=== PATIENT | female | born 1965 | race Caucasian/White ===

== ENCOUNTER → 2018-07-02 | Outpatient (CLI) | payer OTHER ==
[2018-07-02 14:01] VITALS: BP 127/86; PULSE 106; RESP 18
--- NOTE | 2018-07-02 14:08 | P.CONS ---
History of Present Illness - Reason for Consult Consult date: 07/02/18 - Chief Complaint Lower back pain - History of Present Illness This is a 53-year-old lady with history of chronic lower back pain with radiation to the knees bilaterally. The patient denies any bowel or bladder dysfunction or any paresthesia in the lower extremities. This pain gets worse by walking and improves by lying down and using [place] once or twice a day. Her MRI showed severe disc desiccation in all the lumbar levels. The patient uses tobacco but she denies using any marijuana however she does have history of using marijuana in the past. Review of Systems Cardiovascular: Denies chest pain, Denies shortness of breath Respiratory: Reports cough with sputum Musculoskeletal: Reports as per HPI Past Medical History Smoking Status: Current every day smoker Medications and Allergies Home Medications Medication Instructions Recorded Confirmed Type ARIPiprazole [Abilify] 1 mg PO DAILY 07/02/18 07/02/18 History Cetirizine HCl 1 tab PO DIRECTED 07/02/18 07/02/18 History Cyclobenzaprine [Flexeril] 1 tab PO TID 07/02/18 07/02/18 History Hydrocodone/Acetaminophen [Lorcet 1 tab PO DAILY 07/02/18 07/02/18 History Plus 7.5-325 mg Tablet] Ibuprofen [Motrin] 1 tab PO TID 07/02/18 07/02/18 History PARoxetine HCL [Paxil] 1 tab PO DAILY 07/02/18 07/02/18 History Allergies Allergy/AdvReac Type Severity Reaction Status Date / Time risperidone AdvReac Dyspnea Verified 07/02/18 13:40 Physical Exam Vitals: Vital Signs Pulse Resp BP Pulse Ox 07/02/18 13:48 106 H 18 127/86 94 L Intake and Output 07/01/18 07/02/18 07/02/18 22:59 06:59 14:59 Other: Weight 86.183 kg - Constitutional General appearance: obese - EENT Eyes: PERRLA - Respiratory Respiratory: bilateral: CTA - Cardiovascular Rhythm: regular - Neurologic Neuro exam of the lower extremities showed normal and symmetrical muscle strength and normal knee reflexes. Decreased but symmetrical ankle reflexes. Straight leg raising test negative bilaterally. She has tenderness in the lumbar paravertebral area bilaterally. Facet loading test is positive Neurologic: CNII-XII intact - Psychiatric Psychiatric: A&O x's 3, appropriate affect, intact judgment & insight Assessment and Plan Plan: This is a 53-year-old lady with severe degree of lumbar disc desiccation and I'll the lumbar levels. The patient may benefit from getting a diagnostic lumbar medial branch block under fluoroscopic guidance and RFA in the future. The patient is encouraged to continue trying to quit tobacco usage. I'll give her prescription for [place] 7.5 mg twice a day I will give her 60 pills for 1 month. The procedure mentioned above was explained to the patient and her questions were answered. The patient understands that we'll not be able to prescribe V[place] for her for more than 1 or 2 months. The patient may need to be referred to Dr. Zimmer for this issue. I thank you for the consultation
== END ==
LOC: PNWHC3 12:20
PROVIDERS: ATTEND Anesthesiology
DX: M51.36 Other intervertebral disc degeneration, lumbar region (principal); Z79.891 Long term (current) use of opiate analgesic; Z79.899 Other long term (current) drug therapy; Z79.1 Long term (current) use of non-steroidal anti-inflammatories (NSAID); Z88.8 Allergy status to other drugs, medicaments and biological substances
CPT/HCPCS: 99201

== ENCOUNTER 2018-07-10 06:21 | Day surgery (SDC) | payer OTHER ==
[2018-07-08 10:54] VITALS: BMI 29.7
[~2018-07-10 06:21] MED LIST: LACTATED RINGERS 1,000 ML IV SCH
[2018-07-10 06:53] VITALS: TEMP 97.1
[2018-07-10] MEDS ORDERED: LIDOCAINE 1% 20 ML VIAL (10MG/ML) FOR IV START INTRADERMA ONE (07:00)
--- NOTE | 2018-07-10 07:54 | P.PCN ---
Date of Procedure: 07/10/18 Procedure(s) Performed: PREOPERATIVE DIAGNOSIS : 1- Lumbar spondylosis with Facet Arthropathy without myelopathy . 2- Lumber degenerative disc disease POSTOPERATIVE DIAGNOSIS: 1- Lumbar spondylosis with Facet Arthropathy without myelopathy . 2- Lumber degenerative disc disease PROCEDURE: Diagnostic bilateral L3 -4 , L4 -5 , and L5-S1 medial branch block under fluoroscopy #1ST ANESTHESIA: Local with Ropivacain 0.5 % 6 ml , moderate sedation with intravenous Versed 2 mg and Fentanyl 100 mcg. EBL: Minimal COMPLICATION: None. IV FLUIDS: 100 mL of normal saline. PROCEDURE INDICATION: Chronic low back pain secondary to Facet arthropathy unresponsive to conservative treatment. PROCEDURE DESCRIPTION: the patient was seen and identified in the preop holding area , risks and benefits and possible complications of the procedure and alternative were discussed with the patient, and the patient agreed to proceed with the procedure and signed the consent IV was started and vital signs monitored during the procedure and fluoroscopy was used to maximize the benefit and accuracy of the needle placement, and sedation was given to decrease patient anxiety, patient was taken to the procedure room and placed in prone position vital signs monitored in the back prepped with chlorhexidine X3 then under strict sterile technique using a right oblique fluoroscopy ,the junction of the transverse process and the superior articulating process of the right L3- 4 , L4- 5, and L5-S1 vertebra which corresponding to the fluoroscopy image of the eye of the Wilfrid dog on the block side for the medial branches and subsequently , after local infiltration of skin and subcu tissuies with Ropivacaine 0.5 % , one mL at each level ,then 22-gauge Quincke-type needles , 3 needle was used , each one of them placed at the junction of the base of the transverse process and the superior articular process at the appropriate level, and the needle was advanced until the periosteum contacted, needle placement confirmed with AP oblique and lateral view and after appropriate needle placement confirmed, and after negative aspiration for heme and CSF and there was no paresthesia 1-1/2 mL of Ropivacaine 0.5% mixed with 40 mg Depo-Medrol ,, then half mL injected at each level after negative aspiration the needle subsequently removed and the same procedure repeated for the left side at left side at L3-4, L4- 5 and L5-S1 levels. At the end of the procedure and the needles removed and a bandage applied after the skin was cleaned the cleaning solution patient taken to recovery room in stable condition and monitors in the recovery room for 20-30 minutes and discharged home in stable condition after discharge criteria met and patient will follow up with the pain clinic in 2-4 weeks
[2018-07-10] MEDS ORDERED: IV FLUID CONTINUATION 1,000 ML IV ONE (07:55)
[2018-07-10 08:05] VITALS: RESP 16
[2018-07-10 08:11] VITALS: BP 115/81; PULSE 100
--- NOTE | 2018-07-10 08:12 | FL ---
Fluoroscopy History: bilateral lumbar facet blks bilateral lumbar facet blks. Dr Ross. 10 sec fl time. 4 pics scanned
== END 2018-07-10 08:20 | disposition home or self-care (01) ==
LOC: ORPAIN 06:21
PROVIDERS: ATTEND Specialist
DX: G89.29 Other chronic pain (principal); M47.816 Spondylosis without myelopathy or radiculopathy, lumbar region; M51.36 Other intervertebral disc degeneration, lumbar region; Z88.8 Allergy status to other drugs, medicaments and biological substances
CPT/HCPCS: 64493; 64494; 64495; J2250; J1030; J3010; 99152

== ENCOUNTER 2018-07-24 07:21 | Day surgery (SDC) | payer OTHER ==
[2018-07-24 07:46] VITALS: TEMP 97
[2018-07-24] MEDS ORDERED: LIDOCAINE 1% 20 ML VIAL (10MG/ML) FOR IV START INTRADERMA ONE (07:48)
--- NOTE | 2018-07-24 08:16 | P.PCN ---
Date of Procedure: 07/24/18 Surgeon: Manuel Mcclain Pathology: none sent Condition: stable Disposition: PACU Description of Procedure: PREOPERATIVE DIAGNOSIS : 1- Lumbar spondylosis with Facet Arthropathy without myelopathy . 2- Lumber degenerative disc disease POSTOPERATIVE DIAGNOSIS: 1- Lumbar spondylosis with Facet Arthropathy without myelopathy . 2- Lumber degenerative disc disease PROCEDURE: Diagnostic bilateral L3 -4 , L4 -5 , and L5-S1 medial branch block under fluoroscopy ANESTHESIA: Local with 1% lidocaine; IV moderate conscious sedation with Versed 2 mg . EBL: Negligible COMPLICATION: None. PROCEDURE INDICATION: Chronic low back pain secondary to Facet arthropathy unresponsive to conservative treatment. PROCEDURE DESCRIPTION: the patient was seen and identified in the preop holding area , risks and benefits and possible complications of the procedure and alternatives were discussed with the patient, and the patient agreed to proceed with the procedure and signed the consent. IV was started and vital signs monitored during the procedure and fluoroscopy was used to maximize the benefit and accuracy of the needle placement, sedation was given to decrease patient anxiety, patient was taken to the procedure room and placed in prone position vital signs monitored. The patient was brought into the procedure room and placed in prone position. Skin was prepped with Chloraprep and draped in a sterile manner. Lidocaine 1% was used to numb the skin up at the target points that were chosen as follows: at the L5-S1 level which corresponds to the dorsal ramus of L5 the target points were at the superior medial aspect of the sacral ala on each side of the spine on the AP view of fluoroscopy, and for the L3 and L4 medial branches the target points were the connection between the transverse process and the superior to go process of L4 and L5 respectively on the oblique views of fluoroscopy. I used 22-gauge 3-1/2 inch Quincke spinal needles for this procedure and after contacting bone at the target points mentioned above I injected 1 mL of a mixture of Kenalog 40 mg +5 MLS of Marcaine 0.5% PF . Patient tolerated procedure well. At the end of the procedure the needles removed and a bandage applied after the skin was cleaned the cleaning solution. patient was then taken to the recovery room in stable condition and monitored in the recovery room for 20-30 minutes and discharged home in stable condition after discharge criteria met .
[2018-07-24] MEDS ORDERED: IV FLUID CONTINUATION 1,000 ML IV ONE (08:20)
[2018-07-24 08:24] VITALS: RESP 16
[2018-07-24 08:38] VITALS: BP 118/75; PULSE 97
--- NOTE | 2018-07-24 08:42 | FL ---
Fluoroscopy INDICATION: Pain FINDINGS: Fluoroscopy time: 9 seconds. Images obtained: 3. IMPRESSIONS: 1. Documentation of fluoroscopy.
== END 2018-07-24 08:48 | disposition home or self-care (01) ==
LOC: ORPAIN 07:21
PROVIDERS: ATTEND Anesthesiology
DX: G89.29 Other chronic pain (principal); M47.26 Other spondylosis with radiculopathy, lumbar region; M51.36 Other intervertebral disc degeneration, lumbar region; Z79.891 Long term (current) use of opiate analgesic; Z79.1 Long term (current) use of non-steroidal anti-inflammatories (NSAID); Z79.899 Other long term (current) drug therapy; F17.200 Nicotine dependence, unspecified, uncomplicated; Z88.8 Allergy status to other drugs, medicaments and biological substances
CPT/HCPCS: 64493; 64494; 64495; J2250; J3301; J3010; 99152

== ENCOUNTER → 2018-07-28 | Outpatient (CLI) | payer OTHER ==
[2018-07-28 12:29] VITALS: BP 130/84; PULSE 120; RESP 160
--- NOTE | 2018-07-28 12:52 | P.PAINPG ---
Subjective Progress Note Date: 07/28/18 This is a follow-up visit for this 53 years old female with a history of severe low back pain she is diagnosed with lumbar degenerative disc disease and lumbar spondylosis with lumbar facet arthropathy, recently we have done diagnostic medial branch block lumbar area at L3 4, L4 5, L5-S1 x2 and she reported that her pain before the first diagnostic medial branch block was 6-7/10 dropped to 0/10 after the block, and the pain relief was for 2-3 days, she can the same result after the second diagnostic medial branch block, patient reported that she was able to function more during those 2-3 days after the diagnostic block, she continued to use Goodman 7.5/325 every 8 hours when necessary, she denies any side effect of the medication, she denies any excessive drowsiness and sleepiness, she denies any suicidal ideation, no fever or night sweats and no change in bowel movement or urination Objective - Vital Signs Vital signs: Vital Signs Temp Pulse 120 H 07/28/18 12:16 Resp 160 H 07/28/18 12:16 BP 130/84 07/28/18 12:16 Pulse Ox Intake & Output 07/27/18 07/28/18 07/28/18 18:59 06:59 18:59 Weight 92.533 kg - Exam Physical Examinations : -Constitutiona : Cooperative , not in acute distress . -HEENT : nech ; supple , no Lymphadenopathy , normal thyroid size . eyes : no ptosis , no icterus, no photophobia . ENT : normal of hearing , normal oropharynx , no Thrush . - Respiratory : Chest clear to auscultations Bilaterally , no wheezing , no Rhonchi . - Cardiovascula : regular rate and rhythem , S1 , S2 , no S3 , no S4. - Gastrointestina : abdomen soft no tenderness , bowel sounds , no organomegally . - Genitourinary : Defferred . - neurologic : Cranial nerve II to XII intact , no focal neurological deffecit . -psychatric : alert , oriented X 3 , appropriate affect , intact judgment and insight . -Lymphatic : no Lymphadenopathy . - musculoskeltal : Lumber spine moter stegnth lower extremities ,thigh and legs 5/5 Right side , 5/5 Left side deep tendon reflexes : normal Knee Jerk , normal ankle Jerk positive lumber facet Loading Test Range of motion of the lumbar spine Flexion 30 degrees, extension 10 degrees strait leg raising test , positive at 60 degree Fabere test negative bilaterally Assessment and Plan Plan: Assessment and plan= chronic low back pain secondary to lumbar degenerative disc disease , lumbar spondylosis with lumbar facet arthropathy . chronic and current use of high-risk medication (opioids) Patient denies any side effects of the current pain medication and the current treatment/medication helping the patient to do activity of daily living , Diagnoses, prognosis, treatment options, including but not limited to physical therapy, medication management, interventional therapies, and surgery, were discussed with the patient All the questions answered The narcotic consent was signed and patient agreed and understood the side effects and complications of opioid treatment. Patient signed the narcotic agreement, and was orally counseled, not to overuse, not to abuse, not to Divert , not tp sell pain medication, and to take it as prescribed only, Patient was counseled not to drive or operate heavy equipment while using narcotic medication, and advised not to use alcohol or any Illicit drugs while using the narcotis. understanding that lack of compliance with any of the above instructions, will likely to cause discharge from, the pain service, not to renew his narcotic prescriptions Patient had positive result after the diagnostic medial branch block, she will be good candidate for radiofrequency ablation of the medial branch lumbar area L34,L45, L5S1 Will do the left side first ,and we'll do the right side later MAPS Reviwed and it was apropriate . Medication managements= patient will be given prescription refills for Goodman 7.5/325 every 8 hours dispense 60 with 1 refill. Urine drug screen ordered today , Time with Patient: Less than 30 PQRS Measure Charge Sheet Measure #130: Documentation of Current Meds in Medical Chart: Patient's medications documented in chart Measure #226: Tobacco Use: Screen & Cessation Intervention: Pt not a tobacco user Measure #111: Pneumonia Vaccination: Pneumococcal vaccine NOT administered or previously given Measure #47: Advance Care Plan: Advance care planning discussed & documented, pt chose/unable to give Measure #412: Opioid Treatment Agreement: Documented signed opioid trtmnt agreemnt min once during opioid trtmnt Measure #408: Opioid Therapy Follow-up Evaluation: Patient had f/u eval minimum every 3 months during opioid therapy Measure #317: Preventitive Care & Scrn High Bld Press & F/U: Normal blood pressure, f/u not required Measure #128: Body Mass Index (BMI) Screening & Follow-up: BMI documented ABOVE normal parameters - f/u documented Measure #131: Pain Assessment & Follow-up: Pain positive & plan documented, Follow-up scheduled Measure #431: Unhealthy Alcohol Use Preventative Care & Scrn: Patient not identified as an unhealthy alcohol user PQRS Narrative: Smoking Status Current every day smoker Blood Pressure 130/84 Pain Intensity [Lower Back] 6 Scale Used Numeric (1 - 10) Hx Alcohol Use (MH) No Home Medications: Ambulatory Orders ARIPiprazole [Abilify] 5 mg PO DAILY 07/02/18 Cetirizine HCl 10 mg PO DAILY PRN 07/02/18 Cyclobenzaprine [Flexeril] 10 mg PO TID 07/02/18 Hydrocodone/Acetaminophen [Lorcet Plus 7.5-325 mg Tablet] 2 tab PO BID 07/02/18 Ibuprofen [Motrin] 800 mg PO TID 07/02/18 PARoxetine HCL [Paxil] 40 mg PO DAILY 07/02/18 Albuterol Inhaler [Ventolin Hfa Inhaler] 1 - 2 puff INHALATION RT-Q6H PRN 07/22/18 Controlled Substance Measures - Controlled Substance Measures Is patient prescribed a controlled substance at discharge?: Yes When asked, does pt state using other controlled substances?: No If prescribed controlled substance>3 days was MAPS reviewed?: Yes If Rx opioid, was Start Talking consent form obtained?: Yes If opioid is for acute pain is fill amount 7 days or less?: No Was information provided regarding opioid addiction?: Yes
== END | disposition home or self-care (01) ==
LOC: PNWHC3 12:04
PROVIDERS: ATTEND Specialist
DX: G89.29 Other chronic pain (principal); M51.36 Other intervertebral disc degeneration, lumbar region; M47.816 Spondylosis without myelopathy or radiculopathy, lumbar region; M46.96 Unspecified inflammatory spondylopathy, lumbar region; F17.200 Nicotine dependence, unspecified, uncomplicated; Z79.891 Long term (current) use of opiate analgesic
CPT/HCPCS: 80307; G0482; G0463; 99211

== ENCOUNTER 2018-08-26 09:05 | Day surgery (SDC) | payer OTHER ==
[2018-08-22 11:04] VITALS: BMI 31.9
[2018-08-26 09:46] VITALS: RESP 16; TEMP 97.7
[2018-08-26] MEDS ORDERED: LACTATED RINGERS 1,000 ML IV ONE ×2 (09:48)
[2018-08-26] MEDS ORDERED: LIDOCAINE 1% 20 ML VIAL (10MG/ML) FOR IV START SQ ONE (09:54)
--- NOTE | 2018-08-26 10:14 | P.PCN ---
Date of Procedure: 08/26/18 Description of Procedure: PREOPERATIVE DIAGNOSIS: Lumbar Facet Arthropathy. POSTOPERATIVE DIAGNOSIS: Lumbar Facet Arthropathy. PROCEDURES: LEFT Radiofrequency thermocoagulation of L3-4, L4-5, L5-S1 medial branches, with fluoroscopic guidance ANESTHESIA: IV sedation with versed and fentanyl and local infiltration with lidocaine 1% 10 ml PROCEDURE INDICATION: The patient with low back pain secondary to lumbar facet arthropathy who had more than 50% relief of pain with previous diagnostic lumbar medial branch block with local anesthetic. PROCEDURE DESCRIPTION / TECHNIQUE: The patient was seen and identified in the preoperative area. Risks, benefits, complications, including but not limited to risk of infection ,bleeding , allergic reactions to the medications and no complete pain relief , and alternatives were discussed with the patient, the patient agreed to proceed with the procedure and signed the consent. IV was started. Vital signs remained stable throughout the procedure. Patient was taken to the OR and time out was completed. The patient was placed in the prone position on the procedure table. The lumber area was prepped and draped in the usual sterile fashion. Vital signs were closely monitored during the procedure. IV sedation was used during the procedure to decrease patient anxiety. Using AP and then oblique fluoroscopy, the eye of the Wilfrid dog corresponding to the connection between the superior and transverse articular processes of L4, L5, and sacral delaney were identified, marked, and localized with 1% lidocaine. Subsequently, a 20 [id number] radiofrequency cannula with a 10-mm active tip was advanced guided by fluoroscopy to the junction of the pedicle and transverse process of each identified level. Each site then underwent sensory testing at 50 Hz and 0 to 1 volt and motor testing at 2.5 Hz and 0 to 3 volt with local stimulation, no radicular symptoms sensed by the patient and no obvious motor stimulation noted. Thereafter the tested sites underwent radiofrequency thermocoagulation at 80 degrees celsius for 90 seconds after injecting 1 ml of PF lidocaine 1%. Then after the thermocoagulation was done, 1 ml of the block solution containing ropivaciane 0.5% was injected at the lesioned sites after negative aspiration of CSF and blood and with no paresthesias. Cannulas were retracted. At the end of the procedure, the skin was cleansed and bandages were applied. COMPLICATIONS: No acute complications. DISPOSITION / PLANS: The patient was placed in a supine position and trans ferred to the recovery area in a stable condition for observation and was discharged from the recovery room after meeting discharge criteria. Home discharge instructions given to the patient by the staff. The patient was reexamined prior to discharge. We'll repeat a second side in 2-3 weeks.
[2018-08-26] MEDS ORDERED: IV FLUID CONTINUATION 1,000 ML IV ONE (10:44)
[2018-08-26 11:16] VITALS: BP 105/73; PULSE 100
--- NOTE | 2018-08-26 11:39 | FL ---
EXAMINATION TYPE: FL guided pain mgmt statistic DATE OF EXAM: 08/26/2018 CLINICAL HISTORY: Low back pain. TECHNIQUE: Fluoroscopy. COMPARISON: None. FINDINGS: Fluoroscopic guidance was provided during pain relief procedure performed by Dr. Ragsdale . A total of 20 seconds of fluoroscopic time was utilized during the procedure and two spot images ar e acquired. Images acquired shows needle localization localization at multiple levels in the lumbosac ral spine. IMPRESSION: As Above.
== END 2018-08-26 11:27 | disposition home or self-care (01) ==
LOC: ORPAIN 09:05
PROVIDERS: ATTEND Hospitalist
DX: M47.816 Spondylosis without myelopathy or radiculopathy, lumbar region (principal); Z88.8 Allergy status to other drugs, medicaments and biological substances
CPT/HCPCS: 64635; 64636 ×2; J2250; J2001; 99152

== ENCOUNTER 2018-09-09 07:18 | Day surgery (SDC) | payer OTHER ==
[2018-09-03 12:29] VITALS: BMI 32.8
[2018-09-09 07:38] VITALS: RESP 18; TEMP 96.4
[2018-09-09] MEDS ORDERED: LIDOCAINE 1% 20 ML VIAL (10MG/ML) FOR IV START INTRADERMA ONE (07:48)
--- NOTE | 2018-09-09 08:52 | P.PCN ---
Date of Procedure: 09/09/18 Procedure(s) Performed: PREOPERATIVE DIAGNOSIS: 1-Lumbar Spondylosis with Facet Arthropathy without myelopathy. 2- Lumber degenerative disc disease POSTOPERATIVE DIAGNOSIS: 1- Lumbar Spondylosis with Facet Arthropathy without myelopathy. 2- Lumber degenerative disc disease PROCEDURES : Right Radiofrequency thermocoagulation, L3-L4, L4-L5, and L5-S1 medial branch, with fluoroscopic guidance ANESTHESIA: Moderate sedation with intravenous versed 2 mg and fentaneyl 100 mcg, and local infiltration with Ropivacaine 0.5 % . EBL: Minimal PROCEDURE INDICATION: The patient with low back pain secondary to lumbar facet arthropathy who had more than 50% relief of her pain with previous diagnostic lumbar medial branch block with bupivacaine. PROCEDURE DESCRIPTION / TECHNIQUE: The patient was seen and identified in the preoperative area. Risks, benefits, complications, including but not limited to risk of infection ,bleeding , allergic reactions to the medications and no complete pain releife , and alternatives were discussed with the patient, the patient agreed to proceed with the procedure and signed the consent. IV was started. Vital signs remained stable throughout the procedure. Patient was taken to the OR and time out was completed. The patient was placed in the prone position on the procedure table. The lumber area was prepped and draped in the usual sterile fashion. . Vital signs were closely monitored during the procedure .IV sedation was used during the procedure to decrease patients anxiety. Using AP and then oblique fluoroscopy, the ``eye of the Wilfrid dog corresponding to the connection between the superior and transverse articular processes of right L3, L4, and L5 were identified, marked, and localized with 1% lidocaine. Subsequently, a 18 [id number] radiofrequency cannula with a 10- mm active tip was advanced guided by fluoroscopy to each of the``eyes of the Wilfrid dog at right L3, L4, and L5. Each site then underwent sensory testing at 50 Hz and 0 to 1 volt and motor testing at 2.5 Hz and 0 to 3 volt with local stimulation, but no radicular symptoms down the legs. Thereafter the right L3-4, L4-5, and L5-S1 sites underwent radiofrequency thermocoagulation at 80 degrees celsius for 90 seconds after injecting 0.5 ml of PF Ropivacaine 1ml, then after the thermocoagulation done , 1 ml of the block solution containing 3 ml of Ropivacaine 0.5% was injected at the right L3-4 , L4-5 , and L5-S1, levels after negative aspiration of CSF and blood and with no paresthesias. Cannulas were retracted while injecting lidocaine 1% until the needle is out. At the end of the procedure, the skin was cleansed and bandages were applied. COMPLICATIONS: No acute complications. DISPOSITION / PLANS: The patient was placed in a supine position and transferred to the recovery area in a stable condition for observation and was discharged from the recovery room after meeting discharge criteria. Home discharge instructions given to the patient by the staff. The patient was reexamined prior to discharge. The patient will schedule a follow up in the clinic in 2-4 weeks. No steroid was used for the procedure today.
[2018-09-09] MEDS ORDERED: IV FLUID CONTINUATION 1,000 ML IV ONE (08:56)
[2018-09-09 09:20] VITALS: BP 107/78; PULSE 78
--- NOTE | 2018-09-09 10:27 | FL ---
Fluoroscopy HISTORY: Pain 12 seconds fluoroscopy time supplied to the referring clinician. 3 intraoperative C-arm images docum ent the procedure. See dictated report from anesthesia.
== END 2018-09-09 09:28 | disposition home or self-care (01) ==
LOC: ORPAIN 07:18
PROVIDERS: ATTEND Specialist
DX: M47.816 Spondylosis without myelopathy or radiculopathy, lumbar region (principal); M51.36 Other intervertebral disc degeneration, lumbar region; Z88.8 Allergy status to other drugs, medicaments and biological substances
CPT/HCPCS: 64635; 64636 ×2; J2250; J3010; 99152

== ENCOUNTER 2018-10-07 07:18 | Day surgery (SDC) | payer OTHER ==
[2018-10-06 09:37] VITALS: BMI 31.8
[2018-10-07 07:59] VITALS: RESP 16; TEMP 97.2
[2018-10-07] MEDS ORDERED: LIDOCAINE 1% 20 ML VIAL (10MG/ML) FOR IV START INTRADERMA ONE (08:03)
[2018-10-07] MEDS ORDERED: LACTATED RINGERS 1,000 ML IV ONE (08:03)
--- NOTE | 2018-10-07 08:44 | P.PCN ---
Date of Procedure: 10/07/18 Procedure(s) Performed: PREOPERATIVE DIAGNOSIS : Lumbar spondylosis with Facet Arthropathy without myelopathy POSTOPERATIVE DIAGNOSIS: same PROCEDURE: Diagnostic lumbar medial branch block with fluoroscopy at L1, L 2, L3 bilateral #1 [for facet joints L1-2 and L2-3] ANESTHESIA: Local anesthetic; Versed 1 mg Surgeon: Mya Gee MD PROCEDURE INDICATION: Lumbar back pain without radiculopathy, not responsive to conservative management. PROCEDURE DESCRIPTION: the patient was seen and identified in the preop holding area , risks and benefits and possible complications of the procedure and alternatives were discussed with the patient, and the patient agreed to proceed with the procedure and signed the consent . IV was started , vital signs were monitored during the procedure and fluoroscopy was used to maximize the benefit and accuracy of the needle placement, and sedation was given to decrease patient anxiety. Patient was taken to the procedure room and placed in prone position. The lumbar region was prepped using chlorhexidine 2. Under strict sterile technique, using ipsilateral oblique fluoroscopy ,the junction of the transverse process and the superior articulating process of the L1, L2, L3 vertebra which corresponds to the fluoroscopy image of the eye of the Wilfrid dog for the medial branches were identified. Subsequently, after local infiltration of skin with lidocaine 1% 0.2 mL at each level , a 25-gauge 3.5" Quincke-type needle was placed at the junction of the base of the transverse process and the superior articular process at the appropriate level as well as the sacral ala, and the needle was advanced until the periosteum contacted, needle placement confirmed with AP and oblique fluoroscopy, 0.2 mL of Isovue 200 per level was injected which revealed no vascular uptake and after negative aspiration, 0.5 mL of ropivacaine 0.5% was injected at each level and the needle subsequently removed . At the end of the procedure and the needles were removed and a bandage applied after the skin was cleaned. The patient was taken to recovery room in stable condition and monitors in the recovery room for 20-30 minutes and discharged home in stable condition after discharge criteria met and patient will follow up for repeat procedure in 2 weeks EBL: Minimal COMPLICATION: None.
[2018-10-07] MEDS ORDERED: IV FLUID CONTINUATION 1,000 ML IV ONE (08:45)
[2018-10-07 09:02] VITALS: BP 101/70; PULSE 101
--- NOTE | 2018-10-07 09:06 | FL ---
EXAMINATION TYPE: FL guided pain mgmt statistic DATE OF EXAM: 10/07/2018 CLINICAL HISTORY: Low back pain. TECHNIQUE: Fluoroscopy. COMPARISON: None. FINDINGS: Fluoroscopic guidance was provided during pain relief procedure performed by Dr. Gee . A total of 48 seconds of fluoroscopic time was utilized during the procedure and 4 spot images are acqu ired. Images acquired shows needle localization with injection at multiple levels in the lumbar spin e. IMPRESSION: As Above.
[2018-10-07] MEDS ORDERED: LACTATED RINGERS 1,000 ML IV SCH (09:15)
== END 2018-10-07 09:08 | disposition home or self-care (01) ==
LOC: ORPAIN 07:18
PROVIDERS: ATTEND Anesthesiology
DX: M47.816 Spondylosis without myelopathy or radiculopathy, lumbar region (principal); F17.200 Nicotine dependence, unspecified, uncomplicated; Z79.1 Long term (current) use of non-steroidal anti-inflammatories (NSAID); Z79.891 Long term (current) use of opiate analgesic; Z79.899 Other long term (current) drug therapy; Z78.0 Asymptomatic menopausal state
CPT/HCPCS: 64493; 64494; J2250; Q9966; 99152

== ENCOUNTER 2018-10-21 07:22 | Day surgery (SDC) | payer OTHER ==
[2018-10-16 10:39] VITALS: BMI 32.1
[2018-10-21] MEDS ORDERED: LIDOCAINE 1% 20 ML VIAL (10MG/ML) FOR IV START INTRADERMA ONE (07:55)
[2018-10-21 08:04] VITALS: PULSE 99; RESP 18; TEMP 978
--- NOTE | 2018-10-21 08:48 | P.PCN ---
Date of Procedure: 10/21/18 Surgeon: Manuel Mcclain Pathology: none sent Condition: stable Disposition: PACU Description of Procedure: PREOPERATIVE DIAGNOSIS : Lumbar spondylosis with Facet Arthropathy without myelopathy POSTOPERATIVE DIAGNOSIS: same PROCEDURE: Diagnostic lumbar medial branch block with fluoroscopy at L1, L 2, L3 bilateral #2 [for facet joints L1-2 and L2-3] ANESTHESIA: Local anesthetic; Versed 1 mg Surgeon: Manuel Mcclain MD PROCEDURE INDICATION: Lumbar back pain without radiculopathy, not responsive to conservative management. PROCEDURE DESCRIPTION: the patient was seen and identified in the preop holding area , risks and benefits and possible complications of the procedure and alternatives were discussed with the patient, and the patient agreed to proceed with the procedure and signed the consent . IV was started , vital signs were monitored during the procedure and fluoroscopy was used to maximize the benefit and accuracy of the needle placement, and sedation was given to decrease patient anxiety. Patient was taken to the procedure room and placed in prone position. The lumbar region was prepped using chlorhexidine 2. Under strict sterile technique, using ipsilateral oblique fluoroscopy ,the junction of the transverse process and the superior articulating process of the L1, L2, L3 vertebra which corresponds to the fluoroscopy image of the eye of the Wilfrid dog for the medial branches were identified. Subsequently, after local infiltration of skin with lidocaine 1% 0.5 mL at each level , a 22 gauge 3.5" Quincke-type needle was placed at the junction of the base of the transverse process and the superior articular process at the appropriate level as well as the sacral ala, and the needle was advanced until the periosteum contacted, needle placement confirmed with AP and oblique fluoroscopy, after negative aspiration, 1 mL of a solution made up of 5 MLS of ropivacaine 0.5% and 40 mg of Kenalog was injected at each level and the needle subsequently removed . At the end of the procedure and the needles were removed and a bandage applied after the skin was cleaned. The patient was taken to recovery room in stable condition and monitors in the recovery room for 20-30 minutes and discharged home in stable condition after discharge criteria met and patient will follow up for repeat procedure in 2 weeks EBL: Minimal COMPLICATION: None.
[2018-10-21] MEDS ORDERED: IV FLUID CONTINUATION 1,000 ML IV ONE (08:50)
[2018-10-21 09:22] VITALS: BP 107/78
--- NOTE | 2018-10-21 09:59 | FL ---
Fluoroscopy HISTORY: Pain 7 seconds fluoroscopy time supplied to the referring clinician. 3 intraoperative C-arm images docume nt the procedure. See dictated report from anesthesia.
== END 2018-10-21 09:26 | disposition home or self-care (01) ==
LOC: ORPAIN 07:22
PROVIDERS: ATTEND Anesthesiology
DX: G89.29 Other chronic pain (principal); M47.816 Spondylosis without myelopathy or radiculopathy, lumbar region; M51.36 Other intervertebral disc degeneration, lumbar region; J44.9 Chronic obstructive pulmonary disease, unspecified; E66.9 Obesity, unspecified; F17.200 Nicotine dependence, unspecified, uncomplicated; Z79.891 Long term (current) use of opiate analgesic; Z79.1 Long term (current) use of non-steroidal anti-inflammatories (NSAID); Z79.899 Other long term (current) drug therapy; Z78.0 Asymptomatic menopausal state; Z88.8 Allergy status to other drugs, medicaments and biological substances; Z68.32 Body mass index [BMI] 32.0-32.9, adult
CPT/HCPCS: 64493; 64494; J2250; J3301; 99152

== ENCOUNTER → 2018-11-03 | Outpatient (CLI) | payer OTHER ==
[2018-11-03 14:23] VITALS: BP 100/68; PULSE 111; RESP 16
--- NOTE | 2018-11-05 15:52 | P.PAINPG ---
Subjective Progress Note Date: 11/03/18 This is a follow-up visit for this 53 years old female with a history of severe low back pain she is diagnosed with lumbar degenerative disc disease and lumbar spondylosis with lumbar facet arthropathy, recently we have done medial branch blocks at L1, L2, L3 bilaterally on 10/07/2018 and 10/21/2018. She reports 100% relief of pain for the first 2-3 days following each procedure. She is interested in pursuing radiofrequency ablation. She would like to start with the left side first. She continues to use [place] 7.5/325 twice a day with benefit. She does not report any side effects. Review of systems is negative for chest pain, shortness of breath, new onset weakness, numbness/tingling, abdominal pain, malaise, fever, night sweats, chills, homicidal or suicidal ideation, or bowel or bladder incontinence. Objective - Vital Signs Reviewed in EMR - Exam Physical Examinations : -Constitutiona : Cooperative , not in acute distress . -HEENT : neck supple , eyes : no ptosis , no icterus, no photophobia . ENT : normal of hearing . - Respiratory : Nonlabored breathing no wheezing - Cardiovascula : No pedal edema - Gastrointestina : abdomen nondistended. - Genitourinary : Defferred . - neurologic : no focal neurological defecit . -psychatric : alert , oriented, appropriate affect , intact judgment and insight . -Lymphatic : no Lymphadenopathy . - musculoskeltal : Lumbar spine tenderness along paraspinal musculature bilaterally motor strength lower extremities ,thigh and legs 5/5 Right side , 5/5 Left side deep tendon reflexes : Intact in bilateral lower extremities positive lumber facet Loading Test bilaterally Straight leg raising test , negative Jed test negative bilaterally Assessment and Plan Assessment and plan= chronic low back pain secondary to lumbar degenerative disc disease , lumbar spondylosis with lumbar facet arthropathy . chronic and current use of high-risk medication (opioids) Patient denies any side effects of the current pain medication and the current treatment/medication helping the patient to do activity of daily living , Diagnoses, prognosis, treatment options, including but not limited to physical therapy, medication management, interventional therapies, and surgery, were discussed with the patient All the questions answered Patient has signed narcotic consent has been signed in the past and patient agreed and understood the side effects and complications of opioid treatment. She has been orally counseled, not to overuse, not to abuse, not to Divert , not tp sell pain medication, and to take it as prescribed only, MAPS Reviwed and it was apropriate . Medication managements= no prescriptions given today Procedures: We'll schedule of sided L1, L2, L3 medial branch radio frequency ablation Patient to begin physical therapy following RFA, she had he has a prescription. Follow-up: For above-mentioned procedure Objective - Vital Signs Vital signs: Vital Signs Temp Pulse 111 H 11/03/18 14:17 Resp 16 11/03/18 14:17 BP 100/68 11/03/18 14:17 Pulse Ox 95 11/03/18 14:17 PQRS Measure Charge Sheet Measure #130: Documentation of Current Meds in Medical Chart: Patient's medications documented in chart Measure #226: Tobacco Use: Screen & Cessation Intervention: Pt screened for tobacco use AND intervention given Measure #111: Pneumonia Vaccination: Pneumococcal vaccine NOT administered or previously given Measure #47: Advance Care Plan: Advance care planning discussed & documented, pt chose/unable to give Measure #412: Opioid Treatment Agreement: Documented signed opioid trtmnt agreemnt min once during opioid trtmnt Measure #408: Opioid Therapy Follow-up Evaluation: Patient had f/u eval minimum every 3 months during opioid therapy Measure #317: Preventitive Care & Scrn High Bld Press & F/U: Normal blood pressure, f/u not required Measure #128: Body Mass Index (BMI) Screening & Follow-up: BMI documented ABOVE normal parameters - f/u documented Measure #131: Pain Assessment & Follow-up: Pain positive & plan documented, Follow-up scheduled Measure #431: Unhealthy Alcohol Use Preventative Care & Scrn: Patient not identified as an unhealthy alcohol user PQRS Narrative: Smoking Status Current every day smoker Blood Pressure 100/68 Pain Intensity [Bilateral 6 Lower Back] Scale Used Numeric (1 - 10) Hx Alcohol Use (MH) No Home Medications: Ambulatory Orders ARIPiprazole [Abilify] 5 mg PO HS 07/02/18 Cetirizine HCl 10 mg PO DAILY PRN 07/02/18 Cyclobenzaprine [Flexeril] 10 mg PO TID 07/02/18 Ibuprofen [Motrin] 800 mg PO TID 07/02/18 PARoxetine HCL [Paxil] 40 mg PO DAILY 07/02/18 Albuterol Inhaler [Ventolin Hfa Inhaler] 1 - 2 puff INHALATION RT-Q6H PRN 07/22/18 Hydrocodone/Acetaminophen [Lorcet Plus 7.5-325 mg Tablet] 2 tab PO BID #60 tablet 09/24/18 Melatonin 3 mg PO HS PRN 10/06/18 Controlled Substance Measures - Controlled Substance Measures Is patient prescribed a controlled substance at discharge?: No
== END ==
LOC: PNWHC3 13:37
PROVIDERS: ATTEND Anesthesiology
DX: G89.29 Other chronic pain (principal); M51.36 Other intervertebral disc degeneration, lumbar region; M47.816 Spondylosis without myelopathy or radiculopathy, lumbar region; M46.96 Unspecified inflammatory spondylopathy, lumbar region; F17.200 Nicotine dependence, unspecified, uncomplicated; Z79.899 Other long term (current) drug therapy; Z79.1 Long term (current) use of non-steroidal anti-inflammatories (NSAID); Z79.891 Long term (current) use of opiate analgesic
CPT/HCPCS: 99211

== ENCOUNTER 2018-11-18 09:13 | Day surgery (SDC) | payer OTHER ==
[2018-11-12 11:03] VITALS: BMI 31.9
[2018-11-18 09:31] VITALS: TEMP 97.9
[2018-11-18] MEDS ORDERED: IV FLUID CONTINUATION 700 ML IV ONE (10:51)
--- NOTE | 2018-11-18 10:53 | P.PCN ---
Date of Procedure: 11/18/18 Procedure(s) Performed: OPERATION: Radiofrequency ablation of the medial branch lumbar area at left side, L1 medial branch, L2 medial branch, and L3 medial branch under fluoroscopic guidance. PREOPERATIVE DIAGNOSES: 1. Lumbar facet arthropathy. 2. Lumbar degenerative disc disease. POSTOPERATIVE DIAGNOSES: 1. Lumbar facet arthropathy. 2. Lumbar degenerative disc disease. COMPLICATIONS: None. PHYSICIAN: Jitendra Rodriguez MD ANESTHESIA: moderate sedation, 2 mg midazolam and 100 mcg of fentanyl and with local infiltration. CONDITION: Stable. INDICATION FOR THE PROCEDURE: This is a 53-year-old female with a history of low back pain. Procedure, risks and benefits discussed with the patient who agreed with proceeding. Patient taken to the operating room, placed in prone position. All standard monitors applied to the patient. Then after induction of anesthesia, back prepped with Betadine 3 times. Then under fluoroscopic guidance we used 1% lidocaine 5 mL for skin and subcutaneous tissue infiltrations, Then after that, 18-gauge radiofrequency active-tip needles, 3 needles used, each one of them placed at the junction of the base of the transverse process and the superior articulating process of the left side at, L1-2, L2-3 and L3-L4 levels. Needle placement confirmed with AP and oblique and lateral views. Then after appropriate needle placement confirmed, we checked for the motor stimulation at 2.5 v, which was positive for localized contractions in the lumbar area and there were no contractions in the lower extremities. Then 1 cc of 4% lidocaine was injected into each needle. Then after that, the radiofrequency done at 80 degrees Centigrade for 90 seconds at each level. The needles were subsequently removed. Patient tolerated the procedure well without any complication. She will follow up to have her right side completed
[2018-11-18 10:54] VITALS: RESP 18
[2018-11-18 11:06] VITALS: BP 120/84; PULSE 104
--- NOTE | 2018-11-18 11:11 | FL ---
EXAMINATION TYPE: FL guided pain mgmt statistic DATE OF EXAM: 11/18/2018 CLINICAL HISTORY: Low back pain. TECHNIQUE: Fluoroscopy. COMPARISON: None. FINDINGS: Fluoroscopic guidance was provided during pain relief procedure performed by Dr. Rodriguez . A total of 15 seconds of fluoroscopic time was utilized during the procedure and 3 spot images are acquired. Images acquired shows needle localization at several levels in the lumbar spine. IMPRESSION: As Above.
== END 2018-11-18 11:20 | disposition home or self-care (01) ==
LOC: ORPAIN 09:13
PROVIDERS: ATTEND Student in an Organized Health Care Education/Training Program
DX: M51.36 Other intervertebral disc degeneration, lumbar region (principal); M47.816 Spondylosis without myelopathy or radiculopathy, lumbar region; Z79.891 Long term (current) use of opiate analgesic; Z88.8 Allergy status to other drugs, medicaments and biological substances
CPT/HCPCS: 64635; 64636; J2250; J3010; 99152

== ENCOUNTER 2018-12-02 07:23 | Day surgery (SDC) | payer OTHER ==
[2018-11-26 15:01] VITALS: BMI 31.9
[2018-12-02 07:40] VITALS: RESP 18; TEMP 97.6
[2018-12-02] MEDS: LACTATED RINGERS 1,000 ML IV SCH ×2 (07:43→07:45)
[2018-12-02] MEDS ORDERED: LIDOCAINE 1% 20 ML VIAL (10MG/ML) FOR IV START INTRADERMA ONE (07:44)
[2018-12-02] MEDS ORDERED: IV FLUID CONTINUATION 1,000 ML IV ONE (08:13)
--- NOTE | 2018-12-02 08:20 | FL ---
EXAMINATION TYPE: FL guided pain mgmt statistic DATE OF EXAM: 12/02/2018 CLINICAL HISTORY: Low back pain. TECHNIQUE: Fluoroscopy. COMPARISON: None. FINDINGS: Fluoroscopic guidance was provided during pain relief procedure performed by Dr. Valenzuela . A total of 9 seconds of fluoroscopic time was utilized during the procedure and single spot fluorosc opic image is acquired. Single image acquired shows needle localization at several levels in the lum bar spine. IMPRESSION: As Above.
[2018-12-02 08:32] VITALS: BP 98/69; PULSE 107
--- NOTE | 2018-12-02 09:35 | P.PCN ---
Date of Procedure: 12/02/18 Description of Procedure: Date of Procedure: 12/02/2018 Procedure(s) Performed: OPERATION: Radiofrequency ablation of the medial branch lumbar area at RIGHT side, L1 medial branch, L2 medial branch, and L3 medial branch under fluoroscopic guidance. PREOPERATIVE DIAGNOSES: 1. Lumbar facet arthropathy. 2. Lumbar degenerative disc disease. POSTOPERATIVE DIAGNOSES: 1. Lumbar facet arthropathy. 2. Lumbar degenerative disc disease. COMPLICATIONS: None. PHYSICIAN: Daljit Valenzuela MD ANESTHESIA: moderate sedation, 2 mg midazolam and 100 mcg of fentanyl and with local infiltration. CONDITION: Stable. INDICATION FOR THE PROCEDURE: This is a 53-year-old female with a history of low back pain. Procedure, risks and benefits discussed with the patient who agreed with proceeding. Patient taken to the operating room, placed in prone position. All standard monitors applied to the patient. Then after induction of anesthesia, back prepped with Betadine 3 times. Then under fluoroscopic guidance we used 1% lidocaine 5 mL for skin and subcutaneous tissue infiltrations, Then after that, 18-gauge radiofrequency active-tip needles, 3 needles used, each one of them placed at the junction of the base of the transverse process and the superior articulating process of the left side at, L1-2, L2-3 and L3-L4 levels. Needle placement confirmed with AP and oblique and lateral views. Then after appropriate needle placement confirmed, we checked for the motor stimulation at 2.5 v, which was positive for localized contractions in the lumbar area and there were no contractions in the lower extremities. Then 1 cc of 4% lidocaine was injected into each needle. Then after that, the radiofrequency done at 80 degrees Centigrade for 90 seconds at each level. The needles were subsequently removed. Patient tolerated the procedure well without any complication. She will follow up to have her right side completed
== END 2018-12-02 08:49 | disposition home or self-care (01) ==
LOC: ORPAIN 07:23
PROVIDERS: ATTEND Anesthesiology
DX: G89.29 Other chronic pain (principal); M47.816 Spondylosis without myelopathy or radiculopathy, lumbar region; M51.36 Other intervertebral disc degeneration, lumbar region; F17.200 Nicotine dependence, unspecified, uncomplicated; Z88.8 Allergy status to other drugs, medicaments and biological substances; Z79.1 Long term (current) use of non-steroidal anti-inflammatories (NSAID); Z79.891 Long term (current) use of opiate analgesic; Z79.899 Other long term (current) drug therapy
CPT/HCPCS: 64635; 64636 ×2; J2250; J3301; J2001; J3010; 99152

== ENCOUNTER → 2018-12-17 | Outpatient (CLI) | payer OTHER ==
[2018-12-17 13:22] VITALS: BP 118/79; PULSE 107; RESP 18
--- NOTE | 2018-12-19 13:04 | P.PAINPG ---
Subjective Progress Note Date: 12/17/18 This is a follow-up visit for this 53 years old female with a history of severe low back pain she is diagnosed with lumbar degenerative disc disease and lumbar spondylosis with lumbar facet arthropathy, recently we have done radiofrequency ablation at L1, L2, L3 on the left side on 11/18/2018 and right side on 12/02/2018. She returns today for follow-up. She reports excellent benefit from the radiofrequency ablation, particularly with twisting movements. Today, her primary complaint is in her low back, with radiation to bilateral posterior thigh. She describes this as an aching-type pain. She also states that her legs "don't want to hold me up anymore". She denies numbness, weakness, tingli ng. She continues to use [place] 7.5/325 twice a day with benefit. She does not report any side effects. She is currently trying to quit smoking. She used to be a chain smoker, smoking over 2 packs of cigarettes per day, and she is now down to 15-16 cigarettes per day. She is continuing to cut down. She has a prescription for PT, however has not yet scheduled this. Review of systems is negative for chest pain, shortness of breath, new onset weakness, numbness/tingling, abdominal pain, malaise, fever, night sweats, chills, homicidal or suicidal ideation, or bowel or bladder incontinence. Objective Physical exam: Vitals: Reviewed in EMR GENERAL: Well appearing, in no acute distress PSYCH: Mood and affect is appropriate. Awake, alert, and oriented SKIN: Skin color, texture, turgor normal, no rashes or lesions HEENT: Normocephalic, atraumatic. EOM intact CV: No pedal edema RESP: Respirations are unlabored, no audible wheezing GI: Abdomen non-distended MUSCULOSKELETAL: Bilateral lower extremity strength is normal and symmetric. No atrophy or tone abnormalities are noted. Lumbar spine: Straight leg raising in the sitting position is positive the right side for radicular pain and right lower extremityposterior thigh. Tenderness to palpation over the lumbar spine and paraspinous muscles greater than left. Buttocks: No pain to palpation over the PSIS, sacroiliac joint maneuvers are negative for pain. Extremities: Peripheral joint ROM is full and pain free without obvious instability or laxity in all four extremities. No edema or skin discolorations noted. Gait: Gait is low NEUR: Bilateral lower extremity coordination and muscle stretch reflexes are physiologic and symmetric. Negative clonus bilaterally. No loss of sensation is noted. Imaging: MRI lumbar spine shows multilevel degenerative disc disease, no central canal stenosis, mild multilevel neuroforaminal stenosis. Assessment and Plan Assessment and plan= chronic low back pain secondary to lumbar degenerative disc disease , lumbar spondylosis with lumbar facet arthropathy, lumbar radicular pain. chronic and current use of high-risk medication (opioids) Patient denies any side effects of the current pain medication and the current treatment/medication helping the patient to do activity of daily living , Diagnoses, prognosis, treatment options, including but not limited to physical therapy, medication management, interventional therapies, and surgery, were discussed with the patient All the questions answered Patient has signed narcotic consent has been signed in the past and patient agreed and understood the side effects and complications of opioid treatment. She has been orally counseled, not to overuse, not to abuse, not to Divert , not to sell pain medication, and to take it as prescribed only, MAPS Reviwed and it was apropriate . Medication management-prescription refills for [place] 7.5/325 every 8 hours dispense 60 with 1 refill. He did discuss weaning narcotics in the future and the patient is amenable to this. Procedures: We'll schedule lumbar epidural steroid injection at L5-S1, right paramedian approach Patient was counseled on the importance of weight loss and continued exercise. Patient to begin physical therapy, she has a prescription. Follow-up: For above-mentioned procedure PQRS Measure Charge Sheet Measure #130: Documentation of Current Meds in Medical Chart: Patient's medications documented in chart Measure #226: Tobacco Use: Screen & Cessation Intervention: Pt not a tobacco user Measure #111: Pneumonia Vaccination: Pneumococcal vaccine NOT administered or previously given Measure #47: Advance Care Plan: Advance care planning discussed & documented, pt chose/unable to give Measure #412: Opioid Treatment Agreement: Documented signed opioid trtmnt agreemnt min once during opioid trtmnt Measure #408: Opioid Therapy Follow-up Evaluation: Patient had f/u eval minimum every 3 months during opioid therapy Measure #317: Preventitive Care & Scrn High Bld Press & F/U: Normal blood pressure, f/u not required Measure #128: Body Mass Index (BMI) Screening & Follow-up: BMI documented ABOVE normal parameters - f/u documented Measure #131: Pain Assessment & Follow-up: Pain positive & plan documented, Follow-up scheduled Measure #431: Unhealthy Alcohol Use Preventative Care & Scrn: Patient not identified as an unhealthy alcohol user PQRS Narrative: Smoking Status Current every day smoker Pain Intensity [Upper Back] 3 Pain Intensity [Lower Back] 7 Hx Alcohol Use (MH) No Home Medications: Ambulatory Orders ARIPiprazole [Abilify] 5 mg PO HS 07/02/18 Cetirizine HCl 10 mg PO DAILY PRN 07/02/18 Cyclobenzaprine [Flexeril] 10 mg PO TID 07/02/18 Ibuprofen [Motrin] 800 mg PO TID 07/02/18 PARoxetine HCL [Paxil] 40 mg PO DAILY 07/02/18 Albuterol Inhaler [Ventolin Hfa Inhaler] 1 - 2 puff INHALATION Q6HR PRN 07/22/18 Hydrocodone/Acetaminophen [Lorcet Plus 7.5-325 mg Tablet] 2 tab PO BID #60 tablet 09/24/18 Melatonin 3 mg PO HS PRN 10/06/18 Controlled Substance Measures - Controlled Substance Measures Is patient prescribed a controlled substance at discharge?: Yes When asked, does pt state using other controlled substances?: No If prescribed controlled substance>3 days was MAPS reviewed?: Yes If Rx opioid, was Start Talking consent form obtained?: Yes If opioid is for acute pain is fill amount 7 days or less?: No Was information provided regarding opioid addiction?: Yes
== END | disposition home or self-care (01) ==
LOC: PNWHC3 12:35
PROVIDERS: ATTEND Anesthesiology
DX: G89.29 Other chronic pain (principal); M47.816 Spondylosis without myelopathy or radiculopathy, lumbar region; M51.36 Other intervertebral disc degeneration, lumbar region; M46.96 Unspecified inflammatory spondylopathy, lumbar region; F17.200 Nicotine dependence, unspecified, uncomplicated; Z79.891 Long term (current) use of opiate analgesic; Z79.899 Other long term (current) drug therapy
CPT/HCPCS: 99211

== ENCOUNTER 2018-12-23 09:09 | Day surgery (SDC) | payer OTHER ==
[2018-12-23 09:24] VITALS: RESP 18; TEMP 97.4
--- NOTE | 2018-12-23 10:14 | P.PCN ---
Date of Procedure: 12/23/18 Procedure(s) Performed: PREOPERATIVE DIAGNOSIS: 1- Lumbar Degenerative Disc Diseases 2-Lumbar spondylosis with Facet arthropathy without myelopathy POSTOPERATIVE DIAGNOSIS: 1-Lumber Degenerative Disc Diseases 2-Lumbar spondylosis with Facet arthropathy without myelopathy PROCEDURE 1. Lumbar epidural steroid injection under fluoroscopic guidance at the L5-S1 level. ( Rt paramedian approach) (Fluoroscopy imaging was available in radiology department) 2. Lumbar epidurogram. ANESTHESIA: Local with 1% lidocaine 3 ml and , moderate sedation with intravenous Versed 2 mg ,and fentanyle 50 Mcg EBL: Minimal PROCEDURE INDICATION: The patient with low back pain and radiculitis symptoms unresponsive to conservative treatment. Fluoroscopy was used to optimize visualization of the needle placement and to maximize safety. PROCEDURE DESCRIPTION / TECHNIQUE: The patient was seen and identified in the preoperative area. Risks, benefits, complications including but not limited to infections ,bleeding ,allergic reaction to the medications ,nerve damage and not complete pain releife , and alternatives were discussed with the patient. The patient agreed to proceed with the procedure and signed the consent. IV was started, and vital signs were stable. Patient was taken to the OR and time out was completed. The patient was placed in the prone position on procedure table and a pillow was placed under the abdomen to reduce lumbar lordosis. The lumbosacral area was prepped and draped in the usual sterile fashion.ere closely monitored during the procedure. Conscious sedation was used during the procedure to decrease patients anxiety. Vital signs was monitered during the entire procedure. Using anterior-posterior fluoroscopy, the L5-S1 interlaminar space was identified and the skin over this site was marked and then infiltrated with 1% lidocaine subcutaneously. Subsequently, a 20-gauge Tuohy epidural needle was inserted and advanced toward the Right side of the epidural space using the ``Loss of resistance technique and guided by AP and lateral fluoroscopy. The correct needle position in the epidural space was verified with the injection of 2 mL of the water soluble contrast dye Isovue 200 contrast and observing an excellent epidurogram with the epidural spread of the dye, after negative aspiration for blood and CSF and in the absence of paresthesias. Again after negative aspiration, a 6 ml mixture containing 40 mg of Depo-medrol , and 2 ml of preservative free Normal Saline, and 2 ml of preservative free lidocaine 1% solution was injected and a washout of epidurogram was seen. Needle was withdrawn intact, skin was cleansed, and bandages were applied. COMPLICATIONS: None DISPOSITION / PLANS: The patient was placed in a supine position and transferred to the recovery area in a stable condition for observation. There was no evidenc e of lower extremity motor or sensory deficit after the procedure. Patient was discharged from the recovery room after meeting discharge criteria. Home discharge instructions were given to the patient by the staff. The patient was reexamined prior to discharge. The patient will schedule a follow up in the clinic in 2-4 weeks.
[2018-12-23] MEDS ORDERED: IV FLUID CONTINUATION 550 ML IV ONE (10:18)
--- NOTE | 2018-12-23 10:29 | FL ---
EXAMINATION TYPE: FL guided pain mgmt statistic DATE OF EXAM: 12/23/2018 HISTORY: Pain 3 SEC FL, 1 FILM
[2018-12-23 10:37] VITALS: BP 131/84; PULSE 101
== END 2018-12-23 10:42 | disposition home or self-care (01) ==
LOC: ORPAIN 09:09
PROVIDERS: ATTEND Specialist
DX: M51.16 Intervertebral disc disorders with radiculopathy, lumbar region (principal); M47.26 Other spondylosis with radiculopathy, lumbar region
CPT/HCPCS: 62323; J2250; J1030; J3010; Q9966

== ENCOUNTER → 2019-01-06 | Outpatient (CLI) | payer OTHER ==
[2019-01-06 11:00] VITALS: BP 125/73; PULSE 111
--- NOTE | 2019-01-08 12:52 | P.PAINPG ---
Subjective Progress Note Date: 01/06/19 This is a follow-up visit for this 53 year old female with a history of severe low back pain she is diagnosed with lumbar degenerative disc disease and lumbar spondylosis with lumbar facet arthropathy, recently we have done L5-S1 lumbar epidural steroid injection. She returns today for follow-up. She reports significant benefit from this procedure, particularly with the stabbing pain which she had on the right side. Her pain is reported as 3-4/10 while at rest and 5-7/10 on movement. Pain is particularly worse with walking, standing for long periods of time. Today, her primary pain complaint is left low back pain without radiation. She denies numbness, weakness, tingling. She continues to use [place] 7.5/325 twice a day with benefit. She had a side effects from the Lyrica in the form of nightmares, so stopped taking this medication. Does report that she is sleeping better. She does not report any side effects. She is currently trying to quit smoking. She used to be a chain smoker, smoking over 2 packs of cigarettes per day, and she is now down to less than 1 pack a day. She is continuing to cut down. She continues with home exercises, and has a prescription for PT, however has not yet scheduled this due to car trouble. She continues to attempt to lose weight, and has lost 5 pounds since her last visit. Review of systems is negative for chest pain, shortness of breath, new onset weakness, numbness/tingling, abdominal pain, malaise, fever, night sweats, chills, homicidal or suicidal ideation, or bowel or bladder incontinence. Objective Physical exam: Vitals: Reviewed in EMR GENERAL: Well appearing, in no acute distress PSYCH: Mood and affect is appropriate. Awake, alert, and oriented SKIN: Skin color, texture, turgor normal, no rashes or lesions HEENT: Normocephalic, atraumatic. EOM intact CV: No pedal edema RESP: Respirations are unlabored, no audible wheezing GI: Abdomen non-distended MUSCULOSKELETAL: Bilateral lower extremity strength is normal and symmetric. No atrophy or tone abnormalities are noted. Lumbar spine: Straight leg raising in the sitting position is negative bilaterally. Tenderness to palpation , with palpable trigger point in the left lumbar paraspinal musculature. Buttocks: No pain to palpation over the PSIS, sacroiliac joint maneuvers are negative for pain. Extremities: Peripheral joint ROM is full and pain free without obvious instability or laxity in all four extremities. No edema or skin discolorations noted. Gait: Gait is slow NEUR: Bilateral lower extremity coordination and muscle stretch reflexes are physiologic and symmetric. Negative clonus bilaterally. No loss of sensation is noted. Imaging: MRI lumbar spine shows multilevel degenerative disc disease, no central canal stenosis, mild multilevel neuroforaminal stenosis. Assessment and Plan Assessment and plan= chronic low back pain secondary to lumbar degenerative disc disease , lumbar spondylosis with lumbar facet arthropathy, lumbar radicular pain. chronic and current use of high-risk medication (opioids) Patient denies any side effects of the current pain medication and the current treatment/medication helping the patient to do activity of daily living , Diagnoses, prognosis, treatment options, including but not limited to physical therapy, medication management, interventional therapies, and surgery, were discussed with the patient All the questions answered Patient has signed narcotic consent has been signed in the past and patient agreed and understood the side effects and complications of opioid treatment. She has been orally counseled, not to overuse, not to abuse, not to Divert , not to sell pain medication, and to take it as prescribed only, MAPS Reviwed and it was apropriate . Medication management: today, I reduced her [place] from 7.5/325 to 5/325 dispense 60 with 1 refill. We will plan on continuing to wean as tolerated. I encouraged her to take [id number] Tylenol and ibuprofen as well. Procedures: We'll schedule left lumbar trigger point injections, we'll plan on not using steroid, as patient has recently undergone lumbar epidural steroid injection. Patient was counseled on the importance of weight loss and continued exercise. She was counseled for 3 minutes on smoking cessation. She will continue to cut down. Patient to begin physical therapy, she has a prescription. Follow-up: For above-mentioned procedure PQRS Measure Charge Sheet Measure #130: Documentation of Current Meds in Medical Chart: Patient's medications documented in chart Measure #226: Tobacco Use: Screen & Cessation Intervention: Pt screened for tobacco use AND intervention given Measure #111: Pneumonia Vaccination: Pneumococcal vaccine NOT administered or previously given Measure #47: Advance Care Plan: Advance care planning discussed & documented, pt chose/unable to give Measure #412: Opioid Treatment Agreement: Documented signed opioid trtmnt agreemnt min once during opioid trtmnt Measure #408: Opioid Therapy Follow-up Evaluation: Patient had f/u eval minimum every 3 months during opioid therapy Measure #317: Preventitive Care & Scrn High Bld Press & F/U: Normal blood pressure, f/u not required Measure #128: Body Mass Index (BMI) Screening & Follow-up: BMI documented ABOVE normal parameters - f/u documented Measure #131: Pain Assessment & Follow-up: Pain positive & plan documented, Follow-up scheduled Measure #431: Unhealthy Alcohol Use Preventative Care & Scrn: Patient not identified as an unhealthy alcohol user PQRS Narrative: Smoking Status Current every day smoker Pain Intensity [Left Back] 3 Scale Used Numeric (1 - 10) Hx Alcohol Use (MH) No Home Medications: Ambulatory Orders ARIPiprazole [Abilify] 5 mg PO HS 07/02/18 Cetirizine HCl 10 mg PO DAILY PRN 07/02/18 Cyclobenzaprine [Flexeril] 10 mg PO TID 07/02/18 Ibuprofen [Motrin] 800 mg PO TID 07/02/18 PARoxetine HCL [Paxil] 40 mg PO DAILY 07/02/18 Albuterol Inhaler [Ventolin Hfa Inhaler] 1 - 2 puff INHALATION Q6HR PRN 07/22/18 Hydrocodone/Acetaminophen [[place] 7.5-325 mg Tablet] 2 tab PO BID #60 tablet 09/24/18 Melatonin 3 mg PO HS PRN 10/06/18 Umeclidinium [place] [Incruse Ellipta] 1 applicate INHALATION DAILY 12/23/18 Controlled Substance Measures - Controlled Substance Measures Is patient prescribed a controlled substance at discharge?: Yes When asked, does pt state using other controlled substances?: No If prescribed controlled substance>3 days was MAPS reviewed?: Yes If Rx opioid, was Start Talking consent form obtained?: Yes If opioid is for acute pain is fill amount 7 days or less?: No Was information provided regarding opioid addiction?: Yes
== END | disposition home or self-care (01) ==
LOC: PNWHC3 10:41
PROVIDERS: ATTEND Anesthesiology
DX: G89.29 Other chronic pain (principal); M54.5 Low back pain; M51.36 Other intervertebral disc degeneration, lumbar region; M47.816 Spondylosis without myelopathy or radiculopathy, lumbar region; M46.96 Unspecified inflammatory spondylopathy, lumbar region; F17.210 Nicotine dependence, cigarettes, uncomplicated; Z79.1 Long term (current) use of non-steroidal anti-inflammatories (NSAID); Z79.891 Long term (current) use of opiate analgesic; Z79.899 Other long term (current) drug therapy
CPT/HCPCS: 99211

== ENCOUNTER 2019-01-14 08:24 | Day surgery (SDC) | payer OTHER ==
[2019-01-12 11:23] VITALS: BMI 33.0
[2019-01-14 08:45] VITALS: TEMP 98.2
[2019-01-14] MEDS ORDERED: LIDOCAINE 1% 20 ML VIAL (10MG/ML) FOR IV START INTRADERMA ONE (08:52)
[2019-01-14] MEDS ORDERED: IV FLUID CONTINUATION 1,000 ML IV ONE ×2 (09:30)
[2019-01-14 09:37] VITALS: PULSE 94
[2019-01-14 09:50] VITALS: BP 107/68; RESP 18
--- NOTE | 2019-01-14 10:01 | P.PCN ---
Date of Procedure: 01/14/19 Procedure(s) Performed: PREOPERATIVE DIAGNOSIS : 1- Lumbar spondylosis with Facet Arthropathy without myelopathy . 2- Lumber degenerative disc disease 3-myofascial pain syndrome lumbar area POSTOPERATIVE DIAGNOSIS: Same as preop diagnosis PROCEDURE: Trigger point injection in the lumbar paravertebral area 3 on the left side and 2 on the right side lumbar paravertebral muscles ANESTHESIA: none . EBL: Minimal COMPLICATION: None. IV FLUIDS: 100 mL of normal saline. PROCEDURE INDICATION: Chronic low back pain secondary to myofascial pain syndrome lumbar area , unresponsive to conservative treatment. PROCEDURE DESCRIPTION: the patient was seen and identified in the preop holding area , risks and benefits and possible complications of the procedure and alternative were discussed with the patient, and the patient agreed to proceed with the procedure and signed the consent The back area prepped with chlorhexidine 3 and sterile technique each of the trigger point that was marked in the preop holding area 3 on the left side lumbar paravertebral muscles and 2 on the right side lumbar paravertebral muscles each one of them injected with bupivacaine 0.5% 2 mL, using 25-gauge needle injection done after negative aspiration and there was no paresthesia during the injection, patient tolerated the procedure well without any complications a bandage applied after the skin was cleaned the cleaning solution patient taken to recovery room in stable condition and monitors in the recovery room for 20-30 minutes and discharged home in stable condition after discharge criteria met and patient will follow up with the pain clinic in 2-4 weeks
== END 2019-01-14 10:00 | disposition home or self-care (01) ==
LOC: ORPAIN 08:24
PROVIDERS: ATTEND Specialist
DX: G89.29 Other chronic pain (principal); M47.816 Spondylosis without myelopathy or radiculopathy, lumbar region; M51.36 Other intervertebral disc degeneration, lumbar region; M79.18 Myalgia, other site; Z78.0 Asymptomatic menopausal state; Z88.8 Allergy status to other drugs, medicaments and biological substances
CPT/HCPCS: 20553

== ENCOUNTER → 2019-03-03 | Outpatient (CLI) | payer OTHER ==
[2019-03-03 13:06] VITALS: BP 147/79; PULSE 113; RESP 18
--- NOTE | 2019-03-04 08:00 | P.PAINPG ---
Subjective Progress Note Date: 03/03/19 This is a follow-up visit for this 54 years old female with a history of severe low back pain she is diagnosed with lumbar degenerative disc disease and lumbar spondylosis with lumbar facet arthropathy, recently we have done diagnostic medial branch block lumbar area, she continued to use [place] 7.5/325 every 8 hours when necessary, she denies any side effect of the medication, she denies any excessive drowsiness and sleepiness, she denies any suicidal ideation, no fever or night sweats and no change in bowel movement or urination, currently she is complaining of severe low back pain mainly in the buttock area, and it has not radiated to the lower extremity, the intensity of the pain interfering with the quality of life, and interfering with her ability to do activities of daily livings Objective - Vital Signs Vital signs: Vital Signs Temp Pulse 113 H 03/03/19 13:00 Resp 18 03/03/19 13:00 BP 147/79 03/03/19 13:00 Pulse Ox 94 L 03/03/19 13:00 - Exam Physical Examinations : -Constitutiona : Cooperative , not in acute distress . -HEENT : nech : supple , no Lymphadenopathy , normal thyroid size . : eyes : no ptosis , no icterus, no photophobia . - neurologic : Cranial nerve II to XII intact , no focal neurological deffecit . -psychatric : alert , oriented X 3 , appropriate affect , intact judgment and insight . -Lymphatic : no Lymphadenopathy . - musculoskeltal : Lumber spine moter stegnth lower extremities ,thigh and legs 5/5 Right side , 5/5 Left side deep tendon reflexes : normal Knee Jerk , normal ankle Jerk lumber facet Loading Test =positive Right , positive Left Range of motion of the lumbar spine Flexion 30 degrees, extension 10 degrees strait leg raising test = positive at 60 degree Fabere test= positive Right , and positive LT . Sever tenderness over the Sacroiliac joint on the Right , and Left sides Gaenslen test= positive right ,and positive left . Seated flexion test= positive right ,and positive Left . Assessment and Plan Plan: Assessment and plan= chronic low back pain secondary to lumbar degenerative disc disease , lumbar spondylosis with lumbar facet arthropathy . Bilateral sacroiliitis chronic and current use of high-risk medication (opioids) Patient denies any side effects of the current pain medication and the current treatment/medication helping the patient to do activity of daily living , Diagnoses, prognosis, treatment options, including but not limited to physical therapy, medication management, interventional therapies, and surgery, were discussed with the patient All the questions answered The narcotic consent was signed and patient agreed and understood the side effects and complications of opioid treatment. Patient signed the narcotic agreement, and was orally counseled, not to overuse, not to abuse, not to Divert , not tp sell pain medication, and to take it as prescribed only, Patient was counseled not to drive or operate heavy equipment while using narcotic medication, and advised not to use alcohol or any Illicit drugs while using the narcotis. understanding that lack of compliance with any of the above instructions, will likely to cause discharge from, the pain service, not to renew his narcotic prescriptions MAPS Reviwed and it was apropriate . Medication managements= patient will be given prescription refills for [place] 7.5/325 dispense 60 with 1 refill. Interventions= patient could benefit from bilateral sacroiliac joint steroid injections under fluoroscopy guidance, procedure risk and benefits and alternatives discussed with the patient she agreed with proceeding , Time with Patient: Less than 30 PQRS Measure Charge Sheet Measure #130: Documentation of Current Meds in Medical Chart: Patient's medications documented in chart Measure #226: Tobacco Use: Screen & Cessation Intervention: Pt screened for tobacco use AND intervention given Measure #111: Pneumonia Vaccination: Pneumococcal vaccine NOT administered or previously given Measure #47: Advance Care Plan: Advance care planning discussed & documented, pt chose/unable to give Measure #412: Opioid Treatment Agreement: Documented signed opioid trtmnt agreemnt min once during opioid trtmnt Measure #408: Opioid Therapy Follow-up Evaluation: Patient had f/u eval minimum every 3 months during opioid therapy Measure #317: Preventitive Care & Scrn High Bld Press & F/U: Normal blood pressure, f/u not required Measure #128: Body Mass Index (BMI) Screening & Follow-up: BMI documented ABOVE normal parameters - f/u documented Measure #131: Pain Assessment & Follow-up: Pain positive & plan documented, Follow-up scheduled Measure #431: Unhealthy Alcohol Use Preventative Care & Scrn: Patient not identified as an unhealthy alcohol user PQRS Narrative: Smoking Status Current every day smoker Narcotic Agreement Date Signed 09/24/18 Blood Pressure 147/79 Pain Intensity [Lower Back] 7 Scale Used Numeric (1 - 10) Hx Alcohol Use (MH) No Home Medications: Ambulatory Orders ARIPiprazole [Abilify] 5 mg PO HS 07/02/18 Cetirizine HCl 10 mg PO DAILY PRN 07/02/18 Ibuprofen [Motrin] 800 mg PO TID 07/02/18 PARoxetine HCL [Paxil] 40 mg PO DAILY 07/02/18 Albuterol Inhaler [Ventolin Hfa Inhaler] 1 - 2 puff INHALATION Q6HR PRN 07/22/18 Melatonin 3 mg PO HS PRN 10/06/18 Umeclidinium [place] [Incruse Ellipta] 1 applicate INHALATION DAILY 12/23/18 Baclofen [Lioresal] 10 mg PO TID 02/26/19 HYDROcodone/APAP 7.5-325MG [[place] 7.5-325] 1 tab PO BID PRN #60 tab 03/03/19 HYDROcodone/APAP 7.5-325MG [[place] 7.5-325] 1 tab PO Q8H PRN #60 tab 03/03/19 Controlled Substance Measures - Controlled Substance Measures Is patient prescribed a controlled substance at discharge?: Yes When asked, does pt state using other controlled substances?: No If prescribed controlled substance>3 days was MAPS reviewed?: Yes If Rx opioid, was Start Talking consent form obtained?: Yes If opioid is for acute pain is fill amount 7 days or less?: No Was information provided regarding opioid addiction?: Yes
== END | disposition home or self-care (01) ==
LOC: PNWHC3 12:44
PROVIDERS: ATTEND Specialist
DX: M46.1 Sacroiliitis, not elsewhere classified (principal); M51.36 Other intervertebral disc degeneration, lumbar region; M47.816 Spondylosis without myelopathy or radiculopathy, lumbar region; M46.96 Unspecified inflammatory spondylopathy, lumbar region; G89.29 Other chronic pain; F17.200 Nicotine dependence, unspecified, uncomplicated; Z79.899 Other long term (current) drug therapy; Z79.891 Long term (current) use of opiate analgesic
CPT/HCPCS: 99211

== ENCOUNTER 2019-03-05 07:08 | Day surgery (SDC) | payer OTHER ==
[2019-03-05 07:29] VITALS: TEMP 98.9
[2019-03-05] MEDS ORDERED: LIDOCAINE 1% 20 ML VIAL (10MG/ML) FOR IV START INTRADERMA ONE (07:50)
[2019-03-05] MEDS ORDERED: LACTATED RINGERS 1,000 ML IV SCH (07:50)
[2019-03-05] MEDS ORDERED: LACTATED RINGERS 1,000 ML IV ONE (07:50)
[2019-03-05] MEDS ORDERED: IV FLUID CONTINUATION 1,000 ML IV ONE (08:30)
[2019-03-05 08:37] VITALS: RESP 18
[2019-03-05 08:52] VITALS: BP 137/78; PULSE 78
--- NOTE | 2019-03-05 09:11 | P.PCN ---
Date of Procedure: 03/05/19 Procedure(s) Performed: Preoperative diagnoses: bilateral sacroilitis Postoperative diagnoses: bilateral sacroilitis. Procedure: bilateral sacroiliac joint steroid injection under fluoroscopic guidance. Surgeon: Mya Gee MD Anesthesia: [2 mL of 1% lidocaine and IV sedation per hospital guidelines], sedation time 8 minutes Fluoroscopy was used for the procedure and fluoroscopic images were saved to the radiology portion of the patient's chart. EBL: None Procedure indication: The patient had a history of severe chronic low back pain, diagnosed with sacroiliitis unresponsive to conservative treatment. Procedure description: The patient was seen and identified in the preoperative holding area, risks and benefits and alternative of the procedure and possible complications discussed with the patient, and patient agreed with the preceding, patient signed the consent, an IV was started, and vital signs were monitored and were stable throughout the procedure, patient was placed in the prone position on table and the lumbosacral area was prepped and draped with a sterile fashion, vital signs were closely monitored during the procedure, the fluoroscopy camera was placed in the contralateral oblique view on the bilateral sacroiliac joint and the lower part of the joint was identified . Then the skin and subcutaneous tissue was anesthetized using 2 mL of 1% lidocaine then a 22- gauge Quincke-type spinal needle advanced slowly under fluoroscopy and placed in the posterior and inferior border of the right sacroiliac joint, placement confirmed with AP and lateral view, and after appropriate needle placement confirmed and after negative aspiration for heme, 1 mL of Isovue 200 was injected revealing intra-articular spread. Then a solution consisting of 2 ml of ropivacaine 0.5% and 40 mg of Kenalog injected after negative aspiration, no paresthesia during the injection, no resistance to injection, and the needle was removed. The procedure was then repeated on the left side. Total of 80 mg of Kenalog was used for the procedure. Patient tolerated the procedure well w ithout any complication. The patient was returned to supine position after the back was cleaned and a Band-Aid applied, the patient was transported to recovery room in stable condition and monitored for 30 minutes before being discharged home. The patient will follow up with the pain clinic in a few weeks
--- NOTE | 2019-03-05 11:06 | FL ---
Fluoroscopy HISTORY: Pain 5 seconds fluoroscopy time supplied to the referring clinician. 4 intraoperative C-arm images docume nt the procedure. See dictated report from anesthesia.
== END 2019-03-05 09:06 | disposition home or self-care (01) ==
LOC: ORPAIN 07:08
PROVIDERS: ATTEND Anesthesiology
DX: G89.29 Other chronic pain (principal); M46.1 Sacroiliitis, not elsewhere classified; M47.816 Spondylosis without myelopathy or radiculopathy, lumbar region; M51.36 Other intervertebral disc degeneration, lumbar region; F17.210 Nicotine dependence, cigarettes, uncomplicated; Z88.8 Allergy status to other drugs, medicaments and biological substances; Z79.899 Other long term (current) drug therapy
CPT/HCPCS: J2250; J3301; J3010; Q9966; G0260

== ENCOUNTER → 2019-04-13 | Outpatient (CLI) | payer OTHER ==
[2019-04-13 13:33] VITALS: BP 105/62; PULSE 101; RESP 20
--- NOTE | 2019-04-15 11:16 | P.PAINPG ---
Subjective Progress Note Date: 04/13/19 This is a follow-up visit for this 54 year old female with a history of severe low back pain she is diagnosed with lumbar degenerative disc disease and lumbar spondylosis with lumbar facet arthropathy, SI joint dysfunction and myofascial pain syndrome, she has been managed with a combination of medications and interventional pain procedures. Recently she underwent bilateral SI joint injections on 03/05/2019 and returns today for follow-up. She obtained excellent relief from these procedures. Today, her primary pain complaint is located above the SI joint area, in the middle of her low back, rated as 5-6/10. In the past, we have done lumbar radio frequency ablation, L5-S1 lumbar epidural steroid injection as well as lumbar her spinal trigger point injections. She continues to use [place] 7.5/325 twice a day with benefit. She denies side effects from medications, medications are helping her function and perform activities of daily living. She had a side effects from the Lyrica in the form of nightmares, so stopped taking this medication. Review of systems is negative for chest pain, shortness of breath, new onset weakness, numbness/tingling, abdominal pain, malaise, fever, night sweats, chills, homicidal or suicidal ideation, or bowel or bladder incontinence. Objective Physical exam: Vitals: Reviewed in EMR GENERAL: Well appearing, in no acute distress PSYCH: Mood and affect is appropriate. Awake, alert, and oriented SKIN: Skin color, texture, turgor normal, no rashes or lesions HEENT: Normocephalic, atraumatic. EOM intact CV: No pedal edema RESP: Respirations are unlabored, no audible wheezing GI: Abdomen non-distended MUSCULOSKELETAL: Bilateral lower extremity strength is normal and symmetric. No atrophy or tone abnormalities are noted. Lumbar spine: Straight leg raising in the sitting position is negative bilaterally. Tenderness to palpation along bilateral lumbar paraspinal musculature. Positive facet loading bilaterally. Buttocks: No pain to palpation over the PSIS, sacroiliac joint maneuvers are negative for pain. Extremities: Peripheral joint ROM is full and pain free without obvious instability or laxity in all four extremities. No edema or skin discolorations noted. Gait: Gait is slow NEUR: Bilateral lower extremity coordination and muscle stretch reflexes are physiologic and symmetric. Negative clonus bilaterally. No loss of sensation is noted. Imaging: MRI lumbar spine shows multilevel degenerative disc disease, no central canal stenosis, mild multilevel neuroforaminal stenosis. Assessment and Plan Assessment and plan= chronic low back pain secondary to lumbar degenerative disc disease , lumbar spondylosis with lumbar facet arthropathy, lumbar radicular pain, SI joint dysfunction. chronic and current use of high-risk medication (opioids) Patient denies any side effects of the current pain medication and the current treatment/medication helping the patient to do activity of daily living , Diagnoses, prognosis, treatment options, including but not limited to physical therapy, medication management, interventional therapies, and surgery, were discussed with the patient All the questions answered Patient has signed narcotic consent has been signed in the past and patient agreed and understood the side effects and complications of opioid treatment. She has been orally counseled, not to overuse, not to abuse, not to Divert , not to sell pain medication, and to take it as prescribed only, MAPS Reviewed and it was appropriate . Urine drug screen from July 2018 was reviewed, it is congruent with currently prescribed medications. Medication management: today, [place] 5/325mg dispense 60 with 1 refill, weaned from [place] 7.5/325 mg. We will plan on continuing to wean as tolerated. I encouraged her to take [id number] Tylenol and ibuprofen as well. Procedures: Patient is had good benefit from lumbar radiofrequency ablation, we will schedule repeat L3, L4, L5 radio frequency ablation for facet joints L4-5 and L5-S1. We will start with the right side. Patient was counseled on the importance of weight loss and continued exercise. She was counseled for 3 minutes on smoking cessation. She will continue to cut down. Patient to begin physical therapy for home exercise program, prescription was given today. Follow-up: For above-mentioned procedure PQRS Measure Charge Sheet Measure #130: Documentation of Current Meds in Medical Chart: Patient's medicat ions documented in chart Measure #226: Tobacco Use: Screen & Cessation Intervention: Pt screened for tobacco use AND intervention given Measure #111: Pneumonia Vaccination: Pneumococcal vaccine NOT administered or previously given Measure #47: Advance Care Plan: Advance care planning discussed & documented, pt chose/unable to give Measure #412: Opioid Treatment Agreement: Documented signed opioid trtmnt agreemnt min once during opioid trtmnt Measure #408: Opioid Therapy Follow-up Evaluation: Patient had f/u eval minimum every 3 months during opioid therapy Measure #317: Preventitive Care & Scrn High Bld Press & F/U: Normal blood pressure, f/u not required Measure #128: Body Mass Index (BMI) Screening & Follow-up: BMI documented ABOVE normal parameters - f/u documented Measure #131: Pain Assessment & Follow-up: Pain positive & plan documented, Follow-up scheduled Measure #431: Unhealthy Alcohol Use Preventative Care & Scrn: Patient not identified as an unhealthy alcohol user PQRS Measure Charge Sheet PQRS Narrative: Smoking Status Current every day smoker Narcotic Agreement Date Signed 09/24/18 Hx Alcohol Use (MH) No Home Medications: Ambulatory Orders ARIPiprazole [Abilify] 5 mg PO HS 07/02/18 Cetirizine HCl 10 mg PO DAILY PRN 07/02/18 Ibuprofen [Motrin] 800 mg PO TID 07/02/18 PARoxetine HCL [Paxil] 40 mg PO DAILY 07/02/18 Albuterol Inhaler [Ventolin Hfa Inhaler] 1 - 2 puff INHALATION Q6HR PRN 07/22/18 Melatonin 3 mg PO HS PRN 10/06/18 Umeclidinium [place] [Incruse Ellipta] 1 applicate INHALATION DAILY 12/23/18 Baclofen [Lioresal] 10 mg PO TID 02/26/19 HYDROcodone/APAP 7.5-325MG [[place] 7.5-325] 1 tab PO BID PRN #60 tab 03/03/19 Controlled Substance Measures - Controlled Substance Measures Is patient prescribed a controlled substance at discharge?: Yes When asked, does pt state using other controlled substances?: No If prescribed controlled substance>3 days was MAPS reviewed?: Yes If Rx opioid, was Start Talking consent form obtained?: Yes If opioid is for acute pain is fill amount 7 days or less?: No Was information provided regarding opioid addiction?: Yes
== END | disposition home or self-care (01) ==
LOC: PNWHC3 12:35
PROVIDERS: ATTEND Anesthesiology
DX: G89.29 Other chronic pain (principal); M51.36 Other intervertebral disc degeneration, lumbar region; M47.816 Spondylosis without myelopathy or radiculopathy, lumbar region; M46.96 Unspecified inflammatory spondylopathy, lumbar region; M53.3 Sacrococcygeal disorders, not elsewhere classified; F17.200 Nicotine dependence, unspecified, uncomplicated; M79.18 Myalgia, other site; Z79.1 Long term (current) use of non-steroidal anti-inflammatories (NSAID); Z79.899 Other long term (current) drug therapy
CPT/HCPCS: 99211

== ENCOUNTER 2019-04-22 08:41 | Day surgery (SDC) | payer OTHER ==
[2019-04-20 10:10] VITALS: BMI 31.3
[~2019-04-22 08:41] MED LIST changes: +BUPIVACAINE (PF) 0.5% 30 ML VIAL ONE; +MIDAZOLAM 2 MG/2 ML VIAL ONE; +fentaNYL (PF) 50 MCG/ML 2 ML AMP ONE; +methylPREDNISolone ACETATE 40 MG/ML 1 ML VIAL ONE
[2019-04-22 09:23] VITALS: RESP 16; TEMP 97.8
[2019-04-22] MEDS ORDERED: LIDOCAINE 1% 20 ML VIAL (10MG/ML) FOR IV START SQ ONE (09:26)
--- NOTE | 2019-04-22 10:50 | P.PCN ---
Date of Procedure: 04/22/19 Procedure(s) Performed: PREOPERATIVE DIAGNOSIS: 1-Lumbar Spondylosis with Facet Arthropathy without myelopathy. 2- Lumber degenerative disc disease POSTOPERATIVE DIAGNOSIS: 1- Lumbar Spondylosis with Facet Arthropathy without myelopathy. 2- Lumber degenerative disc disease PROCEDURES : Right Radiofrequency thermocoagulation, L3 , L4 , and L5 medial branch, with fluoroscopic guidance (fluoroscopy images available in the radiology department) ( to denervate the facet joint at L4-5 ,and L5-S1 levels ) ANESTHESIA: Moderate sedation with intravenous versed 2 mg and fentaneyl 100 mcg, and local infiltration with Ropivacaine 0.5 % . EBL: Minimal PROCEDURE INDICATION: The patient with low back pain secondary to lumbar facet arthropathy who had more than 50% relief of her pain with previous diagnostic lumbar medial branch block with bupivacaine. PROCEDURE DESCRIPTION / TECHNIQUE: The patient was seen and identified in the preoperative area. Risks, benefits, complications, including but not limited to risk of infection ,bleeding , allergic reactions to the medications and no complete pain releife , and alternatives were discussed with the patient, the patient agreed to proceed with the procedure and signed the consent. IV was started. Vital signs remained stable throughout the procedure. Patient was taken to the OR and time out was completed. The patient was placed in the prone position on the procedure table. The lumber area was prepped and draped in the usual sterile fashion. . Vital signs were closely monitored during the procedure .IV sedation was used during the procedure to decrease patients anxiety. Using AP and then oblique fluoroscopy, the ``eye of the Wilfrid dog corresponding to the connection between the superior and transverse articular processes of right L3, L4, and L5 were identified, marked, and localized with 1% lidocaine. Subsequently, a [id number] radiofrequency cannula with a 10- mm active tip was advanced guided by fluoroscopy to each of the``eyes of the Wilfrid dog at right L3, L4, and L5. Each site then underwent sensory testing at 50 Hz and 0 to 1 volt and motor testing at 2.5 Hz and 0 to 3 volt with local stimulation, but no radicular symptoms down the legs. Thereafter the right L3, L4 , and L5 sites underwent radiofrequency thermocoagulation at 80 degrees celsius for 90 seconds after injecting 0.5 ml of PF Ropivacaine 1ml, then after the thermocoagulation done , 1 ml of the block solution containing Depo-Medrol 40 mg and 3 ml of Ropivacaine 0.5% was injected at the right L3 , L4 , and L5 , levels after negative aspiration of CSF and blood and with no paresthesias. Cannulas were retracted while injecting lidocaine 1% until the needle is out. At the end of the procedure, the skin was cleansed and bandages were applied. COMPLICATIONS: No acute complications. DISPOSITION / PLANS: The patient was placed in a supine position and transferred to the recovery area in a stable condition for observation and was discharged from the recovery room after meeting discharge criteria. Home discharge instructions given to the patient by the staff. The patient was reexamined prior to discharge. The patient will schedule a follow up in the clinic in 2-4 weeks.
[2019-04-22] MEDS ORDERED: IV FLUID CONTINUATION 1,000 ML IV ONE (10:53)
[2019-04-22 11:09] VITALS: BP 106/76; PULSE 90
--- NOTE | 2019-04-22 12:22 | FL ---
EXAMINATION TYPE: FL guided pain mgmt statistic DATE OF EXAM: 04/22/2019 FLUOROSCOPY Fluoroscopy time of 7 seconds was used during right lumbar radiofrequency ablation. 3 image/s docume nt/s the procedure.
== END 2019-04-22 11:27 | disposition home or self-care (01) ==
LOC: ORPAIN 08:41
PROVIDERS: ATTEND Specialist
DX: M47.816 Spondylosis without myelopathy or radiculopathy, lumbar region (principal); M51.36 Other intervertebral disc degeneration, lumbar region; Z88.8 Allergy status to other drugs, medicaments and biological substances
CPT/HCPCS: 64635; 64636; J2250; J1030; J3010; 99152

== ENCOUNTER 2019-05-07 06:21 | Day surgery (SDC) | payer OTHER ==
[~2019-05-07 06:21] MED LIST changes: -BUPIVACAINE (PF) 0.5% 30 ML VIAL ONE; -LACTATED RINGERS 1,000 ML IV SCH; +LIDOCAINE 4% (PF) 5 ML AMP ONE; -methylPREDNISolone ACETATE 40 MG/ML 1 ML VIAL ONE
[2019-05-07 06:47] VITALS: TEMP 98.6
[2019-05-07] MEDS: LACTATED RINGERS 1,000 ML IV SCH ×2 (06:54→06:58)
[2019-05-07] MEDS ORDERED: LIDOCAINE 1% 20 ML VIAL (10MG/ML) FOR IV START INTRADERMA ONE (06:54)
--- NOTE | 2019-05-07 08:12 | P.PCN ---
Date of Procedure: 05/07/19 Procedure(s) Performed: PREOPERATIVE DIAGNOSIS: Lumbar Spondylosis POSTOPERATIVE DIAGNOSIS: Same PROCEDURES: Radiofrequency ablation of the L3, L4, L5 medial branches with fluoroscopic guidance on the left side SURGEON: Mya Gee MD. ANESTHESIA: Lidocaine 1% 5 mL, Moderate sedation with intravenous Versed and fentanyl, sedation time 17 minutes EBL: Minimal Fluoroscopy was used for the procedure and images were saved in the radiology portion of the chart. PROCEDURE INDICATION: The patient with low back pain secondary to lumbar facet arthropathy who had more than 50% relief of pain with previous diagnostic lumbar medial branch block X2. PROCEDURE DESCRIPTION / TECHNIQUE: The patient was seen and identified in the preoperative area. Risks, benefits, complications, including but not limited to risk of infection ,bleeding , allergic reactions to the medications and incomplete pain relief , and alternatives were discussed with the patient, the patient agreed to proceed with the procedure and signed the consent. IV was started. The operative site was marked. Patient was taken to the OR and time out was completed. The patient was placed in the prone position on the procedure table. The lumbar area was prepped and draped in the usual sterile fashion. . Vital signs were closely monitored during the procedure .IV sedation was used during the procedure to decrease patients anxiety. Using AP and then oblique fluoroscopy, the "eye of the Wilfrid dog" corresponding to the connection between the superior and transverse articular processes of the L4 and L5 as well as the sacral ala were identified, marked, and localized with 1% lidocaine. Subsequently, an 18 guage 150 mm radiofrequency cannula with a 10-mm active tip was advanced guided by fluoroscopy to the identified target at each site. Needle positioning was confirmed on AP, oblique and lateral fluoroscopy. Motor testing at 2.5 Hz was done with paraspinal muscle stimulation only, and no radicular symptoms down the legs. Then 1 mL of 4% lidocaine was injected in each site. Radiofrequency thermocoagulation at 80 degrees celsius for 90 seconds was then performed. [place] were removed. Sterile dressings were applied. COMPLICATIONS: No acute complications. DISPOSITION / PLANS: The patient was placed in a supine position and transferred to the recovery area in a stable condition for observation and was discharged from the recovery room after meeting discharge criteria. Home discharge instructions given to the patient by the staff. The patient will follow up in clinic in 4 weeks.
[2019-05-07] MEDS ORDERED: IV FLUID CONTINUATION 1,000 ML IV ONE (08:21)
[2019-05-07 08:24] VITALS: RESP 18
--- NOTE | 2019-05-07 08:30 | FL ---
EXAMINATION TYPE: FL guided pain mgmt statistic DATE OF EXAM: 05/07/2019 HISTORY: LT LUMBAR RADIOFREQUENCY 12 SEC FL, 7 FILMS
[2019-05-07 08:40] VITALS: BP 100/78; PULSE 92
== END 2019-05-07 09:00 | disposition home or self-care (01) ==
LOC: ORPAIN 06:21
PROVIDERS: ATTEND Anesthesiology
DX: M47.816 Spondylosis without myelopathy or radiculopathy, lumbar region (principal); Z78.0 Asymptomatic menopausal state; Z88.8 Allergy status to other drugs, medicaments and biological substances
CPT/HCPCS: 64635; 64636; J2001; J2250; J3010; 99152

== ENCOUNTER → 2019-06-08 | Outpatient (CLI) | payer OTHER | END | disposition home or self-care (01) | CPT/HCPCS: 99211 ==

== ENCOUNTER → 2019-08-21 | Outpatient (CLI) | payer OTHER | END | disposition home or self-care (01) | LOC: LABWHC1 13:57 | PROVIDERS: ATTEND Internal Medicine | DX: Z11.59 Encounter for screening for other viral diseases (principal) ==

== ENCOUNTER → 2019-08-25 | Day surgery (SDC) | payer OTHER ==
[2019-08-24 13:07] VITALS: BMI 33.6
[~2019-08-25] MED LIST changes: +BUPIVACAINE (PF) 0.5% 30 ML VIAL ONE; +IOPAMIDOL M200 10 ML VIAL ONE; +IV FLUID CONTINUATION 1,000 ML IV ONE; +LACTATED RINGERS 1,000 ML IV SCH; +LIDOCAINE 1% (10MG/ML) FOR IV START INTRADERMA ONE; -LIDOCAINE 4% (PF) 5 ML AMP ONE; +methylPREDNISolone ACETATE 40 MG/ML 1 ML VIAL ONE
[2019-08-25 07:27] VITALS: RESP 16; TEMP 97
--- NOTE | 2019-08-25 07:58 | P.PCN ---
Date of Procedure: 08/25/19 Description of Procedure: Procedure: Sacroiliac joint injection bilateral Preoperative diagnosis: Sacroiliitis Postoperative diagnosis: Sacroiliitis Imaging: Fluoroscopy was used, images where saved to the medical record Complications: none Anesthesia: 1% lidocaine 5cc and 2 mg of Versed and 100 g of fentanyl Description of the procedure: procedure risk and benefits discussed with the patient, including but not limited, risk of infection and bleeding, and allergic reaction to the medication and incomplete pain relief. Patient agreed and signed consent. Patient was taken to the room and placed in a prone position. Chlorhexidine was used to cleanse the skin. Under sterile conditions patient skin was anesthetized 1% lidocaine. Subc utaneous tissues were also anesthetized with a total 5 mL of 1% lidocaine. After that, a 22-gauge spinal needle was advanced through the anesthetized location under fluoroscopic guidance. Needle was advanced into the inferior portion of the sacroiliac joint. IV contrast was used to confirm spread within the joint. After adequate spread was achieved, 2.5 ML's of 0.5% ropivacaine with 40 mg of triamcinolone was injected into the joint. Patient tolerated the procedure well. Sent to the recovery room in stable condition. Patient will follow up as directed.
[2019-08-25 08:23] VITALS: BP 116/71; PULSE 85
--- NOTE | 2019-08-25 08:48 | FL ---
Fluoroscopy INDICATION: Pain FINDINGS: Fluoroscopy time: 3 seconds. Images obtained: 2. IMPRESSIONS: 1. Documentation of fluoroscopy.
== END ==
LOC: ORPAIN 07:13
PROVIDERS: ATTEND Hospitalist
DX: M46.1 Sacroiliitis, not elsewhere classified (principal); Z88.8 Allergy status to other drugs, medicaments and biological substances
CPT/HCPCS: G0260; J2250; J1030; J3010; Q9966; 99152

== ENCOUNTER → 2019-09-09 | Outpatient (CLI) | payer OTHER ==
[2019-09-09 08:39] VITALS: BP 125/83; PULSE 99; RESP 18; TEMP 97.8
--- NOTE | 2019-09-09 08:58 | P.PAINPG ---
Subjective Progress Note Date: 09/09/19 This is a 54-year-old lady with history of chronic lower back pain who is well known to our clinic, managed with a combination of interventional pain procedures and medications. She most recently underwent bilateral SI joint injection on 08/25/2019. She returns today for follow-up. She reports excellent ongoing benefit from this. In the past, we have done bilateral lumbar medial branch RFA with excellent improvement in her pain, lasting approximately 6 months. Today her pain is primarily located in the low back, right worse than left, above the location of her SI joint pain, with no radiation into the lower extremities. In the past, this pain has responded well to lumbar radiofrequency ablation, she would like to have this repeated. She continues to take Leonard 5/325 one to 2 times per day, she denies side effects from these medications, medications are helping her function and control her pain. Patient denies new-onset weakness, bowel/bladder incontinence, or any other signs or symptoms of cauda equina syndrome. There are no signs of acute intoxication, and no indications of medication diversion or overuse. In addition to above, 13-point review of systems is also negative for chest pain, shortness of breath, changes in vision, changes in hearing, new onset w eakness, abdominal pain, diarrhea, extreme fatigue, malaise, fever, skin changes, homicidal or suicidal ideation, or bowel or bladder incontinence. Physical exam: Vitals: Reviewed in EMR GENERAL: Well appearing, in no acute distress PSYCH: Mood and affect is appropriate. Awake, alert, and oriented SKIN: Skin color, texture, turgor normal, no rashes or lesions HEENT: Normocephalic, atraumatic. EOM intact CV: No pedal edema RESP: Respirations are unlabored, no audible wheezing GI: Abdomen non-distended MUSCULOSKELETAL: Bilateral lower extremity strength is normal and symmetric. No atrophy or tone abnormalities are noted. Lumbar spine: Straight leg raising in the sitting position is negative for radicular pain. Tenderness to palpation over the lumbar spine and paraspinous muscles bilaterally. Positive for pain with facet loading and back extension/rotation. Normal range of motion without pain reproduction Buttocks: No pain to palpation over the PSIS, sacroiliac joint maneuvers are ne gative for pain. Extremities: Peripheral joint ROM is full and pain free without obvious instability or laxity in all four extremities. No edema or skin discolorations noted. Gait: Gait is normal NEUR: Bilateral lower extremity coordination and muscle stretch reflexes are physiologic and symmetric. Negative clonus bilaterally. No loss of sensation is noted. Imaging: Reviewed in EMR/chart Assessment: Tobacco abuse Obesity Lumbar spondylosis without myelopathy Bilateral sacroiliitis Chronic opioid use Plan: 1. Explanation: Opioid and psychological risk scores were reviewed. Diagnoses, prognoses, and multiple treatment options including interventional therapies, adjuvant medical therapies, narcotic medication therapies, were discussed with the patient and all questions were answered to the patient's satisfaction. 2. Opioid agreement: Signed with the patient and is on file 4. Procedures: Schedule for bilateral lumbar radiofrequency ablation of L3, L4, L5 for facets L4-5 and L5-S1 5. Consultations: None 6. Investigations: Urine drug screen sent today 7. Medications: Continue Leonard 5 mg twice a day when necessary pain60 tablets with one refill 8. Disposition: Return to clinic in 8 weeks' and to the above-mentioned procedure as soon as possible 9. Maps were reviewed and were appropriate. PQRS measures: 1-Patient's medications are documented in the chart. 2-Tobacco use is positive, counseling given 3-Patient has had a pneumococcal vaccine. 4-Advanced care planning discussed, patient unable to give 5-Opioid contract was signed with the patient. 6-Pain positive, follow-up visit or procedure scheduled 7-Patient's blood pressure measured and documented within normal limits. 8-Patient's weight was measured, and body mass index ABOVE the normal limits, and counseling was done. Patient instructed to follow up with PCP. 9-Patient WAS NOT identified as an unhealthy alcohol user. PQRS Measure Charge Sheet PQRS Narrative: Smoking Status Current every day smoker Narcotic Agreement Date Signed 09/24/18 Hx Alcohol Use (MH) No Home Medications: Ambulatory Orders ARIPiprazole [Abilify] 5 mg PO HS 07/02/18 Cetirizine HCl 10 mg PO DAILY PRN 07/02/18 PARoxetine HCL [Paxil] 40 mg PO DAILY 07/02/18 Albuterol Inhaler (Mhu) [Ventolin Hfa Inhaler] 1 - 2 puff INHALATION Q6HR PRN 07/22/18 Melatonin 3 mg PO HS PRN 10/06/18 Umeclidinium [place] [Incruse Ellipta] 1 applicate INHALATION DAILY 12/23/18 Baclofen [Lioresal] 10 mg PO TID 02/26/19 Ibuprofen [Motrin] 800 mg PO TID PRN #90 tab 07/21/19 HYDROcodone/APAP 5-325MG [Leonard 5-325] 1 tab PO Q12HR PRN 30 Days #60 tab 09/09/19 HYDROcodone/APAP 5-325MG [Leonard 5-325] 1 tab PO Q12HR PRN 30 Days #60 tab 09/09/19 Controlled Substance Measures - Controlled Substance Measures Is patient prescribed a controlled substance at discharge?: Yes When asked, does pt state using other controlled substances?: No If prescribed controlled substance>3 days was MAPS reviewed?: Yes If Rx opioid, was Start Talking consent form obtained?: Yes If opioid is for acute pain is fill amount 7 days or less?: No Was information provided regarding opioid addiction?: Yes
== END | disposition home or self-care (01) ==
LOC: PNWHC3 08:17
PROVIDERS: ATTEND Anesthesiology
DX: G89.29 Other chronic pain (principal); M47.816 Spondylosis without myelopathy or radiculopathy, lumbar region; M46.1 Sacroiliitis, not elsewhere classified; F11.90 Opioid use, unspecified, uncomplicated; E66.9 Obesity, unspecified; Z68.33 Body mass index [BMI] 33.0-33.9, adult; F17.200 Nicotine dependence, unspecified, uncomplicated; Z98.890 Other specified postprocedural states; Z79.899 Other long term (current) drug therapy
CPT/HCPCS: 80307; G0482; G0463; 99211

== ENCOUNTER 2019-10-08 08:48 | Day surgery (SDC) | payer OTHER ==
[2019-10-08 09:35] VITALS: TEMP 98.2
[2019-10-08] MEDS ORDERED: LACTATED RINGERS 1,000 ML IV ONE (09:50)
[2019-10-08] MEDS ORDERED: LIDOCAINE 1% (10MG/ML) FOR IV START INTRADERMA ONE (09:50)
[2019-10-08] MEDS ORDERED: MIDAZOLAM 2 MG/2 ML VIAL ONE (09:55)
[2019-10-08] MEDS ORDERED: methylPREDNISolone ACETATE 40 MG/ML 1 ML VIAL ONE (09:55)
[2019-10-08] MEDS ORDERED: fentaNYL (PF) 50 MCG/ML 2 ML AMP ONE (09:55)
[2019-10-08] MEDS ORDERED: ROPIVACAINE 5MG/ML 20ML VIAL ONE (09:55)
--- NOTE | 2019-10-08 10:26 | P.PCN ---
Date of Procedure: 10/08/19 Procedure(s) Performed: PREOPERATIVE DIAGNOSIS: 1-Lumbar Spondylosis with Facet Arthropathy without myelopathy. 2- Lumber degenerative disc disease POSTOPERATIVE DIAGNOSIS: 1- Lumbar Spondylosis with Facet Arthropathy without myelopathy. 2- Lumber degenerative disc disease PROCEDURES : Left Right Bilateral Radiofrequency thermocoagulation, L3 , L4 , and L5 medial branch, with fluoroscopic guidance (fluoroscopy images available in the radiology department) ( to denervate the facet joint at L4-5 ,and L5-S1 levels ) ANESTHESIA: Moderate sedation with intravenous versed 2 mg and fentaneyl 150 mcg, and local infiltration with Ropivacaine 0.5 % . EBL: Minimal PROCEDURE INDICATION: The patient with low back pain secondary to lumbar facet arthropathy who had more than 50% relief of her pain with previous diagnostic lumbar medial branch block with bupivacaine. PROCEDURE DESCRIPTION / TECHNIQUE: The patient was seen and identified in the preoperative area. Risks, benefits, complications, including but not limited to risk of infection ,bleeding , allergic reactions to the medications and no complete pain releife , and alternatives were discussed with the patient, the patient agreed to proceed with the procedure and signed the consent. IV was started. Vital signs remained stable throughout the procedure. Patient was taken to the OR and time out was completed. The patient was placed in the prone position on the procedure table. The lumber area was prepped and draped in the usual sterile fashion. . Vital signs were closely monitored during the procedure .IV sedation was used during the procedure to decrease patients anxiety. Using AP and then oblique fluoroscopy, the ``eye of the Wilfrid dog corresponding to the connection between the superior and transverse articular processes of right L3, L4, and L5 were identified, marked, and localized with 1% lidocaine. Subsequently, a 18 [id number] radiofrequency cannula with a 10- mm active tip was advanced guided by fluoroscopy to each of the``eyes of the Wilfrid dog at right L3, L4, and L5. Each site then underwent sensory testing at 50 Hz and 0 to 1 volt and motor testing at 2.5 Hz and 0 to 3 volt with local stimulation, but no radicular symptoms down the legs. Thereafter each sites underwent radiofrequency thermocoagulation at 80 degrees celsius for 90 seconds after injecting 0.5 ml of PF Ropivacaine 1ml, then after the thermocoagulation done , 1 ml of the block solution containing Depo-Medrol 40 mg and 3 ml of Ropivacaine 0.5% was injected at the right L3 , L4 , and L5 , levels after negative aspiration of CSF and blood and with no paresthesias. Cannulas were retracted while injecting lidocaine 1% until the needle is out. The same procedure was repeated at the level of Left L3, L4, and L5 levels. At the end of the procedure, the skin was cleansed and bandages were applied. COMPLICATIONS: No acute complications. DISPOSITION / PLANS: The patient was placed in a supine position and transferred to the recovery area in a stable condition for observation and was discharged from the recovery room after meeting discharge criteria. Home discharge instructions given to the patient by the staff. The patient was reexamined prior to discharge. The patient will schedule a follow up in the clinic in 2-4 weeks.
[2019-10-08] MEDS ORDERED: IV FLUID CONTINUATION 450 ML IV ONE (10:31)
[2019-10-08 10:38] VITALS: BP 119/74; PULSE 86; RESP 20
[2019-10-08] MEDS ORDERED: LACTATED RINGERS 1,000 ML IV SCH (10:38)
--- NOTE | 2019-10-09 12:05 | FL ---
Fluoroscopy History: RF LUMBAR fl time [address] Bassett. 7 images scanned.
== END 2019-10-08 11:00 | disposition home or self-care (01) ==
LOC: ORPAIN 08:48
PROVIDERS: ATTEND Specialist
DX: M47.816 Spondylosis without myelopathy or radiculopathy, lumbar region (principal); M51.36 Other intervertebral disc degeneration, lumbar region; Z88.8 Allergy status to other drugs, medicaments and biological substances; Z98.51 Tubal ligation status
CPT/HCPCS: 64635; 64636; J2250; J1030; J3010; J2795; 99152; 99153

== ENCOUNTER 2019-11-08 13:57 | Inpatient (IN) | payer MEDICAID, OTHER ==
--- NOTE | 2019-11-08 14:39 | ED ---
General Adult HPI - General Chief complaint: Psychiatric Symptoms Stated complaint: Mental Health Time Seen by Provider: 11/08/19 14:06 Source: patient, family, RN notes reviewed Mode of arrival: ambulatory Limitations: altered mental status - History of Present Illness Initial comments: 54-year-old female presents to the emergency department for a chief complaint of hallucinations. Patient has been having auditory hallucinations for about the past week. Patient reports to me that the voices are telling her that they're going to torture her here in the hospital. She states they're telling her they are going to pump her body with adrenaline and cut off her arms without anesthesia and possibly a breast. Then states they're going to take her and very her in the [place]. Patient denies thoughts of harming herself. She states the voices tell her they will not let her heart resolve and that they will torture her for years. Patient denies any thoughts of harming anyone else. Patient states she does not want to go to the psychiatric floor because this is where the voices say they will hurt her. Patient was just released yesterday from another psychiatric facility and started on Latuda. Son reports that this has not helped at all. son reports that this happened about a year ago as well. Patient has no other complaints at this time including shortness of breath, chest pain, abdominal pain, nausea or vomiting, headache, or visual changes. - Related Data Home Medications Medication Instructions Recorded Confirmed Cetirizine HCl 10 mg PO DAILY PRN 07/02/18 11/08/19 PARoxetine HCL [Paxil] 40 mg PO DAILY 07/02/18 11/08/19 Melatonin 3 mg PO HS PRN 10/06/18 11/08/19 Umeclidinium [employer] [Incruse 1 puff INHALATION RT-DAILY 12/23/18 11/08/19 Ellipta] Baclofen [Lioresal] 10 mg PO TID 02/26/19 11/08/19 Albuterol Sulfate [Ventolin HFA] 2 puff INHALATION RT-QID PRN 11/08/19 11/08/19 Multivitamins, Thera [Multivitamin 1 tab PO DAILY 11/08/19 11/08/19 (formulary)] Previous Rx's Medication Instructions Recorded Ibuprofen [Motrin] 800 mg PO TID PRN #90 tab 07/21/19 HYDROcodone/APAP 5-325MG [[place] 1 tab PO Q12HR PRN 30 Days #60 tab 09/09/19 5-325] Allergies Allergy/AdvReac Type Severity Reaction Status Date / Time risperidone AdvReac Dyspnea Verified 11/08/19 16:29 Review of Systems ROS Statement: Those systems with pertinent positive or pertinent negative responses have been documented in the HPI. ROS Other: All systems not noted in ROS Statement are negative. Past Medical History Past Medical History: COPD, Musculoskeletal Disorder Additional Past Medical History / Comment(s): SINUS PROBLEMS, DDD History of Any Multi-Drug Resistant Organisms: None Reported Past Surgical History: Tubal Ligation Additional Past Surgical History / Comment(s): PAIN CLINIC PROCEDURES Past Anesthesia/Blood Transfusion Reactions: No Reported Reaction Past Psychological History: Anxiety, Depression Smoking Status: Current every day smoker Past Alcohol Use History: Occasional Past Drug Use History: None Reported - Past Family History Daughter(s) Family Medical History: Blood Disorder, Deep Vein Thrombosis (DVT) Additional Family Medical History / Comment(s): "blood clotting disorder" General Exam Limitations: altered mental status General appearance: alert, in no apparent distress, anxious Head exam: Present: atraumatic, normocephalic, normal inspection Eye exam: Present: normal appearance, PERRL, EOMI. Absent: scleral icterus, conjunctival injection, periorbital swelling ENT exam: Present: normal exam, mucous membranes moist Neck exam: Present: normal inspection. Absent: tenderness, meningismus, lymphadenopathy Respiratory exam: Present: normal lung sounds bilaterally. Absent: respiratory distress, wheezes, rales, rhonchi, stridor Cardiovascular Exam: Present: regular rate, normal rhythm, normal heart sounds. Absent: systolic murmur, diastolic murmur, rubs, gallop, clicks GI/Abdominal exam: Present: soft, normal bowel sounds. Absent: distended, tenderness, guarding, rebound, rigid Course Vital Signs 11/08/19 11/08/19 14:02 15:16 Temperature 98.9 F Pulse Rate 114 H Respiratory 16 18 Rate Blood Pressure 164/94 O2 Sat by Pulse 96 Oximetry Medical Decision Making - Medical Decision Making patient was evaluated by EPS. She was petitioned and certification was filled out. Disposition Clinical Impression: Hallucinations Disposition: TRANSFER TO PSYCH HOSP/UNIT Is patient prescribed a controlled substance at d/c from ED?: No Time of Disposition: :13
[2019-11-08] MEDS ORDERED: MAG HYDROX/AL HYDROX/SIMETH 30 ML CUP PO PRN (15:35)
[2019-11-08] MEDS ORDERED: ZIPRASIDONE 20 MG VIAL IM PRN (15:35)
[2019-11-08] MEDS ORDERED: MAGNESIUM HYDROXIDE 2,400 MG/10 ML CUP PO PRN (15:35)
[2019-11-08] MEDS ORDERED: ALBUTEROL HFA INHALER INHALATION PRN (15:39)
[2019-11-08] MEDS: BACLOFEN 10 MG TAB PO SCH ×2 (16:36→21:33)
[2019-11-08] MEDS: LORazepam 1 MG TAB PO PRN (16:36)
[2019-11-09] MEDS: LORazepam 1 MG TAB PO PRN ×2 (08:49→16:13)
[2019-11-09] MEDS: NICOTINE 14MG/24HR PATCH TRANSDERM SCH (08:49)
[2019-11-09] MEDS: BACLOFEN 10 MG TAB PO SCH (08:50)
[2019-11-09] MEDS: IBUPROFEN 800 MG TAB PO PRN ×2 (08:50→16:13)
[2019-11-09] MEDS: PARoxetine 20 MG TAB PO SCH (08:50)
[2019-11-09] MEDS ORDERED: PARoxetine 20 MG TAB PO SCH (09:00)
--- NOTE | 2019-11-09 16:22 | HP ---
HISTORY AND PHYSICAL DATE OF ADMISSION: 11/08/2019 DATE OF EVALUATION: 11/09/2019 IDENTIFYING INFORMATION: The patient is a 54-year-old female who presented to the emergency department for chief complaint of hallucinations telling her to hurt herself and hurt people. HISTORY OF PRESENT ILLNESS: The patient stated that she was recently admitted to psychiatric facility at [place] for auditory hallucinations and anxiety. She stated that it is a man's voice telling her to hurt herself, "and now the voice is torturing me." The patient stated that the voice yesterday was telling her __they will___ cut off her arm without anesthesia and also cut off her breast. The patient stated that she was inpatient for 4 days and was discharged on Paxil and Latuda; however, she could not fill the prescription of Latuda, and she started have recurrence of auditory hallucinations. on Saturday Currently she stated that her depression is very low; it is 1 or 2 out of 10; 10 being the worst, and it is always related to her back pain. However, she stated that her anxiety can go very high, 5 to 10, 10 being the worst. She stated, "When the voices are loud and making her anxious." The patient denied any intent of harming others or herself but seems paranoid and suspicious. PAST PSYCHIATRIC HISTORY: She stated that her first hospitalization was a couple of years ago. She was in a hospital in [place] and they gave her Risperdal, but she did not like Risperdal, so they switched her to Abilify. At that time she was also hearing voices. Her second hospitalization was last week at [facility] and she was discharged on Latuda and Paxil. The patient started on Paxil 40 mg a day 15 years ago after her divorce, prescribed by her primary care physician. There is no previous suicidal attempt. SUBSTANCE ABUSE HISTORY: Alcohol: She stated, "Just one drink every other day to come down." Marijuana: According to her, she did smoke medical marijuana prescribed to her ex- . She said, "I had a couple of puffs for my back pain. SOCIAL HISTORY: The patient was for 10 to 15 years, ended by divorce 15 years ago, and she has 3 children. Currently she is living with her son in a house owned by her ex- , who is living in the same house with his girlfriend. The patient stated that her ex- had a stroke, and her son Daljit is taking care of him. 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 She has been on Social Security Disability for the last 4 or 5 years for her back pain. FAMILY PSYCHIATRIC HISTORY: The patient is not aware about any mental illness or chemical dependency in her family. There is no family history of attempted suicide. ALLERGIES: RISPERDAL. PAST MEDICAL HISTORY: History of chronic back pain, COPD. HOME MEDICATIONS: Her home medications at the time of the admission were Paxil 40 mg daily, baclofen 10 mg 3 times a day, Ventolin inhaler,Melatonin 3 mg HS Motrin 800 three times a day as needed,she was on [place] for back pain ,last RX was June 2019 . MENTAL STATUS EXAMINATION: The patient is an overweight female who is wearing a hospital gown. Fair grooming and hygiene. She seems euphoric. There is no psychomotor agitation. She was able to sit throughout the interview. Her speech is spontaneous, coherent. Stated mood is anxious. Affect is constricted. She denied any current suicidal or homicidal ideation. She stated that she has been hearing auditory hallucinations that are torturing her. Her memory is grossly intact. Her insight and judgment are limited. DIAGNOSTIC IMPRESSION: 1. Major depression with psychotic features. Rule out bipolar mixed with psychotic features. 2. Alcohol use disorder. 3. Rule out cannabis use disorder. 4. Nicotine dependence. PLAN: The patient will be admitted to [facility]. She did agree to sign a voluntary admission. I will continue her on her Paxil 40 mg daily. However, I will discontinue baclofen and I will start her on Latuda 40 mg and will titrate it to control her auditory hallucinations. The patient will participate in activities and groups as much as she can tolerate. Will continue closely monitoring her. tankroom worker for collateral information and for post-discharge plan. MMODL / IJN: [id number] / MTDD
[2019-11-09] MEDS: ACETAMINOPHEN TAB 325 MG TAB PO PRN ×2 (17:07→19:57)
--- NOTE | 2019-11-09 19:09 | P.CONS ---
History of Present Illness - History of Present Illness This is a pleasant 54 years old female She is a patient of Dr. Rodriguez and she follows up with the patient clinic as well. She was admitted with signs symptoms of depression with psychotic features. Medical consult was requested for medical management. Patient denies any specific symptoms, she denies chest pain or dyspnea, no abdominal pain, no nausea vomiting, no problem regarding her urine or bowel habits. No fever Patient was complaining of from chronic low back pain and she was requesting Narco she was taking at home. Patient was seen walking in the hallway with no difficulty Also she states that she smokes cigarettes. Review of Systems .CONSTITUTIONAL: No fever, no malaise, no fatigue. HEENT: No recent visual problems or hearing problems. Denied any sore throat. CARDIOVASCULAR: No orthopnea, PND, no palpitations, no syncope. PULMONARY: No shortness of breath, no cough, no hemoptysis. GASTROINTESTINAL: No diarrhea, no nausea, no vomiting, no abdominal pain. Normoactive bowel sounds. NEUROLOGICAL: No headaches, no weakness, no numbness. HEMATOLOGICAL: Denies any bleeding or petechiae. GENITOURINARY: Denies any burning micturition, frequency, or urgency. MUSCULOSKELETAL/RHEUMATOLOGICAL: Denies any joint pain, swelling, or any muscle pain. ENDOCRINE: Denies any polyuria or polydipsia. Past Medical History Past Medical History: COPD, Musculoskeletal Disorder Additional Past Medical History / Comment(s): SINUS PROBLEMS, DDD History of Any Multi-Drug Resistant Organisms: None Reported Past Surgical History: Tubal Ligation Additional Past Surgical History / Comment(s): PAIN CLINIC PROCEDURES Past Anesthesia/Blood Transfusion Reactions: No Reported Reaction Past Psychological History: Anxiety, Depression Smoking Status: Current every day smoker Past Alcohol Use History: Occasional Past Drug Use History: None Reported - Past Family History Daughter(s) Family Medical History: Blood Disorder, Deep Vein Thrombosis (DVT) Additional Family Medical History / Comment(s): "blood clotting disorder" Medications and Allergies Home Medications Medication Instructions Recorded Confirmed Type Cetirizine HCl 10 mg PO DAILY PRN 07/02/18 11/08/19 History PARoxetine HCL [Paxil] 40 mg PO DAILY 07/02/18 11/08/19 History Melatonin 3 mg PO HS PRN 10/06/18 11/08/19 History Umeclidinium [place] [Incruse 1 puff INHALATION RT-DAILY 12/23/18 11/08/19 History Ellipta] Baclofen [Lioresal] 10 mg PO TID 02/26/19 11/08/19 History Ibuprofen [Motrin] 800 mg PO TID PRN #90 tab 07/21/19 11/08/19 Rx HYDROcodone/APAP 5-325MG [[place] 1 tab PO Q12HR PRN 30 Days #60 tab 09/09/19 11/08/19 Rx 5-325] Albuterol Sulfate [Ventolin HFA] 2 puff INHALATION RT-QID PRN 11/08/19 11/08/19 History Multivitamins, Thera [Multivitamin 1 tab PO DAILY 11/08/19 11/08/19 History (formulary)] Allergies Allergy/AdvReac Type Severity Reaction Status Date / Time risperidone AdvReac Dyspnea Verified 11/08/19 16:29 Physical Exam Vitals: Vital Signs Temp Pulse Resp BP Pulse Ox 11/09/19 06:33 98.5 F 99 18 107/67 97 -GENERAL: The patient is alert and oriented x3, not in any acute distress. Obese HEENT: Pupils are round and equally reacting to light. EOMI. No scleral icterus. No conjunctival pallor. Normocephalic, atraumatic. No pharyngeal erythema. No thyromegaly. CARDIOVASCULAR: S1 and S2 present. No murmurs, rubs, or gallops. PULMONARY: Chest is clear to auscultation, no wheezing or crackles. ABDOMEN: Soft, nontender, nondistended, normoactive bowel sounds. No palpable organomegaly. MUSCULOSKELETAL: No joint swelling or deformity. EXTREMITIES: No cyanosis, clubbing, or pedal edema. NEUROLOGICAL: Gross neurological examination did not reveal any focal deficits. SKIN: No rashes. No petechiae Assessment and Plan Assessment: -Depression and other psychotic features and other psychiatric illnesses, management as per [facility] primary team -Chronic low back pain, continue with pain management and may consider nicotine patch -Nicotine dependence, patient was counseled she does not want to quit however she declined nicotine patch -Obesity We recommend patient follow up with her PCP Dr. Rodriguez in 1 week after discharge and patient was instructed to the same Thank you for consulting us, we will see the patient on as needed basis. Please feel free to contact us for any further question or clarification
[2019-11-09] MEDS: CYCLOBENZAPRINE 10 MG TAB PO SCH (19:57)
[2019-11-09] MEDS: MELATONIN 3 MG TABLET PO PRN (19:57)
[2019-11-10] MEDS: ACETAMINOPHEN TAB 325 MG TAB PO PRN ×3 (00:33→20:09)
[2019-11-10] MEDS: LORazepam 1 MG TAB PO PRN ×2 (00:33→08:54)
[2019-11-10 06:51] VITALS: PULSE 106; RESP 16
[2019-11-10] MEDS: NICOTINE 14MG/24HR PATCH TRANSDERM SCH (08:51)
[2019-11-10] MEDS: LIDOCAINE 5% PATCH TOPICAL SCH (08:52)
[2019-11-10] MEDS: PARoxetine 20 MG TAB PO SCH (08:53)
[2019-11-10] MEDS ORDERED: LURASIDONE 40 MG TAB PO SCH (09:00)
[2019-11-10] MEDS: IBUPROFEN 800 MG TAB PO PRN ×2 (12:03→20:09)
--- NOTE | 2019-11-10 13:12 | P.PN ---
Progress Note - Text Progress Note Date: 11/10/19 I reviewed medical records ,did interview patient and case was discussed in treatment team Patient is walking with walker Did receive 1 mg Ativan this morning Participating in groups Interval history: Patient was in [place] and agreed to follow me to office ,stated that Latuda made her tired and asking to take it after supper ,stated that auditory hallucinations "Not loud as before,very quiet now",still focussing about her back pain ,lot of somatic c/o,asking if she can use wheel chair instead of walker ,I discussed with her that walking will help her physically and mentally ,she verbalized understanding She denies any current suicidal or homicidal ideation Mental status exam: Patient was wearing street cloth ,hygiene and grooming are fair,speech is coherent ,stated mood "tired"",affect is blunted , endorses somatic complains and auditory hallucination ,denies any suicidal or homicidal ideation patient was able to walk with walker,insight and judgment are limited ASSESSMENT: Bipolar ,current episode :mixed with psychptic features PLAN: Patient continues to meet criteria for inpatient psychiatric admission for symptom stabilization and safety. Increase Latuda 60 mg and change it to supper time,continue Paxil 40 mg ,decrease prn Ativan , Will continue to monitor ongoing response to treatment. Encouraged participation in milieu.
[2019-11-10] MEDS: LORATADINE 10 MG TAB PO SCH (17:05)
[2019-11-10] MEDS: LORazepam 0.5 MG TAB PO PRN (20:09)
[2019-11-10] MEDS: CYCLOBENZAPRINE 10 MG TAB PO SCH (20:09)
[2019-11-10] MEDS ORDERED: LURASIDONE 80 MG TAB PO SCH (21:00)
[2019-11-11 01:13] VITALS: BP 114/71
[2019-11-11] MEDS: MELATONIN 3 MG TABLET PO PRN (03:16)
[2019-11-11] MEDS: NICOTINE 14MG/24HR PATCH TRANSDERM SCH (08:48)
[2019-11-11] MEDS: LIDOCAINE 5% PATCH TOPICAL SCH (08:48)
[2019-11-11] MEDS: IBUPROFEN 800 MG TAB PO PRN (08:49)
[2019-11-11] MEDS: LORATADINE 10 MG TAB PO SCH (08:49)
[2019-11-11] MEDS: PARoxetine 20 MG TAB PO SCH (08:49)
[2019-11-11] MEDS ORDERED: LORATADINE 10 MG TAB PO SCH (09:00)
--- NOTE | 2019-11-11 11:25 | DS ---
DISCHARGE SUMMARY DATE OF ADMISSION: 11/08/2019 DATE OF DISCHARGE: 11/11/2019 CONSULTATIONS: Dr. Cosme Thomas for H&P and medical management of the patient's chronic lower back pain. HISTORY OF PRESENT ILLNESS AND THE REASON FOR HOSPITALIZATION: The patient is a 54-year-old white female who is currently living with her son, her ex- and her ex-'s girlfriend. She presented to the emergency room with chief complaint of hallucinations telling her to hurt herself and hurt people. Initially patient was admitted to the hospital on an involuntary basis; however, she did sign herself when she came to the floor. The patient stated that she was recently in a psychiatric facility for auditory hallucination and anxiety and she was released after 4 day on Paxil and Latuda. However, she could not fill the prescription of Latuda and she started having recurrence of auditory hallucination. At the time of this admission, she stated that she is not depressed or feeling hopeless or helpless. However, she stated that she has high anxiety due to her chronic pain, especially she has been off her pain medication since June. Regarding her substance abuse history, patient is very vague about substance abuse history. She did admit that she did smoke medical marijuana prescribed to her ex- and also she was drinking every other day to calm down. HOSPITAL COURSE: At the time of admission, patient refused to give urine for urinalysis. She was drug seeking for pain medication and the medical doctor did prescribe Motrin 800 three times a day as needed, however, patient was still complaining of chronic back pain. Also, she was asking for Ativan every 8 hours due to her anxiety. I did start her on Latuda on the first day and within 24 hours she came to my office and she stated that she has been much better as "the voices have been very quiet." During her stay here, she was demanding to have a wheelchair despite that she was able to walk with a walker independently. I did discuss with her her drinking and her marijuana use, but patient does not have any insight to this and is minimizing alcohol and marijuana. She stated that she has been on [place] for a couple of years prescribed to her by Dr. Bingham. At the time of the discharge, the patient denied any auditory or visual hallucinations. Denied any psychotic features. Denied suicidal or homicidal ideation. Her insight regarding her alcohol and marijuana use is questionable, especially at the time of the discharge. She did ask me for a prescription for Ativan, but I told her that if she is going back to Dr. Bingham for pain medication she can not combine benzodiazepines and pain medication and she did verbalize understanding. MENTAL STATUS EXAMINATION: At the time of the discharge, the patient is an overweight female who was wearing her own clothes. Good hygiene and grooming. She was walking with a walker, very friendly, pleasant. There is no psychomotor agitation. Her speech is spontaneous, coherent and stated mood is "much better." Affect is constricted. She denied any current suicidal or homicidal ideation. She denied any auditory or visual hallucination. She denied any delusional thinking. Her memory is grossly intact. Her insight and judgment are improving. DISCHARGE DIAGNOSIS: 1. Bipolar disorder type 2, mixed with psychotic features. 2. Anxiety disorder, unspecified. 3. Alcohol use disorder. 4. Rule out cannabis use disorder. 5. Nicotine dependence. PLAN: The patient was discharged to [facility] outpatient. The patient is aware of the crisis stabilization if there is any safety issue. However, at the time of the discharge, there is no imminent harm to herself or any other. The patient was given 2 week supply for Paxil 40 mg daily and Latuda 80 mg at bedtime and to continue her melatonin as needed for sleep. The patient has to follow up for her chronic back pain with Dr. Bingham. MMPILO / CORNELION: [id number] /
[2019-11-11] MEDS: LORazepam 0.5 MG TAB PO PRN (12:52)
[2019-11-11] MEDS: ACETAMINOPHEN TAB 325 MG TAB PO PRN (13:33)
[2019-11-11 13:58] VITALS: TEMP 98.9
[2019-11-11] MEDS ORDERED: LURASIDONE 40 MG TAB PO SCH (19:00)
[2019-11-11] MEDS ORDERED: LURASIDONE 80 MG TAB PO SCH (19:00)
== END 2019-11-11 16:33 | disposition home or self-care (01) | DRG 885 ==
LOC: EC 13:57 → 3MHU 15:32
PROVIDERS: ADMIT Internal Medicine; ATTEND Psychiatry & Neurology Psychiatry
DX: F31.81 Bipolar II disorder (principal); R44.0 Auditory hallucinations; F17.200 Nicotine dependence, unspecified, uncomplicated; F10.10 Alcohol abuse, uncomplicated; E66.9 Obesity, unspecified; F41.9 Anxiety disorder, unspecified; G89.29 Other chronic pain; J44.9 Chronic obstructive pulmonary disease, unspecified; F12.90 Cannabis use, unspecified, uncomplicated; M54.5 Low back pain; Z79.899 Other long term (current) drug therapy; Z83.2 Family history of diseases of the blood and blood-forming organs and certain disorders involving the immune mechanism; Z88.8 Allergy status to other drugs, medicaments and biological substances; Z98.51 Tubal ligation status; Z98.890 Other specified postprocedural states; Z82.49 Family history of ischemic heart disease and other diseases of the circulatory system
CPT/HCPCS: 82075; 99285

== ENCOUNTER → 2019-11-24 | Outpatient (CLI) | payer OTHER ==
[2019-11-24 14:17] VITALS: BP 95/68; RESP 18; TEMP 98.9
[2019-11-24 14:19] VITALS: PULSE 79
--- NOTE | 2019-11-24 14:30 | P.PAINPG ---
Subjective Progress Note Date: 11/24/19 This is a follow-up visit for this 54 years old female with a history of severe low back pain she is diagnosed with lumbar degenerative disc disease and lumbar spondylosis with lumbar facet arthropathy, recently we have done RFA of the medial branch lumbar area bilaterally, which helped her low back pain significantly, currently she is complaining of severe upper back pain and some neck pain with numbness and tingling sensations radiating to the upper extremity bilaterally but it's more prominent on the right side ,she use [place] 5/325 every 8 hours when necessary, ibuprofen 800 mg every 8 hours when necessary and baclofen 10 mg every 8 hours when necessary she denies any side effect of the medication, she denies any excessive drowsiness and sleepiness, she denies any suicidal ideation, no fever or night sweats and no change in bowel movement or urination, the intensity of the pain interfering with the quality of life, and interfering with her ability to do activities of daily livings Objective - Vital Signs Vital signs: Vital Signs Temp 98.9 F 11/24/19 14:06 Pulse 79 11/24/19 14:06 Resp 18 11/24/19 14:06 BP 95/68 11/24/19 14:06 Pulse Ox 94 L 11/24/19 14:06 Intake & Output 11/23/19 11/24/19 11/24/19 18:59 06:59 18:59 Weight 98.883 kg - Exam -Constitutiona : Cooperative , not in acute distress . -HEENT : nech : supple , no Lymphadenopathy , normal thyroid size . : eyes : no ptosis , no icterus, no photophobia . - neurologic : Cranial nerve II to XII intact , no focal neurological deffecit . -psychatric : alert , oriented X 3 , appropriate affect , intact judgment and insight . -Lymphatic : no Lymphadenopathy . - musculoskeltal : Cervical Spine motor stregnth in the deltoid and biceps, normal right side , normal Left side motor stregnth biceps and the wrist extensors normal right side ,normal left side . motor stregnth in the triceps muscle . normal Right side , normal Left side deep tendon reflexes normal at the biceps , normal at Brachioradialis , normal at triceps. cervical facet loading test= Positive Bilaterally Spurling test= positive bilaterally. Neck distraction test= positive bilaterally. Mona sign= positive bilaterally. Thoracic spine= trigger point identified in the thoracic paravertebral muscles T5,T7 area bilaterally Lumber spine moter stegnth lower extremities ,thigh and legs 4-5/5 Right side , 4- 5/5 Left side Range of motion of the lumbar spine Flexion 30 degrees, extension 10 degrees View tenderness over the right trochanteric bursa Assessment and Plan Plan: chronic low back pain secondary to lumbar degenerative disc disease , lumbar spondylosis with lumbar facet arthropathy . Bilateral sacroiliitis Low back pain improved after RFA of the medial branch lumbar area. Cervical radiculopathy Myofascial pain upper thoracic area around T5 to T7 thoracic paraspinal muscles Right trochanteric bursitis. chronic and current use of high-risk medication (opioids) Patient denies any side effects of the current pain medication and the current treatment/medication helping the patient to do activity of daily living , Diagnoses, prognosis, treatment options, including but not limited to physical therapy, medication management, interventional therapies, and surgery, were discussed with the patient All the questions answered The narcotic consent was signed and patient agreed and understood the side effects and complications of opioid treatment. Patient signed the narcotic agreement, and was orally counseled, not to overuse, not to abuse, not to Divert , not tp sell pain medication, and to take it as prescribed only, Patient was counseled not to drive or operate heavy equipment while using narcotic medication, and advised not to use alcohol or any Illicit drugs while using the narcotis. understanding that lack of compliance with any of the above instructions, will likely to cause discharge from, the pain service, not to renew his narcotic prescriptions [facility] Reviwed and it was apropriate . Medication managements= patient will be given prescription refills for [place] 7.5/325 dispense 60 with 1 refill. (Increased from [id number] patient reported that the current medication is not helping) Interventions= MRI of the cervical spine was ordered and patient will follow up in the pain clinic in 2 weeks discussed the results of the MRI of the cervical spine Time with Patient: Less than 30 PQRS Measure Charge Sheet Measure #130: Documentation of Current Meds in Medical Chart: Patient's medications documented in chart Measure #226: Tobacco Use: Screen & Cessation Intervention: Pt screened for tobacco use AND intervention given Measure #111: Pneumonia Vaccination: Pneumococcal vaccine administered or previously received Measure #47: Advance Care Plan: Advance care planning discussed & documented, pt chose/unable to give Measure #412: Opioid Treatment Agreement: Documented signed opioid trtmnt agreemnt min once during opioid trtmnt Measure #408: Opioid Therapy Follow-up Evaluation: Patient had f/u eval minimum every 3 months during opioid therapy Measure #317: Preventitive Care & Scrn High Bld Press & F/U: Normal blood pressure, f/u not required Measure #128: Body Mass Index (BMI) Screening & Follow-up: BMI documented ABOVE normal parameters - f/u documented Measure #131: Pain Assessment & Follow-up: Pain positive & plan documented, Follow-up scheduled Measure #431: Unhealthy Alcohol Use Preventative Care & Scrn: Patient not identified as an unhealthy alcohol user PQRS Narrative: Smoking Status Current every day smoker Narcotic Agreement Date Signed 09/24/18 Blood Pressure 95/68 Pain Intensity [Lower Back] 8 Scale Used Numeric (1 - 10) Hx Alcohol Use (MH) No Home Medications: Ambulatory Orders Cetirizine HCl 10 mg PO DAILY PRN 07/02/18 Melatonin 3 mg PO HS PRN 10/06/18 Umeclidinium [place] [Incruse Ellipta] 1 puff INHALATION RT-DAILY 12/23/18 Baclofen [Lioresal] 10 mg PO TID 02/26/19 Albuterol Sulfate [Ventolin HFA] 2 puff INHALATION RT-QID PRN 11/08/19 Multivitamins, Thera [Multivitamin (formulary)] 1 tab PO DAILY 11/08/19 Lurasidone [Latuda] 80 mg PO 1900 14 Days tab 11/11/19 PARoxetine HCL [Paxil] 40 mg PO DAILY 14 Days tab 11/11/19 HYDROcodone/APAP 7.5-325MG [Tyr[place] 7.5-325] 1 tab PO Q12HR PRN 30 Days #60 tab 11/24/19 HYDROcodone/APAP 7.5-325MG [[place] 7.5-325] 1 tab PO Q12HR PRN 30 Days #60 tab 11/24/19 Ibuprofen [Motrin] 800 mg PO TID PRN #90 tab 11/24/19 Controlled Substance Measures - Controlled Substance Measures Is patient prescribed a controlled substance at discharge?: Yes
== END | disposition home or self-care (01) ==
LOC: PNWHC3 13:38
PROVIDERS: ATTEND Specialist
DX: M47.816 Spondylosis without myelopathy or radiculopathy, lumbar region (principal); M46.1 Sacroiliitis, not elsewhere classified; M46.96 Unspecified inflammatory spondylopathy, lumbar region; M51.36 Other intervertebral disc degeneration, lumbar region; M54.12 Radiculopathy, cervical region; M79.18 Myalgia, other site; M70.61 Trochanteric bursitis, right hip; F17.200 Nicotine dependence, unspecified, uncomplicated; Z79.899 Other long term (current) drug therapy; Z79.891 Long term (current) use of opiate analgesic
CPT/HCPCS: 80307; G0482; G0463; 99211

== ENCOUNTER → 2019-12-16 | Outpatient (CLI) | payer OTHER ==
--- NOTE | 2019-12-17 09:38 | MR ---
EXAMINATION TYPE: MR cervical spine wo con DATE OF EXAM: 12/16/2019 COMPARISON: HISTORY: Cervical radiculopathy CONTRAST: Performed utilizing mL intravenous gadolinium contrast. TECHNIQUE: Multiplanar multiecho imaging on a 3.0 Reshma magnet is performed through the cervical spin e. FINDINGS: The craniovertebral junction is normal. Vertebral body alignment is normal. C7-T1: No focal disc herniation or significant disc bulge is evident. No spinal canal stenosis or n eural foraminal stenosis is present. C6-7: There is broad-based disc bulge with mild anterior thecal sac flattening. No cord contact or co rd deformity is evident. No spinal canal stenosis is present. Uncovertebral joint hypertrophy has mod erate bilateral foraminal narrowing.. C5-6: Broad-based disc bulge has minimal anterior thecal sac compression. No AP spinal canal stenosis is present. No cord contact is evident. Mild bilateral foraminal narrowing is present. C4-5: Mild disc bulge has anterior thecal sac flattening. This is mildly greater in the left paracent ral region which may have anterior cord contact. Cord deformity may be present. No AP spinal canal st enosis present. Moderate bilateral foraminal narrowing due to uncovertebral joint hypertrophy is pres ent.. C3-4: Minimal central protrusion has anterior thecal sac contact. This comes in close approximation w ith the spinal cord. No spinal canal stenosis or neural foraminal stenosis is present.. C2-3: No focal disc herniation or significant disc bulge is evident. No spinal canal stenosis or jose alejandro ral foraminal stenosis is present. IMPRESSIONS: 1. Disc bulging in the left paracentral region at C4-5 may have cord contact is minimal cord deformit y. 2. Broad-based disc bulging C5-6 C6-7 without stenosis or cord deformity. 3. Uncovertebral joint hypertrophy contributing to foraminal narrowing greatest at C4-5 and C6-7.
== END | disposition home or self-care (01) ==
LOC: RADMRIMAIN 12:37
PROVIDERS: ATTEND Specialist
DX: M48.02 Spinal stenosis, cervical region (principal); M50.121 Cervical disc disorder at C4-C5 level with radiculopathy
CPT/HCPCS: 72141

== ENCOUNTER → 2020-01-20 | Outpatient (CLI) | payer OTHER ==
[2020-01-20 10:20] VITALS: BP 108/69; PULSE 95; RESP 14; TEMP 98.2
--- NOTE | 2020-01-20 10:31 | P.PAINPG ---
Subjective Progress Note Date: 01/20/20 Dayana is a 54-year-old female presenting today for follow-up for her low back pain. She reports pain across the tailbone with some radicular symptoms into the right leg. She denies any new symptoms patient reports that this pain is pre-constant nature. It limits her from walking. Limited from bending forward. She has very limited extension lumbar spine secondary to this. She denies any overt lower extremely weakness or any bowel or bladder incontinence. Denies any significant numbness tingling or weakness in the upper extremities. She has had multiple injections reports that helped partially. She is pain medication as needed. Her last urine drug screen was negative for any medications. I discussed this with her today. She inquired about increase in the pain medication. She is currently using Elberta 7.5 2 times a day reports only helped for about 7 hours. She denies any side effects from medications. Objective - Vital Signs Vital signs: Vital Signs Temp 98.2 F 01/20/20 10:15 Pulse 95 01/20/20 10:15 Resp 14 01/20/20 10:15 BP 108/69 01/20/20 10:15 Pulse Ox 96 01/20/20 10:15 - Exam General: Awake and alert oriented 3 no distress Respiratory exam: No audible wheezing no accessory muscle usage Cardiovascular exam: regular rate, palpable bilateral pulses, no lower extremity edema Abdominal exam: No distention nontender to palpation Cervical spine: Normal alignment, Spurling's negative, facet loading negative, First Calender Worker strength is 5/5, aguilar negative Lumbar spine: She is an obese midline with loss of lumbar lordosis. There is tenderness to palpation over the sacral area. There is tenderness to even light to palpation of the skin and soft tissue. There is no tenderness over the SI joints. Her lower extremity strength is 4-5 bilaterally mostly weak in the hamstring muscles. Her quadriceps strength is 4-5. Her EHL strength is normal. She is able stand on her heels and her toes. Sacroiliac joints: Nontender to palpation, SLIM is negative, Gaenselon negative Neuro exam: Normal sensation in bilateral upper extremities, deep tendon reflexes are 2+ bilateral upper extremities. Normal sensation in bilateral lower extremities. Deep tendon reflexes are 2+ in lower extremities Psych exam: Cooperative, appropriate mood Assessment and Plan Assessment: #1 lumbar spondylosis without myelopathy #2 sacroiliitis #3 lumbar radiculopathy #4 chronic opioid dependence Plan: Had a discussion with the patient regarding her pain. I will give her a referral to see Dr. Altman as per her request. I will change her pain medications back to 5 mg Elberta 3 times a day which is 15 morphine equivalence. Discussed the risk of increasing the medications and the downside of using opioid pain medications in detail with her and her son. I discussed with her that her last urine sample was negative for medications and I will repeat the urine sample today. If she again is negative for any medications will have to discontinue opioid prescribing. She reports that she last took her Elberta this morning. PQRS Measure Charge Sheet Measure #130: Documentation of Current Meds in Medical Chart: Patient's medications documented in chart Measure #226: Tobacco Use: Screen & Cessation Intervention: Pt screened for tobacco use AND intervention given Measure #111: Pneumonia Vaccination: Pneumococcal vaccine administered or previously received Measure #47: Advance Care Plan: Advance care planning discussed & documented, plan or surrogate given Measure #412: Opioid Treatment Agreement: Documented signed opioid trtmnt agreemnt min once during opioid trtmnt Measure #408: Opioid Therapy Follow-up Evaluation: Patient had f/u eval minimum every 3 months during opioid therapy Measure #317: Preventitive Care & Scrn High Bld Press & F/U: Normal blood pressure, f/u not required Measure #128: Body Mass Index (BMI) Screening & Follow-up: BMI documented within normal parameters Measure #131: Pain Assessment & Follow-up: Pain positive & plan documented Measure #431: Unhealthy Alcohol Use Preventative Care & Scrn: Patient not identified as an unhealthy alcohol user PQRS Narrative: Smoking Status Current every day smoker Narcotic Agreement Date Signed 09/24/18 Blood Pressure 108/69 Pain Intensity [Lower Back] 8 Scale Used Numeric (1 - 10) Hx Alcohol Use (MH) No Home Medications: Ambulatory Orders Cetirizine HCl 10 mg PO DAILY PRN 07/02/18 Melatonin 3 mg PO HS PRN 10/06/18 Umeclidinium Gloster [Incruse Ellipta] 1 puff INHALATION RT-DAILY 12/23/18 Baclofen [Lioresal] 10 mg PO TID 02/26/19 Albuterol Sulfate [Ventolin HFA] 2 puff INHALATION RT-QID PRN 11/08/19 Multivitamins, Thera [Multivitamin (formulary)] 1 tab PO DAILY 11/08/19 Lurasidone [Latuda] 80 mg PO 1900 14 Days tab 11/11/19 PARoxetine HCL [Paxil] 40 mg PO DAILY 14 Days tab 11/11/19 HYDROcodone/APAP 5-325MG [Elberta 5-325] 1 tab PO Q8HR PRN 30 Days #90 tab 01/20/20 HYDROcodone/APAP 5-325MG [Elberta 5-325] 1 tab PO Q8HR PRN 30 Days #90 tab 01/20/20 HYDROcodone/APAP 7.5-325MG [Elberta 7.5-325] 1 tab PO Q12HR PRN 30 Days #60 tab 01/20/20 Ibuprofen [Motrin] 800 mg PO TID PRN #90 tab 01/20/20 Controlled Substance Measures - Controlled Substance Measures Is patient prescribed a controlled substance at discharge?: Yes When asked, does pt state using other controlled substances?: No If prescribed controlled substance>3 days was MAPS reviewed?: Yes If Rx opioid, was Start Talking consent form obtained?: Yes If opioid is for acute pain is fill amount 7 days or less?: No Was information provided regarding opioid addiction?: Yes
== END | disposition home or self-care (01) ==
LOC: PNWHC3 09:54
PROVIDERS: ATTEND Hospitalist
DX: M47.26 Other spondylosis with radiculopathy, lumbar region (principal); M46.1 Sacroiliitis, not elsewhere classified; F11.20 Opioid dependence, uncomplicated; F17.200 Nicotine dependence, unspecified, uncomplicated; Z79.899 Other long term (current) drug therapy
CPT/HCPCS: 80307; G0482; G0463; 99211

== ENCOUNTER → 2020-03-16 | Outpatient (CLI) | payer OTHER ==
[2020-03-16 09:54] VITALS: BP 128/63; PULSE 99; RESP 16; TEMP 98.5
--- NOTE | 2020-03-18 06:01 | P.PN ---
Subjective Progress Note Date: 03/16/20 This is a follow-up visit for this 55 years old female with a history of severe low back pain she is diagnosed with lumbar degenerative disc disease ,and lumbar spondylosis with lumbar facet arthropathy, sacroiliitis , previously we have done RFA of the medial branch lumbar area bilaterally, and later on we did sacroiliac joint steroid injections , she continued to have pain after interventional pain management, the pain is constant in the low back area interfere with the quality of life, she was referred to a spine surgeon Dr. Simon and he recommended lumbar fusion and patient very nervous about having back surgery , and she is concerned about the rehab and in the postop course and complications,she use [place]ipt[place] 5/325 every 8 hours when necessary, ibuprofen 800 mg every 8 hours when necessary and baclofen 10 mg every 8 hours when necessary she denies any side effect of the medication, she denies any excessive drowsiness and sleepiness, she denies any suicidal ideation, no fever or night sweats and no change in bowel movement or urination, the intensity of the pain interfering with the quality of life, and interfering with her ability to do activities of daily livings Objective - Vital Signs Vital signs: Vital Signs Temp 98.5 F 03/16/20 09:45 Pulse 99 03/16/20 09:45 Resp 16 03/16/20 09:45 BP 128/63 03/16/20 09:45 Pulse Ox 95 03/16/20 09:45 - Exam Physical Examinations : -Constitutiona : Cooperative , not in acute distress . -HEENT : nech : supple , no Lymphadenopathy , normal thyroid size . : eyes : no ptosis , no icterus, no photophobia . - neurologic : Cranial nerve II to XII intact , no focal neurological deffecit . -psychatric : alert , oriented X 3 , appropriate affect , intact judgment and insight . -Lymphatic : no Lymphadenopathy . - musculoskeltal : Lumber spine moter stegnth lower extremities ,thigh and legs 5/5 Right side , 5/5 Left side deep tendon reflexes : normal Knee Jerk , normal ankle Jerk lumber facet Loading Test =positive Right , positive Left Range of motion of the lumbar spine Flexion 30 degrees, extension 10 degrees strait leg raising test = positive at 30 degree Fabere test= positive Right , and positive LT . Sever tenderness over the Sacroiliac joint on the Right , and Left sides Gaenslen test= positive right ,and positive left . Seated flexion test= positive right ,and positive Left . Assessment and Plan Plan: Assessment and plan= chronic low back pain secondary to lumbar degenerative disc disease , lumbar spondylosis with lumbar facet arthropathy . Sacroiliitis chronic and current use of high-risk medication (opioids) Patient denies any side effects of the current pain medication and the current treatment/medication helping the patient to do activity of daily living , Diagnoses, prognosis, treatment options, including but not limited to physical therapy, medication management, interventional therapies, and surgery, were discussed with the patient All the questions answered The narcotic consent was signed and patient agreed and understood the side effects and complications of opioid treatment. Patient signed the narcotic agreement, and was orally counseled, not to overuse, not to abuse, not to Divert , not tp sell pain medication, and to take it as prescribed only, Patient was counseled not to drive or operate heavy equipment while using narcotic medication, and advised not to use alcohol or any Illicit drugs while using the narcotis. understanding that lack of compliance with any of the above instructions, will likely to cause discharge from, the pain service, not to renew his narcotic prescriptions MAPS Reviwed and it was apropriate . Medication managements= patient will be given prescription refills for Tipt[place] 7.5/325 every 8 hours PRN ( 90 with one refile , Motrin 800 mg 3 times a day dispense 90 with 1 refill Baclofen 10 mg 3 times a day dispense 90 with 1 refill Next visit we'll do urine drug screen - PQRS measures = - Patient's medications are documented in the chart. -Tobacco use is positive/negative and counseling.Given. -Patient's has received pneumococcal vaccine. -Advanced care planning discussed, patient not eligible. -Opiate contract signed. -Pain positive and follow-up visit/procedure is scheduled. -Patient's blood pressure measured [128/63 ] , and documented in the record ,and patient will follow up with the primary care. -Patient's weight was measured and body mass index [ 32.9 ] above the normal limits and counseling was done. and patient instructed to follow-up with the primary care physician. -Patient was not identified as an unhealthy alcohol user Time with Patient: Less than 30
== END | disposition home or self-care (01) ==
LOC: PNWHC3 09:34
PROVIDERS: ATTEND Specialist
DX: G89.29 Other chronic pain (principal); M51.36 Other intervertebral disc degeneration, lumbar region; M47.816 Spondylosis without myelopathy or radiculopathy, lumbar region; M46.1 Sacroiliitis, not elsewhere classified; Z79.891 Long term (current) use of opiate analgesic; Z79.1 Long term (current) use of non-steroidal anti-inflammatories (NSAID); Z79.899 Other long term (current) drug therapy
CPT/HCPCS: 99211

== ENCOUNTER 2020-05-06 09:04 | Day surgery (SDC) | payer OTHER ==
[2020-04-20 14:29] VITALS: BMI 32.8
[~2020-05-06 09:04] MED LIST changes: -BUPIVACAINE (PF) 0.5% 30 ML VIAL ONE; -IOPAMIDOL M200 10 ML VIAL ONE; -IV FLUID CONTINUATION 1,000 ML IV ONE; -LIDOCAINE 1% (10MG/ML) FOR IV START INTRADERMA ONE; -MIDAZOLAM 2 MG/2 ML VIAL ONE; -fentaNYL (PF) 50 MCG/ML 2 ML AMP ONE; -methylPREDNISolone ACETATE 40 MG/ML 1 ML VIAL ONE
[2020-05-06 10:07] VITALS: RESP 16; TEMP 97.1
[2020-05-06] MEDS ORDERED: LIDOCAINE 1% (10MG/ML) FOR IV START INTRADERMA ONE (10:13)
[2020-05-06] MEDS ORDERED: fentaNYL (PF) 50 MCG/ML 2 ML AMP ONE (10:21)
[2020-05-06] MEDS ORDERED: MIDAZOLAM 2 MG/2 ML VIAL ONE (10:21)
[2020-05-06] MEDS ORDERED: ROPIVACAINE 5MG/ML 20ML VIAL ONE (10:21)
[2020-05-06] MEDS ORDERED: LIDOCAINE 1% INJ 10MG/ML (20 ML MDV) ONE (10:21)
[2020-05-06] MEDS ORDERED: TRIAMCINOLONE ACETONIDE 40 MG/ML 1 ML VIAL ONE (10:21)
--- NOTE | 2020-05-06 10:50 | P.PCN ---
Surgeon: Manuel Mcclain Pathology: none sent Condition: stable Disposition: PACU Description of Procedure: PRE and post OPERATIVE DIAGNOSIS: 1-Lumbosacral arthropathy. 2- Rt sacroiliitis. 3-sacroiliac joint dysfunction PROCEDURES: 1- Right radiofrequency thermocoagulation/ablation of the L5 dorsal ramus. 2- Right multi-site radiofrequency thermocoagulation/ablation of the S1 and S2 lateral branchs on the right side The procedure was performed using fluoroscopic guidance during needle placement to assure proper position and maximize safety. ANESTHESIA: LOCAL ANESTHESIA with IV moderate conscious sedation using Versed and fentanyl by the anesthesia department EBL: NONE INDICATION/MEDICAL NECESSITY: History of low back pain secondary to sacroiliitis and lumbosacral arthropathy unresponsive to more conservative treatments. The patient reported more than 50% relief of pain symptoms following 2 previous diagnostic blocks with Bupivacaine. PROCEDURE DESCRIPTION: The patient was seen and identified in the preoperative area. Risks, benefits, complications, and alternatives were discussed with the patient. The patient agreed to proceed with the procedure and signed the consent. Vital signs were checked before and after the procedure and they remained stable. Patient ambulated to the procedure room and time out was completed. The patient was placed in the prone position on the procedure table and a pillow was placed under the abdomen to reduce lumbar lordosis. The lumbosacral area was prepped and draped in the usual sterile fashion. Critical pause was taken. L5 Dorsal Ramus RF: Using right oblique fluoroscopy, the junction of the transverse process and the superior articular process of the -- S1 vertebra, which correspond to the fluoroscopic image of the "eye of the Wilfrid dog" was identified. Subsequently, a 10-cm 18-gauge radiofrequency cannula with a 10-mm active tip was advanced under fluoroscopic guidance until contact was made with periosteum. At this level, the Sensory testing of the L5 dorsal ramus was performed at 50 Hz and 0 to 1 volt with production of concordant pain starting at 0.5 volt. Motor stimulation was done at 2 Hz with stimulation of mulitifidus muscle contration at 1.5 volts. No radicular symptoms or paresthesias were produced during the testing. Subsequently, the L5 dorsal ramus was subjected to a radiofrequency ablation at a mode of 90 seconds at 80 degrees Celsius after negative motor and sensory testing and after injecting 0.5 ml of preservative free ropivacaine 0.5%. The needle was withdrawn intact the procedure was repeated on the left side using the same technique. S1, S3, and S3 Lateral Branch RF: The lateral margins of the Right S1 and S2 foramina were identified using AP fluoroscopy. Under fluoroscopic guidance, three 10-cm 18-gauge radiofrequency cannula with a 10-mm active tip were inserted at 8-10 mm peripheral to the posterior S1 foramen, at various locations using clock-face coordinates. The center of the clock was registered at the lateral margin of the foramen. The 2:30, 4:00, and 5:30 oclock positions were used. At this level, the sensory testing of the S1 lateral branch was performed at 50 Hz and 0 to 1 volt at the three levels with production of concordant pain starting at 0.5 volt. Motor stimulation was done at 2 Hz. No radicular symptoms or paresthesias were produced during the testing. Subsequently, the S1 lateral branch was subjected to a radiofrequency ablation at a mode of 90 seconds at 80 degrees Celsius at the 3 levels after negative motor and sensory testing and after injecting 0.5 ml of preservative free Ropivacaine 0.5%. The same procedure was performed at the level of the S2 foramen. The needle was withdrawn intact after each injection. COMPLICATIONS: The patient tolerated the procedure well without any acute compli cations. DISPOSTION/PLAN: The patient ambulated to the recovery area after the procedure in a stable condition for observation. Patient was reexamined prior to discharge. Patient was observed for 15?? minutes in the recovery area and was discharged home, accompanied by an adult, after meeting discharged criteria. Discharge instructions were give to the patient by the staff. Patient was specifically instructed not to drive today and to rest for the rest of the day. The patient will schedule a follow up visit in the clinic in ?? weeks?? or earlier if needed.??
[2020-05-06] MEDS ORDERED: IV FLUID CONTINUATION 1,000 ML IV ONE (10:53)
--- NOTE | 2020-05-06 11:06 | FL ---
Fluoroscopy INDICATION: Pain FINDINGS: Fluoroscopy time: 20 seconds. Images obtained: 2. IMPRESSIONS: 1. Documentation of fluoroscopy.
[2020-05-06 11:15] VITALS: BP 99/69; PULSE 80
== END 2020-05-06 11:24 | disposition home or self-care (01) ==
LOC: ORPAIN 09:04
PROVIDERS: ATTEND Anesthesiology
DX: M46.1 Sacroiliitis, not elsewhere classified (principal); M53.3 Sacrococcygeal disorders, not elsewhere classified; M47.816 Spondylosis without myelopathy or radiculopathy, lumbar region; M51.36 Other intervertebral disc degeneration, lumbar region; M19.90 Unspecified osteoarthritis, unspecified site; J44.9 Chronic obstructive pulmonary disease, unspecified; F17.200 Nicotine dependence, unspecified, uncomplicated; Z79.51 Long term (current) use of inhaled steroids; Z79.84 Long term (current) use of oral hypoglycemic drugs; Z79.1 Long term (current) use of non-steroidal anti-inflammatories (NSAID); Z79.899 Other long term (current) drug therapy
CPT/HCPCS: 64640; 64625; J2250; J3301; J2001; J3010; J2795

== ENCOUNTER → 2020-05-11 | Outpatient (CLI) | payer OTHER ==
[2020-05-11 10:14] VITALS: BP 119/79; PULSE 85; RESP 18; TEMP 98.6
--- NOTE | 2020-05-11 10:44 | P.PN ---
Subjective Progress Note Date: 05/11/20 This is a follow-up visit for this 55 years old female with a history of severe low back pain, she is diagnosed with lumbar degenerative disc disease ,and lumbar spondylosis with lumbar facet arthropathy,Bilaterl sacroiliitis , previously we have done RFA of the medial branch lumbar area bilaterally, and later on we did sacroiliac joint RFA on the right side and she is waiting to have the left-sided be done soon , the pain is constant in the low back area interfere with the quality of life, she was referred to a spine surgeon, Dr. Simon and he recommended lumbar fusion and patient very nervous about having back surgery , and she is concerned about the rehab and in the postop course and complications,she use Mitchell 7.5/325 every 8 hours when necessary, ibuprofen 800 mg every 8 hours when necessary and baclofen 10 mg every 8 hours when necessary, she denies any side effect of the medication, she denies any excessive drowsiness and sleepiness, she denies any suicidal ideation, no fever or night sweats and no change in bowel movement or urination, the intensity of the pain interfering with the quality of life, and interfering with her ability to do activities of daily livings Physical Examinations : -Constitutiona : Cooperative , not in acute distress . -HEENT : nech : supple , no Lymphadenopathy , normal thyroid size . : eyes : no ptosis , no icterus, no photophobia . - neurologic : Cranial nerve II to XII intact , no focal neurological deffecit . -psychatric : alert , oriented X 3 , appropriate affect , intact judgment and insight . -Lymphatic : no Lymphadenopathy . - musculoskeltal : Lumber spine moter stegnth lower extremities ,thigh and legs 5/5 Right side , 5/5 Left side deep tendon reflexes : normal Knee Jerk , normal ankle Jerk lumber facet Loading Test =positive Right , positive Left Range of motion of the lumbar spine Flexion 30 degrees, extension 10 degrees strait leg raising test = positive at 30 degree Fabere test= positive Right , and positive LT . Sever tenderness over the Sacroiliac joint on the Right , and Left sides Gaenslen test= positive right ,and po sitive left . Seated flexion test= positive right ,and positive Left . Assessment and plan= chronic low back pain secondary to lumbar degenerative disc disease , lumbar spondylosis with lumbar facet arthropathy . Sacroiliitis chronic and current use of high-risk medication (opioids) Patient denies any side effects of the current pain medication and the current treatment/medication helping the patient to do activity of daily living , Diagnoses, prognosis, treatment options, including but not limited to physical therapy, medication management, interventional therapies, and surgery, were discussed with the patient All the questions answered The narcotic consent was signed and patient agreed and understood the side effects and complications of opioid treatment. Patient signed the narcotic agreement, and was orally counseled, not to overuse, not to abuse, not to Divert , not tp sell pain medication, and to take it as prescribed only, Patient was counseled not to drive or operate heavy equipment while using narcotic medication, and advised not to use alcohol or any Illicit drugs while using the narcotis. understanding that lack of compliance with any of the above instructions, will likely to cause discharge from, the pain service, not to renew his narcotic prescriptions MAPS Reviwed and it was apropriate . Medication managements= patient will be given prescription refills for Mitchell 7.5/325 every 8 hours PRN ( 90 with one refile , Motrin 800 mg 3 times a day dispense 90 with 1 refill Continue Baclofen 10 mg 3 times a day when necessary ( she doesn't need refill currently) - PQRS measures = - Patient's medications are documented in the chart. -Tobacco use is positive/negative and counseling.Given. -Patient's has received pneumococcal vaccine. -Advanced care planning discussed, patient not eligible. -Opiate contract signed. -Pain positive and follow-up visit/procedure is scheduled. -Patient's blood pressure measured [119/79 ] , and documented in the record ,and patient will follow up with the primary care. -Patient's weight was measured and body mass index [ 31.6 ] above the normal limits and counseling was done. and patient instructed to follow-up with the primary care physician. -Patient was not identified as an unhealthy alcohol user Time with Patient: Less than 30 Objective - Vital Signs Vital signs: Vital Signs Temp 98.6 F 05/11/20 10:11 Pulse 85 05/11/20 10:11 Resp 18 05/11/20 10:11 BP 119/79 05/11/20 10:11 Pulse Ox 96 05/11/20 10:11 Intake & Output 05/10/20 05/11/20 05/11/20 18:59 06:59 18:59 Weight 91.626 kg
== END | disposition home or self-care (01) ==
LOC: PNWHC3 09:59
PROVIDERS: ATTEND Specialist
DX: M51.36 Other intervertebral disc degeneration, lumbar region (principal); M47.816 Spondylosis without myelopathy or radiculopathy, lumbar region; M46.1 Sacroiliitis, not elsewhere classified
CPT/HCPCS: 99211

== ENCOUNTER 2020-06-10 08:43 | Day surgery (SDC) | payer OTHER ==
[2020-06-10] MEDS ORDERED: methylPREDNISolone ACETATE 40 MG/ML 1 ML VIAL ONE (08:53)
[2020-06-10] MEDS ORDERED: ROPIVACAINE 5MG/ML 20ML VIAL ONE (08:53)
[2020-06-10 09:09] VITALS: RESP 16; TEMP 98
[2020-06-10] MEDS ORDERED: MIDAZOLAM 2 MG/2 ML VIAL ONE (09:53)
[2020-06-10] MEDS ORDERED: fentaNYL (PF) 50 MCG/ML 2 ML AMP ONE (09:53)
[2020-06-10] MEDS ORDERED: IV FLUID CONTINUATION 500 ML IV ONE (10:28)
--- NOTE | 2020-06-10 10:31 | P.PCN ---
Date of Procedure: 06/10/20 Procedure(s) Performed: PREOPERATIVE DIAGNOSIS: 1-Lumbosacral spondylosis with facet arthropathy without myelopathy. 2- sacroiliit. post operative Diagnosis: . 1-Lumbosacral spondylosis with facet arthropathy without myelopathy. 2- sacroiliit. PROCEDURES: 1- Left radiofrequency thermocoagulation/ablation of the L5 dorsal ramus. 2- Left multi-site radiofrequency thermocoagulation/ablation of the S1, S2, lateral branchs. The procedure was performed using fluoroscopic guidance during needle placement to assure proper position (fluoroscopy images available in radiology department) ANESTHESIA = monitored anesthesia care as per anesthesia department. EBL: NONE INDICATION/MEDICAL NECESSITY: History of low back pain secondary to bilatera sacroiliitis and lumbosacral arthropathy unresponsive to more conservative treatments. The patient reported more than 50% relief of pain symptoms following 2 previous diagnostic blocks with Bupivacaine. PROCEDURE DESCRIPTION: The patient was seen and identified in the preoperative area. Risks, benefits, complications, and alternatives were discussed with the patient. The patient agreed to proceed with the procedure and signed the consent. Vital signs were checked before and after the procedure and they remained stable. Patient ambulated to the procedure room and time out was completed. The patient was placed in the prone position on the procedure table and a pillow was placed under the abdomen to reduce lumbar lordosis. The lumbosacral area was prepped and draped in the usual sterile fashion. Critical pause was taken. L5 Dorsal Ramus RF: Using left oblique fluoroscopy, the junction of the transverse process and the superior articular process of the right S1 vertebra, which correspond to the fluoroscopic image of the "eye of the Wilfrid dog" was identified. Subsequently, a 10-cm 20 -gauge radiofrequency (VENUM ) cannula with a 10-mm active tip was advanced under fluoroscopic guidance until contact was made with periosteum. At this level, the Sensory testing of the L5 dorsal ramus was performed at 50 Hz and 0 to 1 volt with production of concordant pain starting at 0.5 volt. Motor stimulation was done at 2.5 Hz with stimulation of mulitifidus muscle contration . No radicular symptoms or paresthesias were produced during the testing. Subsequently, the L5 dorsal ramus was subjected to a radiofrequency ablation at 80 degree celsius for 90 seconds . after 0.5% Bupivacaine 1 ml injected at each level after negative aspirations .. S1, S3, Lateral Branch RF: The lateral margins of the Left S1, S2, foramina were identified using AP fluoroscopy. Under fluoroscopic guidance, three 10-cm 20 -gauge radiofrequency (VENUM ) cannula with a 10-mm active tip were inserted at 8-10 mm peripheral to the posterior S1 foramen, at various locations using clock-face coordinates. The center of the clock was registered at the lateral margin of the foramen. The 6:30, 8:00, and 9:30 oclock positions were used. At this level, the sensory testing of the S1 lateral branch was performed at 50 Hz and 0 to 1 volt at the three levels with production of concordant pain starting at 0.5 volt. Motor stimulation was done at 2.5 Hz. No radicular symptoms or paresthesias were produced during the testing. Subsequently, the S1 lateral branch was subjected to a radiofrequency ablation at a mode of 90 seconds at 80 degrees Celsius at the 3 levels after negative motor and sensory testing and after injecting 0.5 ml of preservative free ropivacaine 0.5 %. The same procedure was performed at the level of the S2 foramen. Referral needle was removed MIXTURE of ropivacaine 0.5% 3 mL and 40 mg of Depo- Medrol mixed together and have cc of the mixture injected at each level before the needle was taken out ,The needle was withdrawn intact after each injection. (The lateral branches of the history was not done because I could not identify of the S3 foramina ) COMPLICATIONS: The patient tolerated the procedure well without any acute complications. DISPOSTION/PLAN: The patient ambulated to the recovery area after the procedure in a stable condition for observation. Patient was reexamined prior to discharge. Patient was observed for 30 minutes in the recovery area and was discharged home, accompanied by an adult, after meeting discharged criteria. Discharge instructions were give to the patient by the staff. Patient was specifically instructed not to drive today and to rest for the rest of the day. The patient will schedule a follow up visit in the clinic in weeks or earlier if needed.
--- NOTE | 2020-06-10 10:35 | FL ---
Fluoroscopy INDICATION: Pain FINDINGS: Fluoroscopy time: 15 seconds. Images obtained: 5. IMPRESSIONS: 1. Documentation of fluoroscopy.
[2020-06-10 10:49] VITALS: BP 116/77; PULSE 84
== END 2020-06-10 10:54 | disposition home or self-care (01) ==
LOC: ORPAIN 08:43
PROVIDERS: ATTEND Specialist
DX: M47.817 Spondylosis without myelopathy or radiculopathy, lumbosacral region (principal); M46.1 Sacroiliitis, not elsewhere classified; J44.9 Chronic obstructive pulmonary disease, unspecified; F17.290 Nicotine dependence, other tobacco product, uncomplicated; Z79.1 Long term (current) use of non-steroidal anti-inflammatories (NSAID); Z79.51 Long term (current) use of inhaled steroids; Z79.899 Other long term (current) drug therapy; Z88.8 Allergy status to other drugs, medicaments and biological substances
CPT/HCPCS: 64625; J2250; J1030; J3010; J2795; 64640

== ENCOUNTER 2020-06-13 12:11 | Emergency (ER) | payer OTHER ==
[2020-06-13 12:16] VITALS: BP 112/81; PULSE 82; TEMP 98
[2020-06-13] MEDS ORDERED: MORPHINE SULFATE 4 MG/ML SYRINGE IM STA (12:50)
[2020-06-13] MEDS ORDERED: diazePAM 5 MG TAB PO STA (12:50)
[2020-06-13] MEDS ORDERED: KETOROLAC 15 MG/ML 1 ML VIAL IM STA (12:50)
--- NOTE | 2020-06-13 12:52 | ED ---
General Adult HPI - General Chief complaint: Back Pain/Injury Stated complaint: back pain Time Seen by Provider: 06/13/20 12:23 Source: patient Mode of arrival: ambulatory Limitations: no limitations - History of Present Illness Initial comments: 55 old female patient presented to the emergency department today for evaluation of increased lower back pain. Patient has chronic back pain and does take Heber on a daily basis. States that she has multiple bulging disks and scoliosis. States over the last 2 days her symptoms have been worsening. States her pain is in the middle lower back. Denies any new injury or fall. Denies radiation of the pain down her legs. States she does have numbness and tingling to the bilateral feet but this is not new for her. Denies any loss of bowel or bladder control or saddle anesthesia. Denies any fever or chills. Denies abdominal pain. Denies any hematuria, dysuria, urinary urgency, urinary frequency. Patient denies any recent rash, cough, shortness of breath, chest pain, nausea, vomiting, diarrhea, constipation, dizziness, weakness, hematuria, dysuria, urinary urgency, urinary frequency, headache, visual changes, or any other complaints. - Related Data Home Medications Medication Instructions Recorded Confirmed Cetirizine HCl 10 mg PO DAILY PRN 07/02/18 06/10/20 Melatonin 3 mg PO HS PRN 10/06/18 06/10/20 Baclofen [Lioresal] 10 mg PO TID 02/26/19 06/10/20 Albuterol Sulfate [Ventolin HFA] 2 puff INHALATION RT-QID PRN 11/08/19 06/10/20 Multivitamins, Thera [Multivitamin 1 tab PO DAILY 11/08/19 06/10/20 (formulary)] Budesonide-Formot 160-4.5 Mcg 2 puff INHALATION BID 03/11/20 06/10/20 [Symbicort 160-4.5 Mcg Inhaler] Lurasidone [Latuda] 40 mg PO HS 03/11/20 06/10/20 Previous Rx's Medication Instructions Recorded PARoxetine HCL [Paxil] 40 mg PO DAILY 14 Days tab 11/11/19 Ondansetron Odt [Zofran Odt] 4 mg PO Q8HR PRN #90 tab 03/16/20 HYDROcodone/APAP 7.5-325MG [Heber 1 tab PO Q8HR PRN 30 Days #90 tab 05/11/20 7.5-325] Ibuprofen [Motrin] 800 mg PO TID PRN #90 tab 05/11/20 Allergies Allergy/AdvReac Type Severity Reaction Status Date / Time risperidone AdvReac Dyspnea Verified 06/13/20 12:13 Review of Systems ROS Statement: Those systems with pertinent positive or pertinent negative responses have been documented in the HPI. ROS Other: All systems not noted in ROS Statement are negative. Past Medical History Past Medical History: COPD, Musculoskeletal Disorder, Osteoarthritis (OA) Additional Past Medical History / Comment(s): SINUS PROBLEMS, DDD, SCOLIOSIS, chronic back pain History of Any Multi-Drug Resistant Organisms: None Reported Past Surgical History: Tubal Ligation Additional Past Surgical History / Comment(s): PAIN CLINIC PROCEDURES Past Anesthesia/Blood Transfusion Reactions: No Reported Reaction Past Psychological History: Anxiety, Depression Smoking Status: Current every day smoker, Heavy tobacco smoker Past Alcohol Use History: Occasional Past Drug Use History: None Reported - Past Family History Daughter(s) Family Medical History: Blood Disorder, Deep Vein Thrombosis (DVT) Additional Family Medical History / Comment(s): "blood clotting disorder" General Exam Limitations: no limitations General appearance: alert, in no apparent distress, other (this is a well- developed, well-nourished adult female patient in no acute distress.) Eye exam: Present: normal appearance, PERRL, EOMI. Absent: scleral icterus, conjunctival injection, periorbital swelling ENT exam: Present: normal exam, normal oropharynx, mucous membranes moist Respiratory exam: Present: normal lung sounds bilaterally. Absent: respiratory distress, wheezes, rales, rhonchi, stridor Cardiovascular Exam: Present: regular rate, normal rhythm, normal heart sounds. Absent: systolic murmur, diastolic murmur, rubs, gallop, clicks GI/Abdominal exam: Present: soft, normal bowel sounds. Absent: distended, tenderness, guarding, rebound, rigid Extremities exam: Present: normal inspection, full ROM, normal capillary refill, other (skin to his lower extremities is pink, warm, dry. Cap refill less than 3 seconds. Pedal and posttibial pulses are 2+ and equal bilaterally.). Absent: tenderness, pedal edema, joint swelling, calf tenderness Back exam: Present: normal inspection. Absent: vertebral tenderness Neurological exam: Present: alert, oriented X3, CN II-XII intact Psychiatric exam: Present: normal affect, normal mood Skin exam: Present: warm, dry, intact, normal color. Absent: rash Course Vital Signs 06/13/20 12:13 Temperature 98 F Pulse Rate 82 Respiratory 18 Rate Blood Pressure 112/81 O2 Sat by Pulse 97 Oximetry Medical Decision Making - Medical Decision Making 55 year-old female patient with past medical history significant for chronic back pain and scoliosis presents the emergency department today for evaluation of increased low back pain for the last 2 days. Physical examination is unremarkable. She is neurologically intact. Good neurovascular status of the lower extremities. She has no concerning symptoms for cauda equina. Vital signs are unremarkable. She'll be given doses of pain medication and muscle relaxer here in the emergency department. She is advised not to take her nightly dose of muscle relaxer. 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 Return parameters were discussed in detail. She verbalizes understanding and agrees with this plan. Case discussed with my attending Dr. Moraes. Disposition Clinical Impression: Chronic back pain Disposition: HOME SELF-CARE Condition: Good Instructions (If sedation given, give patient instructions): Chronic Back Pain (DC) Additional Instructions: Follow up with the primary care physician for recheck in 1-2 days. Return to the emergency department for any new, worsening, or concerning symptoms. Is patient prescribed a controlled substance at d/c from ED?: No Referrals: Sandra Bingham MD [Primary Care Provider] - 1-2 days Time of Disposition: 12:52
[2020-06-13 13:38] VITALS: RESP 16
== END 2020-06-13 13:38 | disposition home or self-care (01) ==
LOC: EC 12:11
DX: G89.29 Other chronic pain (principal); M54.5 Low back pain; R20.0 Anesthesia of skin; R20.2 Paresthesia of skin; M41.9 Scoliosis, unspecified; F41.9 Anxiety disorder, unspecified; F32.9 Major depressive disorder, single episode, unspecified; M19.90 Unspecified osteoarthritis, unspecified site; J44.9 Chronic obstructive pulmonary disease, unspecified; F17.200 Nicotine dependence, unspecified, uncomplicated; Z79.1 Long term (current) use of non-steroidal anti-inflammatories (NSAID); Z79.51 Long term (current) use of inhaled steroids
CPT/HCPCS: 99283; 96372 ×2; J2270; J1885

== ENCOUNTER → 2020-06-27 | Outpatient (CLI) | payer OTHER ==
--- NOTE | 2020-06-27 12:57 | P.PN ---
Subjective Progress Note Date: 06/27/20 This is a follow-up visit for this 55 years old female with a history of severe low back pain, she is diagnosed with lumbar degenerative disc disease ,and lumbar spondylosis with lumbar facet arthropathy,Bilaterl sacroiliitis , previously we have done RFA of the medial branch lumbar area bilaterally, and later on we did sacroiliac joint RFA bilateral , currently she is complaining of severe mid back pain and low back pain ,the pain is constant , interfere with the quality of life, she was referred to a spine surgeon, Dr. Simon ,and he recommended lumbar fusion ,and patient very nervous about having back surgery , and she is concerned about the rehab and in the postop course and complication s,she use [place] 7.5/325 every 8 hours when necessary, ibuprofen 800 mg every 8 hours when necessary and baclofen 10 mg every 8 hours when necessary, she denies any side effect of the medication, she denies any excessive drowsiness and sleepiness, she denies any suicidal ideation, no fever or night sweats and no change in bowel movement or urination, the intensity of the pain interfering with the quality of life, and interfering with her ability to do activities of daily livings, and she reported that the mid back pain increased significantly over the last few weeks, and the pain in the mid back area radiating to the front to the chest wall and to the abdominal area Physical Examinations : -Constitutiona : Cooperative , not in acute distress . -HEENT : nech : supple , no Lymphadenopathy , normal thyroid size . : eyes : no ptosis , no icterus, no photophobia . - neurologic : Cranial nerve II to XII intact , no focal neurological deffecit . -psychatric : alert , oriented X 3 , appropriate affect , intact judgment and insight . -Lymphatic : no Lymphadenopathy . - musculoskeltal : Thoracic spine= Positive facet loading test midthoracic area, flexion and extension of the thoracic spine associated with severe pain Severe tenderness over the thoracic paraspinal muscles Lumber spine moter stegnth lower extremities ,thigh and legs 5/5 Right side , 5/5 Left side deep tendon reflexes : normal Knee Jerk , normal ankle Jerk lumber facet Loading Test =positive Right , positive Left Range of motion of the lumbar spine Flexion 30 degrees, extension 10 degrees strait leg raising test = positive at 30 degree Fabere test= positive Right , and positive LT . Sever tenderness over the Sacroiliac joint on the Right , and Left sides Gaenslen test= positive right ,and positive left . Seated flexion test= positive right ,and positive Left . Assessment and plan= chronic low back pain secondary to lumbar degenerative disc disease , lumbar spondylosis with lumbar facet arthropathy . Sacroiliitis, thoracic spondylosis chronic and current use of high-risk medication (opioids) Patient denies any side effects of the current pain medication and the current treatment/medication helping the patient to do activity of daily living , Diagnoses, prognosis, treatment options, including but not limited to physical therapy, medication management, interventional therapies, and surgery, were discussed with the patient All the questions answered The narcotic consent was signed and patient agreed and understood the side effects and complications of opioid treatment. Patient signed the narcotic agreement, and was orally counseled, not to overuse, not to abuse, not to Divert , not tp sell pain medication, and to take it as prescribed only, Patient was counseled not to drive or operate heavy equipment while using narcotic medication, and advised not to use alcohol or any Illicit drugs while using the narcotis. understanding that lack of compliance with any of the above instructions, will likely to cause discharge from, the pain service, not to renew his narcotic prescriptions MAPS Reviwed and it was apropriate . Medication managements= patient will be given prescription refills for [place] 10/325 every 8 hours PRN , Motrin 800 mg 3 times a day dispense 90 We will order MRI of the thoracic and lumbar spine without contrast Patient will follow up in the pain clinic with one month after we get the MRI report - PQRS measures = - Patient's medications are documented in the chart. -Tobacco use is positive/negative and counseling.Given. -Patient's has received pneumococcal vaccine. -Advanced care planning discussed, patient not eligible. -Opiate contract signed. -Pain positive and follow-up visit/procedure is scheduled. -Patient's blood pressure measured [108/74 ] , and documented in the record ,and patient will follow up with the primary care. -Patient's weight was measured and body mass index [ 31.6 ] above the normal limits and counseling was done. and patient instructed to follow-up with the primary care physician. -Patient was not identified as an unhealthy alcohol user
[2020-06-27 13:10] VITALS: BP 108/74; PULSE 92; RESP 16; TEMP 98.6
== END ==
LOC: PNWHC3 12:17
PROVIDERS: ATTEND Specialist
DX: M47.814 Spondylosis without myelopathy or radiculopathy, thoracic region (principal); M47.816 Spondylosis without myelopathy or radiculopathy, lumbar region; M51.36 Other intervertebral disc degeneration, lumbar region; G89.29 Other chronic pain; M46.1 Sacroiliitis, not elsewhere classified; F17.200 Nicotine dependence, unspecified, uncomplicated; Z79.891 Long term (current) use of opiate analgesic
CPT/HCPCS: 80307; G0482; G0463; 99212

== ENCOUNTER 2020-07-17 11:13 | Emergency (ER) | payer OTHER ==
[2020-07-17 11:22] VITALS: TEMP 98.2
[2020-07-17 11:32] VITALS: RESP 18
[2020-07-17] MEDS ORDERED: MORPHINE SULFATE 4 MG/ML SYRINGE IM STA (11:40)
--- NOTE | 2020-07-17 12:08 | ED ---
Back Pain HPI - General Chief Complaint: Back Pain/Injury Stated Complaint: BACK PAIN, COPD Time Seen by Provider: 07/17/20 11:25 Source: patient Limitations: no limitations - History of Present Illness Initial Comments: Patient is a 55-year-old female presenting to the emergency department with 2 separate complaints. She states she has a history of chronic back pain, currently sees a pain specialist as well as a back doctor and states they have discussed with the next option is surgery. She does have an appointment with a back surgeon in a few weeks. She denies any falls or injury. She denies any change in her pain. She does take [place] and ibuprofen as well as a muscle relaxer for her discomfort daily. She denies any fevers or chills. She denies any saddle paresthesias, no numbness and tingling in her extremities. She states her pain is just been increasing over the past couple days and she is not able to get into her doctor for a few more days. Patient is also complaining of some mild shortness of breath. She does have history of COPD, she is not on home O2 at home. She denies any chest pain and no fevers. She has been using her inhalers which haven't been helping. She has no further complaints at this time. Upon arrival to the ER, her vitals are stable. - Related Data Home Medications Medication Instructions Recorded Confirmed Cetirizine HCl 10 mg PO HS 07/02/18 07/18/20 Melatonin 3 mg PO HS 10/06/18 07/18/20 Baclofen [Lioresal] 10 mg PO TID PRN 02/26/19 07/18/20 Budesonide-Formot 160-4.5 Mcg 1 puff INHALATION RT-DAILY 03/11/20 07/18/20 [Symbicort 160-4.5 Mcg Inhaler] Lurasidone [Latuda] 40 mg PO HS 03/11/20 07/18/20 Albuterol Sulfate [Proair Hfa] 2 puff INHALATION RT-QID PRN 07/18/20 07/18/20 HYDROcodone/APAP 10-325MG [Burdick 1 tab PO Q8H PRN 07/18/20 07/18/20 10-325] methylPREDNISolone [Medrol Dose See Taper PO DIRECTED 04/26/21 04/26/21 Pack] Previous Rx's Medication Instructions Recorded PARoxetine HCL [Paxil] 40 mg PO DAILY 14 Days tab 11/11/19 Ibuprofen [Motrin] 800 mg PO TID PRN #90 tab 06/27/20 Allergies Allergy/AdvReac Type Severity Reaction Status Date / Time risperidone AdvReac Dyspnea Verified 07/18/20 13:37 Review of Systems ROS Statement: Those systems with pertinent positive or pertinent negative responses have been documented in the HPI. ROS Other: All systems not noted in ROS Statement are negative. Past Medical History Past Medical History: COPD, Musculoskeletal Disorder, Osteoarthritis (OA) Additional Past Medical History / Comment(s): SINUS PROBLEMS, DDD, SCOLIOSIS, chronic back pain History of Any Multi-Drug Resistant Organisms: None Reported Past Surgical History: Tubal Ligation Additional Past Surgical History / Comment(s): PAIN CLINIC PROCEDURES Past Anesthesia/Blood Transfusion Reactions: No Reported Reaction Past Psychological History: Anxiety, Depression Smoking Status: Current every day smoker, Heavy tobacco smoker Past Alcohol Use History: Occasional Past Drug Use History: None Reported - Past Family History Daughter(s) Family Medical History: Blood Disorder, Deep Vein Thrombosis (DVT) Additional Family Medical History / Comment(s): "blood clotting disorder" General Exam - General Exam Comments Initial Comments: GENERAL: Patient is well-developed and well-nourished. Patient is nontoxic and in no acute distress. HEAD: Atraumatic, normocephalic. EYES: Pupils equal round and reactive to light, extraocular movements intact, sclera anicteric, conjunctiva are normal. Eyelids were unremarkable. ENT: TMs normal, nares patent, oropharynx clear without exudates. Moist mucous membranes. NECK: Normal range of motion, supple without lymphadenopathy or JVD. LUNGS: Unlabored respirations. She has some mild scattered wheezes. HEART: Regular rate and rhythm without murmurs, rubs or gallops. ABDOMEN: Soft, nontender, normoactive bowel sounds. No guarding, no rebound. No masses appreciated. : Deferred MUSCULOSKELETAL: Normal extremities with adequate strength and normal range of motion, no pitting or edema. No clubbing or cyanosis. Patient has full trunk range of motion, sitting on the bed without difficulty. NEUROLOGICAL: Patient is alert and oriented x 3. Motor and sensory are also intact. Cranial nerves II through XII grossly intact. Symmetrical smile. Normal speech, normal gait. PSYCH: Normal mood, normal affect. SKIN: Warm, Dry, normal turgor, no rashes or lesions noted. Limitations: no limitations Course Vital Signs 07/17/20 07/17/20 07/17/20 11:20 11:31 12:24 Temperature 98.2 F Pulse Rate 92 85 83 Respiratory 16 18 18 Rate Blood Pressure 148/86 137/88 137/99 O2 Sat by Pulse 96 94 L 95 Oximetry 07/17/20 07/17/20 13:00 13:13 Temperature 98.2 F Pulse Rate 81 86 Respiratory 18 18 Rate Blood Pressure 139/92 120/71 O2 Sat by Pulse 93 L 93 L Oximetry Medical Decision Making - Medical Decision Making Patient is a 55-year-old female here for 2 separate complaints of acute on chronic low back pain as well as some mild shortness of breath. Her vitals are stable her exam is unremarkable except for some very mild scattered wheezes. Chest x-ray shows no acute process. Patient was given pain medicine for her chronic back pain. I discussed with patient that we cannot prescribe her pain medication as she is already on a pain contract and sees specialist for her chronic back pain. Patient is stable for discharge. Patient is in agreement with this plan of care. Return parameters were discussed with the patient and they verbalized understanding. Case discussed with Dr. Moraes. Disposition Clinical Impression: Chronic back pain, COPD exacerbation Disposition: HOME SELF-CARE Condition: Stable Instructions (If sedation given, give patient instructions): Chronic Back Pain (DC) Additional Instructions: Please return to the Emergency Department if symptoms worsen or any other concerns. Continue with your already prescribed pain medicine. Take steroids as prescribed. Is patient prescribed a controlled substance at d/c from ED?: No Referrals: Sandra Bingham MD [Primary Care Provider] - 1-2 days Time of Disposition: 13:06
--- NOTE | 2020-07-17 12:49 | XR ---
EXAMINATION TYPE: XR chest 2V DATE OF EXAM: 07/17/2020 COMPARISON: None HISTORY: Dyspnea, back pain TECHNIQUE: Frontal and lateral views of the chest are obtained. FINDINGS: There is no focal air space opacity, pleural effusion, or pneumothorax seen. The cardiac silhouette size is within normal limits. Prominent lung volume may be indicative of underlying COPD . There is some mild prominence of interstitium. The osseous structures are intact. IMPRESSION: No acute cardiopulmonary process.
[2020-07-17 13:17] VITALS: BP 120/71; PULSE 86
== END 2020-07-17 13:16 | disposition home or self-care (01) ==
LOC: EC 11:13
DX: J44.1 Chronic obstructive pulmonary disease with (acute) exacerbation (principal); M54.9 Dorsalgia, unspecified; J44.9 Chronic obstructive pulmonary disease, unspecified; M19.90 Unspecified osteoarthritis, unspecified site; F31.9 Bipolar disorder, unspecified; F17.200 Nicotine dependence, unspecified, uncomplicated
CPT/HCPCS: 71046; 99285; 96372; J2270

== ENCOUNTER 2020-07-17 19:10 | Emergency (ER) | payer OTHER ==
[2020-07-17 19:28] VITALS: RESP 20
[2020-07-17] MEDS ORDERED: LORazepam 2 MG/ML INJ IM STA (19:28)
--- NOTE | 2020-07-17 19:31 | ED ---
Anxiety HPI - General Chief Complaint: Anxiety Stated Complaint: SOB Time Seen by Provider: 07/17/20 19:19 Source: EMS, RN notes reviewed Mode of arrival: EMS - History of Present Illness Initial Comments: Patient is a 55-year-old female that presents to emergency department complaining of anxiety with increased shortness of breath. She notes that she is potentially having a COPD exacerbation. She noted that she took her Symbicort before getting an EMS and noted that her shortness of breath is better while sitting up in bed in exam interview. She states that she sats at 93% at home, patient is currently saturating at 95% on room air in her room. She was in no apparent distress or pain while sitting up in bed during the exam interview. Patient was recently discharged from this emergency room this morning for back pain. She does note that she follows up with her primary care in the next couple days. She denied any chest pain headache nausea vomiting diarrhea constipation fever fatigue chills lethargy - Related Data Home Medications: Home Medications Medication Instructions Recorded Confirmed Cetirizine HCl 10 mg PO DAILY PRN 07/02/18 06/10/20 Melatonin 3 mg PO HS PRN 10/06/18 06/10/20 Baclofen [Lioresal] 10 mg PO TID 02/26/19 06/10/20 Albuterol Sulfate [Ventolin HFA] 2 puff INHALATION RT-QID PRN 11/08/19 06/10/20 Multivitamins, Thera [Multivitamin 1 tab PO DAILY 11/08/19 06/10/20 (formulary)] Budesonide-Formot 160-4.5 Mcg 2 puff INHALATION BID 03/11/20 06/10/20 [Symbicort 160-4.5 Mcg Inhaler] Lurasidone [Latuda] 40 mg PO HS 03/11/20 06/10/20 Previous Rx's Medication Instructions Recorded PARoxetine HCL [Paxil] 40 mg PO DAILY 14 Days tab 11/11/19 Ondansetron Odt [Zofran Odt] 4 mg PO Q8HR PRN #90 tab 03/16/20 HYDROcodone/APAP 10-325MG [[place] 1 tab PO Q8HR PRN 30 Days #90 tab 06/27/20 10-325] Ibuprofen [Motrin] 800 mg PO TID PRN #90 tab 06/27/20 methylPREDNISolone [Medrol Dose 4 mg PO DIRECTED #1 pack 07/17/20 Pack] Allergies/Adverse Reactions: Allergies Allergy/AdvReac Type Severity Reaction Status Date / Time risperidone AdvReac Dyspnea Verified 07/17/20 19:28 Review of Systems ROS Statement: Those systems with pertinent positive or pertinent negative responses have been documented in the HPI. ROS Other: All systems not noted in ROS Statement are negative. Past Medical History Past Medical History: COPD, Musculoskeletal Disorder, Osteoarthritis (OA) Additional Past Medical History / Comment(s): SINUS PROBLEMS, DDD, SCOLIOSIS, chronic back pain History of Any Multi-Drug Resistant Organisms: None Reported Past Surgical History: Tubal Ligation Additional Past Surgical History / Comment(s): PAIN CLINIC PROCEDURES Past Anesthesia/Blood Transfusion Reactions: No Reported Reaction Past Psychological History: Anxiety, Depression Smoking Status: Current every day smoker, Heavy tobacco smoker Past Alcohol Use History: Occasional Past Drug Use History: None Reported - Past Family History Daughter(s) Family Medical History: Blood Disorder, Deep Vein Thrombosis (DVT) Additional Family Medical History / Comment(s): "blood clotting disorder" General Exam General appearance: alert, in no apparent distress, obese Head exam: Present: atraumatic, normocephalic, normal inspection Eye exam: Present: normal appearance, PERRL, EOMI. Absent: scleral icterus, conjunctival injection, periorbital swelling Neck exam: Present: normal inspection. Absent: tenderness, meningismus, lymphadenopathy Respiratory exam: Present: normal lung sounds bilaterally. Absent: respiratory distress, wheezes, rales, rhonchi, stridor Cardiovascular Exam: Present: regular rate, normal rhythm, normal heart sounds. Absent: systolic murmur, diastolic murmur, rubs, gallop, clicks GI/Abdominal exam: Present: soft, normal bowel sounds. Absent: distended, tenderness, guarding, rebound, rigid Extremities exam: Present: normal inspection, full ROM, normal capillary refill. Absent: tenderness, pedal edema, joint swelling, calf tenderness Neurological exam: Present: alert, oriented X3, CN II-XII intact Psychiatric exam: Present: normal affect, anxious Skin exam: Present: warm, dry, intact, normal color. Absent: rash Course Vital Signs 07/17/20 19:23 Temperature 98.7 F Pulse Rate 86 Respiratory 20 Rate Blood Pressure 119/71 O2 Sat by Pulse 95 Oximetry Medical Decision Making - Medical Decision Making 55-year-old female presenting with anxiety and increased shortness of breath. EKG, chest x-ray, 1 mg Ativan ordered. Patient stated she took her Symbicort before arriving to the emergency department and her increased redness of breath has decreased significantly and she is no longer complaining of that. Case discussed with Dr. Connell, patient can discharge home. - EKG Data -: EKG Interpreted by Me EKG shows normal: sinus rhythm Rate: normal EKG Comments: Ventricular rate 73 bpm, NH interval 112 ms, QRS duration 126 ms, QT/QTc 412/450 ms, PareT axes 65/82/51. Normal sinus rhythm, possible left atrial enlargement, right bundle branch block, abnormal ECG. - Radiology Data Radiology results: report reviewed, image reviewed Chest x-ray: Lung markings slightly increase in left lower lobe compared to exam earlier today. No pulmonary consolidation heart failure. Normal heart. Disposition Clinical Impression: Acute anxiety Disposition: HOME SELF-CARE Condition: Stable Instructions (If sedation given, give patient instructions): Generalized Anxiety Disorder (ED) Additional Instructions: Please return to the Emergency Department if symptoms worsen or any other concerns. Follow-up with primary care to discuss possible prescription for antianxiety medication. Continue to follow-up with other doctors as scheduled. Take at home prescriptions as prescribed. Is patient prescribed a controlled substance at d/c from ED?: No Referrals: Sandra Bingham MD [Primary Care Provider] - 1-2 days Time of Disposition: 20:19
--- NOTE | 2020-07-17 19:49 | XR ---
EXAMINATION TYPE: XR chest 2V DATE OF EXAM: 07/17/2020 COMPARISON: 07/17/2020 HISTORY: Short of breath TECHNIQUE: 2 views FINDINGS: Heart is normal. Lungs are clear of consolidation. There are no hilar masses. There is slig ht coarsening of interstitial markings left lower lobe. IMPRESSION: Lung markings slightly increased in left lower lobe compared to exam earlier today. No pu lmonary consolidation or heart failure. Normal heart.
[2020-07-17 20:37] VITALS: BP 119/85; PULSE 76; TEMP 98.2
== END 2020-07-17 20:38 | disposition home or self-care (01) ==
LOC: EC 19:10
DX: F41.9 Anxiety disorder, unspecified (principal); F17.210 Nicotine dependence, cigarettes, uncomplicated; J44.9 Chronic obstructive pulmonary disease, unspecified; M19.90 Unspecified osteoarthritis, unspecified site
CPT/HCPCS: 93005; 71046; 99285; 96372; J2060

== ENCOUNTER 2020-07-18 12:05 | Observation (INO) | payer OTHER ==
--- NOTE | 2020-07-18 12:53 | ED ---
General Adult HPI - General Chief complaint: Psychiatric Symptoms Stated complaint: SOB Time Seen by Provider: 07/18/20 12:21 Source: patient Mode of arrival: wheelchair Limitations: no limitations - History of Present Illness Initial comments: Dictation was produced using [employer] dictation software. please excuse any grammatical, word or spelling errors. This patient was cared for during a federal and state declared state of emergency secondary to Covid 19 Chief Complaint: 55-year-old female presents to the emergency department for persistent anxiety, dyspnea and suicidal thoughts. History of Present Illness: 55-year-old female she has past medical history of COPD. She was seen here in emergency department for the same complaint. Patient was dyspneic than. She was discharged home with diagnosis of anxiety. She did to the emergency department because she feels like she can't catch her breath. She states she is short of breath for several days. She is not sure if this is her COPD acting up. She denies any lower extremity symptoms. She has no pain complaints. States her symptoms are more apparent with exertion. She continues to abuse tobacco. She denies any history of DVT. She denies any other comorbidities. The ROS documented in this emergency department record has been reviewed and confirmed by me. Those systems with pertinent positive or negative responses have been documented in the HPI. All other systems are other negative and/or noncontributory. PHYSICAL EXAM: General Impression: Alert and oriented x3, not in acute distress HEENT: Normocephalic atraumatic, extra-ocular movements intact, pupils equal and reactive to light bilaterally, mucous membranes moist. Cardiovascular: Tachycardic Chest: Able to complete full sentences, no retractions, no tachypnea, also auscultation bilaterally Abdomen: abdomen soft, non-tender, non-distended, no organomegaly Musculoskeletal: Pulses present and equal in all extremities, no peripheral edema Motor: no focal deficits noted Neurological: CN II-XII grossly intact, no focal motor or sensory deficits noted Skin: Intact with no visualized rashes Psych: Normal affect and mood ED course: 55-year-old female presents to the emergency department for shortness of breath. She seen here in emergency department yesterday. Vital signs upon arrival shows tachycardia 112, rest of vital signs within acceptable limits. EKG was concerning for ST depressions in V2, V3 and V4 V5 and V6. There is evidence of right bundle branch block. There is no older EKGs for comparison. Repeat EKG was performed approximately 11 minutes after initial EKG showing no dynamic changes. EKG interpretation: Ventricular rate 106, sinus tachycardia,. Interval 114, QRS 124, QTC 464. No MT prolongation, no QTC prolongation. Compared to EKG from yesterday 07/17/2020. There does appear to be some ST changes. Repeat EKG performed 11 minutes later shows no dynamic changes. Laboratory evaluation obtained. CBC, coag panel, a [place] as unremarkable. Troponins negative. D-dimer is elevated at 0.75. Chest x-ray shows possible persistent mild to moderate lung interstitial edema and/or atypical infiltrates. Brain natruretic peptide is 171. CT does not show any PE but there is no evidence of emphysema. Patient will be admitted observation for COPD exacerbati on. Psychiatric consult for suicidal ideation. She does not have any plan. She is well-appearing at bedside. Case is discussed with Dr. Miranda was went except patient's [facility] hospitalist group. Patient will have scheduled breathing treatments to treat patient's dyspnea. - Related Data Home Medications Medication Instructions Recorded Confirmed Cetirizine HCl 10 mg PO HS 07/02/18 07/18/20 Melatonin 3 mg PO HS 10/06/18 07/18/20 Baclofen [Lioresal] 10 mg PO TID PRN 02/26/19 07/18/20 Budesonide-Formot 160-4.5 Mcg 1 puff INHALATION RT-DAILY 03/11/20 07/18/20 [Symbicort 160-4.5 Mcg Inhaler] Lurasidone [Latuda] 40 mg PO HS 03/11/20 07/18/20 Albuterol Sulfate [Proair Hfa] 2 puff INHALATION RT-QID PRN 07/18/20 07/18/20 HYDROcodone/APAP 10-325MG [[place] 1 tab PO Q8H PRN 07/18/20 07/18/20 10-325] methylPREDNISolone [Medrol Dose See Taper PO DIRECTED 07/18/20 07/18/20 Pack] Previous Rx's Medication Instructions Recorded PARoxetine HCL [Paxil] 40 mg PO DAILY 14 Days tab 11/11/19 Ibuprofen [Motrin] 800 mg PO TID PRN #90 tab 06/27/20 Allergies Allergy/AdvReac Type Severity Reaction Status Date / Time risperidone AdvReac Dyspnea Verified 07/18/20 13:37 Review of Systems ROS Statement: Those systems with pertinent positive or pertinent negative responses have been documented in the HPI. ROS Other: All systems not noted in ROS Statement are negative. Past Medical History Past Medical History: COPD, Musculoskeletal Disorder, Osteoarthritis (OA) Additional Past Medical History / Comment(s): SINUS PROBLEMS, DDD, SCOLIOSIS, chronic back pain History of Any Multi-Drug Resistant Organisms: None Reported Past Surgical History: Tubal Ligation Additional Past Surgical History / Comment(s): PAIN CLINIC PROCEDURES Past Anesthesia/Blood Transfusion Reactions: No Reported Reaction Past Psychological History: Anxiety, Depression Smoking Status: Current every day smoker, Heavy tobacco smoker Past Alcohol Use History: Occasional Past Drug Use History: None Reported - Past Family History Daughter(s) Family Medical History: Blood Disorder, Deep Vein Thrombosis (DVT) Additional Family Medical History / Comment(s): "blood clotting disorder" General Exam Limitations: no limitations Course Vital Signs 07/18/20 07/18/20 12:11 13:46 Temperature 98.0 F Pulse Rate 112 H 98 Respiratory 22 18 Rate Blood Pressure 104/70 96/80 O2 Sat by Pulse 97 93 L Oximetry Medical Decision Making - Lab Data Result diagrams: 07/18/20 12:51 07/18/20 12:51 Lab Results 07/18/20 07/18/20 07/18/20 Range/Units 12:51 12:51 12:51 WBC 9.1 (3.8-10.6) k/uL RBC 4.97 (3.80-5.40) m/uL Hgb 16.7 H (11.4-16.0) gm/dL Hct 50.1 H (34.0-46.0) % MCV 100.8 H (80.0-100.0) fL MCH 33.6 (25.0-35.0) pg MCHC 33.3 (31.0-37.0) g/dL RDW 14.4 (11.5-15.5) % Plt Count 243 (150-450) k/uL MPV 7.5 Neutrophils % 69 % Lymphocytes % 22 % Monocytes % 6 % Eosinophils % 2 % Basophils % 1 % Neutrophils # 6.3 (1.3-7.7) k/uL Lymphocytes # 2.0 (1.0-4.8) k/uL Monocytes # 0.5 (0-1.0) k/uL Eosinophils # 0.2 (0-0.7) k/uL Basophils # 0.1 (0-0.2) k/uL Macrocytosis Slight PT 9.4 (9.0-12.0) sec INR 0.9 (<1.2) APTT 21.6 L (22.0-30.0) sec D-Dimer 0.75 H (<0.60) mg/L FEU Sodium 138 (137-145) mmol/L Potassium 4.0 (3.5-5.1) mmol/L Chloride 110 H (98-107) mmol/L Carbon Dioxide 23 (22-30) mmol/L Anion Gap 5 mmol/L BUN 14 (7-17) mg/dL Creatinine 0.80 (0.52-1.04) mg/dL Est GFR (CKD-EPI)AfAm >90 (>60 ml/min/1.73 sqM) Est GFR (CKD-EPI)NonAf 83 (>60 ml/min/1.73 sqM) Glucose 84 (74-99) mg/dL Calcium 9.7 (8.4-10.2) mg/dL Magnesium 2.0 (1.6-2.3) mg/dL Troponin I (0.000-0.034) ng/mL NT-Pro-B Natriuret Pep pg/mL Urine Opiates Screen (NotDetected) Ur Oxycodone Screen (NotDetected) Urine Methadone Screen (NotDetected) Ur Propoxyphene Screen (NotDetected) Ur Barbiturates Screen (NotDetected) U Tricyclic Antidepress (NotDetected) Ur Phencyclidine Scrn (NotDetected) Ur Amphetamines Screen (NotDetected) U Methamphetamines Scrn (NotDetected) U Benzodiazepines Scrn (NotDetected) Urine Cocaine Screen (NotDetected) U Marijuana (THC) Screen (NotDetected) 07/18/20 07/18/20 07/18/20 Range/Units 12:51 12:51 14:26 WBC (3.8-10.6) k/uL RBC (3.80-5.40) m/uL Hgb (11.4-16.0) gm/dL Hct (34.0-46.0) % MCV (80.0-100.0) fL MCH (25.0-35.0) pg MCHC (31.0-37.0) g/dL RDW (11.5-15.5) % Plt Count (150-450) k/uL MPV Neutrophils % % Lymphocytes % % Monocytes % % Eosinophils % % Basophils % % Neutrophils # (1.3-7.7) k/uL Lymphocytes # (1.0-4.8) k/uL Monocytes # (0-1.0) k/uL Eosinophils # (0-0.7) k/uL Basophils # (0-0.2) k/uL Macrocytosis PT (9.0-12.0) sec INR (<1.2) APTT (22.0-30.0) sec D-Dimer (<0.60) mg/L FEU Sodium (137-145) mmol/L Potassium (3.5-5.1) mmol/L Chloride (98-107) mmol/L Carbon Dioxide (22-30) mmol/L Anion Gap mmol/L BUN (7-17) mg/dL Creatinine (0.52-1.04) mg/dL Est GFR (CKD-EPI)AfAm (>60 ml/min/1.73 sqM) Est GFR (CKD-EPI)NonAf (>60 ml/min/1.73 sqM) Glucose (74-99) mg/dL Calcium (8.4-10.2) mg/dL Magnesium (1.6-2.3) mg/dL Troponin I <0.012 (0.000-0.034) ng/mL NT-Pro-B Natriuret Pep 171 pg/mL Urine Opiates Screen Detected H (NotDetected) Ur Oxycodone Screen Not Detected (NotDetected) Urine Methadone Screen Not Detected (NotDetected) Ur Propoxyphene Screen Not Detected (NotDetected) Ur Barbiturates Screen Not Detected (NotDetected) U Tricyclic Antidepress Not Detected (NotDetected) Ur Phencyclidine Scrn Not Detected (NotDetected) Ur Amphetamines Screen Not Detected (NotDetected) U Methamphetamines Scrn Not Detected (NotDetected) U Benzodiazepines Scrn Detected H (NotDetected) Urine Cocaine Screen Not Detected (NotDetected) U Marijuana (THC) Screen Detected H (NotDetected) Disposition Clinical Impression: COPD exacerbation Disposition: ADMITTED IP TO THIS HOSP Condition: Fair Referrals: Sandra Bingham MD [Primary Care Provider] - 1-2 days Decision Time: 15:21
--- NOTE | 2020-07-18 13:13 | XR ---
EXAMINATION TYPE: XR chest 1V portable DATE OF EXAM: 07/18/2020 COMPARISON: Chest x-ray from yesterday HISTORY: Shortness of breath TECHNIQUE: Single frontal view of the chest is obtained. FINDINGS: Increased interstitial markings in the lower lungs bilaterally remain present. There is no new suspicious focal air space opacity, pleural effusion, or pneumothorax seen. The cardiac silhouet te size is stable and upper limits of normal. The osseous structures are intact. IMPRESSION: Possible persistent [id number] lower lung interstitial edema and/or atypical infil trates. Former suspected. No significant change from most recent x-ray one day earlier.
[2020-07-18 13:15] LABS: Basophils # (A) 0.1 k/uL (0-0.2); Basophils % (A) 1 %; Eosinophils # (A) 0.2 k/uL (0-0.7); Eosinophils % (A) 2 %; HCT 50.1 % (34.0-46.0); HGB 16.7 gm/dL (11.4-16.0); Lymphocytes % (A) 22 %; MCH 33.6 pg (25.0-35.0); MCHC 33.3 g/dL (31.0-37.0); MCV 100.8 fL (80.0-100.0); Macrocytosis Slight; Mean Platelet Volume 7.5; Monocytes # (A) 0.5 k/uL (0-1.0); Monocytes % (A) 6 %; Neutrophils # (A) 6.3 k/uL (1.3-7.7); Neutrophils % (A) 69 %; Platelet Count 243 k/uL (150-450); RBC 4.97 m/uL (3.80-5.40); RDW 14.4 % (11.5-15.5); WBC 9.1 k/uL (3.8-10.6)
[2020-07-18] MEDS ORDERED: LORazepam 2 MG/ML INJ IV STA (13:19)
[2020-07-18 13:32] LABS: African American GFR (CKD) >90 (>60 ml/min/1.73 sqM); Carbon Dioxide 23 mmol/L (22-30); Chloride 110 mmol/L (98-107); Glucose 84 mg/dL (74-99); Non-African American GFR(CKD) 83 (>60 ml/min/1.73 sqM)
[2020-07-18 13:41] LABS: Anion Gap 5 mmol/L; Blood Urea Nitrogen 14 mg/dL (7-17); Calcium 9.7 mg/dL (8.4-10.2); Sodium 138 mmol/L (137-145)
[2020-07-18 13:49] LABS: INR 0.9 (<1.2); Prothrombin Time 9.4 sec (9.0-12.0)
[2020-07-18 13:57] LABS: D-Dimer 0.75 mg/L FEU (<0.60); Partial Thromboplastin Time 21.6 sec (22.0-30.0)
--- NOTE | 2020-07-18 14:48 | CT ---
EXAMINATION TYPE: CT angio chest DATE OF EXAM: 07/18/2020 COMPARISON: None HISTORY: SOB, COUGH CT DLP: 412.3 mGycm CONTRAST: CT chest with contrast and 3D reconstruction with MIP imaging is performed without and with IV Contra st, patient injected with 100 ml mL of Isovue 370. Contrast-enhanced CT of the chest was performed through the course of the pulmonary arteries with ravinder g and mediastinal window settings submitted. 3D reconstruction with MIP imaging was also performed. PULMONARY ARTERIES: The pulmonary arteries and their major tributaries are patent. I do not see dinah dence for sizable filling defect to suggest pulmonary embolic process. LUNGS: Upper lobe emphysematous changes noted. The lungs are clear and free of infiltrate. No evidenc e for atelectasis. No pulmonary nodule or mass is detected. No pleural effusion. MEDIASTINUM: Thoracic aorta is of normal caliber,however, evaluation is limited given timing of the contrast bolus. If there is concern for thoracic aortic pathology consider ASHLEE. Correlate clinicall y . The heart is not enlarged. No evidence for mediastinal mass. No mediastinal lymph nodes greater than 1cm. HILAR STRUCTURES: No evidence for mass. No hilar lymph nodes greater than 1 cm. UPPER ABDOMEN: No significant abnormality is seen. IMPRESSION: 1. No evidence for Pulmonary embolism at this time.
[2020-07-18 14:49] LABS: Amphetamine Screen,Urine Not Detected (NotDetected); Benzodiazepines Screen,Urine Detected (NotDetected); Cocaine Screen,Urine Not Detected (NotDetected); Opiate Screen,Urine Detected (NotDetected); Phencyclidine Screen,Urine Not Detected (NotDetected); Urn Cannabinoid Scrn Detected (NotDetected)
[2020-07-18 14:50] LABS: Barbiturate Screen,Urine Not Detected (NotDetected); Methadone Screen, Urine Not Detected (NotDetected); Oxycodone Screen, Urine Not Detected (NotDetected); Tricyclic Antidepressant,Urine Not Detected (NotDetected)
--- NOTE | 2020-07-18 15:14 | HP ---
HISTORY AND PHYSICAL DATE OF SERVICE: 07/18/2020 CHIEF COMPLAINT: Shortness of breath. HISTORY OF PRESENT ILLNESS: This 55-year-old woman with a past medical history of COPD, history of DJD, history of sinus problems, tubal ligation, anxiety and depression being followed by Dr. Bingham in the outpatient setting. The patient is complaining of shortness of breath for the last 4 days. Patient came to [facility] earlier today and the patient was discharged. Subsequently the patient had increased shortness of this breath, anxiety, suicidal thoughts and patient came to [facility] and was admitted for further evaluation and treatment. There is no history of fever, rigors, chills at this time. PAST MEDICAL HISTORY: History of COPD, DJD, history of sinus problems, anxiety, depression. MEDICATIONS: Home medications are Medrol Dosepak, Paxil, melatonin, Latuda, Motrin, [place], cetirizine, Symbicort, Lioresal, ProAir HFA. Doses are reviewed. ALLERGIES: RISPERDAL. FAMILY HISTORY: History of DVT in the family. SOCIAL HISTORY: No history of alcohol intake. History of smoking, continued ongoing. REVIEW OF SYSTEMS: ENT: No diminished vision or hearing. CARDIOVASCULAR: As mentioned earlier. RESPIRATORY: As mentioned earlier. GI: As mentioned earlier. : No dysuria. NERVOUS SYSTEM: No numbness or weakness. ALLERGY/IMMUNOLOGY: No asthma or hayfever. MUSCULOSKELETAL: As mentioned earlier. HEMATOLOGY: No history of anemia. ENDOCRINE: No history of diabetes or hypothyroidism. CONSTITUTIONAL: As mentioned earlier. DERMATOLOGY: Negative. RHEUMATOLOGY: Negative. PSYCHIATRY: As mentioned earlier. PHYSICAL EXAMINATION: GENERAL: Patient is alert and oriented times three. VITAL SIGNS: Pulse 98, blood pressure 96/80, respirations 18, temperature 98, pulse ox 93% on room air. HEENT: Conjunctivae normal. Oral mucosa moist. NECK: No jugular venous distention. No carotid bruits. No lymph node enlargement. RESPIRATORY: Breath sounds diminished at the bases. A few scattered rhonchi. HEART: S1 and S2, muffled. ABDOMEN: Soft, no tenderness. No masses palpable. EXTREMITIES: No edema, no swelling. NERVOUS: Higher functions as mentioned earlier. Moves all four limbs. No focal motor or sensory deficits. LYMPHATICS: No lymph nodes palpable in the neck or axillae. SKIN: No rashes. JOINTS: No active deforming arthropathy. LABS: D-dimer is 0.75. Otherwise, hemoglobin 16.6, MCV 100.8, chloride is 10. ASSESSMENT: 1. Shortness of breath for evaluation, rule out pulmonary embolism. 2. Elevated D-dimer. 3. Elevated hemoglobin. 4. Anxiety state. 5. Chronic obstructive pulmonary disease. 6. History of degenerative joint disease. 7. Scoliosis. 8. Chronic back pain. 9. History of anxiety, depression. 10.History of nicotine dependence. 11.Obesity with body mass index 31.5. RECOMMENDATIONS AND DISCUSSION: In this 55-year-old woman who presented with multiple medical issues, at this time I recommend to continue the current management and continue symptomatic treatment. Otherwise, at this time, I recommend CT angio chest. Resume the home medications. Otherwise, guarded prognosis because of multiple complex medical issues. Further recommendations to follow. Also optimize the bronchodilator treatment. Psych consultation for anxiety state. MMARIEL / IJN: [id number] /
[2020-07-18] MEDS ORDERED: dexAMETHasone 4 MG TAB PO STA (15:37)
[2020-07-18] MEDS ORDERED: ONDANSETRON 4 MG/2 ML VIAL IVP PRN (15:56)
[2020-07-18] MEDS: IPRATROPIUM-ALBUTEROL 3 ML NEB INHALATION SCH ×2 (16:41→20:41)
[2020-07-19] MEDS: IPRATROPIUM-ALBUTEROL 3 ML NEB INHALATION SCH ×4 (07:05→17:55)
[2020-07-19 07:09] VITALS: RESP 18
[2020-07-19] MEDS ORDERED: ALBUTEROL HFA INHALER INHALATION PRN (08:19)
[2020-07-19] MEDS ORDERED: IBUPROFEN 800 MG TAB PO PRN (08:19)
[2020-07-19] MEDS ORDERED: BACLOFEN 10 MG TAB PO PRN (08:19)
[2020-07-19] MEDS: PARoxetine 20 MG TAB PO SCH (08:43)
[2020-07-19] MEDS: HYDROcodone/APAP 10-325MG 1 EACH TAB PO PRN (08:43)
[2020-07-19] MEDS ORDERED: hydrOXYzine HCL 25 MG TAB PO PRN (10:34)
--- NOTE | 2020-07-19 11:00 | P.CN ---
Psychiatric Consult - . Consult date: 07/19/20 Consult:: IDENTIFYING DATA: This patient is a 55-year-old, , on disability, female who presented to the emergency department with a chief conflict or shortness of breath and elevated anxiety. HISTORY OF PRESENT ILLNESS: The patient presented to the hospital on 07/18/2020 with a chief complaint of persistent anxiety, dyspnea, and suicidal thoughts. The patient vehemently denies any suicidal or homicidal ideation, intention, a nd/or plan. The patient reports that she only said that she would hurt herself issues to constantly lived in this state of panic. She denies any prior attempts at suicide. She reports a strong desire to live for herself and for her family. The patient reports that her anxiety has significantly improved when she was given some Ativan. The patient reports that she's been feeling increasingly anxious over the past few weeks but became even more anxious over the past 2 days. She attributes elevated anxiety secondary to her worsening dyspnea. The patient has other exacerbating factors for her elevated anxiety including heavy caffeine use. The patient reports that she is drinking up to 3 cups of coffee per day and 2-3 sodas per day. She describes her anxiety as feeling constantly "wound up." Despite her issues of dyspnea, the patient reports that she continues to smoke about a half pack per day. The patient does have a significant history of psychosis but is currently not reporting any auditory or visual hallucinations. She is not reporting any significant symptoms of bipolar disorder. She reports no increased codirected activity, pressured speech, grandiosity, or impulsivity. She has been adherent with her medications and is not reporting any significant side effects. The patient does endorse significant history of childhood trauma. She reports that this is the reason why she has not been adherent with any outpatient psychiatric follow-up because she fears discussing her previous traumas. PAST PSYCHIATRIC HISTORY: Patient has a a history of bipolar disorder with mixed psychotic features, depression, alcohol use disorder, and nicotine dependence. The patient has had previous trials of medications including Risperdal, Abilify, and is currently on a regimen of what to do and Paxil. The patient has had 2 previous inpatient psychiatric hospitalizations, with the last one being in October 2019 here on [facility]. Patient denies any psychiatric outpatient follow-up. Patient denies any history of suicide attempts in the past. PAST MEDICAL HISTORY: Past Medical History: COPD, Musculoskeletal Disorder, Osteoarthritis (OA) Additional Past Medical History / Comment(s): SINUS PROBLEMS, DDD, SCOLIOSIS, chronic back pain History of Any Multi-Drug Resistant Organisms: None Reported Past Surgical History: Tubal Ligation Additional Past Surgical History / Comment(s): PAIN CLINIC PROCEDURES Past Anesthesia/Blood Transfusion Reactions: No Reported Reaction Past Psychological History: Anxiety, Depression Smoking Status: Current every day smoker, Heavy tobacco smoker Past Alcohol Use History: Occasional Past Drug Use History: None Reported ALLERGIES: Risperidone CHEMICAL DEPENDENCY HISTORY: Patient reports smoking half pack per day of cigarettes. She does report that she has a night 1-2 times per week. She reports drinking up to 5 caffeinated beverages per day. She denies any marijuana, or illicit drug use. Despite denying marijuana use, the patient did test positive for marijuana. FAMILY PSYCHIATRIC/SUBSTANCE USE HISTORY: The patient is not aware of any mental illness or chemical dependency in her family. There is no family history of suicide. SOCIAL HISTORY: The patient was for 15 years but 15 years ago. Despite her divorce, the patient is living with her son and her ex-. The patient. 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 Patient states that she has been on disability for the last 5 years for her back pain. She has 3 children. MENTAL STATUS EXAM: General Appearance: Patient appears to be older than stated age is alert, pleasant, and cooperative. Patient appears to have fair hygiene and grooming wearing hospital gown with fair eye contact. Behavior: Patient is calmly lying in bed without any agitated behavior. Psychomotor activity is elevated. Patient is constantly tapping her right leg. Speech: Patient's speech is fluent and nonpressured. Mood/Affect: Patient reports their mood is "very nervous", affect is congruent and anxious. Suicidality/Homicidality: Patient denies having any suicidal or homicidal ideation intent or plan. Perceptions: Patient denies any visual hallucinations and denies any auditory hallucinations Though content/process: There is no evidence of any delusional thought content and thought process is linear and goal-directed. Memory and concentration: AOX3, grossly intact for the purposes of this session. Can spell "WORLD" backwards Judgment and insight: Fair Vital Signs Temp 98.3 F 07/19/20 08:00 Pulse 88 07/19/20 10:28 Resp 18 07/19/20 10:28 BP 125/86 07/19/20 08:00 Pulse Ox 90 L 07/19/20 08:00 Intake & Output 07/18/20 07/19/20 07/19/20 18:59 06:59 18:59 Intake Total 800 Balance 800 Weight 91.172 kg 91.172 kg Intake: Oral 800 Other: Voiding Method Toilet Diaper # Voids 3 Laboratory Results WBC 9.1 k/uL (3.8-10.6) 07/18/20 12:51 RBC 4.97 m/uL (3.80-5.40) 07/18/20 12:51 Hgb 16.7 gm/dL (11.4-16.0) H 07/18/20 12:51 Hct 50.1 % (34.0-46.0) H 07/18/20 12:51 MCV 100.8 fL (80.0-100.0) H 07/18/20 12:51 MCH 33.6 pg (25.0-35.0) 07/18/20 12:51 MCHC 33.3 g/dL (31.0-37.0) 07/18/20 12:51 RDW 14.4 % (11.5-15.5) 07/18/20 12:51 Plt Count 243 k/uL (150-450) 07/18/20 12:51 MPV 7.5 07/18/20 12:51 Neutrophils % 69 % 07/18/20 12:51 Lymphocytes % 22 % 07/18/20 12:51 Monocytes % 6 % 07/18/20 12:51 Eosinophils % 2 % 07/18/20 12:51 Basophils % 1 % 07/18/20 12:51 Neutrophils # 6.3 k/uL (1.3-7.7) 07/18/20 12:51 Lymphocytes # 2.0 k/uL (1.0-4.8) 07/18/20 12:51 Monocytes # 0.5 k/uL (0-1.0) 07/18/20 12:51 Eosinophils # 0.2 k/uL (0-0.7) 07/18/20 12:51 Basophils # 0.1 k/uL (0-0.2) 07/18/20 12:51 Macrocytosis Slight 07/18/20 12:51 PT 9.4 sec (9.0-12.0) 07/18/20 12:51 INR 0.9 (<1.2) 07/18/20 12:51 APTT 21.6 sec (22.0-30.0) L 07/18/20 12:51 D-Dimer 0.75 mg/L FEU (<0.60) H 07/18/20 12:51 Sodium 138 mmol/L (137-145) 07/18/20 12:51 Potassium 4.0 mmol/L (3.5-5.1) 07/18/20 12:51 Chloride 110 mmol/L (98-107) H 07/18/20 12:51 Carbon Dioxide 23 mmol/L (22-30) 07/18/20 12:51 Anion Gap 5 mmol/L 07/18/20 12:51 BUN 14 mg/dL (7-17) 07/18/20 12:51 Creatinine 0.80 mg/dL (0.52-1.04) 07/18/20 12:51 Est GFR (CKD-EPI)AfAm >90 (>60 ml/min/1.73 sqM) 07/18/20 12:51 Est GFR (CKD-EPI)NonAf 83 (>60 ml/min/1.73 sqM) 07/18/20 12:51 Glucose 84 mg/dL (74-99) 07/18/20 12:51 Calcium 9.7 mg/dL (8.4-10.2) 07/18/20 12:51 Magnesium 2.0 mg/dL (1.6-2.3) 07/18/20 12:51 Troponin I <0.012 ng/mL (0.000-0.034) 07/18/20 12:51 NT-Pro-B Natriuret Pep 171 pg/mL 07/18/20 12:51 Urine Opiates Screen Detected (NotDetected) H 07/18/20 14:26 Ur Oxycodone Screen Not Detected (NotDetected) 07/18/20 14:26 Urine Methadone Screen Not Detected (NotDetected) 07/18/20 14:26 Ur Propoxyphene Screen Not Detected (NotDetected) 07/18/20 14:26 Ur Barbiturates Screen Not Detected (NotDetected) 07/18/20 14:26 U Tricyclic Antidepress Not Detected (NotDetected) 07/18/20 14:26 Ur Phencyclidine Scrn Not Detected (NotDetected) 07/18/20 14:26 Ur Amphetamines Screen Not Detected (NotDetected) 07/18/20 14:26 U Methamphetamines Scrn Not Detected (NotDetected) 07/18/20 14:26 U Benzodiazepines Scrn Detected (NotDetected) H 07/18/20 14:26 Urine Cocaine Screen Not Detected (NotDetected) 07/18/20 14:26 U Marijuana (THC) Screen Detected (NotDetected) H 07/18/20 14:26 Influenza Type A (PCR) Not Detected (Not Detectd) 07/18/20 13:47 Influenza Type B (PCR) Not Detected (Not Detectd) 07/18/20 13:47 RSV (PCR) Not Detected (Not Detectd) 07/18/20 13:47 SARS-CoV-2 (PCR) Not Detected (Not Detectd) 07/18/20 13:47 IMPRESSIONS: Anxiety disorder, unspecified - multiple etiologies can be contributing including untreated PTSD, caffeine-induced anxiety, cannabis induced anxiety, or anxiety secondary to general medical condition (COPD) Posttraumatic stress disorder History of bipolar disorder Nicotine dependence PLAN: -Recommend outpatient psychiatric follow-up. The patient does not meet any criteria for inpatient psychiatric hospitalization. -Would recommend the following medication changes/additions: Start clonidine 0.1 mg by mouth twice a day for PTSD related anxiety Start Atarax 25 mg by mouth 3 times a day when necessary for anxiety -Risks, benefits, and treatment alternatives were discussed with the patient at length. This provider discussed with the patient to avoid operating heavy machinery when under the influence of her medications for anxiety treatment. Risk for falls and drowsiness were discussed at great length. - Discontinue one-to-one sitter. -Psychiatry will sign off at this point, please contact with any questions. Thank you for this consult. 07/19/20 10:47
[2020-07-19] MEDS: LORazepam 1 MG TAB PO PRN ×2 (11:58→22:07)
[2020-07-19] MEDS: HYDROmorphone 0.5 MG/0.5 ML SYRINGE IVP PRN ×2 (11:59→19:57)
[2020-07-19] MEDS: NICOTINE 21MG/24HR PATCH TRANSDERM SCH (15:05)
[2020-07-19] MEDS: methylPREDNISolone SOD SUCCI 40 MG/ML 1 ML VIAL IV SCH ×2 (15:06→23:53)
--- NOTE | 2020-07-19 16:32 | PN ---
PROGRESS NOTE DATE OF SERVICE: 07/19/2020 This 55-year-old woman who was admitted with shortness of breath has probably features of COPD, acute exacerbation. Patient is being closely monitored. No chest pain. No palpitations. The patient has some anxiety also. PHYSICAL EXAMINATION: Alert and oriented x3. Pulse is 88, blood pressure 120/83, respirations 16, temperature 98.3, pulse ox 93% on 2 L. HEENT: Conjunctivae normal. NECK: No jugular venous distention. CARDIOVASCULAR SYSTEM: S1, S2 muffled. RESPIRATORY SYSTEM: Breath sounds diminished at the bases. A few scattered rhonchi. ABDOMEN: Soft. Non-tender. NERVOUS SYSTEM: No focal deficit. LABS: WBC 9.2, hemoglobin 17.7. D-dimer is 0.75. Drug screen is positive for benzodiazepines, THC and opiates. Influenza and COVID-19 are negative. ASSESSMENT: 1. Shortness of breath, possibly chronic obstructive pulmonary disease, acute exacerbation. 2. Elevated D-dimer. 3. Possible acute purulent tracheobronchitis. 4. Elevated hemoglobin. 5. Anxiety state. 6. No evidence of acute pulmonary embolism on the CT scan. 7. Chronic obstructive pulmonary disease. 8. History of degenerative joint disease. 9. History of scoliosis. 10.History of chronic back pain. 11.History of anxiety, depression. 12.History of nicotine dependence. 13.Obesity with body mass index of 31.5. RECOMMENDATIONS AND DISCUSSION: I recommend to continue current medications, continue with the monitoring, symptomatic treatment. Continue with the bronchodilators. The patient is on a short course of steroids and empiric antibiotics. Further recommendations to follow. MMODL / IJN: [id number] /
[2020-07-19 16:33] LABS: Glucose,Whole Blood 119 mg/dL (75-99)
[2020-07-19] MEDS: INSULIN ASPART (NovoLOG) 100 UNIT/ML VIAL SQ SCH ×2 (16:37→20:45)
[2020-07-19] MEDS: SYMBICORT 160-4.5 MCG INHALER INHALATION SCH (17:56)
[2020-07-19 19:17] LABS: Glucose,Whole Blood 148 mg/dL (75-99)
[2020-07-19] MEDS: cloNIDine HCL 0.1 MG TAB PO SCH (20:45)
[2020-07-19] MEDS ORDERED: LURASIDONE 40 MG TAB PO SCH (21:00)
[2020-07-19] MEDS ORDERED: MELATONIN 3 MG TABLET PO SCH (21:00)
[2020-07-19] MEDS ORDERED: LORATADINE 10 MG TAB PO SCH (21:00)
[2020-07-19 23:26] VITALS: TEMP 98
[2020-07-20] MEDS: HYDROmorphone 0.5 MG/0.5 ML SYRINGE IVP PRN ×2 (05:22→13:06)
[2020-07-20] MEDS: LORazepam 1 MG TAB PO PRN ×2 (06:05→14:37)
[2020-07-20 07:16] LABS: Glucose,Whole Blood 116 mg/dL (75-99)
[2020-07-20] MEDS: INSULIN ASPART (NovoLOG) 100 UNIT/ML VIAL SQ SCH ×2 (07:27→12:28)
[2020-07-20] MEDS: NICOTINE 21MG/24HR PATCH TRANSDERM SCH (07:53)
[2020-07-20] MEDS: PARoxetine 20 MG TAB PO SCH (07:53)
[2020-07-20] MEDS: methylPREDNISolone SOD SUCCI 40 MG/ML 1 ML VIAL IV SCH (07:54)
[2020-07-20] MEDS: HYDROcodone/APAP 10-325MG 1 EACH TAB PO PRN (07:54)
[2020-07-20] MEDS: cloNIDine HCL 0.1 MG TAB PO SCH (07:55)
[2020-07-20 08:38] LABS: Basophils % (A) 0 %; Eosinophils # (A) 0.1 k/uL (0-0.7); Eosinophils % (A) 1 %; HCT 49.1 % (34.0-46.0); HGB 16.9 gm/dL (11.4-16.0); Lymphocytes % (A) 24 %; MCH 34.2 pg (25.0-35.0); MCHC 34.4 g/dL (31.0-37.0); MCV 99.3 fL (80.0-100.0); Mean Platelet Volume 7.5; Monocytes # (A) 0.3 k/uL (0-1.0); Monocytes % (A) 4 %; Neutrophils # (A) 5.9 k/uL (1.3-7.7); Neutrophils % (A) 70 %; Platelet Count 263 k/uL (150-450); RBC 4.95 m/uL (3.80-5.40); WBC 8.4 k/uL (3.8-10.6)
[2020-07-20] MEDS: IPRATROPIUM-ALBUTEROL 3 ML NEB INHALATION SCH ×3 (08:41→16:08)
[2020-07-20] MEDS: SYMBICORT 160-4.5 MCG INHALER INHALATION SCH (08:41)
[2020-07-20 08:53] VITALS: BP 129/79
[2020-07-20 09:04] LABS: African American GFR (CKD) >90 (>60 ml/min/1.73 sqM); Anion Gap 6 mmol/L; Blood Urea Nitrogen 20 mg/dL (7-17); Carbon Dioxide 25 mmol/L (22-30); Chloride 107 mmol/L (98-107); Glucose 151 mg/dL (74-99); Non-African American GFR(CKD) 90 (>60 ml/min/1.73 sqM); Sodium 138 mmol/L (137-145)
[2020-07-20 11:41] LABS: Glucose,Whole Blood 119 mg/dL (75-99)
[2020-07-20 13:40] VITALS: PULSE 90
--- NOTE | 2020-07-20 20:58 | P.DS ---
Providers Date of admission: 07/18/20 15:18 Attending physician: Tye Miranda Consults: 07/18/20 15:18 Consult Physician Routine Consulting Provider: Jay Jay Hammond Consult Reason/Comments: suicidal Do you want consulting provider notified?: Yes Primary care physician: Otilia Flores Hospital Course: Diagnoses: Acute COPD exacerbation, improved Nicotine dependence Anxiety Obesity with BMI of 30 1.5 Hospital course: This is a pleasant 55 years old female with past medical history of COPD, not on home oxygen, currently in cigarette smoker presents with dyspnea, some of phlegm for a few days duration, patient denies chest pain. On admission her d-dimer was slightly elevated at 0.75, CTA of the chest was obtained showing no pulmonary embolism, no infiltrate, emphysematous changes, no pulmonary nodule or mass. Patient was treated with IV steroids and bronchodilators, oxygen as needed and antibiotics, patient showed interval improvement and today she is breathing much better and quiet, she is saturating 93-98% on room air. Patient has been evaluated for home oxygen and she does not qualify and she does not need oxygen at home currently Psychiatric evaluated patient for anxiety and started her on clonidine and Atarax, to which patient agrees. Patient wanted Ativan and I explained for her risks of Ativan for treatment for anxiety and she agrees with the current plan without ativan She denies chest pain, no abdominal pain, no nausea vomiting, no change in urine or bowel habits. No fever Problems and management plan were discussed with the patient and he verbalized understanding and acceptance Patient was found stable and can be discharged home however he needs follow-up as an outpatient. Patient was instructed to follow up with PCP Dr. Rodriguez within one week and patient agrees. Patient also was instructed to follow up with ict support and test engineers Dr. Vazquez in 1-2 weeks and she agrees to call and make her own appointments Physical exam Gen: patient is a AAOx3, no distress CVS: S1-S2, RRR, no murmur Lungs: B/L CTA, no wheezing Abdomen: soft, no distention, no tenderness, positive bowel sounds Extremity: no leg edema or induration Time spent more than 35 minutes Patient Condition at Discharge: Fair Plan - Discharge Summary Discharge Rx Participant: Yes New Discharge Prescriptions: New RX: predniSONE 10 mg PO DIRECTED #30 tab RX: hydrOXYzine HCL [Atarax] 25 mg PO TID PRN #90 tab PRN Reason: Anxiety RX: cloNIDine HCL [Catapres] 0.1 mg PO BID #60 tab Cefuroxime [Ceftin] 250 mg PO BID 5 Days #10 tab RX: Nicotine 21Mg/24Hr Patch [Habitrol] 1 patch TRANSDERM DAILY #3 patch Continue RX: Cetirizine HCl 10 mg PO HS RX: Melatonin 3 mg PO HS RX: Baclofen [Lioresal] 10 mg PO TID PRN PRN Reason: Muscle Spasm RX: PARoxetine HCL [Paxil] 40 mg PO DAILY 14 Days tab RX: Budesonide-Formot 160-4.5 Mcg [Symbicort 160-4.5 Mcg Inhaler] 1 puff INHALATION RT-DAILY RX: Lurasidone [Latuda] 40 mg PO HS RX: HYDROcodone/APAP 10-325MG [Paradise 10-325] 1 tab PO Q8H PRN PRN Reason: Pain RX: methylPREDNISolone [Medrol Dose Pack] See Taper PO DIRECTED RX: Albuterol Sulfate [Proair Hfa] 2 puff INHALATION RT-QID PRN #1 inhaler PRN Reason: Shortness Of Breath Discontinued RX: Ibuprofen [Motrin] 800 mg PO TID PRN #90 tab PRN Reason: Pain Discharge Medication List RX: Cetirizine HCl 10 mg PO HS 07/02/18 [History] RX: Melatonin 3 mg PO HS 10/06/18 [History] RX: Baclofen [Lioresal] 10 mg PO TID PRN 02/26/19 [History] RX: PARoxetine HCL [Paxil] 40 mg PO DAILY 14 Days tab 11/11/19 [Rx] RX: Budesonide-Formot 160-4.5 Mcg [Symbicort 160-4.5 Mcg Inhaler] 1 puff INHALATION RT-DAILY 03/11/20 [History] RX: Lurasidone [Latuda] 40 mg PO HS 03/11/20 [History] RX: HYDROcodone/APAP 10-325MG [Paradise 10-325] 1 tab PO Q8H PRN 07/18/20 [History] RX: methylPREDNISolone [Medrol Dose Pack] See Taper PO DIRECTED 07/18/20 [History] Cefuroxime [Ceftin] 250 mg PO BID 5 Days #10 tab 07/20/20 [Rx] RX: Albuterol Sulfate [Proair Hfa] 2 puff INHALATION RT-QID PRN #1 inhaler 07/20/20 [Rx] RX: Nicotine 21Mg/24Hr Patch [Habitrol] 1 patch TRANSDERM DAILY #3 patch 07/20/20 [Rx] RX: cloNIDine HCL [Catapres] 0.1 mg PO BID #60 tab 07/20/20 [Rx] RX: hydrOXYzine HCL [Atarax] 25 mg PO TID PRN #90 tab 07/20/20 [Rx] RX: predniSONE 10 mg PO DIRECTED #30 tab 07/20/20 [Rx] Follow up Appointment(s)/Referral(s): Sandra Bingham MD [Primary Care Provider] - 1-2 days Oz Vazquez MD [STAFF PHYSICIAN] - 2 Weeks ([facility] ) Patient Instructions/Handouts: How to Stop Smoking (DC), COPD (Chronic Obstructive Pulmonary Disease) (DC) Activity/Diet/Wound Care/Special Instructions: low carbohydrate diet activity is restricted till you see your doctor Discharge Disposition: HOME SELF-CARE
== END 2020-07-20 16:16 | disposition home or self-care (01) ==
LOC: EC 12:05 → 4SSUR 15:18 → 1SOBS 22:24
PROVIDERS: ADMIT Hospitalist; ATTEND Hospitalist
DX: J44.1 Chronic obstructive pulmonary disease with (acute) exacerbation (principal); F41.1 Generalized anxiety disorder; F31.9 Bipolar disorder, unspecified; R79.89 Other specified abnormal findings of blood chemistry; M19.90 Unspecified osteoarthritis, unspecified site; F43.10 Post-traumatic stress disorder, unspecified; D58.2 Other hemoglobinopathies; M41.9 Scoliosis, unspecified; I45.10 Unspecified right bundle-branch block; G89.29 Other chronic pain; M54.9 Dorsalgia, unspecified; F17.210 Nicotine dependence, cigarettes, uncomplicated; R45.851 Suicidal ideations; E66.9 Obesity, unspecified; Z68.31 Body mass index [BMI] 31.0-31.9, adult; Z20.822 Contact with and (suspected) exposure to COVID-19; Z79.51 Long term (current) use of inhaled steroids; Z79.891 Long term (current) use of opiate analgesic; Z79.52 Long term (current) use of systemic steroids; Z79.899 Other long term (current) drug therapy; Z88.8 Allergy status to other drugs, medicaments and biological substances; Z98.51 Tubal ligation status; Z83.2 Family history of diseases of the blood and blood-forming organs and certain disorders involving the immune mechanism; Z82.49 Family history of ischemic heart disease and other diseases of the circulatory system
CPT/HCPCS: 96365; 96366; 96375 ×2; 96376 ×2; 82075; 99285; 36415; 94640 ×6; 94760; 93005; 85379; 83880; 80048 ×2; 83735; 84484; 85025 ×2; 85610; 85730; 80306; 87636; 71045; 71275; G0378 ×4; S4990 ×2; J8540; J2060; J2920 ×2; J2405; J0696 ×2; J1170 ×2; Q9967

== ENCOUNTER → 2020-08-01 | Outpatient (CLI) | payer OTHER ==
[2020-08-01 11:42] VITALS: BP 123/68; PULSE 68; RESP 18; TEMP 98.4
--- NOTE | 2020-08-01 12:00 | P.PN ---
Subjective Progress Note Date: 08/01/20 D presents for follow-up today secondary to her chronic low back pain. She reports that she has been doing better since the last injection. She is still having a pain in the center of the lower lumbar spine over the sacrum. The pain very much stays right there without any significant radiation. There is no numbness or tingling radiating down the legs. She reports the pain is worse with standing or walking better with medication and rest. She did recently in the hospital for anxiety and was diagnosed with anxiety disorder. She will be following up with a psychiatrist on a regular basis. She reports that she has been out of pain medications for about 5 days because it was not refilled. She' s been having a lot of difficulty with ambulation secondary to the pain. She reports injections were performed offer significant benefit. She is greater than 50% improvement since the injections. Prior to injection she having difficulty standing and she's been able to ambulate with the injections. Her urine drug screen was evaluated today and was positive for THC. I discussed this with the patient, she reports she was using a pen that had marijuana and did not know there is THC. I discussed the THC may cause her to have significant drug interactions with opioid medications. She reports she will not be using the pen any further. Review of Systems: Denies any New chest pain, short of breath, Nausea/vomitting, abdominal pain, bowel or bladder incontinence, or any overt new neurologic symptoms in the upper or lower extremities outside of what is noted in the HPI Objective - Vital Signs Vital signs: Vital Signs Temp 98.4 F 08/01/20 11:38 Pulse 68 08/01/20 11:38 Resp 18 08/01/20 11:38 BP 123/68 08/01/20 11:38 Pulse Ox 98 08/01/20 11:38 - Exam General: Awake and alert oriented 3 no distress, obese, smells of tobacco smoke Respiratory exam: No audible wheezing no accessory muscle usage Cardiovascular exam: regular rate, palpable bilateral pulses, no lower extremity edema Abdominal exam: No distention nontender to palpation Cervical spine: Normal alignment, Spurling's negative, facet loading negative, [place] Tender strength is 5/5, aguilar negative Lumbar spine: Obese midline, complete loss of lordosis, atrophy of the paraspinal and gluteal muscles. Lower extremity strength is 4-5 bilaterally. Flexion and extension limited secondary to pain. Sacroiliac joints: Nontender to palpation, SLIM is negative, [place] negative Neuro exam: Normal sensation in bilateral upper extremities, deep tendon reflexes are 2+ bilateral upper extremities. Normal sensation in bilateral lower extremities. Deep tendon reflexes are 2+ in lower extremities Psych exam: Cooperative, appropriate mood Assessment and Plan Assessment: #1 sacroiliitis #2 lumbar spondylosis without myelopathy #3 opioid dependence #4 tobacco dependence Plan: At this point I will continue with the current medications of Warren 10 mg 3 times a day for the next 30 days. I've given the patient one prescription. We will see her back in 4 weeks and take another urine sample. If she still positive for THC I've explained to the patient we will no longer be able to treat her with opioid pain medications. She understands and verbally acknowledge that. We will follow-up with her in 4 weeks. I have spent 31 minutes on patient care today. The time was used to review the medical records including relevant urine studies and Prescription history (MAPs), review of the available imaging, evaluation and examination of the patient, coordination of care with the medical staff and if applicable referring physicians, as well as creation of the medical record. Maps were checked and appropriate, opioid start talking form is on file and updated, urine drug screens of been appropriate and have been reviewed.
== END ==
LOC: PNWHC3 11:32
PROVIDERS: ATTEND Hospitalist
DX: M47.816 Spondylosis without myelopathy or radiculopathy, lumbar region (principal); F11.20 Opioid dependence, uncomplicated; G89.29 Other chronic pain; M46.1 Sacroiliitis, not elsewhere classified; F17.200 Nicotine dependence, unspecified, uncomplicated
CPT/HCPCS: 99211

== ENCOUNTER 2020-08-24 20:08 | Emergency (ER) | payer OTHER ==
--- NOTE | 2020-08-24 20:40 | ED ---
Anxiety HPI - General Chief Complaint: Anxiety Stated Complaint: Anxiety Time Seen by Provider: 08/24/20 20:14 Source: patient, RN notes reviewed Mode of arrival: EMS - History of Present Illness Initial Comments: Patient is a 55-year-old female presents to emergency room complaining of anxiety. She notes that she was unable to follow-up at her outpatient appointment due to having the flu. She ran out of her medication and can emergency room to get a refill until she is able to go to her outpatient follow- up. She was in no apparent distress or pain while sitting up in bed during the exam interview. She denied any pain or other complaints. She denied any chest pain short of breath headache nausea vomiting diarrhea constipation fever fatigue chills. - Related Data Home Medications: Home Medications Medication Instructions Recorded Confirmed Cetirizine HCl 10 mg PO HS 07/02/18 07/28/20 Melatonin 3 mg PO HS 10/06/18 07/28/20 Baclofen [Lioresal] 10 mg PO TID PRN 02/26/19 07/28/20 Budesonide-Formot 160-4.5 Mcg 1 puff INHALATION RT-DAILY 03/11/20 07/28/20 [Symbicort 160-4.5 Mcg Inhaler] Lurasidone [Latuda] 40 mg PO HS 03/11/20 07/28/20 Previous Rx's Medication Instructions Recorded PARoxetine HCL [Paxil] 40 mg PO DAILY 14 Days tab 11/11/19 Albuterol Sulfate [Proair Hfa] 2 puff INHALATION RT-QID PRN #1 07/20/20 inhaler Nicotine 21Mg/24Hr Patch [Habitrol] 1 patch TRANSDERM DAILY #3 patch 07/20/20 cloNIDine HCL [Catapres] 0.1 mg PO BID #60 tab 07/20/20 hydrOXYzine HCL [Atarax] 25 mg PO TID PRN #90 tab 07/20/20 predniSONE 10 mg PO DIRECTED #30 tab 07/20/20 HYDROcodone/APAP 10-325MG [[place] 1 tab PO Q8H PRN 30 Days #90 tab 08/01/20 10-325] cloNIDine HCL [Catapres] 0.1 mg PO BID 7 Days #14 tab 08/24/20 hydrOXYzine HCL [Atarax] 25 mg PO TID PRN #21 tab 08/24/20 Allergies/Adverse Reactions: Allergies Allergy/AdvReac Type Severity Reaction Status Date / Time risperidone AdvReac Dyspnea Verified 07/28/20 13:50 Review of Systems ROS Statement: Those systems with pertinent positive or pertinent negative responses have been documented in the HPI. ROS Other: All systems not noted in ROS Statement are negative. Past Medical History Past Medical History: COPD, Musculoskeletal Disorder, Osteoarthritis (OA) Additional Past Medical History / Comment(s): SINUS PROBLEMS, DDD, SCOLIOSIS, chronic back pain History of Any Multi-Drug Resistant Organisms: None Reported Past Surgical History: Tubal Ligation Additional Past Surgical History / Comment(s): PAIN CLINIC PROCEDURES Past Anesthesia/Blood Transfusion Reactions: No Reported Reaction Past Psychological History: Anxiety, Depression Smoking Status: Current every day smoker - Past Family History Daughter(s) Family Medical History: Blood Disorder, Deep Vein Thrombosis (DVT) Additional Family Medical History / Comment(s): "blood clotting disorder" General Exam Limitations: no limitations General appearance: alert, in no apparent distress Head exam: Present: atraumatic, normocephalic, normal inspection Eye exam: Present: normal appearance, PERRL, EOMI. Absent: scleral icterus, conjunctival injection, periorbital swelling Neck exam: Present: normal inspection. Absent: tenderness, meningismus, lymphadenopathy Respiratory exam: Present: normal lung sounds bilaterally. Absent: respiratory distress, wheezes, rales, rhonchi, stridor Cardiovascular Exam: Present: regular rate, normal rhythm, normal heart sounds. Absent: systolic murmur, diastolic murmur, rubs, gallop, clicks GI/Abdominal exam: Present: soft, normal bowel sounds. Absent: distended, tenderness, guarding, rebound, rigid Extremities exam: Present: normal inspection, full ROM, normal capillary refill. Absent: tenderness, pedal edema, joint swelling, calf tenderness Neurological exam: Present: alert, oriented X3, CN II-XII intact Psychiatric exam: Present: normal affect, normal mood Skin exam: Present: warm, dry, intact, normal color. Absent: rash Course Vital Signs 08/24/20 20:18 Temperature 97.9 F Pulse Rate 96 Respiratory 18 Rate Blood Pressure 126/85 O2 Sat by Pulse 98 Oximetry Medical Decision Making - Medical Decision Making 55-year-old female with anxiety asking for refills of medications area Patient declined labs and imaging stated she just wanted refills to hold her over until she did go to outpatient follow-up. Case discussed with Dr. Gonzalez, patient discharge home with follow-up to psychiatrist outpatient. Disposition Clinical Impression: Acute anxiety, Panic disorder Disposition: HOME SELF-CARE Condition: Stable Instructions (If sedation given, give patient instructions): Generalized Anxiety Disorder (ED) Additional Instructions: Please return to the Emergency Department if symptoms worsen or any other concerns. Follow-up with primary care and psychiatrist within the next 5-7 days. Prescription sent to pharmacy. Please follow-up primary care for future refills as he will not get them from the emergency room. Is patient prescribed a controlled substance at d/c from ED?: No Referrals: Sandra Bingham MD [Primary Care Provider] - 1-2 days Time of Disposition: 20:40
[2020-08-24 21:11] VITALS: BP 121/81; PULSE 81; RESP 17; TEMP 98.1
== END 2020-08-24 21:11 | disposition home or self-care (01) ==
LOC: EC 20:08
DX: F41.0 Panic disorder [episodic paroxysmal anxiety] (principal); F32.9 Major depressive disorder, single episode, unspecified; J44.9 Chronic obstructive pulmonary disease, unspecified; M19.90 Unspecified osteoarthritis, unspecified site; F17.200 Nicotine dependence, unspecified, uncomplicated; Z79.51 Long term (current) use of inhaled steroids
CPT/HCPCS: 99283

== ENCOUNTER 2020-08-25 10:31 | Emergency (ER) | payer OTHER ==
[2020-08-25 10:54] VITALS: BP 130/74; PULSE 105; RESP 18; TEMP 98.2
--- NOTE | 2020-08-25 11:50 | ED ---
General Adult HPI - General Chief complaint: Psychiatric Symptoms Stated complaint: Mental health Time Seen by Provider: 08/25/20 11:36 Source: patient, RN notes reviewed Mode of arrival: EMS Limitations: no limitations - History of Present Illness Initial comments: Patient is a 55-year-old female that presents to the emergency Department per her family's wishes to get her lip to do refilled. Patient is aware that the emergency Department is not a primary care office and cannot manage chronic medications. Her family notes that she should a came in any ways to get it refilled because they're worried about her. She did note that she does have an appointment with her primary care in a few days and does have a visit to her psychiatrist scheduled. Patient's was sympathetic and stated that she did not want to refill this time but only came under pressure from family. She denied any pain or other complaints. She denied any chest pain shortness of breath headache nausea vomiting diarrhea constipation fever fatigue chills. - Related Data Home Medications Medication Instructions Recorded Confirmed Cetirizine HCl 10 mg PO HS 07/02/18 07/28/20 Melatonin 3 mg PO HS 10/06/18 07/28/20 Baclofen [Lioresal] 10 mg PO TID PRN 02/26/19 07/28/20 Budesonide-Formot 160-4.5 Mcg 1 puff INHALATION RT-DAILY 03/11/20 07/28/20 [Symbicort 160-4.5 Mcg Inhaler] Lurasidone [Latuda] 40 mg PO HS 03/11/20 07/28/20 Previous Rx's Medication Instructions Recorded PARoxetine HCL [Paxil] 40 mg PO DAILY 14 Days tab 11/11/19 Albuterol Sulfate [Proair Hfa] 2 puff INHALATION RT-QID PRN #1 07/20/20 inhaler Nicotine 21Mg/24Hr Patch [Habitrol] 1 patch TRANSDERM DAILY #3 patch 07/20/20 cloNIDine HCL [Catapres] 0.1 mg PO BID #60 tab 07/20/20 hydrOXYzine HCL [Atarax] 25 mg PO TID PRN #90 tab 07/20/20 predniSONE 10 mg PO DIRECTED #30 tab 07/20/20 HYDROcodone/APAP 10-325MG [[place] 1 tab PO Q8H PRN 30 Days #90 tab 08/01/20 10-325] cloNIDine HCL [Catapres] 0.1 mg PO BID 7 Days #14 tab 08/24/20 hydrOXYzine HCL [Atarax] 25 mg PO TID PRN #21 tab 08/24/20 Allergies Allergy/AdvReac Type Severity Reaction Status Date / Time risperidone AdvReac Dyspnea Verified 08/25/20 12:21 Review of Systems ROS Statement: Those systems with pertinent positive or pertinent negative responses have been documented in the HPI. ROS Other: All systems not noted in ROS Statement are negative. Past Medical History Past Medical History: COPD, Musculoskeletal Disorder, Osteoarthritis (OA) Additional Past Medical History / Comment(s): SINUS PROBLEMS, DDD, SCOLIOSIS, chronic back pain History of Any Multi-Drug Resistant Organisms: None Reported Past Surgical History: Tubal Ligation Additional Past Surgical History / Comment(s): PAIN CLINIC PROCEDURES Past Anesthesia/Blood Transfusion Reactions: No Reported Reaction Past Psychological History: Anxiety, Depression Smoking Status: Current every day smoker - Past Family History Daughter(s) Family Medical History: Blood Disorder, Deep Vein Thrombosis (DVT) Additional Family Medical History / Comment(s): "blood clotting disorder" General Exam Limitations: no limitations General appearance: alert, in no apparent distress Head exam: Present: atraumatic, normocephalic, normal inspection Eye exam: Present: normal appearance, PERRL, EOMI. Absent: scleral icterus, conjunctival injection, periorbital swelling ENT exam: Present: normal exam Neck exam: Present: normal inspection Respiratory exam: Present: normal lung sounds bilaterally. Absent: respiratory distress, wheezes, rales, rhonchi, stridor Cardiovascular Exam: Present: regular rate, normal rhythm, normal heart sounds. Absent: systolic murmur, diastolic murmur, rubs, gallop, clicks GI/Abdominal exam: Present: soft, normal bowel sounds. Absent: distended, tenderness, guarding, rebound, rigid Extremities exam: Present: normal inspection, full ROM, normal capillary refill. Absent: tenderness, pedal edema, joint swelling, calf tenderness Neurological exam: Present: alert, oriented X3, CN II-XII intact Psychiatric exam: Present: normal affect, normal mood, anxious Skin exam: Present: warm, dry, intact, normal color. Absent: rash Course Vital Signs 08/25/20 10:40 Temperature 98.2 F Pulse Rate 105 H Respiratory 18 Rate Blood Pressure 130/74 O2 Sat by Pulse 95 Oximetry Medical Decision Making - Medical Decision Making 55-year-old female presenting with anxiety sent in via pressure from her family. Patient declined needing anything at this point and says that she'll follow-up to primary care as scheduled. She just felt pressure by her family to come in. Case discussed with Dr. Goyal, patient follow-up with primary care. Disposition Clinical Impression: Acute anxiety Disposition: HOME SELF-CARE Condition: Stable Instructions (If sedation given, give patient instructions): Generalized Anxiety Disorder (ED) Additional Instructions: Please return to the Emergency Department if symptoms worsen or any other concerns. The emergency room is on her primary care and cannot manage chronic medications. Follow-up with primary care and psychiatrist as needed for medication management and refills. Is patient prescribed a controlled substance at d/c from ED?: No Referrals: Sandra Bingham MD [Primary Care Provider] - 1-2 days Time of Disposition: 12:25
== END 2020-08-25 12:30 | disposition home or self-care (01) ==
LOC: EC 10:31
DX: F41.9 Anxiety disorder, unspecified (principal); F32.9 Major depressive disorder, single episode, unspecified; J44.9 Chronic obstructive pulmonary disease, unspecified; M19.90 Unspecified osteoarthritis, unspecified site; F17.200 Nicotine dependence, unspecified, uncomplicated; Z79.52 Long term (current) use of systemic steroids; Z79.51 Long term (current) use of inhaled steroids
CPT/HCPCS: 99284

== ENCOUNTER 2020-08-31 09:44 | Inpatient (IN) | payer MEDICAID, OTHER ==
[2020-08-31 11:25] LABS: Amphetamine Screen,Urine Not Detected (NotDetected); Barbiturate Screen,Urine Not Detected (NotDetected); Benzodiazepines Screen,Urine Not Detected (NotDetected); Cocaine Screen,Urine Not Detected (NotDetected); Methadone Screen, Urine Not Detected (NotDetected); Opiate Screen,Urine Not Detected (NotDetected); Oxycodone Screen, Urine Not Detected (NotDetected); Phencyclidine Screen,Urine Not Detected (NotDetected); Tricyclic Antidepressant,Urine Not Detected (NotDetected); Urn Cannabinoid Scrn Detected (NotDetected)
--- NOTE | 2020-08-31 11:53 | ED ---
Psych HPI - General Chief Complaint: Psychiatric Symptoms Stated Complaint: EPS eval Time Seen by Provider: 08/31/20 09:54 Source: patient, police, EMS Mode of arrival: EMS - History of Present Illness Initial Comments: Is a 55-year-old female history of schizophrenia who was brought in on petition by police she was found sitting without clothing on her front porch apparently d rinking out of a bottle of mustard. She apparently ate about half a bottle but did throw it up. He states voices are telling her to drink the mustard otherwise she will be killed.. Patient is not taking medication currently. She denies any fevers chills or sweats chest pain no abdominal pain at this time denies any drugs or alcohol MD Complaint: other - Related Data Home Medications Medication Instructions Recorded Confirmed Cetirizine HCl 10 mg PO HS 07/02/18 08/31/20 Baclofen [Lioresal] 10 mg PO TID PRN 02/26/19 08/31/20 Budesonide-Formot 160-4.5 Mcg 2 puff INHALATION RT-BID 03/11/20 08/31/20 [Symbicort 160-4.5 Mcg Inhaler] Lurasidone [Latuda] 40 mg PO HS 03/11/20 08/31/20 Ibuprofen [Motrin] 800 mg PO Q8H PRN 08/25/20 08/31/20 Buprenorphine HCl/Naloxone HCl 1 film SUBLINGUAL BID 08/31/20 08/31/20 [Suboxone 8 mg-2 mg Sl Film] Previous Rx's Medication Instructions Recorded PARoxetine HCL [Paxil] 40 mg PO DAILY 14 Days tab 11/11/19 Albuterol Sulfate [Proair Hfa] 2 puff INHALATION RT-QID PRN #1 07/20/20 inhaler cloNIDine HCL [Catapres] 0.1 mg PO BID #60 tab 07/20/20 HYDROcodone/APAP 10-325MG [[place] 1 tab PO Q8H PRN 30 Days #90 tab 08/01/20 10-325] Allergies Allergy/AdvReac Type Severity Reaction Status Date / Time risperidone AdvReac Dyspnea Verified 08/25/20 12:21 Review of Systems ROS Statement: Those systems with pertinent positive or pertinent negative responses have been documented in the HPI. ROS Other: All systems not noted in ROS Statement are negative. Past Medical History Past Medical History: COPD, Musculoskeletal Disorder, Osteoarthritis (OA) Additional Past Medical History / Comment(s): SINUS PROBLEMS, DDD, SCOLIOSIS, chronic back pain History of Any Multi-Drug Resistant Organisms: None Reported Past Surgical History: Tubal Ligation Additional Past Surgical History / Comment(s): PAIN CLINIC PROCEDURES Past Anesthesia/Blood Transfusion Reactions: No Reported Reaction Past Psychological History: Anxiety, Depression Smoking Status: Current every day smoker Past Alcohol Use History: None Reported Past Drug Use History: None Reported - Past Family History Daughter(s) Family Medical History: Blood Disorder, Deep Vein Thrombosis (DVT) Additional Family Medical History / Comment(s): "blood clotting disorder" General Exam - General Exam Comments Initial Comments: This a well-developed well-nourished awake alert female General appearance: alert, in no apparent distress Head exam: Present: atraumatic, normocephalic, normal inspection Eye exam: Present: normal appearance, PERRL, EOMI. Absent: scleral icterus, conjunctival injection, periorbital swelling ENT exam: Present: normal exam, mucous membranes moist Neck exam: Present: normal inspection. Absent: tenderness, meningismus, lymphadenopathy Respiratory exam: Present: normal lung sounds bilaterally. Absent: respiratory distress, wheezes, rales, rhonchi, stridor Cardiovascular Exam: Present: regular rate, normal rhythm, normal heart sounds. Absent: systolic murmur, diastolic murmur, rubs, gallop, clicks GI/Abdominal exam: Present: soft, normal bowel sounds. Absent: distended, tenderness, guarding, rebound, rigid Extremities exam: Present: normal inspection, full ROM, normal capillary refill. Absent: tenderness, pedal edema, joint swelling, calf tenderness Back exam: Present: normal inspection Neurological exam: Present: alert, oriented X3, CN II-XII intact Psychiatric exam: Present: flat affect Skin exam: Present: warm, dry, intact, normal color. Absent: rash Course Vital Signs 08/31/20 09:46 Temperature 98.8 F Pulse Rate 118 H Respiratory 18 Rate Blood Pressure 130/87 O2 Sat by Pulse 92 L Oximetry Medical Decision Making - Medical Decision Making The patient was evaluated by the EPS service found to be requiring admission. I did fill out a clinical certification I did review the petition. - Lab Data Lab Results 08/31/20 Range/Units 09:59 Urine Opiates Screen Not Detected (NotDetected) Ur Oxycodone Screen Not Detected (NotDetected) Urine Methadone Screen Not Detected (NotDetected) Ur Propoxyphene Screen Not Detected (NotDetected) Ur Barbiturates Screen Not Detected (NotDetected) U Tricyclic Antidepress Not Detected (NotDetected) Ur Phencyclidine Scrn Not Detected (NotDetected) Ur Amphetamines Screen Not Detected (NotDetected) U Methamphetamines Scrn Not Detected (NotDetected) U Benzodiazepines Scrn Not Detected (NotDetected) Urine Cocaine Screen Not Detected (NotDetected) U Marijuana (THC) Screen Detected H (NotDetected) Disposition Clinical Impression: Schizophrenia Disposition: TRANSFER TO PSYCH HOSP/UNIT Condition: Fair Referrals: Sandra Bingham MD [Primary Care Provider] - 1-2 days
[2020-08-31] MEDS ORDERED: ONDANSETRON ODT 4 MG TAB PO STA (13:30)
[2020-08-31] MEDS ORDERED: LORazepam 1 MG TAB PO STA (14:48)
[2020-08-31] MEDS ORDERED: MAGNESIUM HYDROXIDE 2,400 MG/10 ML CUP PO PRN (18:29)
[2020-08-31] MEDS ORDERED: ACETAMINOPHEN TAB 325 MG TAB PO PRN (18:29)
[2020-08-31] MEDS ORDERED: LORazepam 2 MG/ML INJ IM PRN (18:37)
[2020-08-31] MEDS ORDERED: HALOPERIDOL LACTATE 5 MG/ML 1 ML VIAL IM PRN (18:38)
[2020-08-31] MEDS ORDERED: BUDESONIDE 1 MG/2 ML NEBU INHALATION STA (19:10)
[2020-08-31] MEDS: IPRATROPIUM-ALBUTEROL 3 ML NEB INHALATION SCH (19:31)
[2020-08-31] MEDS ORDERED: SYMBICORT 160-4.5 MCG INHALER INHALATION SCH (20:00)
[2020-08-31] MEDS: ALBUTEROL INHALER 60 PUFF/8 GM INHALER (MHU) INHALATION PRN (20:55)
[2020-08-31] MEDS: cloNIDine HCL 0.1 MG TAB PO SCH (20:55)
[2020-08-31] MEDS: LORATADINE 10 MG TAB PO SCH (20:55)
[2020-08-31] MEDS ORDERED: LURASIDONE 40 MG TAB PO SCH (21:00)
[2020-08-31] MEDS: NON FORMULARY DRUG (Buprenorphine Hcl/Naloxone Hcl [Suboxone 8 Mg-2 Mg Sl Film] 1 EACH Fil SUBLINGUAL SCH (22:15)
[2020-08-31] MEDS: NICOTINE 14MG/24HR PATCH TRANSDERM SCH (22:15)
[2020-09-01] MEDS: IPRATROPIUM-ALBUTEROL 3 ML NEB INHALATION SCH ×4 (08:32→21:38)
[2020-09-01 08:33] LABS: Basophils # (A) 0.1 k/uL (0-0.2); Basophils % (A) 1 %; Eosinophils # (A) 0.1 k/uL (0-0.7); Eosinophils % (A) 1 %; HCT 48.4 % (34.0-46.0); HGB 16.3 gm/dL (11.4-16.0); Lymphocytes # (A) 3.1 k/uL (1.0-4.8); Lymphocytes % (A) 35 %; MCH 32.9 pg (25.0-35.0); MCHC 33.7 g/dL (31.0-37.0); MCV 97.7 fL (80.0-100.0); Mean Platelet Volume 7.4; Monocytes # (A) 0.6 k/uL (0-1.0); Monocytes % (A) 7 %; Neutrophils # (A) 4.8 k/uL (1.3-7.7); Neutrophils % (A) 54 %; Platelet Count 284 k/uL (150-450); RBC 4.95 m/uL (3.80-5.40); RDW 12.9 % (11.5-15.5); WBC 8.9 k/uL (3.8-10.6)
[2020-09-01] MEDS: NICOTINE 14MG/24HR PATCH TRANSDERM SCH (08:43)
[2020-09-01] MEDS: cloNIDine HCL 0.1 MG TAB PO SCH ×2 (08:43→19:52)
[2020-09-01 08:44] LABS: Albumin 4.3 g/dL (3.5-5.0); Calcium 9.7 mg/dL (8.4-10.2); Potassium 3.8 mmol/L (3.5-5.1); Total Bilirubin 0.3 mg/dL (0.2-1.3); Total Protein 6.9 g/dL (6.3-8.2)
[2020-09-01] MEDS: IBUPROFEN 800 MG TAB PO PRN (08:45)
[2020-09-01] MEDS: NON FORMULARY DRUG (Buprenorphine Hcl/Naloxone Hcl [Suboxone 8 Mg-2 Mg Sl Film] 1 EACH Fil SUBLINGUAL SCH ×2 (08:47→19:55)
[2020-09-01] MEDS ORDERED: PARoxetine 20 MG TAB PO SCH (09:00)
--- NOTE | 2020-09-01 14:45 | P.HP ---
Psychiatric H&P - . H&P Date: 09/01/20 History & Physical: Allergies Allergy/AdvReac Type Severity Reaction Status Date / Time risperidone AdvReac Dyspnea Verified 08/25/20 12:21 Vital Signs Temp 97.9 F 09/01/20 07:03 Pulse 113 H 09/01/20 11:50 Resp 18 09/01/20 07:03 BP 133/84 09/01/20 07:03 Pulse Ox 92 L 08/31/20 19:13 Intake & Output 08/31/20 09/01/20 09/01/20 18:59 06:59 18:59 Weight 89.358 kg 87.09 kg Laboratory Last Values WBC 8.9 k/uL (3.8-10.6) 09/01/20 07:58 RBC 4.95 m/uL (3.80-5.40) 09/01/20 07:58 Hgb 16.3 gm/dL (11.4-16.0) H 09/01/20 07:58 Hct 48.4 % (34.0-46.0) H 09/01/20 07:58 MCV 97.7 fL (80.0-100.0) 09/01/20 07:58 MCH 32.9 pg (25.0-35.0) 09/01/20 07:58 MCHC 33.7 g/dL (31.0-37.0) 09/01/20 07:58 RDW 12.9 % (11.5-15.5) 09/01/20 07:58 Plt Count 284 k/uL (150-450) 09/01/20 07:58 MPV 7.4 09/01/20 07:58 Neutrophils % 54 % 09/01/20 07:58 Lymphocytes % 35 % 09/01/20 07:58 Monocytes % 7 % 09/01/20 07:58 Eosinophils % 1 % 09/01/20 07:58 Basophils % 1 % 09/01/20 07:58 Neutrophils # 4.8 k/uL (1.3-7.7) 09/01/20 07:58 Lymphocytes # 3.1 k/uL (1.0-4.8) 09/01/20 07:58 Monocytes # 0.6 k/uL (0-1.0) 09/01/20 07:58 Eosinophils # 0.1 k/uL (0-0.7) 09/01/20 07:58 Basophils # 0.1 k/uL (0-0.2) 09/01/20 07:58 Sodium 140 mmol/L (137-145) 09/01/20 07:58 Potassium 3.8 mmol/L (3.5-5.1) 09/01/20 07:58 Chloride 102 mmol/L (98-107) 09/01/20 07:58 Carbon Dioxide 28 mmol/L (22-30) 09/01/20 07:58 Anion Gap 10 mmol/L 09/01/20 07:58 BUN 16 mg/dL (7-17) 09/01/20 07:58 Creatinine 0.87 mg/dL (0.52-1.04) 09/01/20 07:58 Est GFR (CKD-EPI)AfAm 86 (>60 ml/min/1.73 sqM) 09/01/20 07:58 Est GFR (CKD-EPI)NonAf 75 (>60 ml/min/1.73 sqM) 09/01/20 07:58 Glucose 121 mg/dL (74-99) H 09/01/20 07:58 Calcium 9.7 mg/dL (8.4-10.2) 09/01/20 07:58 Total Bilirubin 0.3 mg/dL (0.2-1.3) 09/01/20 07:58 AST 34 U/L (14-36) 09/01/20 07:58 ALT 37 U/L (4-34) H 09/01/20 07:58 Alkaline Phosphatase 74 U/L (38-126) 09/01/20 07:58 Total Protein 6.9 g/dL (6.3-8.2) 09/01/20 07:58 Albumin 4.3 g/dL (3.5-5.0) 09/01/20 07:58 TSH 1.620 mIU/L (0.465-4.680) 09/01/20 07:58 Urine Opiates Screen Not Detected (NotDetected) 08/31/20 09:59 Ur Oxycodone Screen Not Detected (NotDetected) 08/31/20 09:59 Urine Methadone Screen Not Detected (NotDetected) 08/31/20 09:59 Ur Propoxyphene Screen Not Detected (NotDetected) 08/31/20 09:59 Ur Barbiturates Screen Not Detected (NotDetected) 08/31/20 09:59 U Tricyclic Antidepress Not Detected (NotDetected) 08/31/20 09:59 Ur Phencyclidine Scrn Not Detected (NotDetected) 08/31/20 09:59 Ur Amphetamines Screen Not Detected (NotDetected) 08/31/20 09:59 U Methamphetamines Scrn Not Detected (NotDetected) 08/31/20 09:59 U Benzodiazepines Scrn Not Detected (NotDetected) 08/31/20 09:59 Urine Cocaine Screen Not Detected (NotDetected) 08/31/20 09:59 U Marijuana (THC) Screen Detected (NotDetected) H 08/31/20 09:59 Coronavirus (PCR) Not Detected (Not Detectd) 08/31/20 13:33 09/01/20 14:38 IDENTIFYING DATA: Patient is a 55-year-old female who is currently however lives with her ex- and has 3 kids. HPI: Patient presented to the hospital yesterday on a petition filled out by the police to served. Patient apparently was walking around naked drinking a bottle of mustard and was stating that she was hearing voices telling her to hurt her self according to the petition. Patient's UDS is positive for marijuana. Patient was a fairly poor poor historian. She did speak about hearing voices which were distressing to her. She claims that the voices have been on and off for about 2 years now. She states that "nothing really helps calm down". She claims that it was like "somebody turned on the radio and then it never went away". She states that she hears a day and night and it was telling her to eat and drink things that "I didn't want to do". She states that she is feeling depressed and anxious. She states that her sleep has been on and off. She claims that she is still having suicidal thoughts however no intent or plan today.. Patient denies any homicidal ideations intent or plan. At this time patient denies any visual hallucinations. Patient denies any flight of ideas racing thoughts and increased in goal directed behavior. Patient admits to using cigarettes daily and marijuana occasionally. PAST PSYCHIATRIC HISTORY: Patient states that she has a history of schizoaffective disorder. Patient was previously on latuda and Paxil. Patient was last hospitalized on the mental health unit in october 2019. He states that she was supposed to follow up with [facility] however has not been doing so. She claims that she did have 1 suicide attempt several years ago however did not describe what happened. PMH:COPD, Musculoskeletal Disorder, Osteoarthritis (OA) ALLERGIES: as per EMR CHEMICAL DEPENDENCY HISTORY: as per HPI FAMILY PSYCHIATRIC/SUBSTANCE USE HISTORY: denies SOCIAL HISTORY: Patient was born and raised in [place]. She sta lady that she completed her GED. She states that she currently lives with her ex- and has 3 kids. She claims that she has no legal problems and never been to care home before. MENTAL STATUS EXAM: General Appearance: Patient appears to be overweight, disheveled, stated age is alert, directable, and attempts to cooperate. Patient appears to have poor hygiene and grooming. Behavior: Patient is seated without any agitated behavior. Speech: Patient's speech is fluent and nonpressured. Hesitant Mood/Affect: Patient reports their mood is depressed and anxious, affect is congruent and constricted. Suicidality/Homicidality: Patient denies having any homicidal ideation intent or plan. She admits to having suicidal ideations however no intent or plan. Perceptions: Patient denies any visual hallucinations in claims that she has auditory hallucinations telling her to do different things. Though content/process: Patient was fairly concrete. Logical and goal oriented. Memory and concentration: AOX3, grossly intact for the purposes of this session. Can spell "WORLD" backwards Judgment and insight: poor STRENGTHS/WEAKNESSES: strength is that patient is resilient. Weakness is that patient chronic mental illness and noncompliant with medications INTELLECT: average IMPRESSIONS: Schizoaffective disorder, depressive type Cannabis use disorder Nicotine dependence PLAN: -Patient is admitted under voluntary status to MHU for stabilization of psychiatric symptoms and safety. Patient has signed adult voluntary form and medication consent and is placed in patient's chart. -Medications : Will start patient on Zyprexa 5 mg daily at bedtime for mood stabilization/psychosis. We'll also start patient on Prozac 20 mg daily for mood/anxiety. -Ativan and Haldol PRN for agitation/aggression -suboxone and baclofen for pain. -Patient was counselled on substance abuse and desired to cut back on use -Patient was informed of the risks, benefits and side effects of the medication and patient verbally consented to taking the medications. Patient signed med consent form and was placed in chart. -Internal Medicine consult to perform medical evaluation and physical. -NRT - nicotine patch -SW on board for discharge planning. Encourage patient to participate in groups to work on coping skills. 09/01/20 14:45
[2020-09-01] MEDS: LORazepam 1 MG TAB PO PRN (15:22)
[2020-09-01 18:35] LABS: Chol/HDL Ratio 3.51
--- NOTE | 2020-09-01 18:58 | P.MDCNMH ---
History of Present Illness H&P Date: 09/01/20 Chief Complaint: Hearing voices Patient is a 55-year-old female with known history of COPD, currently everyday smoker, osteoarthritis, anxiety/depression/schizophrenia was brought to ER by police and was petitioned. Patient was found sitting with her clothing on her front porch apparently drinking out of a bottle of mustard. Patient states that she has been hearing voices and telling her to drink the most otherwise she will be killed. Patient otherwise denies any complaints of fever or chills. No recent illnesses. She has not been taking any medications at this time at home. Patient states that she has been having chronic back pain for long time and was recently started on Suboxone. Patient also takes Latuda for her psychiatric condition. No dysuria or hematuria. No cough or sputum production. No recent travel or sick contacts. Lab data showed WBC 8.9 hemoglobin 16.3 platelets 284 BUN 16 creatinine 0.87 TSH 1.620, LDL 86 UDS is positive for marijuana. Coronavirus PCR not detected. Review of Systems Constitutional: Patient denies any fever or chills . No generalized weakness or weight loss. Abdomen: Patient denied nausea vomiting and diarrhea and abdominal pain. Cardiovascular: Patient denies any chest pain or short of breath no palpitations. Respiratory: patient denied any cough or sputum production. No shortness of breath Neurologic: Patient denied any numbness or tingling headache. Musculoskeletal: Patient denies any complaints of joint swelling or deformity. Skin: Negative Psychiatric: Negative Endocrine: No heat or cold intolerance. No recent weight gain. Genitourinary: No dysuria or hematuria. All other 14 point ROS negative except the above Past Medical History Past Medical History: COPD, Musculoskeletal Disorder, Osteoarthritis (OA) Additional Past Medical History / Comment(s): SINUS PROBLEMS, DDD, SCOLIOSIS, chronic back pain History of Any Multi-Drug Resistant Organisms: None Reported Past Surgical History: Tubal Ligation Additional Past Surgical History / Comment(s): PAIN CLINIC PROCEDURES Past Anesthesia/Blood Transfusion Reactions: No Reported Reaction Past Psychological History: Anxiety, Depression Smoking Status: Current every day smoker Past Alcohol Use History: None Reported Past Drug Use History: None Reported - Past Family History Daughter(s) Family Medical History: Blood Disorder, Deep Vein Thrombosis (DVT) Additional Family Medical History / Comment(s): "blood clotting disorder" Medications and Allergies Home Medications Medication Instructions Recorded Confirmed Type Cetirizine HCl 10 mg PO HS 07/02/18 08/31/20 History Baclofen [Lioresal] 10 mg PO TID PRN 02/26/19 08/31/20 History PARoxetine HCL [Paxil] 40 mg PO DAILY 14 Days tab 11/11/19 08/31/20 Rx Budesonide-Formot 160-4.5 Mcg 2 puff INHALATION RT-BID 03/11/20 08/31/20 History [Symbicort 160-4.5 Mcg Inhaler] Lurasidone [Latuda] 40 mg PO HS 03/11/20 08/31/20 History Albuterol Sulfate [Proair Hfa] 2 puff INHALATION RT-QID PRN #1 07/20/20 08/31/20 Rx inhaler cloNIDine HCL [Catapres] 0.1 mg PO BID #60 tab 07/20/20 08/31/20 Rx HYDROcodone/APAP 10-325MG [Vancleve 1 tab PO Q8H PRN 30 Days #90 tab 08/01/20 08/31/20 Rx 10-325] Ibuprofen [Motrin] 800 mg PO Q8H PRN 08/25/20 08/31/20 History Buprenorphine HCl/Naloxone HCl 1 film SUBLINGUAL BID 08/31/20 08/31/20 History [Suboxone 8 mg-2 mg Sl Film] Allergies Allergy/AdvReac Type Severity Reaction Status Date / Time risperidone AdvReac Dyspnea Verified 08/25/20 12:21 Physical Exam Vitals: Vital Signs Temp Pulse Pulse Resp BP BP Pulse Ox 09/01/20 08:46 113 H 09/01/20 08:32 112 H 09/01/20 07:03 97.9 F 113 H 18 133/84 08/31/20 19:43 118 H 08/31/20 19:31 131 H 08/31/20 19:13 98.8 F 120 H 20 133/86 92 L 08/31/20 15:20 116 H 18 123/84 96 Intake and Output 08/31/20 09/01/20 09/01/20 22:59 06:59 14:59 Other: Weight 87.09 kg PHYSICAL EXAMINATION: Patient is lying in the bed comfortably, no acute distress, awake alert and oriented.. HEENT: Normocephalic. Neck is supple. Pupils reactive. Nostrils clear. Oral cavity is moist. Ears reveal no drainage. Neck reveals no JVD, carotid bruits, or thyromegaly. CHEST EXAMINATION: Trachea is central. Symmetrical expansion. Lung steele clear to auscultation and percussion. CARDIAC: Normal S1, S2 with no gallops. No murmurs ABDOMEN: Soft. Bowel sounds normal. No organomegaly. No abdominal bruits. Extremities: reveal no edema. No clubbing or cyanosis Neurologically awake, alert, oriented x3 with well-coordinated movements. No focal deficits noted Skin: No rash or skin lesions. Psychiatric: Coperative. Nonsuicidal Musculoskeletal: No joint swelling or deformity. Normal range of motion. Cranial Nerve Examination - Cranial Nerves Cranial Nerve I- Olfactory: Intact Cranial Nerve II- Optic: Intact Cranial Nerve III- Oculomotor: Intact Cranial Nerve IV- Trochlear: Intact Cranial Nerve V- Trigeminal: Intact Cranial Nerve - Abducens: Intact Cranial Nerve VII- Facial: Intact Cranial Nerve VIII- Auditory: Intact Cranial Nerve IX- Glossopharyngeal: Intact Cranial Nerve X- Vagus: Intact Cranial Nerve XI- Accessory: Intact Cranial Nerve XII- Hypoglossal: Intact Results CBC & Chem 7: 09/01/20 07:58 09/01/20 07:58 Labs: Abnormal Lab Results - Last 24 Hours (Table) 08/31/20 09/01/20 09/01/20 Range/Units 09:59 07:58 07:58 Hgb 16.3 H (11.4-16.0) gm/dL Hct 48.4 H (34.0-46.0) % Glucose 121 H (74-99) mg/dL ALT 37 H (4-34) U/L U Marijuana (THC) Screen Detected H (NotDetected) Assessment and Plan Assessment: Hallucinations. Patient has been hearing voices. Schizoaffective disorder. Anxiety/depression Ongoing nicotine addiction Marijuana use DVT prophylaxis with ambulation. Plan: Patient will be continued on current psychiatric management and plan. Started o n Zyprexa 5 mg at bedtime. Otherwise patient is currently saturating well on room air. Continue with breathing treatments/duo nebs as needed. Smoking cessation and marijuana use has been counseled extensively. Smoking patch was applied. We will follow up on further recommendations based on the clinical course. Thank you for your consult.
[2020-09-01] MEDS: ALBUTEROL INHALER 60 PUFF/8 GM INHALER (MHU) INHALATION PRN (19:50)
[2020-09-01] MEDS: LORATADINE 10 MG TAB PO SCH (19:52)
[2020-09-01] MEDS ORDERED: OLANZapine 5 MG TAB PO SCH (21:00)
[2020-09-02] MEDS: ALBUTEROL INHALER 60 PUFF/8 GM INHALER (MHU) INHALATION PRN ×2 (08:21→15:42)
[2020-09-02] MEDS: NICOTINE 14MG/24HR PATCH TRANSDERM SCH (08:22)
[2020-09-02] MEDS: cloNIDine HCL 0.1 MG TAB PO SCH ×2 (08:22→20:34)
[2020-09-02] MEDS: NON FORMULARY DRUG (Buprenorphine Hcl/Naloxone Hcl [Suboxone 8 Mg-2 Mg Sl Film] 1 EACH Fil SUBLINGUAL SCH (08:55)
[2020-09-02] MEDS ORDERED: FLUoxetine HCL 20 MG CAP PO SCH (09:00)
[2020-09-02] MEDS: IPRATROPIUM-ALBUTEROL 3 ML NEB INHALATION SCH ×4 (09:36→19:56)
--- NOTE | 2020-09-02 12:43 | P.PN ---
Progress Note - Text Progress Note Date: 09/02/20 Interval History: Patient was seen lying in her bed today and was directable and agreeable to sp sulma with typewriter repairer in the office. Patient was in a wheelchair today. She has a constricted affect and states that she did not sleep well at all last night. She claims that she is continuing to hear very negative voices and was very persistent on her distress towards them. She states that "what if I hit someone like they're asking me to do". She also claims that she is feeling very worried about the voices and that they're trying to control her. She states that the voices were telling her not to eat this morning and other negative things. She claims that her mood is "not good". She states that she has a fair appetite. At this time patient denies any current suicidal or homical ideations, intent or plan. Patient denies any visual hallucinations. Patient denies any side effects from the medications and has been compliant with meds. Mental Status Exam: General Appearance: Patient appears to be overweight, disheveled, stated age is alert, directable, and attempts to cooperate. Patient appears to have improving mildly hygiene and grooming. Behavior: Patient is seated without any agitated behavior. Speech: Patient's speech is fluent and nonpressured. Hesitant Mood/Affect: Patient reports their mood is depressed and anxious, improving mildly, affect is congruent and constricted. Suicidality/Homicidality: Patient denies having any homicidal ideation intent or plan. She admits to having suicidal ideations however no intent or plan. Perceptions: Patient denies any visual hallucinations in claims that she has auditory hallucinations telling her to do different things. Though content/process: Patient was fairly concrete. Logical and goal oriented. Preoccupied with the auditory hallucinations. Memory and concentration: AOX3, grossly intact for the purposes of this session. Judgment and insight: poor, improving mildly Assessment Schizoaffective disorder, depressive type Cannabis use disorder Nicotine dependence Plan: -Patient continues to meet criteria for inpatient psychiatric admission for symptom stabilization and safety. Patient has signed adult voluntary form and medication consent and was placed in patient's chart. -Medications: Discontinued Zyprexa and switched to Prolixin 2.5 mg twice a day for psychosis. Will increase Prozac to 40 mg daily for mood/anxiety. -When necessary Ativan and Haldol for agitation/aggression. -suboxone and baclofen for pain. -NRT - nicotine patch -SW on board for discharge planning. Encouraged the patient to participate in milieu.
[2020-09-02] MEDS: traZODone HCL 50 MG TAB PO SCH (20:34)
[2020-09-02] MEDS: LORATADINE 10 MG TAB PO SCH (20:34)
[2020-09-02] MEDS: NON FORMULARY DRUG (Buprenorphine Hcl/Naloxone Hcl [Suboxone 8 Mg-2 Mg Sl Film] 1 FILM) SUBLINGUAL SCH (20:54)
[2020-09-02] MEDS: MAG HYDROX/AL HYDROX/SIMETH 30 ML CUP PO PRN (22:04)
[2020-09-03] MEDS: NICOTINE 14MG/24HR PATCH TRANSDERM SCH (08:42)
[2020-09-03] MEDS: cloNIDine HCL 0.1 MG TAB PO SCH ×2 (08:43→20:02)
[2020-09-03] MEDS: FLUoxetine HCL 20 MG CAP PO SCH (08:43)
[2020-09-03] MEDS: ALBUTEROL INHALER 60 PUFF/8 GM INHALER (MHU) INHALATION PRN ×2 (08:46→18:23)
[2020-09-03] MEDS: IPRATROPIUM-ALBUTEROL 3 ML NEB INHALATION SCH ×4 (09:08→19:45)
[2020-09-03] MEDS: MAG HYDROX/AL HYDROX/SIMETH 30 ML CUP PO PRN ×2 (12:03→16:23)
--- NOTE | 2020-09-03 14:33 | P.PN ---
Progress Note - Text Progress Note Date: 09/03/20 Subjective: Patient was seen today as a cross coverage for Dr. Amador. The patient was evaluated, chart reviewed, case discussed with the treatment team. Patient reports fair sleep last night, and appetite was reported as "good ". Patient has been going to groups and other unit activities. The patient is compliant with her medications and denies any adverse reactions. Patient reports feeling much improvement of depression and he denies any suicidal ideation. She reports having some anxiety but denies irritability, or mood swings. Denies any psychotic symptoms including hallucinations, paranoid ideation, or delusions. Denies any manic symptoms. She was fixated on getting back on Paxil and she believes a switching her from Paxil increased her anxiety. Educated to discuss psych medications with the primary psychiatric team. Objective: Vitals has been reviewed. Mental status examination; Appearance: The patient appears stated age, adequately groomed and dressed, no specific features. Gait/posture: Using assisted device, No abnormal movements. Attitude and behavior: engaged, cooperative, eye contact. Motor activity: Normal psychomotor activity Speech: Normal rate, tone. Mood: "anxious and sad " Affect: Constricted Thought form: goal-directed, linear, coherent. Thought content: Non-delusional, denies suicidal thoughts, denies homicidal thoughts, denies intentions or plans. Perception: Denies any auditory or visual hallucinations Attention: No impairment. Orientation: Patient patient was fully oriented to time place person and situation. Insight: Patient has fair insight about her psychiatric disorder. Judgment: Patient has fair judgment about her psychiatric treatment. Assessment: Schizoaffective disorder, depressive type Cannabis use disorder Nicotine dependence Plan: Continue inpatient level of care due to need for further monitoring and st abilization Precautions: Continue 15 minutes check for safety. Consider medical consultation if any acute medical issues arise. Provide the patient individual, group therapy, substance use disorder counseling to give better insight and learn coping skills. Medications: Was asked for depression and anxiety, Prolixin for mood stabilization and psychotic symptoms, trazodone for depression and to help with insomnia, and nicotine replacement therapy. Continue as needed medications for psychiatric emergencies including psychosis, agitation and anxiety. Continue non-psychiatric medications for medical conditions as recommended by the medical team. Discharge patient to OUTPATIENT services upon a stabilization
[2020-09-03] MEDS: LORATADINE 10 MG TAB PO SCH (20:02)
[2020-09-03] MEDS: traZODone HCL 50 MG TAB PO SCH (20:02)
[2020-09-03] MEDS: NON FORMULARY DRUG (Buprenorphine Hcl/Naloxone Hcl [Suboxone 8 Mg-2 Mg Sl Film] 1 FILM) SUBLINGUAL SCH (20:28)
[2020-09-04] MEDS: BACLOFEN 10 MG TAB PO PRN ×2 (01:52→14:28)
[2020-09-04] MEDS: ALBUTEROL INHALER 60 PUFF/8 GM INHALER (MHU) INHALATION PRN ×4 (01:52→20:24)
[2020-09-04] MEDS: IPRATROPIUM-ALBUTEROL 3 ML NEB INHALATION SCH ×4 (08:29→20:20)
[2020-09-04] MEDS: NICOTINE 14MG/24HR PATCH TRANSDERM SCH (08:41)
[2020-09-04] MEDS: FLUoxetine HCL 20 MG CAP PO SCH (08:44)
[2020-09-04] MEDS: cloNIDine HCL 0.1 MG TAB PO SCH ×2 (08:44→20:21)
--- NOTE | 2020-09-04 14:00 | P.PN ---
Progress Note - Text Progress Note Date: 09/04/20 Subjective: Patient was seen today as a cross coverage for Dr. Amador. The patient was evaluated, chart reviewed, case discussed with the treatment team. Patient reports continued to feel stable emotionally and he denies any symptoms of depression, hopelessness, or suicidal. Denies any mood swings, agitation, or anxiety. Denies any hallucinations, paranoid ideation, or delusions. No manic symptoms have been reported or noticed. She continues to take her medications and denies side effects, reports fair sleep and appetite. She requested discharge and reported her daughter is hospitalized and she wanted to get out to check on her. She was educated to discuss discharge plan with the primary psychiatric team. Vitals has been reviewed. Mental status examination; Appearance: The patient appears stated age, adequately groomed and dressed, no specific features. Gait/posture: Using assisted device, No abnormal movements. Attitude and behavior: engaged, cooperative, eye contact. Motor activity: Normal psychomotor activity Speech: Normal rate, tone. Mood: "anxious " Affect: Constricted Thought form: goal-directed, linear, coherent. Thought content: Non-delusional, denies suicidal thoughts, denies homicidal thoughts, denies intentions or plans. Perception: Denies any auditory or visual hallucinations Attention: No impairment. Orientation: Patient patient was fully oriented to time place person and situation. Insight: Patient has fair insight about her psychiatric disorder. Judgment: Patient has fair judgment about her psychiatric treatment. Assessment: Schizoaffective disorder, depressive type Cannabis use disorder Nicotine dependence Plan: Continue inpatient level of care due to need for further monitoring and stabilization Precautions: Continue 15 minutes check for safety. Consider medical consultation if any acute medical issues arise. Provide the patient individual, group therapy, substance use disorder counseling to give better insight and learn coping skills. Medications: Prozac for depression and anxiety, Prolixin for mood stabilization and psychotic symptoms, trazodone for depression and to help with insomnia, and nicotine replacement therapy. Continue as needed medications for psychiatric emergencies including psychosis, agitation and anxiety. Continue non-psychiatric medications for medical conditions as recommended by the medical team. Discharge patient to OUTPATIENT services upon a stabilization
[2020-09-04] MEDS: guaiFENesin SYRUP 100MG/5ML 200 MG/10 ML CUP PO PRN (17:45)
[2020-09-04] MEDS: LORazepam 1 MG TAB PO PRN (19:29)
[2020-09-04] MEDS: IBUPROFEN 800 MG TAB PO PRN (19:29)
[2020-09-04] MEDS: traZODone HCL 50 MG TAB PO SCH (20:21)
[2020-09-04] MEDS: LORATADINE 10 MG TAB PO SCH (20:21)
[2020-09-04] MEDS: NON FORMULARY DRUG (Buprenorphine Hcl/Naloxone Hcl [Suboxone 8 Mg-2 Mg Sl Film] 1 FILM) SUBLINGUAL SCH (20:38)
[2020-09-05] MEDS: ALBUTEROL INHALER 60 PUFF/8 GM INHALER (MHU) INHALATION PRN (04:57)
[2020-09-05] MEDS: LORazepam 1 MG TAB PO PRN (04:59)
[2020-09-05] MEDS: IPRATROPIUM-ALBUTEROL 3 ML NEB INHALATION SCH ×3 (07:47→15:43)
[2020-09-05] MEDS: NICOTINE 14MG/24HR PATCH TRANSDERM SCH (09:29)
[2020-09-05] MEDS: cloNIDine HCL 0.1 MG TAB PO SCH (09:29)
[2020-09-05] MEDS: BACLOFEN 10 MG TAB PO PRN (10:46)
--- NOTE | 2020-09-05 11:09 | XR ---
EXAMINATION TYPE: XR chest 1V DATE OF EXAM: 09/05/2020 CLINICAL HISTORY: Difficulty history of COPD with difficulty of breathing.. TECHNIQUE: Single AP portable upright view of the chest is obtained. COMPARISON: Chest x-ray and CTA chest from July 18, 2020 FINDINGS: Background chronic emphysematous change with increasing reticulonodular markings bilateral ly in the mid to lower lungs. No pleural effusion or pneumothorax seen bilaterally. Cardiac silhouett e size stable and mildly enlarged. Osseous structures are intact. IMPRESSION: New bilateral reticulonodular interstitial edema and/or infiltrates on background mild ca rdiomegaly and chronic emphysematous change. Correlate for possible atypical infection such as covid.
[2020-09-05] MEDS: guaiFENesin SYRUP 100MG/5ML 200 MG/10 ML CUP PO PRN (11:20)
--- NOTE | 2020-09-05 11:54 | P.PN ---
Progress Note - Text Progress Note Date: 09/05/20 Interval History: Patient was seen sitting in a wheelchair today in the [facility] with her one-to-one sitter and was agreeable to speak to tech writer in the office today. Patient has a pulse oximeter connected to her finger which appeared to be reading 84% on room air. Patient apparently has been noted by staff to be struggling to breathe at night and required oxygen last night. Patient was seen by dr. Hernandez today for evaluation and possible transfer to the medical floors however he believes that this is mainly sleep apnea and will be attempting to rule out a PE. Patient claims that she is doing better in terms of her mood and anxiety. She states that she is no longer hearing any voices which she is happy about. She is concerned about her breathing at nighttime and claims that she was able to sleep throughout the night. She states that she has a fair appetite. At this time patient denies any current suicidal or homical ideations, intent or plan. Patient denies any visual or auditory hallucinations. Patient denies any side effects from the medications and has been compliant with meds. Mental Status Exam: General Appearance: Patient appears to be overweight, stated age is alert, directable, and attempts to cooperate. Patient appears to have improving mildly hygiene and grooming. Behavior: Patient is seated without any agitated behavior. Speech: Patient's speech is fluent and nonpressured. Mood/Affect: Patient reports their mood is improving mildly, affect is congruent and constricted. Suicidality/Homicidality: Patient denies having any homicidal ideation intent or plan. She denies any suicidal ideations however no intent or plan. Perceptions: Patient denies any visual hallucinations in claims that she has auditory hallucinations telling her to do different things. Though content/process: Patient was fairly concrete. Logical and goal oriented. Memory and concentration: AOX3, grossly intact for the purposes of this session. Judgment and insight: improving mildly Assessment Schizoaffective disorder, depressive type Cannabis use disorder Nicotine dependence Plan: -Patient continues to meet criteria for inpatient psychiatric admission for symptom stabilization and safety. Patient has signed adult voluntary form and medication consent and was placed in patient's chart. -Medications: Continue with Prolixin 2.5 mg twice a day for psychosis. Due to patient's request we will discontinue Prozac and switch with Paxil as patient states she is more comfortable with that medication at nighttime. Starting 20 mg daily at bedtime. Decreased trazodone to 25 mg daily at bedtime for insomnia/mood. -When necessary Ativan and Haldol for agitation/aggression. -suboxone and baclofen for pain. -appreciate medical recommendations. will check d-dimer and cxr. She is to have CPAP and continue with 1:1. -NRT - nicotine patch -SW on board for discharge planning. Encouraged the patient to participate in milieu. likely discharge in 1-2 days with home oxygen and follow up for sleep study.
[2020-09-05] MEDS: FLUoxetine HCL 20 MG CAP PO SCH (12:51)
[2020-09-05 16:19] VITALS: BP 124/69; PULSE 103; RESP 18; TEMP 97.3
--- NOTE | 2020-09-05 17:06 | P.PN ---
Subjective 55-year-old female was admitted to psychiatric floor for schizoaffective disorder. As patient does saturations were low initially was believed to be secondary to sleep apnea as her situation is usually drop to low 80s when she is sleeping. Later in the day was notified that patient's saturations were dropping even without with ambulation. Initial my initially commendation was to put the patient on oxygen at nighttime and patient will need a sleep study. Considering that patient has desaturations and on exam patient has mildly diminished air entry into bilateral lung steele after the chest x-ray which she showing reticulonodular densities in bilateral lung steele. Patient BNP is only in 300s and d-dimer is minimally elevated to 0.8. Patient probably need to be transferred to medical and surgical floor to further evaluate these infiltrates and for hypoxemia. Patient does have history of COPD. Objective - Vital Signs Vital signs: Vital Signs Temp 97.3 F L 09/05/20 16:18 Pulse 103 H 09/05/20 16:18 Resp 18 09/05/20 16:18 BP 124/69 09/05/20 16:18 Pulse Ox 88 L 09/05/20 16:18 Intake & Output 09/04/20 09/05/20 09/05/20 18:59 06:59 18:59 Weight 89.4 kg - Exam PHYSICAL EXAMINATION: GENERAL: The patient is alert and oriented x3, not in any acute distress. Obese HEENT: Pupils are round and equally reacting to light. EOMI. No scleral icterus. No conjunctival pallor. Normocephalic, atraumatic. No pharyngeal erythema. No thyromegaly. CARDIOVASCULAR: S1 and S2 present. No murmurs, rubs, or gallops. PULMONARY: Decreased air entry into bilateral lung steele ABDOMEN: Soft, nontender, nondistended, normoactive bowel sounds. No palpable organomegaly. MUSCULOSKELETAL: No joint swelling or deformity. EXTREMITIES: No cyanosis, clubbing, or pedal edema. NEUROLOGICAL: Gross neurological examination did not reveal any focal deficits. SKIN: No rashes. - Labs CBC & Chem 7: 09/01/20 07:58 09/01/20 07:58 Labs: Abnormal Lab Results - Last 24 Hours (Table) 09/05/20 Range/Units 11:39 D-Dimer 0.80 H (<0.60) mg/L FEU Assessment and Plan Plan: Acute hypoxia: Patient will be transferred to medical and surgical floor and will need following [address] of the chest rule out pulmonary embolism as well as to look at the pulmonary interstitium. Patient clinically doesn't appear to be in CHF. Patient may need an ABG pulmonary consult Covid 19 PCR. Further management depending on ABG and CT of the chest. -COPD without any significant exacerbation -Schizoaffective disorder -Marijuana use Tachycardia: Patient will be further evaluated once transferred to medical floor
[2020-09-05] MEDS ORDERED: traZODone HCL 50 MG TAB PO SCH (21:00)
[2020-09-05] MEDS ORDERED: PARoxetine 20 MG TAB PO SCH (21:00)
--- NOTE | 2020-09-08 09:15 | P.DS ---
Providers Date of admission: 08/31/20 18:23 Expected date of discharge: 09/05/20 Attending physician: Matthew Amador MD Consults: 08/31/20 18:29 Consult Physician Routine Consulting Provider: Tye Miranda Consult Reason/Comments: history and physical/medical management Do you want consulting provider notified?: Yes Primary care physician: Otilia Flores - Discharge Diagnosis(es) (1) Schizoaffective disorder, depressive type Status: Acute Priority: High (2) Cannabis use disorder, mild, abuse Status: Acute Priority: Medium (3) Nicotine dependence Status: Acute Priority: Low Hospital Course: Admission HPI: Admission note was completed by conventional mortgage underwriter "Patient is a 55-year-old female who is currently however lives with her ex- and has 3 kids. Patient presented to the hospital yesterday on a petition filled out by the police to served. Patient apparently was walking around naked drinking a bottle of mustard and was stating that she was hearing voices telling her to hurt her self according to the petition. Patient's UDS is positive for marijuana. Patient was a fairly poor poor historian. She did speak about hearing voices which were distressing to her. She claims that the voices have been on and off for about 2 years now. She states that "nothing really helps calm down". She claims that it was like "somebody turned on the radio and then it never went away". She states that she hears a day and night and it was telling her to eat and drink things that "I didn't want to do". She states that she is feeling depressed and anxious. She states that her sleep has been on and off. She claims that she is still having suicidal thoughts however no intent or plan today. Patient denies any homicidal ideations intent or plan. At this time patient denies any visual hallucinations. Patient denies any flight of ideas racing thoughts and increased in goal directed behavior. Patient admits to using cigarettes daily and marijuana occasionally." Hospital course: Upon admission to the unit patient was initially in distress and complaining of auditory hallucinations and suicidal thoughts. Patient was admitted involunt arily to the unit and ended up signing a deferral with her real estate associate attorney. Patient got along well with other patients on the unit and followed unit protocol. Patient was compliant with the medications and denied any side effects throughout hospital course. Patient was started on trazodone 25 mg daily at bedtime for insomnia/mood, Prolixin 2.5 mg twice a day for mood stabilization/psychosis. Patient spoke of her stressors and engaged in therapy both group and individual. Patient was also seen by medical team for history and physical exam. Throughout the course of the hospitalization patient gradually improved with regards to mood, anxiety, hallucinations, sleep and became more future oriented with improved insight and judgment. On the day of discharge patient denied any suicidal or homicidal ideations intent or plan denied any auditory or visual hallucinations. Patient did have episodes of hypoxemia while on the unit during ambulation and also was placed on oxygen and a cxr was done which showed infiltrates. Medicine recommended transfer to the medical floors for further treatment. Mental status exam: General Appearance: Patient appears to be overweight, older than stated age is alert, pleasant, and cooperative. Patient is in no acute distress and has improved hygiene and grooming Behavior: Patient is calmly seated without any agitated behavior. Speech: Patient's speech is fluent and nonpressured. Mood/Affect: Patient reports their mood is "good", affect is congruent and constricted Suicidality/Homicidality: Patient denies having any suicidal or homicidal ideation intent or plan. Perceptions: Patient denies any auditory or visual hallucinations. Though content/process: There is no evidence of any delusional thought content and thought process is linear and goal-directed. concrete Memory and concentration: AOX3, grossly intact for the purposes of this session. Can spell "WORLD" backwards correctly. Judgment and insight: improved with guarded prognosis Impression: Schizoaffective disorder depressive type Nicotine dependence Cannabis use disorder Plan: -Patient is psychiatrically cleared and has improved significantly with regard to symptoms however due to patient's hypoxemia and chest x-ray suggestive of pneumonia patient was recommended to be transferred to the medical floors for further treatment medically. -psych consult will continue to see patient as needed. continue with current psychiatric medications at this time. Patient Condition at Discharge: Undetermined Plan - Discharge Summary New Discharge Prescriptions: New Buprenorphine HCl/Naloxone HCl [Suboxone 8 mg-2 mg Sl Film] 1 film SUBLINGUAL HS traZODone HCL [Desyrel] 25 mg PO HS tab Ipratropium-Albuterol Nebulize [Duoneb 0.5 mg-3 mg/3 ml Soln] 3 ml INHALATION RT-QID ml haloperidoL [Haldol] 4 mg PO Q6HR PRN tab PRN Reason: Agitation Or Acute Psychosis Loratadine [Claritin] 10 mg PO HS tab Nicotine 14Mg/24Hr Patch [Habitrol] 1 patch TRANSDERM DAILY patch fluPHENAZine [Prolixin] 2.5 mg PO BID tab guaiFENesin SYRUP 100MG/5ML [Robitussin] 200 mg PO Q6H PRN ml PRN Reason: Cough Continue Baclofen [Lioresal] 10 mg PO TID PRN PRN Reason: Muscle Spasm Ibuprofen [Motrin] 800 mg PO Q8H PRN PRN Reason: Pain cloNIDine HCL [Catapres] 0.1 mg PO BID #60 tab Albuterol Sulfate [Proair Hfa] 2 puff INHALATION RT-QID PRN #1 inhaler PRN Reason: Shortness Of Breath Discontinued Cetirizine HCl 10 mg PO HS PARoxetine HCL [Paxil] 40 mg PO DAILY 14 Days tab Budesonide-Formot 160-4.5 Mcg [Symbicort 160-4.5 Mcg Inhaler] 2 puff INHALATION RT-BID Lurasidone [Latuda] 40 mg PO HS HYDROcodone/APAP 10-325MG [[place] 10-325] 1 tab PO Q8H PRN 30 Days #90 tab PRN Reason: Pain Buprenorphine HCl/Naloxone HCl [Suboxone 8 mg-2 mg Sl Film] 1 film SUBLINGUAL BID Discharge Medication List Baclofen [Lioresal] 10 mg PO TID PRN 02/26/19 [History] Albuterol Sulfate [Proair Hfa] 2 puff INHALATION RT-QID PRN #1 inhaler 07/20/20 [Rx] cloNIDine HCL [Catapres] 0.1 mg PO BID #60 tab 07/20/20 [Rx] Ibuprofen [Motrin] 800 mg PO Q8H PRN 08/25/20 [History] Buprenorphine HCl/Naloxone HCl [Suboxone 8 mg-2 mg Sl Film] 1 film SUBLINGUAL HS 09/05/20 [Rx] Ipratropium-Albuterol Nebulize [Duoneb 0.5 mg-3 mg/3 ml Soln] 3 ml INHALATION RT-QID ml 09/05/20 [Rx] Loratadine [Claritin] 10 mg PO HS tab 09/05/20 [Rx] Nicotine 14Mg/24Hr Patch [Habitrol] 1 patch TRANSDERM DAILY patch 09/05/20 [Rx] fluPHENAZine [Prolixin] 2.5 mg PO BID tab 09/05/20 [Rx] guaiFENesin SYRUP 100MG/5ML [Robitussin] 200 mg PO Q6H PRN ml 09/05/20 [Rx] haloperidoL [Haldol] 4 mg PO Q6HR PRN tab 09/05/20 [Rx] traZODone HCL [Desyrel] 25 mg PO HS tab 09/05/20 [Rx] Follow up Appointment(s)/Referral(s): Sandra Bingham MD [Primary Care Provider] - 1-2 days Activity/Diet/Wound Care/Special Instructions: Activity and diet as tolerated. Avoid the use of street drugs and alcohol. Take all medications as prescribed. When you are in need of refills on your medicat ions please contact your medical provider and/or outpatient psychiatrist to have this done. Please go to scheduled outpatient appointment for aftercare treatment. If symptoms return or become worse, call the crisis line at and/or go to the nearest emergency room for evaluation. Discharge Disposition: HOME SELF-CARE
== END 2020-09-05 16:48 | disposition home or self-care (01) | DRG 885 ==
LOC: EC 09:44 → 3MHU 18:23
PROVIDERS: ADMIT Psychiatry & Neurology Psychiatry; ATTEND Psychiatry & Neurology Psychiatry
DX: F25.1 Schizoaffective disorder, depressive type (principal); F12.10 Cannabis abuse, uncomplicated; F17.210 Nicotine dependence, cigarettes, uncomplicated; F41.9 Anxiety disorder, unspecified; G47.30 Sleep apnea, unspecified; J44.9 Chronic obstructive pulmonary disease, unspecified; M41.9 Scoliosis, unspecified; R09.02 Hypoxemia; Z79.51 Long term (current) use of inhaled steroids; Z83.2 Family history of diseases of the blood and blood-forming organs and certain disorders involving the immune mechanism; Z20.822 Contact with and (suspected) exposure to COVID-19
CPT/HCPCS: 71045; 80053; 80061; 80306; 82075; 83036; 83880; 84443; 85025; 85379; 87635; 94640; 99285

== ENCOUNTER 2020-09-05 16:02 | Inpatient (IN) | payer OTHER ==
[2020-09-05] MEDS ORDERED: ACETAMINOPHEN TAB 325 MG TAB PO PRN (17:40)
[2020-09-05] MEDS ORDERED: MAG HYDROX/AL HYDROX/SIMETH 30 ML CUP PO PRN (17:41)
[2020-09-05] MEDS ORDERED: ALBUTEROL NEBULIZED 2.5 MG/3 ML INHALATION PRN (17:41)
[2020-09-05] MEDS ORDERED: HALOPERIDOL LACTATE 5 MG/ML 1 ML VIAL IM PRN (17:48)
[2020-09-05] MEDS ORDERED: LORazepam 2 MG/ML INJ IM PRN (17:50)
[2020-09-05] MEDS: LORazepam 1 MG TAB PO PRN (17:57)
[2020-09-05] MEDS ORDERED: LORazepam 1 MG TAB PO SCH (18:00)
--- NOTE | 2020-09-05 18:33 | CT ---
CT CHEST FOR PULMONARY EMBOLISM. EXAMINATION TYPE: CT chest angio for PE DATE OF EXAM: 09/05/2020 INDICATION: Shortness of breath. CT DLP: 510.1 mGycm, Automated exposure control for dose reduction was used. CONTRAST: Patient injected with 100 mL of Isovue 370. COMPARISON: None TECHNIQUE: CT of the chest is performed on a spiral scan at 2 mm thick sections. Study is performed with intravenous contrast timed for evaluation for pulmonary embolism. This will limit additional po rtions of the evaluation. 3-D MIP images reconstructed by the technologist are reviewed on the compu ter in the coronal and sagittal planes. FINDINGS: No persistent filling defects are evident to suggest an acute pulmonary embolism. No mediastinal or hilar adenopathy enlarged by CT criteria is evident. The ascending aorta diameter at the level of the main pulmonary artery is 20.1 cm. The main pulmonary artery diameter at the bifu rcation is 3.0 cm. There are advanced emphysematous changes present throughout the bilateral lung steele. Some groundgla ss opacities through the anterior portions of the upper lungs bilaterally. Limited CT section through the upper abdomen are unremarkable. IMPRESSIONS: 1. No acute pulmonary embolism. 2. Mild groundglass opacities are nonspecific. Correlate for atypical pneumonia. 3. Extensive emphysematous changes with fibrosis
[2020-09-05] MEDS: PARoxetine 20 MG TAB PO SCH (19:41)
[2020-09-05] MEDS: traZODone HCL 50 MG TAB PO SCH (19:41)
[2020-09-05] MEDS: cloNIDine HCL 0.1 MG TAB PO SCH (19:41)
[2020-09-05] MEDS: LORATADINE 10 MG TAB PO SCH (19:42)
[2020-09-05] MEDS: IPRATROPIUM-ALBUTEROL 3 ML NEB INHALATION SCH (19:54)
[2020-09-05] MEDS ORDERED: MD COMMUNICATION TO PHARMACY 1 EACH MISC PO SCH (21:00)
[2020-09-05] MEDS: SUBOXONE SUBLINGUAL SCH (21:25)
[2020-09-06] MEDS: IPRATROPIUM-ALBUTEROL 3 ML NEB INHALATION SCH ×3 (07:07→16:00)
[2020-09-06] MEDS: cloNIDine HCL 0.1 MG TAB PO SCH (08:12)
[2020-09-06] MEDS: NICOTINE 14MG/24HR PATCH TRANSDERM SCH (08:12)
[2020-09-06 10:30] LABS: Basophils # (A) 0.02 X 10*3/uL (0.00-0.10); Basophils % (A) 0.2 %; Eosinophils # (A) 0.06 X 10*3/uL (0.04-0.35); Eosinophils % (A) 0.6 %; HCT 44.2 % (37.2-46.3); HGB 13.6 g/dL (12.0-15.0); Lymphocytes # (A) 1.61 X 10*3/uL (0.90-5.00); Lymphocytes % (A) 16.2 %; MCH 31.9 pg (27.0-32.0); MCHC 30.8 g/dL (32.0-37.0); MCV 103.8 fL (80.0-97.0); Mean Platelet Volume 10.7 fL (9.5-12.2); Monocytes # (A) 0.83 X 10*3/uL (0.20-1.00); Monocytes % (A) 8.3 %; Neutrophils # (A) 7.41 X 10*3/uL (1.80-7.70); Neutrophils % (A) 74.5 %; Platelet Count 206 X 10*3/uL (140-440); RBC 4.26 X 10*6/uL (4.10-5.20); RDW 13.2 % (11.5-14.5); WBC 9.95 X 10*3/uL (4.50-10.00)
[2020-09-06 11:01] LABS: African American GFR (CKD) 112.3 (60.0-200.0); Albumin 3.9 g/dL (3.80-4.90); Albumin/Globulin Ratio 2.05 (1.60-3.17); Anion Gap 6.8 mmol/L (4.00-12.00); BUN/Creat Ratio 14.29 Ratio (12.00-20.00); Calcium 9.3 mg/dL (8.7-10.3); Carbon Dioxide 27.2 mmol/L (21.6-31.8); Globulin 1.9 g/dL (1.6-3.3); Non-African American GFR(CKD) 96.9 (60.0-200.0); Potassium 4.3 mmol/L (3.5-5.5); Total Bilirubin 0.3 mg/dL (0.3-1.2); Total Protein 5.8 g/dL (6.2-8.2)
[2020-09-06] MEDS ORDERED: IPRATROPIUM-ALBUTEROL 3 ML NEB INHALATION PRN (12:00)
--- NOTE | 2020-09-06 12:05 | P.CNPUL ---
History of Present Illness Consult date: 09/06/20 Reason for consult: dyspnea, COPD History of present illness: This is a 85-year-old female patient with known history of COPD who came in through the emergency department on 09/01/2020 where the patient was found to be sitting without any clothing the front of her porch and drinking out of a bottle of mustard. For that reason she was brought in. Apparently she stated voices are telling her to drink the mustard otherwise she would've been chilled. This patient has history of schizophrenia and she was petitioned by the police and she was brought into the hospital. We were consulted to evaluate her pulmonary status. Note that the patient was initially admitted to the psychiatric units for treatment of her psychiatric disorder. Yesterday, the patient was sitting in a wheelchair and she was found to have a pulse ox of 84% on room air. She also told the psychiatric staff that she was having difficulties in breathing. For that reason, the patient was transferred to a medical floor. A CT angiogram was done that showed no evidence of any pulmonary embolism. It showed nonspecific areas of groundglass changes in addition to advanced COPD bilaterally. The patient stated that she was no longer getting any voices which she was happy about. She also stated that she was concerned about her breathing and she claimed that she was having hard time breathing. For that reason she was brought in. At this point in time, she doesn't have any suicidal or homicidal ideations. She is a chronic smoker both nicotine and tobacco and c annabis. She takes also Suboxone and baclofen for chronic back pain. For now, the patient is in the medical floor. She was started on antibiotics and she is currently on Rocephin. On room air oxygen. She is on albuterol nebulized treatments 4 times a day [id number]. Her COVID-19 status has been negative at time of admission. White cell count was also normal. Review of Systems Constitutional: Reports fatigue, Reports weakness Eyes: denies as per HPI, denies blurred vision, denies bulging eye, denies decreased vision, denies diplopia, denies discharge, denies dry eye, denies irritation, denies itching, denies pain, denies photophobia, denies loss of peripheral vision, denies loss of vision, denies tunnel vision/blind spots Ears: deny: decreased hearing, ear discharge, earache, tinnitus Ears, nose, mouth and throat: Reports as per HPI Breasts: absent: as per HPI, change in shape, gynecomastia, masses, nipple discharge, pain, skin changes, swelling Cardiovascular: Reports as per HPI, Reports decreased exercise tolerance, Reports dyspnea on exertion Respiratory: Reports cough, Reports cough with sputum, Reports dyspnea Gastrointestinal: Reports as per HPI Genitourinary: Reports as per HPI Menstruation: Reports as per HPI Musculoskeletal: Reports as per HPI, Reports limitation of motion, Reports low back pain, Reports neck pain Musculoskeletal: absent: ankle pain, ankle stiffness, ankle swelling Integumentary: Reports as per HPI Neurological: Reports as per HPI Psychiatric: Reports as per HPI, Reports anxiety, Reports depression Endocrine: Reports as per HPI Hematologic/Lymphatic: Reports as per HPI Allergic/Immunologic: Reports as per HPI Past Medical History Past Medical History: COPD, Musculoskeletal Disorder, Osteoarthritis (OA) Additional Past Medical History / Comment(s): Schizophrenia, DDD, SCOLIOSIS, chronic back pain History of Any Multi-Drug Resistant Organisms: None Reported Past Surgical History: Tubal Ligation Additional Past Surgical History / Comment(s): PAIN CLINIC PROCEDURES Past Anesthesia/Blood Transfusion Reactions: No Reported Reaction Past Psychological History: Anxiety, Depression, Panic Disorder, Schizoaffective Disorder, Schizophrenia Smoking Status: Current every day smoker Past Alcohol Use History: None Reported Additional Past Alcohol Use History / Comment(s): STATES LESS THAN 1 PPD, ON AND OFF FROM AGE 12 Past Drug Use History: None Reported - Past Family History Daughter(s) Family Medical History: Blood Disorder, Deep Vein Thrombosis (DVT) Additional Family Medical History / Comment(s): "blood clotting disorder" Medications and Allergies Home Medications Medication Instructions Recorded Confirmed Type Baclofen [Lioresal] 10 mg PO TID PRN 02/26/19 09/05/20 History Albuterol Sulfate [Proair Hfa] 2 puff INHALATION RT-QID PRN #1 07/20/20 09/05/20 Rx inhaler cloNIDine HCL [Catapres] 0.1 mg PO BID #60 tab 07/20/20 09/05/20 Rx Ibuprofen [Motrin] 800 mg PO Q8H PRN 08/25/20 09/05/20 History Buprenorphine HCl/Naloxone HCl 1 film SUBLINGUAL HS 09/05/20 09/05/20 Rx [Suboxone 8 mg-2 mg Sl Film] Ipratropium-Albuterol Nebulize 3 ml INHALATION RT-QID ml 09/05/20 09/05/20 Rx [Duoneb 0.5 mg-3 mg/3 ml Soln] Loratadine [Claritin] 10 mg PO HS tab 09/05/20 09/05/20 Rx Nicotine 14Mg/24Hr Patch [Habitrol] 1 patch TRANSDERM DAILY patch 09/05/20 09/05/20 Rx fluPHENAZine [Prolixin] 2.5 mg PO BID tab 09/05/20 09/05/20 Rx guaiFENesin SYRUP 100MG/5ML 200 mg PO Q6H PRN ml 09/05/20 09/05/20 Rx [Robitussin] haloperidoL [Haldol] 4 mg PO Q6HR PRN tab 09/05/20 09/05/20 Rx traZODone HCL [Desyrel] 25 mg PO HS tab 09/05/20 09/05/20 Rx Allergies Allergy/AdvReac Type Severity Reaction Status Date / Time risperidone AdvReac Dyspnea Verified 09/05/20 17:47 Physical Exam Vitals: Vital Signs Temp Pulse Pulse Resp BP Pulse Ox 09/06/20 08:00 98.4 F 113 H 18 116/76 90 L 09/06/20 07:05 100 09/06/20 02:13 97.6 F 106 H 20 148/78 90 L 09/05/20 20:06 88 09/05/20 19:56 96 09/05/20 19:13 99.1 F 103 H 17 119/76 92 L 09/05/20 17:24 99.0 F 94 19 117/70 90 L Intake and Output 09/05/20 09/06/20 09/06/20 22:59 06:59 14:59 Intake Total 50 Balance 50 Intake: Intake, IV Titration 50 Amount cefTRIAXone 2 gm In 50 Sodium Chloride 0.9% 50 ml @ 100 mls/hr IVPB Q24H [facility] Rx#:[id number] Other: Voiding Method Toilet # Voids 2 Weight 89.358 kg GENERAL: The patient is alert and oriented x3, not in any acute distress. Obese HEENT: Pupils are round and equally reacting to light. EOMI. No scleral icterus. No conjunctival pallor. Normocephalic, atraumatic. No pharyngeal erythema. No thyromegaly. CARDIOVASCULAR: S1 and S2 present. No murmurs, rubs, or gallops. PULMONARY: Decreased air entry into bilateral lung steele, diminished breath sounds and diffuse expiratory wheezes throughout the lung his bilaterally and the patient is prolongation of the escalation phase of breathing. ABDOMEN: Soft, nontender, nondistended, normoactive bowel sounds. No palpable organomegaly. MUSCULOSKELETAL: No joint swelling or deformity. EXTREMITIES: No cyanosis, clubbing, or pedal edema. NEUROLOGICAL: Gross neurological examination did not reveal any focal deficits. SKIN: Examination of the skin revealed no evidence of significant rashes, suspicious appearing nevi or other concerning lesions. Results - Laboratory Findings CBC and BMP: 09/06/20 04:18 09/06/20 04:18 Abnormal lab findings: Abnormal Labs 09/06/20 09/06/20 04:18 04:18 MCV 103.8 H MCHC 30.8 L Total Protein 5.8 L - Diagnostic Findings Chest x-ray: image reviewed CT scan - chest: image reviewed Assessment and Plan Plan: 1 acute hypoxic respiratory failure on that investigation. The patient has COPD and a CT angiogram showed bilateral nonspecific groundglass pulmonary infiltrates. Exact nature of simple this are not clear. Note that the patient had a CAT scan and June 2020 and his infiltrates were not present. As such, these infiltrates are rather acute and consideration needs to be given for infectious causes such as viruses, atypical pneumonia and even aspiration knowing her history. Drug induced reactions, systemic reactions, hypersensitivity pneumonia, eosinophilic pneumonia, malignancy , etc. are felt to be less likely. 2 COPD with emphysematous changes bilaterally based on a computed tomography scan of the chest. 3 acute COPD exacerbations 4 history of tobacco smoking 5 chronic back pain and scoliosis, maintained on Sobaxone 6 schizophrenia Plan Titrate FiO2 to maintain a saturation above 90%, currently on 4 L Put the patient on IV Zosyn covering for aspiration pneumonia Check sputum for Gram stain and culture DuoNeb nebulized treatments around the clock Restart the patient on her Symbicort maintenance 2 puffs twice a day IV Solu-Medrol 40 mg every 8 hours IV and will give this for a brief period of time not to disturb her mental health We'll continue to follow. We'll leave psychiatric medication adjustments of the psychiatric. The patient is requesting to go back on her Paxil. We'll discuss this with psychiatry Heparin subcu for DVT prophylaxis
--- NOTE | 2020-09-06 12:19 | P.HPIM ---
History of Present Illness Patient is a 55-year-old female was transferred from psychiatry floor because of hypoxemia and he initially believed that her hypoxemia is secondary to sleep apnea although patient was becoming hypoxic even during the daytime with am bulation. Patient does have history of COPD but no wheezing on exam. Patient denied any cough. Patient clinically didn't appear to have any CHF. Patient had a d-dimer which was minimally elevated to 0.8 patient BNP is was within normal limits. Obtained a chest x-ray which showed diffuse bilateral infiltrate Covid 19 PCR was obtained which was negative. Patient doesn't have any fever chills. Patient is bit tachycardic today patient has no wheezing today. After the CT of the chest which showed diffuse bilateral groundglass T's which were not present on during the last hospitalization patient doesn't have any lobar infiltrate doesn't have an atypical pneumonia but there is a chance patient has a viral pneumonia or atypical pneumonia or even aspiration pneumonia discussed with the pulmonology they're recommending Zosyn at this time treating for aspiration pneumonia or chemical pneumonitis from aspiration. We'll also obtain the urinary Legionella antigen and mycoplasma IgM antibody. Review of Systems REVIEW OF SYSTEMS: CONSTITUTIONAL: No fever, no malaise, no fatigue. HEENT: No recent visual problems or hearing problems. Denied any sore throat. CARDIOVASCULAR: No chest pain, orthopnea, PND, no palpitations, no syncope. PULMONARY: No shortness of breath, no cough, no hemoptysis. GASTROINTESTINAL: No diarrhea, no nausea, no vomiting, no abdominal pain. NEUROLOGICAL: No headaches, no weakness, no numbness. HEMATOLOGICAL: Denies any bleeding or petechiae. GENITOURINARY: Denies any burning micturition, frequency, or urgency. MUSCULOSKELETAL/RHEUMATOLOGICAL: Denies any joint pain, swelling, or any muscle pain. ENDOCRINE: Denies any polyuria or polydipsia. The rest of the 14-point review of systems is negative. Past Medical History Past Medical History: COPD, Musculoskeletal Disorder, Osteoarthritis (OA) Additional Past Medical History / Comment(s): Schizophrenia, DDD, SCOLIOSIS, chronic back pain History of Any Multi-Drug Resistant Organisms: None Reported Past Surgical History: Tubal Ligation Additional Past Surgical History / Comment(s): PAIN CLINIC PROCEDURES Past Anesthesia/Blood Transfusion Reactions: No Reported Reaction Past Psychological History: Anxiety, Depression, Panic Disorder, Schizoaffective Disorder, Schizophrenia Smoking Status: Current every day smoker Past Alcohol Use History: None Reported Additional Past Alcohol Use History / Comment(s): STATES LESS THAN 1 PPD, ON AND OFF FROM AGE 12 Past Drug Use History: None Reported - Past Family History Daughter(s) Family Medical History: Blood Disorder, Deep Vein Thrombosis (DVT) Additional Family Medical History / Comment(s): "blood clotting disorder" Medications and Allergies Home Medications Medication Instructions Recorded Confirmed Type Baclofen [Lioresal] 10 mg PO TID PRN 02/26/19 09/05/20 History Albuterol Sulfate [Proair Hfa] 2 puff INHALATION RT-QID PRN #1 07/20/20 09/05/20 Rx inhaler cloNIDine HCL [Catapres] 0.1 mg PO BID #60 tab 07/20/20 09/05/20 Rx Ibuprofen [Motrin] 800 mg PO Q8H PRN 08/25/20 09/05/20 History Buprenorphine HCl/Naloxone HCl 1 film SUBLINGUAL HS 09/05/20 09/05/20 Rx [Suboxone 8 mg-2 mg Sl Film] Ipratropium-Albuterol Nebulize 3 ml INHALATION RT-QID ml 09/05/20 09/05/20 Rx [Duoneb 0.5 mg-3 mg/3 ml Soln] Loratadine [Claritin] 10 mg PO HS tab 09/05/20 09/05/20 Rx Nicotine 14Mg/24Hr Patch [Habitrol] 1 patch TRANSDERM DAILY patch 09/05/20 09/05/20 Rx fluPHENAZine [Prolixin] 2.5 mg PO BID tab 09/05/20 09/05/20 Rx guaiFENesin SYRUP 100MG/5ML 200 mg PO Q6H PRN ml 09/05/20 09/05/20 Rx [Robitussin] haloperidoL [Haldol] 4 mg PO Q6HR PRN tab 09/05/20 09/05/20 Rx traZODone HCL [Desyrel] 25 mg PO HS tab 09/05/20 09/05/20 Rx Allergies Allergy/AdvReac Type Severity Reaction Status Date / Time risperidone AdvReac Dyspnea Verified 09/05/20 17:47 Physical Exam Vitals: Vital Signs Temp Pulse Pulse Resp BP Pulse Ox 09/06/20 08:00 98.4 F 113 H 18 116/76 90 L 09/06/20 07:05 100 09/06/20 02:13 97.6 F 106 H 20 148/78 90 L 09/05/20 20:06 88 09/05/20 19:56 96 09/05/20 19:13 99.1 F 103 H 17 119/76 92 L 09/05/20 17:24 99.0 F 94 19 117/70 90 L Intake and Output 09/05/20 09/06/20 09/06/20 22:59 06:59 14:59 Intake Total 50 Balance 50 Intake: Intake, IV Titration 50 Amount cefTRIAXone 2 gm In 50 Sodium Chloride 0.9% 50 ml @ 100 mls/hr IVPB Q24H [facility] Rx#:[id number] Other: Voiding Method Toilet # Voids 2 Weight 89.358 kg PHYSICAL EXAMINATION: GENERAL: The patient is alert and oriented x3, not in any acute distress. obese HEENT: Pupils are round and equally reacting to light. EOMI. No scleral icterus. No conjunctival pallor. Normocephalic, atraumatic. No pharyngeal erythema. No thyromegaly. CARDIOVASCULAR: S1 and S2 present. No murmurs, rubs, or gallops. PULMONARY: Chest is clear to auscultation, no wheezing or crackles. ABDOMEN: Soft, nontender, nondistended, normoactive bowel sounds. No palpable organomegaly. MUSCULOSKELETAL: No joint swelling or deformity. EXTREMITIES: No cyanosis, clubbing, or pedal edema. NEUROLOGICAL: Gross neurological examination did not reveal any focal deficits. SKIN: No rashes. Results CBC & Chem 7: 09/06/20 04:18 09/06/20 04:18 Labs: Abnormal Lab Results - Last 24 Hours (Table) 09/06/20 09/06/20 Range/Units 04:18 04:18 MCV 103.8 H (80.0-97.0) fL MCHC 30.8 L (32.0-37.0) g/dL Total Protein 5.8 L (6.2-8.2) g/dL Thrombosis Risk Factor Assmnt - Choose All That Apply Any of the Below Risk Factors Present?: Yes Each Factor Represents 1 point: Age 41-60 years, Obesity (BMI >25) Other Risk Factors: Yes Other congenital or acquired thrombophilia - If yes, enter type in comment: Yes Thrombosis Risk Factor Assessment Total Risk Factor Score: 2 Thrombosis Risk Factor Assessment Level: Low Risk Assessment and Plan Plan: acute hypoxemia: Possibility of chemical pneumonitis from aspiration or viral pneumonia are atypical pneumonia patient will be started on Zosyn.patient is presently on 2 L of oxygen saturating at 90%the patient was also started on systemic steroids by pulmonary. -Tachycardia secondary to hypoxemia will also obtain a TSH level. Patient was negative for PE. Covid 19 was negativewill be discontinued and patient was started on Coreg. -COPD without any acute exacerbation -Continue nicotine use: Counseling was provided - depression, acute psychosis for which patient was admitted to psychiatric floor this will be managed by psychiatry for psychiatric was consulted -DVT prophylaxis: Lovenox 40 subcutaneous
[2020-09-06] MEDS: BACLOFEN 10 MG TAB PO PRN (12:37)
[2020-09-06] MEDS: PIPERACILLIN-TAZOBACTAM 3.375 GM in SODIUM CHLORIDE 0.9% 100 ML IVPB SCH ×2 (12:38→19:27)
--- NOTE | 2020-09-06 13:34 | P.CN ---
Psychiatric Consult - . Consult date: 09/06/20 Consult:: 09/06/20 12:47 IDENTIFYING DATA: Patient is a 55-year-old female who is currently however lives with her ex- and has 3 kids. HPI: Patient initially presented to the hospital on a petition filled out by the police to served. Patient apparently was walking around naked drinking a bottle of mustard and was stating that she was hearing voices telling her to hurt her self according to the petition. Patient's UDS is positive for marijuana. Patient was also complaining of ongoing AH and was agreeable to take psych meds while on the MHU and improved significantly. Yesterday patient had progressively become more short of breath and dyspneic and was found to be hypoxemic with ambulation and medicine saw patient and ordered a chest x-ray with other labs. Patient was found to have diffuse bilateral infiltrates suggestive of possible atypical pneumonia. Patient was transferred off the mental health unit and onto the medical floors. Audiologist was asked to follow up with patient today for consultation. Patient was sitting up watching television in her room. She was fairly directable and agreeable to speak to sports writer. She was appropriate. She continues to be fairly concrete and spoke about her breathing gradually improving. She is denying any changes in her mood and states that she is doing "fine". He is denying any anxiety at this time. She states that she is sleeping better at nighttime with her medications. At this time she is denies any suciidal or homicidal ideations intent or plan. At this time patient denies any auditory or visual hallucinations. Patient denies any flight of ideas racing thoughts and increased in goal directed behavior. Patient admits to using cigarettes daily and marijuana occasionally. PAST PSYCHIATRIC HISTORY: Patient states that she has a history of schi zoaffective disorder. Patient was previously on latuda and Paxil. Patient was last hospitalized on the mental health unit in october 2019 and recently transferred from the MHU. He states that she was supposed to follow up with [facility] however has not been doing so. She claims that she did have 1 suicide attempt several years ago however did not describe what happened. PMH:COPD, Musculoskeletal Disorder, Osteoarthritis (OA) ALLERGIES: as per EMR CHEMICAL DEPENDENCY HISTORY: as per HPI FAMILY PSYCHIATRIC/SUBSTANCE USE HISTORY: denies SOCIAL HISTORY: Patient was born and raised in [place] [facility]. She states that she completed her GED. She states that she currently lives with her ex- and has 3 kids. She claims that she has no legal problems and never been to [facility] before. MENTAL STATUS EXAM: General Appearance: Patient appears to be overweight, stated age is alert, directable, and attempts to cooperate. Patient appears to have improving hygiene and grooming. Behavior: Patient is seated without any agitated behavior. Appropriate. Speech: Patient's speech is fluent and nonpressured. Mood/Affect: Patient reports their mood is "good", affect is congruent and c onstricted. Suicidality/Homicidality: Patient denies having any homicidal ideation intent or plan. She is denying any suicidal ideations, no intent or plan. Perceptions: Patient denies any visual or auditory hallucinations Though content/process: Patient was fairly concrete. Logical and goal oriented. Not endorsing any delusions. Memory and concentration: AOX3, grossly intact for the purposes of this session. Can spell "WORLD" backwards Judgment and insight: Improved IMPRESSIONS: Schizoaffective disorder, depressive type Cannabis use disorder Nicotine dependence PLAN: -At this time patient DOES NOT meet criteria for inpatient psychiatric admission. Patient was already admitted to the MHU and treated for her psychosis and is doing much better. -Would recommend the following medication changes/additions: Continue on with current medications. -Patient had signed a deferral with the transactional attorney while she was on the mental unit and is agreeable to continue on with treatment. sports writer gave patients nurse the [facility] form to be completed once patient is discharged to have patient enrolled in [facility] services upon discharge for appropriate follow up. -Communicated plan to patient's nurse -Psychiatry will sign off at this time -Please contact with any questions.
[2020-09-06] MEDS: HEPARIN SODIUM,PORCINE/PF 5,000 UNIT/0.5 ML SYRINGE SQ SCH ×2 (14:44→23:35)
[2020-09-06] MEDS: methylPREDNISolone SOD SUCCI 40 MG/ML 1 ML VIAL IV SCH ×2 (14:44→23:35)
[2020-09-06] MEDS: LORazepam 1 MG TAB PO PRN ×2 (14:45→23:35)
[2020-09-06] MEDS: carvediloL 6.25 MG TAB PO SCH (17:06)
[2020-09-06] MEDS: guaiFENesin SYRUP 100MG/5ML 200 MG/10 ML CUP PO PRN (19:23)
[2020-09-06] MEDS: SYMBICORT 160-4.5 MCG INHALER INHALATION SCH (20:04)
[2020-09-06] MEDS: traZODone HCL 50 MG TAB PO SCH (20:28)
[2020-09-06] MEDS: LORATADINE 10 MG TAB PO SCH (20:28)
[2020-09-06] MEDS: PARoxetine 20 MG TAB PO SCH (20:28)
[2020-09-06] MEDS: SUBOXONE SUBLINGUAL SCH (21:30)
[2020-09-07] MEDS: BACLOFEN 10 MG TAB PO PRN ×2 (04:44→13:55)
[2020-09-07] MEDS: PIPERACILLIN-TAZOBACTAM 3.375 GM in SODIUM CHLORIDE 0.9% 100 ML IVPB SCH ×3 (04:44→19:58)
[2020-09-07 05:29] LABS: Mycoplasma IgG Antibody (EIA) 0.89 INDEX (<=0.90); Mycoplasma IgM Antibody 0.64 INDEX (<=0.90)
[2020-09-07] MEDS: LORazepam 1 MG TAB PO PRN ×2 (06:01→17:20)
[2020-09-07] MEDS: NICOTINE 14MG/24HR PATCH TRANSDERM SCH (08:04)
[2020-09-07] MEDS: HEPARIN SODIUM,PORCINE/PF 5,000 UNIT/0.5 ML SYRINGE SQ SCH ×2 (08:04→15:19)
[2020-09-07] MEDS: carvediloL 6.25 MG TAB PO SCH ×2 (08:04→17:16)
[2020-09-07] MEDS: methylPREDNISolone SOD SUCCI 40 MG/ML 1 ML VIAL IV SCH (08:04)
[2020-09-07] MEDS: IPRATROPIUM-ALBUTEROL 3 ML NEB INHALATION SCH ×5 (08:44→21:55)
[2020-09-07] MEDS: SYMBICORT 160-4.5 MCG INHALER INHALATION SCH ×2 (08:45→21:55)
[2020-09-07] MEDS ORDERED: FUROSEMIDE 10 MG/ML 4 ML VIAL IV STA (12:53)
--- NOTE | 2020-09-07 12:53 | P.PN ---
Subjective Progress Note Date: 09/07/20 This is a 85-year-old female patient with known history of COPD who came in through the emergency department on 09/01/2020 where the patient was found to be sitting without any clothing the front of her porch and drinking out of a bottle of mustard. For that reason she was brought in. Apparently she stated voices are telling her to drink the mustard otherwise she would've been chilled. This patient has history of schizophrenia and she was petitioned by the police and she was brought into the hospital. We were consulted to evaluate her pulmonary status. Note that the patient was initially admitted to the psychiatric units for treatment of her psychiatric disorder. Yesterday, the patient was sitting in a wheelchair and she was found to have a pulse ox of 84% on room air. She also told the psychiatric staff that she was having difficulties in breathing. For that reason, the patient was transferred to a medical floor. A CT angiogram was done that showed no evidence of any pulmonary embolism. It showed nonspecific areas of groundglass changes in addition to advanced COPD bilaterally. The patient stated that she was no longer getting any voices which she was happy about. She also stated that she was concerned about her breathing and she claimed that she was having hard time breathing. For that reason she was brought in. At this point in time, she doesn't have any suicidal or homicidal ideations. She is a chronic smoker both nicotine and tobacco and cannabis. She takes also Suboxone and baclofen for chronic back pain. For now, the patient is in the medical floor. She was started on antibiotics and she is currently on Rocephin. On room air oxygen. She is on albuterol nebulized treatments 4 times a day [id number]. Her COVID-19 status has been negative at time of admission. White cell count was also normal. 09/07/2020, the patient remains on bronchodilators and steroids. She is also on IV Zosyn. Doing well. Has a congested cough. Unable to bring up much sputum. She was on 4 L. I dropped her down to 3 L and on monitoring her pulse ox for now. No fever. No chills. No agitation. No altered mentation. She is using the DuoNeb nebulized treatments 4 times a day [id number]. COVID-19 testing was negative. No aspiration. She was able to take her full diet without any major issues.Furthermore, Legionella urine antigen came back negati ve. Mycoplasma antibodies came back negative. Objective - Vital Signs Vital signs: Vital Signs Temp 97.4 F L 09/07/20 08:00 Pulse 91 09/07/20 12:43 Resp 16 09/07/20 08:00 BP 102/68 09/07/20 08:00 Pulse Ox 98 09/07/20 08:49 Intake & Output 09/06/20 09/07/20 09/07/20 18:59 06:59 18:59 Intake Total 1080 Balance 1080 Intake: Oral 1080 Other: Voiding Method Toilet Toilet Toilet # Voids 1 2 1 # Bowel Movements 1 - Exam GENERAL: The patient is alert and oriented x3, not in any acute distress. Obese HEENT: Pupils are round and equally reacting to light. EOMI. No scleral icterus. No conjunctival pallor. Normocephalic, atraumatic. No pharyngeal erythema. No thyromegaly. CARDIOVASCULAR: S1 and S2 present. No murmurs, rubs, or gallops. PULMONARY: Decreased air entry into bilateral lung steele, diminished breath sounds and diffuse expiratory wheezes throughout the lung his bilaterally and the patient is prolongation of the escalation phase of breathing. ABDOMEN: Soft, nontender, nondistended, normoactive bowel sounds. No palpable organomegaly. MUSCULOSKELETAL: No joint swelling or deformity. EXTREMITIES: No cyanosis, clubbing, or pedal edema. NEUROLOGICAL: Gross neurological examination did not reveal any focal deficits. SKIN: Examination of the skin revealed no evidence of significant rashes, suspicious appearing nevi or other concerning lesions. - Labs CBC & Chem 7: 09/06/20 04:18 09/06/20 04:18 Assessment and Plan Plan: 1 acute hypoxic respiratory failure on that investigation. The patient has COPD and a CT angiogram showed bilateral nonspecific groundglass pulmonary infiltrates. Exact nature of simple this are not clear. Note that the patient had a CAT scan and June 2020 and his infiltrates were not present. As such, these infiltrates are rather acute and consideration needs to be given for infectious causes such as viruses, atypical pneumonia and even aspiration knowing her history. Drug induced reactions, systemic reactions, hypersensitivity pneumonia, eosinophilic pneumonia, malignancy , etc. are felt to be less likely. For now, the patient is still being treated for an acute COPD exacerbation and possible aspiration pneumonia which is our working diagnosis. The workup including Legionella urine antigen and mycoplasma antibodies came back negative. Unable to give us a full sputum sample. She stopped 40s about 2 by nasal cannula her pulse ox in the low 90s. 2 COPD with emphysematous changes bilaterally based on a computed tomography scan of the chest. 3 acute COPD exacerbations 4 history of tobacco smoking 5 chronic back pain and scoliosis, maintained on Sobaxone 6 schizophrenia Plan Repeat chest x-ray in the morning. Titrate FiO2 to maintain a saturation above 90%, currently on 4 L Put the patient on IV Zosyn covering for aspiration pneumonia DuoNeb nebulized treatments around the clock Restart the patient on her Symbicort maintenance 2 puffs twice a day Increase IV Solu-Medrol to 60 mg every 6 hours Lasix 40 mg IV push 1 We'll continue to follow. We'll leave psychiatric medication adjustments of the psychiatric. The patient is requesting to go back on her Paxil. We'll discuss this with psychiatry Heparin subcu for DVT prophylaxis
[2020-09-07] MEDS: IBUPROFEN 800 MG TAB PO PRN (13:55)
--- NOTE | 2020-09-07 14:25 | P.PN ---
Subjective 55-year-old female was transferred from psychiatry floor because of hypoxemia and he initially believed that her hypoxemia is secondary to sleep apnea although patient was becoming hypoxic even during the daytime with ambulation. Patient does have history of COPD but no wheezing on exam. Patient denied any cough. Patient clinically didn't appear to have any CHF. Patient had a d-dimer which was minimally elevated to 0.8 patient BNP is was within normal limits. Obtained a chest x-ray which showed diffuse bilateral infiltrate Covid 19 PCR wa s obtained which was negative. Patient doesn't have any fever chills. Patient is bit tachycardic today patient has no wheezing today. After the CT of the chest which showed diffuse bilateral groundglass T's which were not present on during the last hospitalization patient doesn't have any lobar infiltrate doesn't have an atypical pneumonia but there is a chance patient has a viral pneumonia or atypical pneumonia or even aspiration pneumonia discussed with the pulmonology they're recommending Zosyn at this time treating for aspiration pneumonia or chemical pneumonitis from aspiration. We'll also obtain the urinary Legionella antigen and mycoplasma IgM antibody. 09/07/2020 patient remains on for its saturating well on 4 L today as opposed to low saturations on same 4 L yesterday. Mycoplasma IgM antibody and Legionella urinary antigen are both negative. Patient remains on Zosyn received a dose of Lasix and had a good urinary output after the Lasix. Constitutional: Denied any fatigue denied any fever. Cardio vascular: denied any chest pain, palpitations Gastrointestinal denied any nausea vomiting Pulmonary: Denied any shortness of breath cough Neurologic denied any new focal deficits All inpatient medications were reviewed and appropriate changes in these medications as dictated in the interval history and assessment and plan. Objective - Vital Signs Vital signs: Vital Signs Temp 97.4 F L 09/07/20 08:00 Pulse 91 09/07/20 12:43 Resp 16 09/07/20 08:00 BP 102/68 09/07/20 08:00 Pulse Ox 98 09/07/20 08:49 Intake & Output 09/06/20 09/07/20 09/07/20 18:59 06:59 18:59 Intake Total 1080 Balance 1080 Intake: Oral 1080 Other: Voiding Method Toilet Toilet Toilet # Voids 1 2 1 # Bowel Movements 1 - Exam PHYSICAL EXAMINATION: GENERAL: The patient is alert and oriented x3, not in any acute distress. Well developed, well nourished. HEENT: Pupils are round and equally reacting to light. EOMI. No scleral icterus. No conjunctival pallor. Normocephalic, atraumatic. No pharyngeal erythema. No thyromegaly. CARDIOVASCULAR: S1 and S2 present. No murmurs, rubs, or gallops. PULMONARY: Chest is clear to auscultation, no wheezing or crackles. ABDOMEN: Soft, nontender, nondistended, normoactive bowel sounds. No palpable organomegaly. MUSCULOSKELETAL: No joint swelling or deformity. EXTREMITIES: No cyanosis, clubbing, or pedal edema. NEUROLOGICAL: Gross neurological examination did not reveal any focal deficits. SKIN: No rashes. - Labs CBC & Chem 7: 09/06/20 04:18 09/06/20 04:18 Assessment and Plan Plan: acute hypoxemia: Possibility of chemical pneumonitis from aspiration or viral pneumonia patient will be started on Zosyn.patient is presently on 2 L of oxygen saturating at 90%the patient was also started on systemic steroids by pulmonary. Received dose of Lasix BNP is within normal limits. -Tachycardia secondary to hypoxemia improved now -COPD without any acute exacerbation -Continue nicotine use: Counseling was provided - depression, acute psychosis , continue her psychiatric medications as recommended by psychiatry. -DVT prophylaxis: Lovenox 40 subcutaneous
[2020-09-07] MEDS: guaiFENesin SYRUP 100MG/5ML 200 MG/10 ML CUP PO PRN (15:18)
[2020-09-07] MEDS: methylPREDNISolone SOD SUCCI 125 MG/2 ML VIAL IV SCH (17:16)
[2020-09-07] MEDS: MAGNESIUM HYDROXIDE 2,400 MG/10 ML CUP PO PRN (17:20)
[2020-09-07] MEDS: traZODone HCL 50 MG TAB PO SCH (19:57)
[2020-09-07] MEDS: PARoxetine 20 MG TAB PO SCH (19:57)
[2020-09-07] MEDS: SUBOXONE SUBLINGUAL SCH (19:57)
[2020-09-07] MEDS: LORATADINE 10 MG TAB PO SCH (19:58)
[2020-09-08] MEDS: methylPREDNISolone SOD SUCCI 125 MG/2 ML VIAL IV SCH ×5 (00:05→23:35)
[2020-09-08] MEDS: HEPARIN SODIUM,PORCINE/PF 5,000 UNIT/0.5 ML SYRINGE SQ SCH ×4 (00:05→23:35)
[2020-09-08] MEDS: LORazepam 1 MG TAB PO PRN ×3 (00:05→17:57)
[2020-09-08] MEDS: PIPERACILLIN-TAZOBACTAM 3.375 GM in SODIUM CHLORIDE 0.9% 100 ML IVPB SCH ×3 (04:54→20:38)
[2020-09-08] MEDS: NICOTINE 14MG/24HR PATCH TRANSDERM SCH (07:41)
[2020-09-08] MEDS: carvediloL 6.25 MG TAB PO SCH ×2 (07:41→15:20)
[2020-09-08] MEDS: guaiFENesin SYRUP 100MG/5ML 200 MG/10 ML CUP PO PRN ×2 (07:45→13:43)
--- NOTE | 2020-09-08 08:01 | XR ---
EXAMINATION TYPE: XR chest 1V portable DATE OF EXAM: 09/08/2020 COMPARISON: Chest x-ray and CT 09/05/2020 HISTORY: Hypoxia TECHNIQUE: Single frontal view of the chest is obtained. FINDINGS: Groundglass density, prominence of interstitium again noted bilaterally. No evident pneumo thorax or pleural effusion. Cardiac mediastinal silhouette is stable. IMPRESSION: Correlate for pneumonia, there is underlying emphysema
[2020-09-08] MEDS: IPRATROPIUM-ALBUTEROL 3 ML NEB INHALATION SCH ×4 (08:59→21:01)
[2020-09-08] MEDS: SYMBICORT 160-4.5 MCG INHALER INHALATION SCH ×2 (09:00→21:01)
--- NOTE | 2020-09-08 11:25 | P.PN ---
Subjective 55-year-old female was transferred from psychiatry floor because of hypoxemia and he initially believed that her hypoxemia is secondary to sleep apnea although patient was becoming hypoxic even during the daytime with ambulation. Patient does have history of COPD but no wheezing on exam. Patient denied any cough. Patient clinically didn't appear to have any CHF. Patient had a d-dimer which was minimally elevated to 0.8 patient BNP is was within normal limits. Obtained a chest x-ray which showed diffuse bilateral infiltrate Covid 19 PCR wa s obtained which was negative. Patient doesn't have any fever chills. Patient is bit tachycardic today patient has no wheezing today. After the CT of the chest which showed diffuse bilateral groundglass T's which were not present on during the last hospitalization patient doesn't have any lobar infiltrate doesn't have an atypical pneumonia but there is a chance patient has a viral pneumonia or atypical pneumonia or even aspiration pneumonia discussed with the pulmonology they're recommending Zosyn at this time treating for aspiration pneumonia or chemical pneumonitis from aspiration. We'll also obtain the urinary Legionella antigen and mycoplasma IgM antibody. 09/07/2020 patient remains on for its saturating well on 4 L today as opposed to low saturations on same 4 L yesterday. Mycoplasma IgM antibody and Legionella urinary antigen are both negative. Patient remains on Zosyn received a dose of Lasix and had a good urinary output after the Lasix.. 09/08/2020 she remains on 4 L of oxygen will cut it down to 2 L patient is saturating well at 98%. Patient had a repeat chest x-ray which is still showing the same infiltrate although patient denied any shortness of breath to me. Constitutional: Denied any fatigue denied any fever. Cardio vascular: denied any chest pain, palpitations Gastrointestinal denied any nausea vomiting Pulmonary: Denied any shortness of breath cough Neurologic denied any new focal deficits All inpatient medications were reviewed and appropriate changes in these medications as dictated in the interval history and assessment and plan. Objective - Vital Signs Vital signs: Vital Signs Temp 98.3 F 09/08/20 07:56 Pulse 91 09/08/20 09:15 Resp 20 09/08/20 07:56 BP 120/72 09/08/20 07:56 Pulse Ox 98 09/08/20 09:03 Intake & Output 09/07/20 09/08/20 09/08/20 18:59 06:59 18:59 Intake Total 1320 900 100 Balance 1320 900 100 Intake: Intake, IV Titration 100 100 Amount Piperacillin-Tazobactam 3 100 100 .375 gm In Sodium Chloride 0.9% 100 ml @ 25 mls/hr IVPB Q8H [facility] Rx#: [id number] Oral 1320 800 Other: Voiding Method Toilet Toilet # Voids 5 2 - Exam PHYSICAL EXAMINATION: GENERAL: The patient is alert and oriented x3, not in any acute distress. Well developed, well nourished. HEENT: Pupils are round and equally reacting to light. EOMI. No scleral icterus. No conjunctival pallor. Normocephalic, atraumatic. No pharyngeal erythema. No thyromegaly. CARDIOVASCULAR: S1 and S2 present. No murmurs, rubs, or gallops. PULMONARY: Chest is clear to auscultation, no wheezing or crackles. ABDOMEN: Soft, nontender, nondistended, normoactive bowel sounds. No palpable organomegaly. MUSCULOSKELETAL: No joint swelling or deformity. EXTREMITIES: No cyanosis, clubbing, or pedal edema. NEUROLOGICAL: Gross neurological examination did not reveal any focal deficits. SKIN: No rashes. - Labs CBC & Chem 7: 09/06/20 04:18 09/06/20 04:18 Labs: Microbiology - Last 24 Hours (Table) 09/07/20 22:05 Gram Stain - Preliminary Sputum Sputum Culture - Preliminary Assessment and Plan Plan: acute hypoxemia: Possibility of chemical pneumonitis from aspiration or viral pneumonia patient will be started on Zosyn. Will be switched to Zyvox and will recheck it. Received Lasix yesterday and output. -Tachycardia secondary to hypoxemia improved now -COPD without any acute exacerbation -Continue nicotine use: Counseling was provided - depression, acute psychosis , continue her psychiatric medications as recommended by psychiatry. -DVT prophylaxis: Lovenox 40 subcutaneous
--- NOTE | 2020-09-08 13:37 | P.PN ---
Subjective Progress Note Date: 09/08/20 This is a 85-year-old female patient with known history of COPD who came in through the emergency department on 09/01/2020 where the patient was found to be sitting without any clothing the front of her porch and drinking out of a bottle of mustard. For that reason she was brought in. Apparently she stated voices are telling her to drink the mustard otherwise she would've been chilled. This patient has history of schizophrenia and she was petitioned by the police and she was brought into the hospital. We were consulted to evaluate her pulmonary status. Note that the patient was initially admitted to the psychiatric units for treatment of her psychiatric disorder. Yesterday, the patient was sitting in a wheelchair and she was found to have a pulse ox of 84% on room air. She also told the psychiatric staff that she was having difficulties in breathing. For that reason, the patient was transferred to a medical floor. A CT angiogram was done that showed no evidence of any pulmonary embolism. It showed nonspecific areas of groundglass changes in addition to advanced COPD bilaterally. The patient stated that she was no longer getting any voices which she was happy about. She also stated that she was concerned about her breathing and she claimed that she was having hard time breathing. For that reason she was brought in. At this point in time, she doesn't have any suicidal or homicidal ideations. She is a chronic smoker both nicotine and tobacco and cannabis. She takes also Suboxone and baclofen for chronic back pain. For now, the patient is in the medical floor. She was started on antibiotics and she is currently on Rocephin. On room air oxygen. She is on albuterol nebulized treatments 4 times a day [id number]. Her COVID-19 status has been negative at time of admission. White cell count was also normal. 09/07/2020, the patient remains on bronchodilators and steroids. She is also on IV Zosyn. Doing well. Has a congested cough. Unable to bring up much sputum. She was on 4 L. I dropped her down to 3 L and on monitoring her pulse ox for now. No fever. No chills. No agitation. No altered mentation. She is using the DuoNeb nebulized treatments 4 times a day [id number]. COVID-19 testing was negative. No aspiration. She was able to take her full diet without any major issues.Furthermore, Legionella urine antigen came back negati ve. Mycoplasma antibodies came back negative. 09/08/2020, the patient is still struggling with hypoxemia. She is still requiring oxygen and we were able to wean her down to 2 L per minute nasal can nula. On room air oxygen, the patient thus down to the low 80s. The chest x- ray still showing nonspecific by the pulmonary infiltrates are quite persistent and interstitial remains prominent. The patient remains on bronchodilators with DuoNeb nebulized treatments around the clock. The patient on Symbicort as maintenance. The patient is on IV Solu Medrol 60 mg every 6 hours. The patient is also covered with empiric antibiotics with IV Zosyn. The sputum cultures been negative for now. White cell count is at 9.9. The rest of the blood work and electrolytes are all within normal limits. COVID-19 testing was also negative. Objective - Vital Signs Vital signs: Vital Signs Temp 98.3 F 09/08/20 07:56 Pulse 90 09/08/20 13:01 Resp 20 09/08/20 07:56 BP 120/72 09/08/20 07:56 Pulse Ox 98 09/08/20 09:03 Intake & Output 09/07/20 09/08/20 09/08/20 18:59 06:59 18:59 Intake Total 1320 900 100 Balance 1320 900 100 Intake: Intake, IV Titration 100 100 Amount Piperacillin-Tazobactam 3 100 100 .375 gm In Sodium Chloride 0.9% 100 ml @ 25 mls/hr IVPB Q8H [facility] Rx#: [id number] Oral 1320 800 Other: Voiding Method Toilet Toilet # Voids 5 2 - Exam GENERAL: The patient is alert and oriented x3, not in any acute distress. Obese HEENT: Pupils are round and equally reacting to light. EOMI. No scleral icterus. No conjunctival pallor. Normocephalic, atraumatic. No pharyngeal erythema. No t hyromegaly. CARDIOVASCULAR: S1 and S2 present. No murmurs, rubs, or gallops. PULMONARY: Decreased air entry into bilateral lung steele, diminished breath sounds and diffuse expiratory wheezes throughout the lung his bilaterally and the patient is prolongation of the escalation phase of breathing. ABDOMEN: Soft, nontender, nondistended, normoactive bowel sounds. No palpable organomegaly. MUSCULOSKELETAL: No joint swelling or deformity. EXTREMITIES: No cyanosis, clubbing, or pedal edema. NEUROLOGICAL: Gross neurological examination did not reveal any focal deficits. SKIN: Examination of the skin revealed no evidence of significant rashes, suspicious appearing nevi or other concerning lesions. - Labs CBC & Chem 7: 09/06/20 04:18 09/06/20 04:18 Labs: Microbiology - Last 24 Hours (Table) 09/07/20 22:05 Gram Stain - Preliminary Sputum Sputum Culture - Preliminary Assessment and Plan Plan: 1 acute hypoxic respiratory failure on that investigation. The patient has COPD and a CT angiogram showed bilateral nonspecific groundglass pulmonary infiltrates. Exact nature of simple this are not clear. Note that the patient had a CAT scan and June 2020 and his infiltrates were not present. As such, these infiltrates are rather acute and consideration needs to be given for infectious causes such as viruses, atypical pneumonia and even aspiration knowing her history. Drug induced reactions, systemic reactions, hypersensitivity pneumonia, eosinophilic pneumonia, malignancy , etc. are felt to be less likely. For now, the patient is still being treated for an acute COPD exacerbation and possible aspiration pneumonia which is our working diagnosis. The workup including Legionella urine antigen and mycoplasma antibodies came back negative. The sputum sample is negative for any microbial growth and the patient is currently being weaned off the oxygen and she is somewhat between 2 and 4 L per minute nasal cannula. 2 COPD with emphysematous changes bilaterally based on a computed tomography scan of the chest. 3 acute COPD exacerbations, Improving 4 history of tobacco smoking 5 chronic back pain and scoliosis, maintained on Sobaxone 6 schizophrenia Plan Repeat chest x-ray from today was reviewed and there is some persistent pulmonary prominence of interstitium, consider a component of acute lung injury/aspiration. Arrange for home O2 Attempt to wean down the FiO2 to maintain a saturation above 90% IV Zosyn covering for aspiration pneumonia DuoNeb nebulized treatments around the clock Symbicort maintenance 2 puffs twice a day IV Solu-Medrol to 60 mg every 6 hours We'll continue to follow. We'll leave psychiatric medication adjustments of the psychiatric. Heparin subcu for DVT prophylaxis
[2020-09-08] MEDS: BACLOFEN 10 MG TAB PO PRN (13:44)
[2020-09-08] MEDS: IBUPROFEN 800 MG TAB PO PRN (13:45)
[2020-09-08] MEDS: MAGNESIUM HYDROXIDE 2,400 MG/10 ML CUP PO PRN (17:14)
[2020-09-08] MEDS: PARoxetine 20 MG TAB PO SCH (20:38)
[2020-09-08] MEDS: LORATADINE 10 MG TAB PO SCH (20:38)
[2020-09-08] MEDS: traZODone HCL 50 MG TAB PO SCH (20:38)
[2020-09-08] MEDS: SUBOXONE SUBLINGUAL SCH (20:39)
[2020-09-09] MEDS: LORazepam 1 MG TAB PO PRN ×3 (01:39→20:09)
[2020-09-09] MEDS: PIPERACILLIN-TAZOBACTAM 3.375 GM in SODIUM CHLORIDE 0.9% 100 ML IVPB SCH ×3 (05:45→19:40)
[2020-09-09] MEDS: methylPREDNISolone SOD SUCCI 125 MG/2 ML VIAL IV SCH ×3 (05:45→16:50)
[2020-09-09] MEDS: HEPARIN SODIUM,PORCINE/PF 5,000 UNIT/0.5 ML SYRINGE SQ SCH ×2 (07:13→15:19)
[2020-09-09] MEDS: NICOTINE 14MG/24HR PATCH TRANSDERM SCH (07:13)
[2020-09-09] MEDS: carvediloL 6.25 MG TAB PO SCH ×2 (07:13→16:29)
[2020-09-09] MEDS: guaiFENesin SYRUP 100MG/5ML 200 MG/10 ML CUP PO PRN (07:13)
[2020-09-09 07:50] VITALS: TEMP 97.7
[2020-09-09] MEDS: IPRATROPIUM-ALBUTEROL 3 ML NEB INHALATION SCH ×4 (07:52→20:55)
[2020-09-09] MEDS: SYMBICORT 160-4.5 MCG INHALER INHALATION SCH ×2 (07:52→20:55)
--- NOTE | 2020-09-09 12:49 | P.PN ---
Subjective Progress Note Date: 09/09/20 This is a 85-year-old female patient with known history of COPD who came in through the emergency department on 09/01/2020 where the patient was found to be sitting without any clothing the front of her porch and drinking out of a bottle of mustard. For that reason she was brought in. Apparently she stated voices are telling her to drink the mustard otherwise she would've been chilled. This patient has history of schizophrenia and she was petitioned by the police and she was brought into the hospital. We were consulted to evaluate her pulmonary status. Note that the patient was initially admitted to the psychiatric units for treatment of her psychiatric disorder. Yesterday, the patient was sitting in a wheelchair and she was found to have a pulse ox of 84% on room air. She also told the psychiatric staff that she was having difficulties in breathing. For that reason, the patient was transferred to a medical floor. A CT angiogram was done that showed no evidence of any pulmonary embolism. It showed nonspecific areas of groundglass changes in addition to advanced COPD bilaterally. The patient stated that she was no longer getting any voices which she was happy about. She also stated that she was concerned about her breathing and she claimed that she was having hard time breathing. For that reason she was brought in. At this point in time, she doesn't have any suicidal or homicidal ideations. She is a chronic smoker both nicotine and tobacco and cannabis. She takes also Suboxone and baclofen for chronic back pain. For now, the patient is in the medical floor. She was started on antibiotics and she is currently on Rocephin. On room air oxygen. She is on albuterol nebulized treatments 4 times a day [id number]. Her COVID-19 status has been negative at time of admission. White cell count was also normal. 09/07/2020, the patient remains on bronchodilators and steroids. She is also on IV Zosyn. Doing well. Has a congested cough. Unable to bring up much sputum. She was on 4 L. I dropped her down to 3 L and on monitoring her pulse ox for now. No fever. No chills. No agitation. No altered mentation. She is using the DuoNeb nebulized treatments 4 times a day [id number]. COVID-19 testing was negative. No aspiration. She was able to take her full diet without any major issues.Furthermore, Legionella urine antigen came back negati ve. Mycoplasma antibodies came back negative. 09/08/2020, the patient is still struggling with hypoxemia. She is still requiring oxygen and we were able to wean her down to 2 L per minute nasal can nula. On room air oxygen, the patient thus down to the low 80s. The chest x- ray still showing nonspecific by the pulmonary infiltrates are quite persistent and interstitial remains prominent. The patient remains on bronchodilators with DuoNeb nebulized treatments around the clock. The patient on Symbicort as maintenance. The patient is on IV Solu Medrol 60 mg every 6 hours. The patient is also covered with empiric antibiotics with IV Zosyn. The sputum cultures been negative for now. White cell count is at 9.9. The rest of the blood work and electrolytes are all within normal limits. COVID-19 testing was also negative. 09/09/2020, the patient is doing well. No new complaints. Still requiring oxygen and the plan is to discharge this patient home along with O2 at 2 L. No chest pain. Limited cough. No significant congestion. She is on Symbicort as maintenance. She was treated with IV Solu-Medrol and she was also treated with IV Zosyn. COVID-19 testing was negative. Pro-calcitonin level came back low. The patient otherwise is doing well. She has no specific complaints. She wants to purchase a pulse oximeter at home to monitor her pulse ox on outpatient basis. Objective - Vital Signs Vital signs: Vital Signs Temp 97.7 F 09/09/20 07:50 Pulse 87 09/09/20 11:57 Resp 20 09/09/20 07:50 BP 148/88 09/09/20 07:50 Pulse Ox 91 L 09/09/20 10:55 Intake & Output 09/08/20 09/09/20 09/09/20 18:59 06:59 18:59 Intake Total 100 400 200 Balance 100 400 200 Intake: Intake, IV Titration 100 100 200 Amount Piperacillin-Tazobactam 3 100 100 200 .375 gm In Sodium Chloride 0.9% 100 ml @ 25 mls/hr IVPB Q8H [facility] Rx#: [id number] Oral 300 Other: Voiding Method Toilet # Voids 3 - Exam GENERAL: The patient is alert and oriented x3, not in any acute distress. Obese HEENT: Pupils are round and equally reacting to light. EOMI. No scleral icterus. No conjunctival pallor. Normocephalic, atraumatic. No pharyngeal erythema. No thyromegaly. CARDIOVASCULAR: S1 and S2 present. No murmurs, rubs, or gallops. PULMONARY: Decreased air entry into bilateral lung steele, diminished breath sounds and diffuse expiratory wheezes throughout the lung his bilaterally and the patient is prolongation of the escalation phase of breathing. ABDOMEN: Soft, nontender, nondistended, normoactive bowel sounds. No palpable organomegaly. MUSCULOSKELETAL: No joint swelling or deformity. EXTREMITIES: No cyanosis, clubbing, or pedal edema. NEUROLOGICAL: Gross neurological examination did not reveal any focal deficits. SKIN: Examination of the skin revealed no evidence of significant rashes, suspicious appearing nevi or other concerning lesions. - Labs CBC & Chem 7: 09/06/20 04:18 09/06/20 04:18 Assessment and Plan Plan: 1 acute hypoxic respiratory failure on that investigation. The patient has COPD and a CT angiogram showed bilateral nonspecific groundglass pulmonary infiltrates. Exact nature of simple this are not clear. Note that the patient had a CAT scan and June 2020 and his infiltrates were not present. As such, these infiltrates are rather acute and consideration needs to be given for infectious causes such as viruses, atypical pneumonia and even aspiration knowing her history. Drug induced reactions, systemic reactions, hypersensitivity pneumonia, eosinophilic pneumonia, malignancy , etc. are felt to be less likely. For now, the patient is still being treated for an acute COPD exacerbation and possible aspiration pneumonia which is our working diagnosis. The workup including Legionella urine antigen and mycoplasma antibodies came back negative. The sputum sample is negative for any microbial growth and the patient is currently being weaned off the oxygen and she is somewhat between 2 and 4 L per minute nasal cannula. Clinically stable, improving and psychiatrically the patient is also stable. 2 COPD with emphysematous changes bilaterally based on a computed tomography scan of the chest. 3 acute COPD exacerbations, Improving 4 history of tobacco smoking 5 chronic back pain and scoliosis, maintained on Sobaxone 6 schizophrenia Plan The patient will be discharged home on oxygen at 2 L The patient will receive Levaquin 500mg for the next 5 days The patient will receive prednisone burst taper Patient will use Symbicort as maintenance and albuterol nebulized treatments around the clock as needed The patient will see us back in the office in a few weeks time for a follow-up.
[2020-09-09] MEDS: BACLOFEN 10 MG TAB PO PRN (14:10)
[2020-09-09 15:07] VITALS: BP 137/79; RESP 16
[2020-09-09 16:21] VITALS: PULSE 75
[2020-09-09] MEDS: traZODone HCL 50 MG TAB PO SCH (20:09)
[2020-09-09] MEDS: PARoxetine 20 MG TAB PO SCH (20:10)
[2020-09-09] MEDS: LORATADINE 10 MG TAB PO SCH (20:11)
[2020-09-09] MEDS: SUBOXONE SUBLINGUAL SCH (21:00)
--- NOTE | 2020-09-10 17:55 | P.DS ---
Providers Date of admission: 09/05/20 17:19 Expected date of discharge: 09/09/20 Attending physician: David Montanez Consults: 09/05/20 17:42 Consult Physician Routine Consulting Provider: Matthew Amador Consult Reason/Comments: mental health/hallunications Do you want consulting provider notified?: Yes 09/06/20 10:21 Consult Physician Routine Consulting Provider: Oz Vazquez Consult Reason/Comments: Hypoxia Do you want consulting provider notified?: Yes Primary care physician: Otilia Flores Hospital Course: Final Diagnosis -acute hypoxemia: Possibility of chemical pneumonitis from aspiration or viral pneumonia -Tachycardia secondary to hypoxemia, improved -COPD without any acute exacerbation -Continue nicotine use: Counseling was provided -depression, acute psychosis , continue her psychiatric medications as recommended by psychiatry. -DVT prophylaxis Discharge disposition Patient is being discharged in a stable condition with guarded prognosis to home. Patient will follow-up with Dr. Bingham in the outpatient setting upon discharge. Patient is to also follow up with pulmonary Dr. Vazquez as scheduled. Total time taken is greater than 35 minutes. Hospital course 55-year-old female was transferred from psychiatry floor because of hypoxemia and he initially believed that her hypoxemia is secondary to sleep apnea although patient was becoming hypoxic even during the daytime with ambulation. Patient does have history of COPD but no wheezing on exam. Patient denied any cough. Patient clinically didn't appear to have any CHF. Patient had a d-dimer which was minimally elevated to 0.8 patient BNP is was within normal limits. Obtained a chest x-ray which showed diffuse bilateral infiltrate Covid 19 PCR was obtained which was negative. Patient doesn't have any fever chills. Patient is bit tachycardic today patient has no wheezing today. After the CT of the chest which showed diffuse bilateral groundglass T's which were not present on during the last hospitalization patient doesn't have any lobar infiltrate doesn't have an atypical pneumonia but there is a chance patient has a viral pneumonia or atypical pneumonia or even aspiration pneumonia discussed with the pulmonology they're recommending Zosyn at this time treating for aspiration pneumonia or chemical pneumonitis from aspiration. We'll also obtain the urinary Legionella antigen and mycoplasma IgM antibody. 09/07/2020 patient remains on for its saturating well on 4 L today as opposed to low saturations on same 4 L yesterday. Mycoplasma IgM antibody and Legionella urinary antigen are both negative. Patient remains on Zosyn received a dose of Lasix and had a good urinary output after the Lasix.. 09/08/2020 she remains on 4 L of oxygen will cut it down to 2 L patient is saturating well at 98%. Patient had a repeat chest x-ray which is still showing the same infiltrate although patient denied any shortness of breath to me. 09/09/2020 Patient is seen in follow up this morning and had home 02 eval done and qualifies for 4 liters of 02 via nasal cannula secondary to COPD and also will continue on nebulized treatments along with inhalers. Patient will also continue on oral levaquin and will continue prednisone taper. Patient to continue with incentive spirometer as well. Patient instructed to follow up with pulmonary outpatient. Patient has been evaluated by psychiatry and instructed to continue with medications prescribed and outpatient follow up. Patient is requesting to go home today. Currently no reports of chest pain, worsening shortness of breath, or palpitations. Patient is afebrile. No reports of nausea or vomiting and patient is tolerating diet. Patient will be discharged to home today. On exam vital signs are stable. Cardio S1, S2 are muffled. Respiratory system shows diminished breath sounds at the bases with some expiratory wheezing noted. Abdomen is soft and nontender. Nervous system shows no focal deficits. Please refer to medication reconciliation sheet for a list of medications. Patient Condition at Discharge: Good Plan - Discharge Summary New Discharge Prescriptions: New Ipratropium-Albuterol Nebulize [Duoneb 0.5 mg-3 mg/3 ml Soln] 3 ml INHALATION RT-Q2H PRN ml PRN Reason: Shortness Of Breath Or Wheezing Levofloxacin [Levaquin] 500 mg PO DAILY #5 tab fluPHENAZine [Prolixin] 5 mg PO BID 30 Days #60 tab Budesonide-Formot 160-4.5 Mcg [Symbicort 160-4.5 Mcg Inhaler] 2 puff INHALATION RT-BID 30 Days #1 puff LORazepam [Ativan] 1 mg PO BID PRN #6 tab PRN Reason: Anxiety carvediloL [Coreg] 6.25 mg PO BID-W/MEALS 30 Days #60 tab Ipratropium-Albuterol Nebulize [Duoneb 0.5 mg-3 mg/3 ml Soln] 3 ml INHALATION RT-QID 30 Days #120 ml PARoxetine [Paxil] 20 mg PO HS 30 Days #30 tab predniSONE 10 mg PO DIRECTED #30 tab Acetaminophen Tab [Tylenol] 650 mg PO Q4HR PRN tab PRN Reason: Fever And/ Or Pain Continue Ibuprofen [Motrin] 800 mg PO Q8H PRN PRN Reason: Pain Buprenorphine HCl/Naloxone HCl [Suboxone 8 mg-2 mg Sl Film] 1 film SUBLINGUAL HS traZODone HCL [Desyrel] 25 mg PO HS tab Ipratropium-Albuterol Nebulize [Duoneb 0.5 mg-3 mg/3 ml Soln] 3 ml INHALATION RT-QID ml haloperidoL [Haldol] 4 mg PO Q6HR PRN tab PRN Reason: Agitation Or Acute Psychosis Albuterol Sulfate [Proair Hfa] 2 puff INHALATION RT-QID PRN #1 inhaler PRN Reason: Shortness Of Breath Loratadine [Claritin] 10 mg PO HS tab Nicotine 14Mg/24Hr Patch [Habitrol] 1 patch TRANSDERM DAILY patch guaiFENesin SYRUP 100MG/5ML [Robitussin] 200 mg PO Q6H PRN ml PRN Reason: Cough Changed Baclofen [Lioresal] 5 mg PO TID PRN #0 PRN Reason: Muscle Spasm Discontinued cloNIDine HCL [Catapres] 0.1 mg PO BID #60 tab fluPHENAZine [Prolixin] 2.5 mg PO BID tab Discharge Medication List Albuterol Sulfate [Proair Hfa] 2 puff INHALATION RT-QID PRN #1 inhaler 07/20/20 [Rx] Ibuprofen [Motrin] 800 mg PO Q8H PRN 08/25/20 [History] Buprenorphine HCl/Naloxone HCl [Suboxone 8 mg-2 mg Sl Film] 1 film SUBLINGUAL HS 09/05/20 [Rx] Ipratropium-Albuterol Nebulize [Duoneb 0.5 mg-3 mg/3 ml Soln] 3 ml INHALATION RT-QID ml 09/05/20 [Rx] Loratadine [Claritin] 10 mg PO HS tab 09/05/20 [Rx] Nicotine 14Mg/24Hr Patch [Habitrol] 1 patch TRANSDERM DAILY patch 09/05/20 [Rx] guaiFENesin SYRUP 100MG/5ML [Robitussin] 200 mg PO Q6H PRN ml 09/05/20 [Rx] haloperidoL [Haldol] 4 mg PO Q6HR PRN tab 09/05/20 [Rx] traZODone HCL [Desyrel] 25 mg PO HS tab 09/05/20 [Rx] Acetaminophen Tab [Tylenol] 650 mg PO Q4HR PRN tab 09/09/20 [Rx] Baclofen [Lioresal] 5 mg PO TID PRN #0 09/09/20 [Rx] Budesonide-Formot 160-4.5 Mcg [Symbicort 160-4.5 Mcg Inhaler] 2 puff INHALATION RT-BID 30 Days #1 puff 09/09/20 [Rx] Ipratropium-Albuterol Nebulize [Duoneb 0.5 mg-3 mg/3 ml Soln] 3 ml INHALATION RT-Q2H PRN ml 09/09/20 [Rx] Ipratropium-Albuterol Nebulize [Duoneb 0.5 mg-3 mg/3 ml Soln] 3 ml INHALATION RT-QID 30 Days #120 ml 09/09/20 [Rx] LORazepam [Ativan] 1 mg PO BID PRN #6 tab 09/09/20 [Rx] Levofloxacin [Levaquin] 500 mg PO DAILY #5 tab 09/09/20 [Rx] PARoxetine [Paxil] 20 mg PO HS 30 Days #30 tab 09/09/20 [Rx] carvediloL [Coreg] 6.25 mg PO BID-W/MEALS 30 Days #60 tab 09/09/20 [Rx] fluPHENAZine [Prolixin] 5 mg PO BID 30 Days #60 tab 09/09/20 [Rx] predniSONE 10 mg PO DIRECTED #30 tab 09/09/20 [Rx] Follow up Appointment(s)/Referral(s): [facility] [Outside] - 09/12/20 10:00 am ([place] ) Equipment & Supplies,[facility] [NON-STAFF] - (*Please call [facility] to arrange delivery of your home concentrator*) Sandra Bingham MD [Primary Care Provider] - 1-2 Days [facility], [NON-STAFF] - Oz Vazquez MD [STAFF PHYSICIAN] - 09/22/20 3:30 pm (follow up with Raine Ortiz.CERTIFIED PHYSICAL THERAPIST ASSISTANT) Patient Instructions/Handouts: Using Oxygen at Home (DC) Activity/Diet/Wound Care/Special Instructions: Activity Limited until follow-up Follow-up with primary care provider upon discharge Follow-up with pulmonary outpatient Continue antibiotics until finished Continue steroids until finished Take medications as prescribed Continue with breathing inhalational treatments Follow-up with community mental health and psychiatry outpatient Continue with home care Continue with home oxygen at 4 L and wean as tolerated Avoid tobacco use and tobacco exposure, oxygen is extremely flammable Continue heart healthy diet Discharge Disposition: HOME WITH HOME HEALTH SERVICES
== END 2020-09-09 21:30 | disposition home health service (06) | DRG 178 ==
LOC: 4SSUR 17:19
PROVIDERS: ADMIT Internal Medicine; ATTEND Internal Medicine
DX: J69.0 Pneumonitis due to inhalation of food and vomit (principal); J44.0 Chronic obstructive pulmonary disease with (acute) lower respiratory infection; J12.9 Viral pneumonia, unspecified; F25.9 Schizoaffective disorder, unspecified; M41.9 Scoliosis, unspecified; M19.90 Unspecified osteoarthritis, unspecified site; F17.200 Nicotine dependence, unspecified, uncomplicated; R00.0 Tachycardia, unspecified; Z20.822 Contact with and (suspected) exposure to COVID-19; G89.29 Other chronic pain; M54.9 Dorsalgia, unspecified; G47.30 Sleep apnea, unspecified; F32.9 Major depressive disorder, single episode, unspecified; F41.0 Panic disorder [episodic paroxysmal anxiety]; Z79.899 Other long term (current) drug therapy; Z83.2 Family history of diseases of the blood and blood-forming organs and certain disorders involving the immune mechanism
CPT/HCPCS: 71045; 71275; 80053; 84145; 85025; 86738; 87070; 87205; 87449; 94640; 94760

== ENCOUNTER 2021-01-14 08:27 | Emergency (ER) | payer OTHER ==
[2021-01-14] MEDS ORDERED: IPRATROPIUM-ALBUTEROL 3 ML NEB INHALATION STA (08:40)
[2021-01-14] MEDS ORDERED: dexAMETHasone 4 MG TAB PO STA (08:40)
--- NOTE | 2021-01-14 08:46 | ED ---
General Adult HPI - General Chief complaint: Shortness of Breath Stated complaint: NATASHA Time Seen by Provider: 01/14/21 08:30 Source: EMS Mode of arrival: EMS Limitations: no limitations - History of Present Illness Initial comments: Dictation was produced using [employer] dictation software. please excuse any grammatical, word or spelling errors. Chief Complaint: 55-year-old male presents emergency department for exertional dyspnea History of Present Illness: 55-year-old female she has past medical history of COPD. Patient's been feeling dyspneic since yesterday. She's been having URI symptoms including runny nose, productive cough. She denies any chest pain. Patient states that she's been feeling more short of breath especially with ambulation. Denies any fever. She has been having shaking chills. Patient does not take any anticoagulation medications. No history of blood clots. Patient was 2 L of oxygen at home normally. The ROS documented in this emergency department record has been reviewed and confirmed by me. Those systems with pertinent positive or negative responses have been documented in the HPI. All other systems are other negative and/or noncontributory. PHYSICAL EXAM: General Impression: Alert and oriented x3, not in acute distress HEENT: Normocephalic atraumatic, extra-ocular movements intact, pupils equal and reactive to light bilaterally, mucous membranes moist. Cardiovascular: Heart regular rate and rhythm Chest: Able to complete full sentences, no retractions, no tachypnea, diffuse mild end expiratory wheezing Abdomen: abdomen soft, non-tender, non-distended, no organomegaly Musculoskeletal: Pulses present and equal in all extremities, no peripheral edema Motor: no focal deficits noted Neurological: CN II-XII grossly intact, no focal motor or sensory deficits noted Skin: Intact with no visualized rashes Psych: Normal affect and mood ED course: 55-year-old female presents to the emergency department for shortness of breath. Vital signs upon arrival are within acceptable limits. Patient is 96 oxygen saturation on 4 L nasal cannula. Patient is having respiratory infect ious symptoms.Laboratory evaluation obtained. CBC, metabolic panel is unremarkable. For panel viral PCR is negative. Chest x-ray is nonacute. Patient given breathing treatment and steroids. She is in stable medical condition. She reports improvement of her dyspnea. Clinical presentation consi stent with COPD exacerbation. Patient M Malinda baseline. Patient does not meet criteria for admission. Patient will be discharged. Advised follow-up with primary care doctor or exhibit electrician. EKG interpretation: Ventricular rate 80, sinus rhythm, IN interval 110, QRS 124, QTC 469. No IN prolongation, no QTC prolongation, no ST or T-wave changes noted. EKG compared to 07/18/2020 showing no changes. Overall, this EKG is unremarkable - Related Data Home Medications Medication Instructions Recorded Confirmed Baclofen [Lioresal] 5 mg PO TID@0800,1600,2100 01/14/21 01/14/21 Buprenorphine HCl/Naloxone HCl 1 film SL TID PRN 01/14/21 01/14/21 [Suboxone 8 mg-2 mg Sl Film] Famotidine [Pepcid] 20 mg PO BID@0800,2100 01/14/21 01/14/21 Ipratropium-Albuterol Nebulize 3 ml INHALATION RT-TID@08,16,21 01/14/21 01/14/21 [Duoneb 0.5 mg-3 mg/3 ml Soln] Lurasidone [Latuda] 40 mg PO DAILY@0800 01/14/21 01/14/21 carvediloL [Coreg] 6.25 mg PO BID@0800,1700 01/14/21 01/14/21 cloNIDine HCL [Catapres] 0.1 mg PO BID@0800,2000 01/14/21 01/14/21 Allergies Allergy/AdvReac Type Severity Reaction Status Date / Time risperidone AdvReac Dyspnea Verified 01/14/21 09:41 Review of Systems ROS Statement: Those systems with pertinent positive or pertinent negative responses have been documented in the HPI. ROS Other: All systems not noted in ROS Statement are negative. Past Medical History Past Medical History: COPD, Musculoskeletal Disorder, Osteoarthritis (OA) Additional Past Medical History / Comment(s): Schizophrenia, DDD, SCOLIOSIS, chronic back pain History of Any Multi-Drug Resistant Organisms: None Reported Past Surgical History: Tubal Ligation Additional Past Surgical History / Comment(s): PAIN CLINIC PROCEDURES Past Anesthesia/Blood Transfusion Reactions: No Reported Reaction Past Psychological History: Anxiety, Depression, Panic Disorder, Schizoaffective Disorder, Schizophrenia Smoking Status: Current every day smoker Past Alcohol Use History: None Reported Past Drug Use History: None Reported - Past Family History Daughter(s) Family Medical History: Blood Disorder, Deep Vein Thrombosis (DVT) Additional Family Medical History / Comment(s): "blood clotting disorder" General Exam Limitations: no limitations Course Vital Signs 01/14/21 01/14/21 01/14/21 08:32 08:59 09:50 Temperature 99 F Pulse Rate 90 78 Respiratory 18 18 20 Rate Blood Pressure 126/92 122/77 O2 Sat by Pulse 96 98 Oximetry 01/14/21 01/14/21 09:59 10:06 Temperature Pulse Rate 86 84 Respiratory Rate Blood Pressure O2 Sat by Pulse Oximetry Medical Decision Making - Lab Data Result diagrams: 01/14/21 08:42 01/14/21 08:42 Lab Results 01/14/21 01/14/21 01/14/21 Range/Units 08:42 08:42 08:42 WBC 11.0 H (3.8-10.6) k/uL RBC 4.64 (3.80-5.40) m/uL Hgb 14.2 (11.4-16.0) gm/dL Hct 45.1 (34.0-46.0) % MCV 97.2 (80.0-100.0) fL MCH 30.6 (25.0-35.0) pg MCHC 31.5 (31.0-37.0) g/dL RDW 13.5 (11.5-15.5) % Plt Count 235 (150-450) k/uL MPV 8.1 Neutrophils % 75 % Lymphocytes % 17 % Monocytes % 6 % Eosinophils % 1 % Basophils % 0 % Neutrophils # 8.2 H (1.3-7.7) k/uL Lymphocytes # 1.8 (1.0-4.8) k/uL Monocytes # 0.6 (0-1.0) k/uL Eosinophils # 0.1 (0-0.7) k/uL Basophils # 0.0 (0-0.2) k/uL Sodium 136 L (137-145) mmol/L Potassium 4.7 (3.5-5.1) mmol/L Chloride 104 (98-107) mmol/L Carbon Dioxide 26 (22-30) mmol/L Anion Gap 6 mmol/L BUN 13 (7-17) mg/dL Creatinine 0.57 (0.52-1.04) mg/dL Est GFR (CKD-EPI)AfAm >90 (>60 ml/min/1.73 sqM) Est GFR (CKD-EPI)NonAf >90 (>60 ml/min/1.73 sqM) Glucose 213 H (74-99) mg/dL Calcium 9.4 (8.4-10.2) mg/dL Troponin I (0.000-0.034) ng/mL NT-Pro-B Natriuret Pep pg/mL Influenza Type A (PCR) Not Detected (Not Detectd) Influenza Type B (PCR) Not Detected (Not Detectd) RSV (PCR) Not Detected (Not Detectd) SARS-CoV-2 (PCR) Not Detected (Not Detectd) 01/14/21 01/14/21 Range/Units 08:42 09:06 WBC (3.8-10.6) k/uL RBC (3.80-5.40) m/uL Hgb (11.4-16.0) gm/dL Hct (34.0-46.0) % MCV (80.0-100.0) fL MCH (25.0-35.0) pg MCHC (31.0-37.0) g/dL RDW (11.5-15.5) % Plt Count (150-450) k/uL MPV Neutrophils % % Lymphocytes % % Monocytes % % Eosinophils % % Basophils % % Neutrophils # (1.3-7.7) k/uL Lymphocytes # (1.0-4.8) k/uL Monocytes # (0-1.0) k/uL Eosinophils # (0-0.7) k/uL Basophils # (0-0.2) k/uL Sodium (137-145) mmol/L Potassium (3.5-5.1) mmol/L Chloride (98-107) mmol/L Carbon Dioxide (22-30) mmol/L Anion Gap mmol/L BUN (7-17) mg/dL Creatinine (0.52-1.04) mg/dL Est GFR (CKD-EPI)AfAm (>60 ml/min/1.73 sqM) Est GFR (CKD-EPI)NonAf (>60 ml/min/1.73 sqM) Glucose (74-99) mg/dL Calcium (8.4-10.2) mg/dL Troponin I <0.012 (0.000-0.034) ng/mL NT-Pro-B Natriuret Pep 190 pg/mL Influenza Type A (PCR) (Not Detectd) Influenza Type B (PCR) (Not Detectd) RSV (PCR) (Not Detectd) SARS-CoV-2 (PCR) (Not Detectd) Disposition Clinical Impression: COPD exacerbation Disposition: HOME SELF-CARE Condition: Good Instructions (If sedation given, give patient instructions): COPD (Chronic Obstructive Pulmonary Disease) (ED) Is patient prescribed a controlled substance at d/c from ED?: No Referrals: Sandra Bingham MD [Primary Care Provider] - 1-2 days
[2021-01-14 08:56] LABS: Basophils % (A) 0 %; Eosinophils # (A) 0.1 k/uL (0-0.7); Eosinophils % (A) 1 %; HCT 45.1 % (34.0-46.0); HGB 14.2 gm/dL (11.4-16.0); Lymphocytes # (A) 1.8 k/uL (1.0-4.8); Lymphocytes % (A) 17 %; MCH 30.6 pg (25.0-35.0); MCHC 31.5 g/dL (31.0-37.0); MCV 97.2 fL (80.0-100.0); Mean Platelet Volume 8.1; Monocytes # (A) 0.6 k/uL (0-1.0); Monocytes % (A) 6 %; Neutrophils # (A) 8.2 k/uL (1.3-7.7); Neutrophils % (A) 75 %; Platelet Count 235 k/uL (150-450); RBC 4.64 m/uL (3.80-5.40); RDW 13.5 % (11.5-15.5)
--- NOTE | 2021-01-14 08:56 | XR ---
EXAMINATION TYPE: XR chest 1V portable DATE OF EXAM: 01/14/2021 HISTORY: Shortness of breath. COMPARISON: 09/08/20 TECHNIQUE: Single view of the chest is submitted. FINDINGS: Demonstrated are scattered senescent parenchymal change. There is no evidence for focal infiltrate. The heart is stable. Hilar and mediastinal structures are within normal limits. Degenerative changes are seen of the dorsal spine. IMPRESSION: 1. Chronic changes without evidence for acute pulmonary disease.
[2021-01-14 09:17] LABS: African American GFR (CKD) >90 (>60 ml/min/1.73 sqM); Anion Gap 6 mmol/L; Blood Urea Nitrogen 13 mg/dL (7-17); Calcium 9.4 mg/dL (8.4-10.2); Carbon Dioxide 26 mmol/L (22-30); Chloride 104 mmol/L (98-107); Glucose 213 mg/dL (74-99); Non-African American GFR(CKD) >90 (>60 ml/min/1.73 sqM); Sodium 136 mmol/L (137-145)
[2021-01-14 09:19] LABS: Potassium 4.7 mmol/L (3.5-5.1)
[2021-01-14 11:06] VITALS: BP 130/71; PULSE 83; RESP 22; TEMP 98.5
== END 2021-01-14 11:07 | disposition home or self-care (01) ==
LOC: EC 08:27
DX: J44.1 Chronic obstructive pulmonary disease with (acute) exacerbation (principal); F17.200 Nicotine dependence, unspecified, uncomplicated; M19.90 Unspecified osteoarthritis, unspecified site; F41.9 Anxiety disorder, unspecified; F32.9 Major depressive disorder, single episode, unspecified; F41.0 Panic disorder [episodic paroxysmal anxiety]; F25.9 Schizoaffective disorder, unspecified
CPT/HCPCS: 36415; 94640; 93005; 83880; 80048; 84484; 85025; 87636; 71045; 99285; J8540

== ENCOUNTER 2021-01-15 19:55 | Inpatient (IN) | payer OTHER ==
[2021-01-15] MEDS ORDERED: IPRATROPIUM-ALBUTEROL 3 ML NEB INHALATION STA (20:05)
[2021-01-15] MEDS ORDERED: ACETAMINOPHEN TAB 325 MG TAB PO STA (20:06)
[2021-01-15] MEDS ORDERED: IBUPROFEN 600 MG TAB PO STA (20:06)
[2021-01-15 20:26] LABS: Basophils % (A) 0 %; Eosinophils % (A) 0 %; HCT 42.9 % (34.0-46.0); Lymphocytes # (A) 1.1 k/uL (1.0-4.8); Lymphocytes % (A) 9 %; MCHC 30.4 g/dL (31.0-37.0); MCV 95.6 fL (80.0-100.0); Mean Platelet Volume 7.3; Monocytes # (A) 0.6 k/uL (0-1.0); Monocytes % (A) 5 %; Neutrophils # (A) 9.7 k/uL (1.3-7.7); Neutrophils % (A) 84 %; Platelet Count 213 k/uL (150-450); RBC 4.49 m/uL (3.80-5.40); RDW 13.3 % (11.5-15.5); WBC 11.6 k/uL (3.8-10.6)
[2021-01-15 20:34] LABS: INR 0.9 (<1.2); Prothrombin Time 9.5 sec (9.0-12.0)
[2021-01-15] MEDS ORDERED: LORazepam 2 MG/ML INJ IV STA (20:35)
[2021-01-15 20:37] LABS: ALT 39 U/L (4-34); AST 35 U/L (14-36); African American GFR (CKD) >90 (>60 ml/min/1.73 sqM); Albumin 3.6 g/dL (3.5-5.0); Alkaline Phosphatase 68 U/L (38-126); Anion Gap 6 mmol/L; Blood Urea Nitrogen 16 mg/dL (7-17); Calcium 9.2 mg/dL (8.4-10.2); Carbon Dioxide 26 mmol/L (22-30); Chloride 101 mmol/L (98-107); Glucose 117 mg/dL (74-99); Magnesium 1.9 mg/dL (1.6-2.3); Non-African American GFR(CKD) >90 (>60 ml/min/1.73 sqM); Potassium 4.2 mmol/L (3.5-5.1); Sodium 133 mmol/L (137-145); Total Bilirubin 0.4 mg/dL (0.2-1.3); Total Protein 6.1 g/dL (6.3-8.2)
[2021-01-15 20:41] LABS: Partial Thromboplastin Time 22.1 sec (22.0-30.0)
--- NOTE | 2021-01-15 20:59 | XR ---
EXAMINATION TYPE: XR chest 2V DATE OF EXAM: 01/15/2021 COMPARISON: Yesterday 2 views Heart and mediastinum are normal. Lungs are clear. Slight blunting of the costophrenic angles. IMPRESSION: Small pleural effusions. There is clearing of the mild interstitial infiltrates at the lung bases com pared to yesterday.
[2021-01-15 21:02] LABS: Appearance,Urine Cloudy (Clear); Bacteria,Urine Few /hpf; Bilirubin,Urine Negative (Negative); Blood,Urine Moderate (Negative); Color,Urine Light Yellow; Glucose,Urine (UA) Negative (Negative); Ketones,Urine Negative (Negative); Leukocyte Esterase,Urine Large (Negative); Nitrite,Urine Negative (Negative); Protein,Urine Trace (Negative); RBC,Urine 86 /hpf (0-5); Squamous Epithelial Cell,Urine <1 /hpf (0-4); Urobilinogen,Urine <2.0 mg/dL (<2.0); WBC,Urine >182 /hpf (0-5)
[2021-01-15] MEDS ORDERED: NALOXONE 0.4 MG/ML 1 ML VIAL IV PRN (21:29)
--- NOTE | 2021-01-15 21:34 | ED ---
SOB HPI - General Chief Complaint: Shortness of Breath Stated Complaint: SOB Time Seen by Provider: 01/15/21 20:05 Source: patient, EMS, RN notes reviewed Mode of arrival: EMS Limitations: physical limitation - History of Present Illness Initial Comments: Patient is a 55 she'll female with a history of COPD and recently a COPD exacerbation when she was discharged in ER yesterday. She comes back today complaining of worsening shortness of breath and difficulty breathing. She notes that she has had to increase her oxygen use. She notes that she got several breathing treatments on the way over via the ambulance. Patient did appear to be in moderate amounts respiratory distress while sitting up in bed during exam and interview. She denied any chest pain headache nausea vomiting diarrhea constipation fever fatigue chills. - Related Data Home Medications Medication Instructions Recorded Confirmed Baclofen [Lioresal] 5 mg PO TID@0800,1600,2100 01/14/21 01/14/21 Buprenorphine HCl/Naloxone HCl 1 film SL TID PRN 01/14/21 01/14/21 [Suboxone 8 mg-2 mg Sl Film] Famotidine [Pepcid] 20 mg PO BID@0800,2100 01/14/21 01/14/21 Ipratropium-Albuterol Nebulize 3 ml INHALATION RT-TID@08,16,21 01/14/21 01/14/21 [Duoneb 0.5 mg-3 mg/3 ml Soln] Lurasidone [Latuda] 40 mg PO DAILY@0800 01/14/21 01/14/21 carvediloL [Coreg] 6.25 mg PO BID@0800,1700 01/14/21 01/14/21 cloNIDine HCL [Catapres] 0.1 mg PO BID@0800,2000 01/14/21 01/14/21 Allergies Allergy/AdvReac Type Severity Reaction Status Date / Time risperidone AdvReac Dyspnea Verified 01/15/21 20:05 Review of Systems ROS Statement: Those systems with pertinent positive or pertinent negative responses have been documented in the HPI. ROS Other: All systems not noted in ROS Statement are negative. Past Medical History Past Medical History: COPD, Musculoskeletal Disorder, Osteoarthritis (OA) Additional Past Medical History / Comment(s): Schizophrenia, DDD, SCOLIOSIS, chronic back pain History of Any Multi-Drug Resistant Organisms: None Reported Past Surgical History: Tubal Ligation Additional Past Surgical History / Comment(s): PAIN CLINIC PROCEDURES Past Anesthesia/Blood Transfusion Reactions: No Reported Reaction Past Psychological History: Anxiety, Depression, Panic Disorder, Schizoaffective Disorder, Schizophrenia Smoking Status: Current every day smoker Past Alcohol Use History: None Reported Past Drug Use History: None Reported - Past Family History Daughter(s) Family Medical History: Blood Disorder, Deep Vein Thrombosis (DVT) Additional Family Medical History / Comment(s): "blood clotting disorder" General Exam Limitations: physical limitation General appearance: alert, in distress Head exam: Present: atraumatic, normocephalic, normal inspection Eye exam: Present: normal appearance, PERRL, EOMI. Absent: scleral icterus, conjunctival injection, periorbital swelling ENT exam: Present: normal exam, mucous membranes moist Neck exam: Present: normal inspection Respiratory exam: Present: normal lung sounds bilaterally. Absent: respiratory distress, wheezes, rales, rhonchi, stridor Cardiovascular Exam: Present: regular rate, normal rhythm, normal heart sounds. Absent: systolic murmur, diastolic murmur, rubs, gallop, clicks GI/Abdominal exam: Present: soft, normal bowel sounds. Absent: distended, tenderness, guarding, rebound, rigid Extremities exam: Present: normal inspection, full ROM, normal capillary refill. Absent: tenderness, pedal edema, joint swelling, calf tenderness Neurological exam: Present: alert, oriented X3 Psychiatric exam: Present: normal affect, normal mood Skin exam: Present: warm, dry, intact, normal color. Absent: rash Course Vital Signs 01/15/21 01/15/21 01/15/21 19:58 20:08 20:30 Temperature 101.6 F H Pulse Rate 114 H 113 H Respiratory 26 H 26 H 24 Rate Blood Pressure 168/94 117/79 O2 Sat by Pulse 96 92 L Oximetry 01/15/21 01/15/21 01/15/21 20:47 20:53 20:54 Temperature Pulse Rate 106 H 106 H 107 H Respiratory 22 Rate Blood Pressure O2 Sat by Pulse 95 Oximetry Medical Decision Making - Medical Decision Making 55-year-old female with COPD complaining of worsening shortness of breath. Labs, chest x-ray, BiPAP ordered. Labs unremarkable, slightly elevated white count at 1.6. Chest x-ray showed blunting glucose chronic angles, small pleural effusion 600 mg of Motrin, 650 mg of Tylenol ordered for mild fever.. Patient does meet admission criteria, Dr. Youngblood was consulted except the admit. Case discussed with Dr. nOeil, patient will be admitted. - Lab Data Result diagrams: 01/15/21 20:09 01/15/21 20:09 Lab Results 01/15/21 01/15/21 01/15/21 Range/Units 20:09 20:09 20:09 WBC 11.6 H (3.8-10.6) k/uL RBC 4.49 (3.80-5.40) m/uL Hgb 13.0 (11.4-16.0) gm/dL Hct 42.9 (34.0-46.0) % MCV 95.6 (80.0-100.0) fL MCH 29.0 (25.0-35.0) pg MCHC 30.4 L (31.0-37.0) g/dL RDW 13.3 (11.5-15.5) % Plt Count 213 (150-450) k/uL MPV 7.3 Neutrophils % 84 % Lymphocytes % 9 % Monocytes % 5 % Eosinophils % 0 % Basophils % 0 % Neutrophils # 9.7 H (1.3-7.7) k/uL Lymphocytes # 1.1 (1.0-4.8) k/uL Monocytes # 0.6 (0-1.0) k/uL Eosinophils # 0.0 (0-0.7) k/uL Basophils # 0.0 (0-0.2) k/uL PT 9.5 (9.0-12.0) sec INR 0.9 (<1.2) APTT 22.1 (22.0-30.0) sec Sodium 133 L (137-145) mmol/L Potassium 4.2 (3.5-5.1) mmol/L Chloride 101 (98-107) mmol/L Carbon Dioxide 26 (22-30) mmol/L Anion Gap 6 mmol/L BUN 16 (7-17) mg/dL Creatinine 0.63 (0.52-1.04) mg/dL Est GFR (CKD-EPI)AfAm >90 (>60 ml/min/1.73 sqM) Est GFR (CKD-EPI)NonAf >90 (>60 ml/min/1.73 sqM) Glucose 117 H (74-99) mg/dL Plasma Lactic Acid Cain (0.7-2.0) mmol/L Calcium 9.2 (8.4-10.2) mg/dL Magnesium 1.9 (1.6-2.3) mg/dL Total Bilirubin 0.4 (0.2-1.3) mg/dL AST 35 (14-36) U/L ALT 39 H (4-34) U/L Alkaline Phosphatase 68 (38-126) U/L Troponin I (0.000-0.034) ng/mL NT-Pro-B Natriuret Pep pg/mL Total Protein 6.1 L (6.3-8.2) g/dL Albumin 3.6 (3.5-5.0) g/dL Urine Color Urine Appearance (Clear) Urine pH (5.0-8.0) Ur Specific [place] (1.001-1.035) Urine Protein (Negative) Urine Glucose (UA) (Negative) Urine Ketones (Negative) Urine Blood (Negative) Urine Nitrite (Negative) Urine Bilirubin (Negative) Urine Urobilinogen (<2.0) mg/dL Ur Leukocyte Esterase (Negative) Urine RBC (0-5) /hpf Urine WBC (0-5) /hpf Ur Squamous Epith Cells (0-4) /hpf Urine Bacteria (None) /hpf Influenza Type A (PCR) (Not Detectd) Influenza Type B (PCR) (Not Detectd) RSV (PCR) (Not Detectd) 01/15/21 01/15/21 01/15/21 Range/Units 20:09 20:09 20:09 WBC (3.8-10.6) k/uL RBC (3.80-5.40) m/uL Hgb (11.4-16.0) gm/dL Hct (34.0-46.0) % MCV (80.0-100.0) fL MCH (25.0-35.0) pg MCHC (31.0-37.0) g/dL RDW (11.5-15.5) % Plt Count (150-450) k/uL MPV Neutrophils % % Lymphocytes % % Monocytes % % Eosinophils % % Basophils % % Neutrophils # (1.3-7.7) k/uL Lymphocytes # (1.0-4.8) k/uL Monocytes # (0-1.0) k/uL Eosinophils # (0-0.7) k/uL Basophils # (0-0.2) k/uL PT (9.0-12.0) sec INR (<1.2) APTT (22.0-30.0) sec Sodium (137-145) mmol/L Potassium (3.5-5.1) mmol/L Chloride (98-107) mmol/L Carbon Dioxide (22-30) mmol/L Anion Gap mmol/L BUN (7-17) mg/dL Creatinine (0.52-1.04) mg/dL Est GFR (CKD-EPI)AfAm (>60 ml/min/1.73 sqM) Est GFR (CKD-EPI)NonAf (>60 ml/min/1.73 sqM) Glucose (74-99) mg/dL Plasma Lactic Acid Cain 1.1 (0.7-2.0) mmol/L Calcium (8.4-10.2) mg/dL Magnesium (1.6-2.3) mg/dL Total Bilirubin (0.2-1.3) mg/dL AST (14-36) U/L ALT (4-34) U/L Alkaline Phosphatase (38-126) U/L Troponin I <0.012 (0.000-0.034) ng/mL NT-Pro-B Natriuret Pep pg/mL Total Protein (6.3-8.2) g/dL Albumin (3.5-5.0) g/dL Urine Color Light Yellow Urine Appearance Cloudy H (Clear) Urine pH 6.0 (5.0-8.0) Ur Specific [place] 1.010 (1.001-1.035) Urine Protein Trace H (Negative) Urine Glucose (UA) Negative (Negative) Urine Ketones Negative (Negative) Urine Blood Moderate H (Negative) Urine Nitrite Negative (Negative) Urine Bilirubin Negative (Negative) Urine Urobilinogen <2.0 (<2.0) mg/dL Ur Leukocyte Esterase Large H (Negative) Urine RBC 86 H (0-5) /hpf Urine WBC >182 H (0-5) /hpf Ur Squamous Epith Cells <1 (0-4) /hpf Urine Bacteria Few H (None) /hpf Influenza Type A (PCR) (Not Detectd) Influenza Type B (PCR) (Not Detectd) RSV (PCR) (Not Detectd) 01/15/21 01/15/21 Range/Units 20:09 20:14 WBC (3.8-10.6) k/uL RBC (3.80-5.40) m/uL Hgb (11.4-16.0) gm/dL Hct (34.0-46.0) % MCV (80.0-100.0) fL MCH (25.0-35.0) pg MCHC (31.0-37.0) g/dL RDW (11.5-15.5) % Plt Count (150-450) k/uL MPV Neutrophils % % Lymphocytes % % Monocytes % % Eosinophils % % Basophils % % Neutrophils # (1.3-7.7) k/uL Lymphocytes # (1.0-4.8) k/uL Monocytes # (0-1.0) k/uL Eosinophils # (0-0.7) k/uL Basophils # (0-0.2) k/uL PT (9.0-12.0) sec INR (<1.2) APTT (22.0-30.0) sec Sodium (137-145) mmol/L Potassium (3.5-5.1) mmol/L Chloride (98-107) mmol/L Carbon Dioxide (22-30) mmol/L Anion Gap mmol/L BUN (7-17) mg/dL Creatinine (0.52-1.04) mg/dL Est GFR (CKD-EPI)AfAm (>60 ml/min/1.73 sqM) Est GFR (CKD-EPI)NonAf (>60 ml/min/1.73 sqM) Glucose (74-99) mg/dL Plasma Lactic Acid Cain (0.7-2.0) mmol/L Calcium (8.4-10.2) mg/dL Magnesium (1.6-2.3) mg/dL Total Bilirubin (0.2-1.3) mg/dL AST (14-36) U/L ALT (4-34) U/L Alkaline Phosphatase (38-126) U/L Troponin I (0.000-0.034) ng/mL NT-Pro-B Natriuret Pep 729 pg/mL Total Protein (6.3-8.2) g/dL Albumin (3.5-5.0) g/dL Urine Color Urine Appearance (Clear) Urine pH (5.0-8.0) Ur Specific [place] (1.001-1.035) Urine Protein (Negative) Urine Glucose (UA) (Negative) Urine Ketones (Negative) Urine Blood (Negative) Urine Nitrite (Negative) Urine Bilirubin (Negative) Urine Urobilinogen (<2.0) mg/dL Ur Leukocyte Esterase (Negative) Urine RBC (0-5) /hpf Urine WBC (0-5) /hpf Ur Squamous Epith Cells (0-4) /hpf Urine Bacteria (None) /hpf Influenza Type A (PCR) Not Detected (Not Detectd) Influenza Type B (PCR) Not Detected (Not Detectd) RSV (PCR) Not Detected (Not Detectd) - Radiology Data Radiology results: report reviewed, image reviewed Chest x-ray: Small pleural effusions. There is clearing of mild interstitial infiltrates at the lung bases compared to yesterday. Disposition Clinical Impression: COPD exacerbation, Hypoxia Disposition: ADMITTED IP TO THIS HOSP Condition: Stable Is patient prescribed a controlled substance at d/c from ED?: No Referrals: Sandra Bingham MD [Primary Care Provider] - 1-2 days Time of Disposition: 21:33
[2021-01-15] MEDS: SODIUM CHLORIDE 0.9% 1,000 ML IV SCH (22:09)
[2021-01-16] MEDS: LORazepam 2 MG/ML INJ IV PRN ×2 (02:13→20:05)
[2021-01-16] MEDS: SODIUM CHLORIDE 0.9% 1,000 ML IV SCH ×2 (09:35→23:06)
[2021-01-16] MEDS ORDERED: LEVOFLOXACIN 750MG-D5W PMX 750 MG in DEXTROSE/WATER 1 150ML.BAG IVPB SCH (10:00)
[2021-01-16] MEDS ORDERED: LIDOCAINE 1% INJ 10MG/ML (20 ML MDV) SQ PRN (14:20)
[2021-01-16] MEDS ORDERED: IPRATROPIUM-ALBUTEROL 3 ML NEB INHALATION PRN (15:21)
--- NOTE | 2021-01-16 15:31 | P.HPIM ---
History of Present Illness Patient is presently 55-year-old female with known history of COPD is is 4 L of oxygen came in with complains of shortness of breath found to be in COPD exacerbation ration is presently on BiPAP. Patient had a chest x-ray which show ed some interstitial infiltrate patient does have fever patient is comparing of cough with whitish sputum production. Patient is bit hyponatremic because of which the eye have concern about Legionella pneumoniae urinary Legionella antigen was ordered. Patient denied any flulike symptoms including myalgias. Patient had influenza testing and Covid 19 PCR were negative. Patient doesn't have diarrhea. Chest x-ray showed mild pleural effusion laterally REVIEW OF SYSTEMS: CONSTITUTIONAL: no malaise, no fatigue. HEENT: No recent visual problems or hearing problems. Denied any sore throat. CARDIOVASCULAR: No chest pain, orthopnea, PND, no palpitations, no syncope. PULMONARY: As mentioned in HPI GASTROINTESTINAL: No diarrhea, no nausea, no vomiting, no abdominal pain. NEUROLOGICAL: No headaches, no weakness, no numbness. HEMATOLOGICAL: Denies any bleeding or petechiae. GENITOURINARY: Denies any burning micturition, frequency, or urgency. MUSCULOSKELETAL/RHEUMATOLOGICAL: Denies any joint pain, swelling, or any muscle pain. ENDOCRINE: Denies any polyuria or polydipsia. The rest of the 14-point review of systems is negative. PHYSICAL EXAMINATION: GENERAL: The patient is alert and oriented x3, not in any acute distress. Well developed, well nourished. HEENT: Pupils are round and equally reacting to light. EOMI. No scleral icterus. No conjunctival pallor. Normocephalic, atraumatic. No pharyngeal erythema. No thyromegaly. CARDIOVASCULAR: S1 and S2 present. No murmurs, rubs, or gallops. PULMONARY: Fairly good air entry into bilateral lung steele minimal expiratory wheezing ABDOMEN: Soft, nontender, nondistended, normoactive bowel sounds. No palpable organomegaly. MUSCULOSKELETAL: No joint swelling or deformity. EXTREMITIES: No cyanosis, clubbing, or pedal edema. NEUROLOGICAL: Gross neurological examination did not reveal any focal deficits. SKIN: No rashes. Assessment and plan -Acute hypoxic and hypercapnic respiratory failure on chronic hypercapnia respiratory failure: Secondary to COPD exacerbation patient is presently on BiPAP to be continued patient usually uses 4 L of oxygen at home. Patient was started on systemic steroids inhalational treatments pulmonary was be consulted -Possible sepsis or systemic inflammatory response we will rule out Legionella considering her hyponatremia. The other possibility is viral pneumonia. Patient will be started on levofloxacin empirically. -Depression/schizoaffective disorder for which patient is alert today which will be continued -Continue nicotine use: Counseling was provided DVT prophylaxis: Lovenox, GI prophylaxis with Pepcid Past Medical History Past Medical History: COPD, Musculoskeletal Disorder, Osteoarthritis (OA) Additional Past Medical History / Comment(s): DDD, SCOLIOSIS, chronic back pain History of Any Multi-Drug Resistant Organisms: None Reported Past Surgical History: Tubal Ligation Additional Past Surgical History / Comment(s): PAIN CLINIC PROCEDURES Past Anesthesia/Blood Transfusion Reactions: No Reported Reaction Past Psychological History: Anxiety, Depression, Panic Disorder, Schizoaffective Disorder, Schizophrenia Smoking Status: Current every day smoker, Former smoker Past Alcohol Use History: None Reported Additional Past Alcohol Use History / Comment(s): STATES LESS THAN 1 PPD, ON AND OFF FROM AGE 12 Past Drug Use History: None Reported - Past Family History Daughter(s) Family Medical History: Blood Disorder, Deep Vein Thrombosis (DVT) Additional Family Medical History / Comment(s): "blood clotting disorder" Medications and Allergies Home Medications Medication Instructions Recorded Confirmed Type Baclofen [Lioresal] 10 mg PO TID@0800,1600,2100 01/14/21 01/16/21 History Buprenorphine HCl/Naloxone HCl 1 film SL TID PRN 01/14/21 01/15/21 History [Suboxone 8 mg-2 mg Sl Film] Famotidine [Pepcid] 20 mg PO BID@0800,2100 01/14/21 01/15/21 History Ipratropium-Albuterol Nebulize 3 ml INHALATION RT-TID@08,16,21 01/14/21 01/15/21 History [Duoneb 0.5 mg-3 mg/3 ml Soln] Lurasidone [Latuda] 40 mg PO DAILY@0800 01/14/21 01/15/21 History carvediloL [Coreg] 6.25 mg PO BID@0800,1700 01/14/21 01/15/21 History cloNIDine HCL [Catapres] 0.1 mg PO BID@0800,2000 01/14/21 01/15/21 History Allergies Allergy/AdvReac Type Severity Reaction Status Date / Time risperidone AdvReac Dyspnea Verified 01/15/21 22:43 Physical Exam Vitals: Vital Signs Temp Pulse Pulse Resp BP BP Pulse Ox 01/16/21 14:00 98.3 F 96 18 125/70 95 01/16/21 09:34 65 20 111/77 95 01/16/21 08:39 98.0 F 89 16 106/81 95 01/16/21 04:30 66 28 H 110/73 94 L 01/16/21 02:00 79 108/87 97 01/16/21 00:30 69 18 124/88 96 01/15/21 22:38 146/94 99 01/15/21 22:30 58 L 18 121/80 97 01/15/21 22:00 60 18 141/104 99 01/15/21 21:30 59 L 18 132/89 97 01/15/21 21:11 62 18 132/89 96 01/15/21 20:54 107 H 01/15/21 20:53 106 H 22 95 01/15/21 20:47 106 H 01/15/21 20:30 113 H 24 117/79 92 L 01/15/21 20:08 26 H 01/15/21 19:58 101.6 F H 114 H 26 H 168/94 96 Intake and Output 01/16/21 01/16/21 01/16/21 06:59 14:59 22:59 Output Total 200 Balance -200 Output: Urine 200 Results CBC & Chem 7: 01/15/21 20:09 01/15/21 20:09 Labs: Abnormal Lab Results - Last 24 Hours (Table) 01/15/21 01/15/21 01/15/21 Range/Units 20:09 20:09 20:09 WBC 11.6 H (3.8-10.6) k/uL MCHC 30.4 L (31.0-37.0) g/dL Neutrophils # 9.7 H (1.3-7.7) k/uL Sodium 133 L (137-145) mmol/L Glucose 117 H (74-99) mg/dL ALT 39 H (4-34) U/L Total Protein 6.1 L (6.3-8.2) g/dL Urine Appearance Cloudy H (Clear) Urine Protein Trace H (Negative) Urine Blood Moderate H (Negative) Ur Leukocyte Esterase Large H (Negative) Urine RBC 86 H (0-5) /hpf Urine WBC >182 H (0-5) /hpf Urine Bacteria Few H (None) /hpf Microbiology - Last 24 Hours (Table) 01/15/21 20:09 Urine Culture - Preliminary Urine,Voided Thrombosis Risk Factor Assmnt - Choose All That Apply Any of the Below Risk Factors Present?: Yes Each Factor Represents 1 point: Age 41-60 years, Medical pt on bed rest, Obesity (BMI >25) Other Risk Factors: No Other congenital or acquired thrombophilia - If yes, enter type in comment: No Thrombosis Risk Factor Assessment Total Risk Factor Score: 3 Thrombosis Risk Factor Assessment Level: Moderate Risk
--- NOTE | 2021-01-16 17:15 | P.CNPUL ---
History of Present Illness Consult date: 01/16/21 Reason for consult: COPD Chief complaint: Shortness of breath, cough and wheezing History of present illness: This is a 85-year-old female with history of severe COPD, schizophrenia, degenerative joint disease, tobacco dependence syndrome, patient was seen in the ER on 01/14/21, mostly with symptoms of COPD exacerbation, shortness of breath, cough, wheezing, and symptoms of URI. Patient had no fever, no chills, no h emoptysis, patient is normally on oxygen at home at 2 L, patient was evaluated in the ER and she was discharged home. PCR for COVID-19 infection was negative. Chest x-ray showed no evidence of acute process. Patient did not meet criteria for admission. Patient came back today, feeling about the same, complaining of cough wheezing and shortness of breath, chest x-ray again showed no evidence of infiltrate, patient was admitted, and this consult was initiated. Review of Systems CONSTITUTIONAL: Negative. HEENT: GERD. CARDIOVASCULAR: Drip. PULMONARY: As mentioned in HPI GASTROINTESTINAL: Unit. NEUROLOGICAL: Drip. HEMATOLOGICAL: Denies any bleeding or petechiae. GENITOURINARY: Negative. MUSCULOSKELETAL/RHEUMATOLOGICAL: Negative ENDOCRINE: Negative. Psychiatric: History of schizophrenia Past Medical History Past Medical History: COPD, Musculoskeletal Disorder, Osteoarthritis (OA) Additional Past Medical History / Comment(s): DDD, SCOLIOSIS, chronic back pain History of Any Multi-Drug Resistant Organisms: None Reported Past Surgical History: Tubal Ligation Additional Past Surgical History / Comment(s): PAIN CLINIC PROCEDURES Past Anesthesia/Blood Transfusion Reactions: No Reported Reaction Past Psychological History: Anxiety, Depression, Panic Disorder, Schizoaffective Disorder, Schizophrenia Smoking Status: Current every day smoker, Former smoker Past Alcohol Use History: None Reported Additional Past Alcohol Use History / Comment(s): STATES LESS THAN 1 PPD, ON AND OFF FROM AGE 12 Past Drug Use History: None Reported - Past Family History Daughter(s) Family Medical History: Blood Disorder, Deep Vein Thrombosis (DVT) Additional Family Medical History / Comment(s): "blood clotting disorder" Medications and Allergies Home Medications Medication Instructions Recorded Confirmed Type Baclofen [Lioresal] 10 mg PO TID@0800,1600,2100 01/14/21 01/16/21 History Buprenorphine HCl/Naloxone HCl 1 film SL TID PRN 01/14/21 01/15/21 History [Suboxone 8 mg-2 mg Sl Film] Famotidine [Pepcid] 20 mg PO BID@0800,2100 01/14/21 01/15/21 History Ipratropium-Albuterol Nebulize 3 ml INHALATION RT-TID@08,16,21 01/14/21 01/15/21 History [Duoneb 0.5 mg-3 mg/3 ml Soln] Lurasidone [Latuda] 40 mg PO DAILY@0800 01/14/21 01/15/21 History carvediloL [Coreg] 6.25 mg PO BID@0800,1700 01/14/21 01/15/21 History cloNIDine HCL [Catapres] 0.1 mg PO BID@0800,2000 01/14/21 01/15/21 History Allergies Allergy/AdvReac Type Severity Reaction Status Date / Time risperidone AdvReac Dyspnea Verified 01/15/21 22:43 Physical Exam Vitals: Vital Signs Temp Pulse Pulse Resp BP BP Pulse Ox 01/16/21 14:00 98.3 F 96 18 125/70 95 01/16/21 09:34 65 20 111/77 95 01/16/21 08:39 98.0 F 89 16 106/81 95 01/16/21 04:30 66 28 H 110/73 94 L 01/16/21 02:00 79 108/87 97 01/16/21 00:30 69 18 124/88 96 01/15/21 22:38 146/94 99 01/15/21 22:30 58 L 18 121/80 97 01/15/21 22:00 60 18 141/104 99 01/15/21 21:30 59 L 18 132/89 97 01/15/21 21:11 62 18 132/89 96 01/15/21 20:54 107 H 01/15/21 20:53 106 H 22 95 01/15/21 20:47 106 H 01/15/21 20:30 113 H 24 117/79 92 L 01/15/21 20:08 26 H 01/15/21 19:58 101.6 F H 114 H 26 H 168/94 96 Intake and Output 01/16/21 01/16/21 01/16/21 06:59 14:59 22:59 Output Total 200 Balance -200 Output: Urine 200 GENERAL: The patient is alert and oriented x3, not in any acute distress. Obese HEENT: Pupils are round and equally reacting to light. EOMI. No scleral icterus. No conjunctival pallor. Normocephalic, atraumatic. No pharyngeal erythema. No thyromegaly. CARDIOVASCULAR: S1 and S2 present. No murmurs, rubs, or gallops. PULMONARY: Decreased air entry into bilateral lung steele, diminished breath sounds and diffuse expiratory wheezes throughout the lung his bilaterally and the patient is prolongation of the escalation phase of breathing. ABDOMEN: Soft, nontender, nondistended, normoactive bowel sounds. No palpable organomegaly. MUSCULOSKELETAL: No joint swelling or deformity. EXTREMITIES: No cyanosis, clubbing, or pedal edema. NEUROLOGICAL: Gross neurological examination did not reveal any focal deficits. SKIN: Examination of the skin revealed no evidence of significant rashes, suspicious appearing nevi or other concerning lesions. Results - Laboratory Findings CBC and BMP: 01/15/21 20:09 01/15/21 20:09 PT/INR, D-dimer PT 9.5 sec (9.0-12.0) 01/15/21 20:09 INR 0.9 (<1.2) 01/15/21 20:09 Abnormal lab findings: Abnormal Labs 01/15/21 01/15/21 01/15/21 20:09 20:09 20:09 WBC 11.6 H MCHC 30.4 L Neutrophils # 9.7 H Sodium 133 L Glucose 117 H ALT 39 H Total Protein 6.1 L Urine Appearance Cloudy H Urine Protein Trace H Urine Blood Moderate H Ur Leukocyte Esterase Large H Urine RBC 86 H Urine WBC >182 H Urine Bacteria Few H - Diagnostic Findings Chest x-ray: image reviewed (No evidence of active disease) Assessment and Plan Assessment: Impression: Acute exacerbation of COPD Acute on chronic hypoxic respiratory failure Acute tracheobronchitis History of schizophrenia History of degenerative joint disease Recommendation: Continue present course of bronchodilators. DuoNeb. Add Symbicort 160/4.52 puffs twice a day. Continue steroids. Methylprednisolone 40 mg IV push every 8 hours. Oral antibiotics./Levaquin. data services developer to evaluate for possible placement Resume home meds. Possible discharge planning in the next 24 hours. GI and DVT prophylaxis. We will continue to follow Time with Patient: Greater than 30
[2021-01-16] MEDS: BACLOFEN 10 MG TAB PO SCH ×2 (17:31→20:04)
[2021-01-16] MEDS: NICOTINE 14MG/24HR PATCH TRANSDERM SCH (17:31)
[2021-01-16] MEDS: LURASIDONE 40 MG TAB PO SCH (17:31)
[2021-01-16] MEDS: INSULIN ASPART (NovoLOG) 100 UNIT/ML VIAL SQ SCH ×2 (18:03→20:32)
[2021-01-16 19:51] LABS: Glucose,Whole Blood 130 mg/dL (75-99)
[2021-01-16] MEDS: SYMBICORT 160-4.5 MCG INHALER INHALATION SCH (19:53)
[2021-01-16] MEDS: IPRATROPIUM-ALBUTEROL 3 ML NEB INHALATION SCH ×2 (19:53)
[2021-01-16] MEDS: ACETAMINOPHEN TAB 325 MG TAB PO PRN (20:04)
[2021-01-16] MEDS: FAMOTIDINE 20 MG TAB PO SCH (20:04)
[2021-01-16] MEDS ORDERED: methylPREDNISolone SOD SUCCI 40 MG/ML 1 ML VIAL IV SCH (21:00)
[2021-01-16] MEDS: methylPREDNISolone SOD SUCCI 40 MG/ML 1 ML VIAL IV SCH (23:05)
[2021-01-17] MEDS: LORazepam 2 MG/ML INJ IV PRN ×3 (02:28→19:09)
[2021-01-17 06:50] LABS: HCT 41.3 % (34.0-46.0); HGB 12.9 gm/dL (11.4-16.0); MCHC 31.3 g/dL (31.0-37.0); Mean Platelet Volume 7.5; Platelet Count 232 k/uL (150-450); RBC 4.31 m/uL (3.80-5.40); RDW 13.6 % (11.5-15.5); WBC 10.5 k/uL (3.8-10.6)
[2021-01-17 07:07] LABS: ALT 32 U/L (4-34); AST 21 U/L (14-36); African American GFR (CKD) >90 (>60 ml/min/1.73 sqM); Albumin 3.4 g/dL (3.5-5.0); Alkaline Phosphatase 69 U/L (38-126); Anion Gap 7 mmol/L; Blood Urea Nitrogen 15 mg/dL (7-17); Calcium 9.5 mg/dL (8.4-10.2); Carbon Dioxide 25 mmol/L (22-30); Chloride 107 mmol/L (98-107); Glucose 157 mg/dL (74-99); Non-African American GFR(CKD) >90 (>60 ml/min/1.73 sqM); Potassium 4.3 mmol/L (3.5-5.1); Sodium 139 mmol/L (137-145); Total Bilirubin 0.2 mg/dL (0.2-1.3)
[2021-01-17] MEDS ORDERED: LURASIDONE 40 MG TAB PO SCH (08:00)
[2021-01-17 08:38] LABS: Glucose,Whole Blood 214 mg/dL (75-99)
[2021-01-17] MEDS: FAMOTIDINE 20 MG TAB PO SCH ×2 (08:48→20:03)
[2021-01-17] MEDS: BACLOFEN 10 MG TAB PO SCH ×3 (08:48→20:03)
[2021-01-17] MEDS: LURASIDONE 40 MG TAB PO SCH (08:48)
[2021-01-17] MEDS: INSULIN ASPART (NovoLOG) 100 UNIT/ML VIAL SQ SCH ×4 (08:49→20:25)
[2021-01-17] MEDS: methylPREDNISolone SOD SUCCI 40 MG/ML 1 ML VIAL IV SCH (08:49)
[2021-01-17] MEDS: ENOXAPARIN 40 MG/0.4 ML SYRINGE SQ SCH (08:49)
[2021-01-17] MEDS: NICOTINE 14MG/24HR PATCH TRANSDERM SCH (08:53)
[2021-01-17] MEDS: SYMBICORT 160-4.5 MCG INHALER INHALATION SCH ×2 (09:18→19:19)
[2021-01-17] MEDS: IPRATROPIUM-ALBUTEROL 3 ML NEB INHALATION SCH ×4 (09:18→19:19)
--- NOTE | 2021-01-17 10:43 | P.PN ---
Subjective Progress Note Date: 01/17/21 Principal diagnosis: Acute exacerbation chronic obstructive pulmonary disease This is a 85-year-old female with history of severe COPD, schizophrenia, degenerative joint disease, tobacco dependence syndrome, patient was seen in the ER on 01/14/21, mostly with symptoms of COPD exacerbation, shortness of breath, cough, wheezing, and symptoms of URI. Patient had no fever, no chills, no hemoptysis, patient is normally on oxygen at home at 2 L, patient was evaluated in the ER and she was discharged home. PCR for COVID-19 infection was negative. Chest x-ray showed no evidence of acute process. Patient did not meet criteria for admission. Patient came back today, feeling about the same, complaining of cough wheezing and shortness of breath, chest x-ray again showed no evidence of infiltrate, patient was admitted, and this consult was initiated. The patient is seen today 01/17/2021 in follow-up on the observation unit. She is currently sitting up in bed. Awake and alert in no acute distress. Maintaining O2 saturations in the mid 90s on 5 L/m per nasal cannula. Afebrile. Hemodynamically stable here blood cultures reveal no growth. White count 10.5. Hemoglobin 12.9. Sodium 139. Potassium 4.3. Creatinine 0.65. Urine culture pending. Currently on ceftriaxone. Maintained on Symbicort, DuoNeb inhalations, IV Solu-Medrol. Lovenox for DVT prophylaxis. NicoDerm patch in place. 0.9 normal saline at 75 ML's per hour. Objective - Vital Signs Vital signs: Vital Signs Temp 96.7 F L 01/17/21 07:35 Pulse 101 H 01/17/21 09:35 Resp 16 01/17/21 07:35 BP 132/87 01/17/21 07:35 Pulse Ox 95 01/17/21 07:35 Intake & Output 01/16/21 01/17/21 01/17/21 18:59 06:59 18:59 Output Total 200 Balance -200 Output: Urine 200 Other: Voiding Method Bedside Commode Bedside Commode # Voids 2 3 1 - Exam GENERAL EXAM: Alert, active, 85-year-old female patient, on 5 L nasal cannula, comfortable in no apparent distress. HEAD: Normocephalic. EYES: Normal reaction of pupils, equal size. NOSE: Clear with pink turbinates. THROAT: No erythema or exudates. NECK: No masses, no JVD. CHEST: No chest wall deformity. LUNGS: Equal air entry with faint end expiratory wheeze, diminished CVS: S1 and S2 normal with no audible murmur, regular rhythm. ABDOMEN: No hepatosplenomegaly, normal bowel sounds, no guarding or rigidity. SPINE: No scoliosis or deformity SKIN: No rashes CENTRAL NERVOUS SYSTEM: No focal deficits, tone is normal in all 4 extremities. EXTREMITIES: There is no peripheral edema. No clubbing, no cyanosis. Peripheral pulses are intact. - Labs CBC & Chem 7: 01/17/21 06:15 01/17/21 06:15 Labs: Abnormal Lab Results - Last 24 Hours (Table) 01/16/21 01/17/21 01/17/21 Range/Units 19:50 06:15 08:36 Glucose 157 H (74-99) mg/dL POC Glucose (mg/dL) 130 H 214 H (75-99) mg/dL Total Protein 6.0 L (6.3-8.2) g/dL Albumin 3.4 L (3.5-5.0) g/dL Microbiology - Last 24 Hours (Table) 01/16/21 11:33 Blood Culture Gram Stain - Preliminary Blood 01/16/21 11:33 Blood Culture - Final Blood 01/16/21 11:33 Blood Culture Gram Stain - Preliminary Blood 01/16/21 11:33 Blood Culture - Final Blood 01/15/21 20:09 Urine Culture - Preliminary Urine,Voided Assessment and Plan Assessment: 1 Acute exacerbation of chronic obstructive pulmonary disease 2 Chronic and ongoing tobacco dependence 3 Schizophrenia 4 Chronic back pain 5 Osteoarthritis 6 Suspected urinary tract infection, culture pending, on ceftriaxone Plan: The patient was seen and evaluated by Dr. Pastrana She is cleared for discharge from the pulmonary standpoint Complete a course of antibiotics Complete a prednisone taper starting at 40 mg daily for 4 days Symbicort, DuoNeb inhalations, albuterol HFA Again educated regarding the importance of complete smoking cessation NicoDerm patch in place Titrate down the FiO2 as tolerated Follow-up in the office in 1-2 weeks' I, the cosigning physician, performed a history & physical examination of the patient. Lungs sounds with faint end expiratory wheeze, diminished. Maintaining good O2 saturations in the 90s on 5 L/m per nasal cannula. I discussed the assessment and plan of care with my nurse practitioner, Renetta Ortiz. I attest to the above note as dictated by her.
[2021-01-17 12:09] LABS: Glucose,Whole Blood 191 mg/dL (75-99)
--- NOTE | 2021-01-17 12:31 | P.PN ---
Subjective Progress Note Date: 01/17/21 Patient is presently 55-year-old female with known history of COPD is is 4 L of oxygen came in with complains of shortness of breath found to be in COPD exacerbation ration is presently on BiPAP. Patient had a chest x-ray which showed some interstitial infiltrate patient does have fever patient is comparing of cough with whitish sputum production. Patient is bit hyponatremic because of which the eye have concern about Legionella pneumoniae urinary Legionella antigen was ordered. Patient denied any flulike symptoms including myalgias. Patient had influenza testing and Covid 19 PCR were negative. Patient doesn't have diarrhea. Chest x-ray showed mild pleural effusion laterally 01/17/2021 Patient is evaluated resting the bed. She denies any shortness of breath, she does state that she has a intermittent reactive cough. She wears 3-4 L of oxygen at home for a history of COPD, she is on 5 L nasal cannula with an oxygen saturation of 95%. There is no wheezing noted on examination. She denies any chest pain. She does state that she has a history of acid reflux and she does feel some epigastric discomfort. She is on Pepcid twice a day. Blood cultures remain positive showing gram-negative rods and bacilli in the pulmonary reports. Final cultures are pending. We'll repeat insulin negative and we will consult infectious disease for further antibiotic recommendations. Patient is a daily smoker, we placed on a nicotine patch. Labs today including a blood cell count of 10.5, sodium is normalized at 139. She does have some hypoglycemia this could be related to steroid use. Steroids were decreased to 40 mg daily. ROS Constitutional: Denied any fatigue denied any fever. Cardio vascular: denied any chest pain, palpitations Gastrointestinal denied any nausea vomiting does report some epigastric discomfort Pulmonary: Denied any shortness of breath, reports cough with sputum Neurologic denied any new focal deficits All inpatient medications were reviewed and appropriate changes in these medications as dictated in the interval history and assessment and plan. PHYSICAL EXAMINATION: GENERAL: The patient is alert and oriented x3, not in any acute distress. Well developed, well nourished. HEENT: Pupils are round and equally reacting to light. EOMI. No scleral icterus. No conjunctival pallor. Normocephalic, atraumatic. No pharyngeal erythema. No thyromegaly. CARDIOVASCULAR: S1 and S2 present. No murmurs, rubs, or gallops. PULMONARY: Fairly good air entry into bilateral lung steele minimal expiratory wheezing ABDOMEN: Soft, nontender, nondistended, normoactive bowel sounds. No palpable organomegaly. MUSCULOSKELETAL: No joint swelling or deformity. EXTREMITIES: No cyanosis, clubbing, or pedal edema. NEUROLOGICAL: Gross neurological examination did not reveal any focal deficits. SKIN: No rashes. Assessment and plan -Acute hypoxic and hypercapnic respiratory failure on chronic hypercapnia respiratory failure: Secondary to COPD exacerbation patient is5 L nasal cannula, wears 4 L nasal cannula home Possible sepsis or systemic inflammatory response we will rule out Legionella considering her hyponatremia. The other possibility is viral pneumonia. -Depression/schizoaffective disorder for which patient is aon latuda which will be continued -Continue nicotine use: Counseling was provided, nicotine patch DVT prophylaxis: Lovenox GI prophylaxis with Pepcid Patient is cleared by pulmonary services, consult ID for positive blood cultures, further recommendations pending. Objective - Vital Signs Vital signs: Vital Signs Temp 96.7 F L 01/17/21 07:35 Pulse 101 H 01/17/21 09:35 Resp 16 01/17/21 08:00 BP 132/87 01/17/21 07:35 Pulse Ox 95 01/17/21 07:35 Intake & Output 01/16/21 01/17/21 01/17/21 18:59 06:59 18:59 Output Total 200 Balance -200 Output: Urine 200 Other: Voiding Method Bedside Commode Bedside Commode Bedside Commode # Voids 2 3 2 - Labs CBC & Chem 7: 01/17/21 06:15 01/17/21 06:15 Labs: Abnormal Lab Results - Last 24 Hours (Table) 01/16/21 01/17/21 01/17/21 Range/Units 19:50 06:15 08:36 Glucose 157 H (74-99) mg/dL POC Glucose (mg/dL) 130 H 214 H (75-99) mg/dL Total Protein 6.0 L (6.3-8.2) g/dL Albumin 3.4 L (3.5-5.0) g/dL 01/17/21 Range/Units 12:07 Glucose (74-99) mg/dL POC Glucose (mg/dL) 191 H (75-99) mg/dL Total Protein (6.3-8.2) g/dL Albumin (3.5-5.0) g/dL Microbiology - Last 24 Hours (Table) 01/16/21 11:33 Blood Culture Gram Stain - Preliminary Blood 01/16/21 11:33 Blood Culture - Final Blood 01/16/21 11:33 Blood Culture Gram Stain - Preliminary Blood 01/16/21 11:33 Blood Culture - Final Blood 01/15/21 20:09 Urine Culture - Preliminary Urine,Voided Assessment and Plan Time with Patient: Greater than 30
[2021-01-17] MEDS: SODIUM CHLORIDE 0.9% 1,000 ML IV SCH (12:51)
[2021-01-17 16:55] LABS: Glucose,Whole Blood 209 mg/dL (75-99)
[2021-01-17 20:11] LABS: Glucose,Whole Blood 154 mg/dL (75-99)
--- NOTE | 2021-01-17 23:14 | P.CONS ---
History of Present Illness - Reason for Consult Consult date: 01/17/21 Bacteremia Requesting physician: David Montanez - Chief Complaint shortness of breath x few days - History of Present Illness History of present illness : Patient is 55-year-old female presenting to the ER 2 days ago for evaluation of increasing shortness of breath in this patient who did have a benign COPD patient be complaining of increasing shortness of breath on minimal exertion and she has to increase her oxygen use patient also have a cough which is mild to moderate intensity not back up any purulent sputum no hemoptysis no pleuritic chest pain patient denies having any nausea vomiting abdominal pain no diarrhea patient did have some urinary freq uency but no burning suprapubic or flank pain with the symptoms the patient was evaluated by the physician on arrival to the ER the patient did have a fever of 101.6 F patient did have tachycardia did have urgent 11.6 patient did have normal kidney function as well liver enzymes did have a positive UA blood cultures are now coming back positive with gram-negative bacilli that has prompted this infectious disease consultation patient did have a chest x-ray on admission small effusion in no acute consolidation Review of system: CONSTITUTIONAL: Positive for weakness along with the fever. EYES: No complaint. ENT: No complaint. RESPIRATORY: As per history of present illness. CARDIOVASCULAR: No complaint. GENITOURINARY: As per history of present illness. GASTROINTESTINAL: No complaint. MUSCULOSKELETAL: No complaint. INTEGUMENTARY: No complaint. PSYCHOLOGIC: No complaint. ENDOCRINE: No complaint. NEUROLOGIC: No complaint. Past medical history : Reviewed, documented below Past surgical history : Reviewed, documented below Social history: Reviewed, documented below Medications: Reviewed, as documented below EXAMINATION: Vital sigans= Reviewed and documented below GENERAL DESCRIPTION: Middle-aged female lying in bed, no distress. No tachypnea or accessory muscle of respiration use. HEENT: Shows Pallor , no scleral icterus. Oral mucous membrane is dry. NECK: Trachea central, no thyromegaly. LUNGS: Unlabored breathing. Coarse breath sounds bilaterally occasional wheeze HEART: S1, S2, regular rate and rhythm. ABDOMEN: Soft, no tenderness , guarding or rigidity EXTREMITIES: No edema of feet. SKIN: No rash, no masses palpable. NEUROLOGICAL: The patient is awake, alert, oriented x3, mood and affect normal. LABS AND RADIOLOGY: Reviewed results see below Assessment : 1-patient with gram-negative bacteremia source is likely urinary in this patient who did have urinary frequency did have significantly positive UA and will likely require further enteric gram-negative likely pathogen patient did have shortness of breath with underlying COPD the patient clinically not behaving as pneumonia and chest x-ray did not show any consolidation Plan: 1-Rocephin 2 g daily to continue 2-check ultrasound kidney and bladder retraining evidence of any structural abnormality 3-gentle IV fluid We will follow on clinical condition and cultures to further adjust medication i f needed Thank you for this consultation we will follow the patient along with you Past Medical History Past Medical History: COPD, Musculoskeletal Disorder, Osteoarthritis (OA) Additional Past Medical History / Comment(s): DDD, SCOLIOSIS, chronic back pain History of Any Multi-Drug Resistant Organisms: None Reported Past Surgical History: Tubal Ligation Additional Past Surgical History / Comment(s): PAIN CLINIC PROCEDURES Past Anesthesia/Blood Transfusion Reactions: No Reported Reaction Past Psychological History: Anxiety, Depression, Panic Disorder, Schizoaffective Disorder, Schizophrenia Smoking Status: Current every day smoker, Former smoker Past Alcohol Use History: None Reported Additional Past Alcohol Use History / Comment(s): STATES LESS THAN 1 PPD, ON AND OFF FROM AGE 12 Past Drug Use History: None Reported - Past Family History Daughter(s) Family Medical History: Blood Disorder, Deep Vein Thrombosis (DVT) Additional Family Medical History / Comment(s): "blood clotting disorder" Medications and Allergies Home Medications Medication Instructions Recorded Confirmed Type Baclofen [Lioresal] 10 mg PO TID@0800,1600,2100 01/14/21 01/16/21 History Buprenorphine HCl/Naloxone HCl 1 film SL TID PRN 01/14/21 01/15/21 History [Suboxone 8 mg-2 mg Sl Film] Famotidine [Pepcid] 20 mg PO BID@0800,2100 01/14/21 01/15/21 History Ipratropium-Albuterol Nebulize 3 ml INHALATION RT-TID@08,16,21 01/14/21 01/15/21 History [Duoneb 0.5 mg-3 mg/3 ml Soln] Lurasidone [Latuda] 40 mg PO DAILY@0800 01/14/21 01/15/21 History carvediloL [Coreg] 6.25 mg PO BID@0800,1700 01/14/21 01/15/21 History cloNIDine HCL [Catapres] 0.1 mg PO BID@0800,199901/14/21 01/15/21 History Allergies Allergy/AdvReac Type Severity Reaction Status Date / Time risperidone AdvReac Dyspnea Verified 01/15/21 22:43 Physical Exam Vitals: Vital Signs Temp Pulse Pulse Pulse Resp BP Pulse Ox 01/17/21 09:35 101 H 01/17/21 09:19 98 01/17/21 08:00 100 16 01/17/21 07:35 96.7 F L 105 H 16 132/87 95 01/17/21 01:13 98.7 F 98 16 114/78 95 01/16/21 23:08 99 F 01/16/21 20:07 103 H 01/16/21 20:00 101.1 F H 114 H 18 128/80 97 01/16/21 19:54 102 H 01/16/21 14:00 98.3 F 96 18 125/70 95 Intake and Output 01/16/21 01/17/21 01/17/21 22:59 06:59 14:59 Output Total 200 Balance -200 Output: Urine 200 Other: Voiding Method Bedside Commode Bedside Commode # Voids 1 3 2 Results CBC & Chem 7: 01/17/21 06:15 01/17/21 06:15 Labs: Abnormal Lab Results - Last 24 Hours (Table) 01/16/21 01/17/21 01/17/21 Range/Units 19:50 06:15 08:36 Glucose 157 H (74-99) mg/dL POC Glucose (mg/dL) 130 H 214 H (75-99) mg/dL Total Protein 6.0 L (6.3-8.2) g/dL Albumin 3.4 L (3.5-5.0) g/dL 01/17/21 Range/Units 12:07 Glucose (74-99) mg/dL POC Glucose (mg/dL) 191 H (75-99) mg/dL Total Protein (6.3-8.2) g/dL Albumin (3.5-5.0) g/dL Microbiology - Last 24 Hours (Table) 01/16/21 11:33 Blood Culture Gram Stain - Preliminary Blood 01/16/21 11:33 Blood Culture - Final Blood 01/16/21 11:33 Blood Culture Gram Stain - Preliminary Blood 01/16/21 11:33 Blood Culture - Final Blood 01/15/21 20:09 Urine Culture - Preliminary Urine,Voided
[2021-01-18] MEDS: LORazepam 2 MG/ML INJ IV PRN ×3 (01:07→13:25)
[2021-01-18] MEDS: SODIUM CHLORIDE 0.9% 1,000 ML IV SCH (04:30)
[2021-01-18 06:30] LABS: Mycoplasma IgG Antibody (EIA) 0.55 INDEX (<=0.90); Mycoplasma IgM Antibody 0.11 INDEX (<=0.90)
[2021-01-18 06:50] LABS: Glucose,Whole Blood 103 mg/dL (75-99)
[2021-01-18] MEDS: INSULIN ASPART (NovoLOG) 100 UNIT/ML VIAL SQ SCH ×4 (07:25→20:07)
[2021-01-18 07:58] LABS: Basophils % (A) 0 %; Eosinophils % (A) 0 %; Lymphocytes # (A) 1.4 k/uL (1.0-4.8); Lymphocytes % (A) 15 %; MCH 29.4 pg (25.0-35.0); MCHC 30.4 g/dL (31.0-37.0); MCV 96.6 fL (80.0-100.0); Mean Platelet Volume 7.6; Monocytes # (A) 0.3 k/uL (0-1.0); Monocytes % (A) 4 %; Neutrophils # (A) 7.2 k/uL (1.3-7.7); Neutrophils % (A) 80 %; Platelet Count 207 k/uL (150-450); RBC 4.76 m/uL (3.80-5.40); RDW 13.4 % (11.5-15.5); WBC 9.1 k/uL (3.8-10.6)
[2021-01-18 08:13] LABS: African American GFR (CKD) >90 (>60 ml/min/1.73 sqM); Anion Gap 7 mmol/L; Blood Urea Nitrogen 14 mg/dL (7-17); Calcium 9.6 mg/dL (8.4-10.2); Carbon Dioxide 26 mmol/L (22-30); Chloride 108 mmol/L (98-107); Glucose 190 mg/dL (74-99); Non-African American GFR(CKD) >90 (>60 ml/min/1.73 sqM); Potassium 3.6 mmol/L (3.5-5.1); Sodium 141 mmol/L (137-145)
--- NOTE | 2021-01-18 08:50 | US ---
EXAMINATION TYPE: US kidneys/renal and bladder DATE OF EXAM: 01/18/2021 COMPARISON: NONE CLINICAL HISTORY: uti and bacteremia. UTI EXAM MEASUREMENTS: Right Kidney: 10.4 x 4.5 x 5.4 cm Left Kidney: 10.3 x 5.0 x 5.0 cm Right Kidney: No evidence of hydro, probable cyst lower pole= 1.5 cm Left Kidney: No evidence of hydro, lower pole gassed out Bladder: wnl Bilateral Jets seen: No There is no evidence for hydronephrosis at this point in time. No nephrolithiasis is seen. No solid masses are identified. The urinary bladder is anechoic. Bilateral ureteral jets are seen. IMPRESSION: Right renal cyst.
[2021-01-18] MEDS: SYMBICORT 160-4.5 MCG INHALER INHALATION SCH ×2 (09:01→21:22)
[2021-01-18] MEDS: IPRATROPIUM-ALBUTEROL 3 ML NEB INHALATION SCH ×4 (09:01→21:22)
[2021-01-18] MEDS: ENOXAPARIN 40 MG/0.4 ML SYRINGE SQ SCH (09:05)
[2021-01-18] MEDS: NICOTINE 14MG/24HR PATCH TRANSDERM SCH (09:05)
[2021-01-18] MEDS: BACLOFEN 10 MG TAB PO SCH ×3 (09:06→20:04)
[2021-01-18] MEDS: FAMOTIDINE 20 MG TAB PO SCH ×2 (09:06→20:05)
[2021-01-18] MEDS: predniSONE 20 MG TAB PO SCH (09:06)
[2021-01-18] MEDS: LURASIDONE 40 MG TAB PO SCH (09:06)
[2021-01-18] MEDS: ACETAMINOPHEN TAB 325 MG TAB PO PRN (09:54)
[2021-01-18 11:59] LABS: Glucose,Whole Blood 105 mg/dL (75-99)
--- NOTE | 2021-01-18 14:31 | P.PN ---
Subjective Progress Note Date: 01/18/21 Patient is presently 55-year-old female with known history of COPD is is 4 L of oxygen came in with complains of shortness of breath found to be in COPD exacerbation ration is presently on BiPAP. Patient had a chest x-ray which showed some interstitial infiltrate patient does have fever patient is comparing of cough with whitish sputum production. Patient is bit hyponatremic because of which the eye have concern about Legionella pneumoniae urinary Legionella antigen was ordered. Patient denied any flulike symptoms including myalgias. Patient had influenza testing and Covid 19 PCR were negative. Patient doesn't have diarrhea. Chest x-ray showed mild pleural effusion laterally 01/17/2021 Patient is evaluated resting the bed. She denies any shortness of breath, she does state that she has a intermittent reactive cough. She wears 3-4 L of oxygen at home for a history of COPD, she is on 5 L nasal cannula with an oxygen saturation of 95%. There is no wheezing noted on examination. She denies any chest pain. She does state that she has a history of acid reflux and she does feel some epigastric discomfort. She is on Pepcid twice a day. Blood cultures remain positive showing gram-negative rods and bacilli in the pulmonary reports. Final cultures are pending. We'll repeat insulin negative and we will consult infectious disease for further antibiotic recommendations. Patient is a daily smoker, we placed on a nicotine patch. Labs today including a blood cell count of 10.5, sodium is normalized at 139. She does have some hypoglycemia this could be related to steroid use. Steroids were decreased to 40 mg daily. 01/18/2021 Patient is evaluated today she sleep in the bed. She denies any shortness of breath, just a report cough. She is unable to produce a sputum sample i nfectious disease has been consult for positive blood cultures. Blood culture finalized for E. coli and repeat is negative after 24 hours. Patient's urine culture was also positive for E. coli. She is continued on IV Rocephin. Kidney ultrasound showed no evidence for hydronephrosis or nephrolithiasis there are no solid masses identified, the urinary bladder is anechoic. There is a right renal cyst. She was cleared by pulmonary service to follow-up in the office 1-2 weeks. Will treat patient with one more day of IV Rocephin and plan for discharge tomorrow. Wean oxygen as tolerated. ROS Constitutional: Denied any fatigue denied any fever. Cardio vascular: denied any chest pain, palpitations Gastrointestinal denied any nausea vomiting does report some epigastric discomfort Pulmonary: Denied any shortness of breath, reports cough Neurologic denied any new focal deficits All inpatient medications were reviewed and appropriate changes in these medications as dictated in the interval history and assessment and plan. PHYSICAL EXAMINATION: GENERAL: The patient is alert and oriented x3, not in any acute distress. Well developed, well nourished. HEENT: Pupils are round and equally reacting to light. EOMI. No scleral icterus. No conjunctival pallor. Normocephalic, atraumatic. No pharyngeal erythema. No thyromegaly. CARDIOVASCULAR: S1 and S2 present. No murmurs, rubs, or gallops. PULMONARY: Fairly good air entry into bilateral lung steele minimal expiratory wheezing ABDOMEN: Soft, nontender, nondistended, normoactive bowel sounds. No palpable organomegaly. MUSCULOSKELETAL: No joint swelling or deformity. EXTREMITIES: No cyanosis, clubbing, or pedal edema. NEUROLOGICAL: Gross neurological examination did not reveal any focal deficits. SKIN: No rashes. Assessment and plan -Acute hypoxic and hypercapnic respiratory failure on chronic hypercapnia respiratory failure: Secondary to COPD exacerbation patient is 5 L nasal cannula, wears 4 L nasal cannula home, there is no sign of pneumonia on chest x- ray UTI with sepsis present on admission, positive culture with E. coli, treated with IV Rocephin -Depression/schizoaffective disorder for which patient is on latuda which will be continued -Continue nicotine use: Counseling was provided, nicotine patch DVT prophylaxis: Lovenox GI prophylaxis with Pepcid Cleared by pulmonary, ID consult, most likely discharged tomorrow if oxygen is able to be weaned. Objective - Vital Signs Vital signs: Vital Signs Temp 98 F 01/18/21 08:00 Pulse 94 01/18/21 09:12 Resp 18 01/18/21 09:12 BP 124/77 01/18/21 08:00 Pulse Ox 90 L 01/18/21 08:00 Intake & Output 01/17/21 01/18/21 01/18/21 18:59 06:59 18:59 Intake Total 1570 Balance 1570 Intake: Intake, IV Titration 850 Amount Sodium Chloride 0.9% 1, 800 000 ml @ 75 mls/hr IV . [id number] [facility] Rx#:[id number] cefTRIAXone 2 gm In 50 Sodium Chloride 0.9% 50 ml @ 100 mls/hr IVPB Q24HR [facility] Rx#:[id number] Oral 720 Other: Voiding Method Bedside Commode Bedside Commode # Voids 4 2 # Bowel Movements 1 - Labs CBC & Chem 7: 01/18/21 07:34 01/18/21 07:34 Labs: Abnormal Lab Results - Last 24 Hours (Table) 01/17/21 01/17/21 01/17/21 Range/Units 12:07 16:52 20:09 MCHC (31.0-37.0) g/dL Chloride (98-107) mmol/L Glucose (74-99) mg/dL POC Glucose (mg/dL) 191 H 209 H 154 H (75-99) mg/dL 01/18/21 01/18/21 01/18/21 Range/Units 06:48 07:34 07:34 MCHC 30.4 L (31.0-37.0) g/dL Chloride 108 H (98-107) mmol/L Glucose 190 H (74-99) mg/dL POC Glucose (mg/dL) 103 H (75-99) mg/dL Microbiology - Last 24 Hours (Table) 01/15/21 20:09 Urine Culture - Final Urine,Voided Escherichia coli 01/17/21 06:15 Blood Culture - Preliminary Blood No Growth after 24 hours 01/16/21 11:33 Blood Culture Gram Stain - Preliminary Blood Blood Culture - Preliminary Escherichia coli Assessment and Plan Time with Patient: Greater than 30
[2021-01-18] MEDS ORDERED: LORATADINE 10 MG TAB PO PRN (15:21)
[2021-01-18] MEDS: hydrOXYzine HCL 25 MG TAB PO PRN (16:30)
[2021-01-18] MEDS: carvediloL 6.25 MG TAB PO SCH (16:31)
[2021-01-18] MEDS: POTASSIUM CHLORIDE ER 20 MEQ TAB.ER PO SCH ×3 (16:31→20:05)
[2021-01-18] MEDS: PARoxetine 20 MG TAB PO SCH (16:31)
--- NOTE | 2021-01-18 16:56 | PN ---
PROGRESS NOTE DATE OF SERVICE: 01/18/2021 REASON FOR FOLLOWUP: E coli bacteremia secondary to urinary source. INTERVAL HISTORY: The patient is afebrile. The patient is breathing more comfortably. The patient denies having any chest pain. She did have a cough; no worsening shortness of breath no abdominal pain or diarrhea. PHYSICAL EXAMINATION: Her blood pressure is 130/79 with a pulse of 99, temperature 98. She is 92% on room air. General description is a middle-aged female up in the bed in no distress. RESPIRATORY SYSTEM: Unlabored breathing. Decreased intensity of breath sounds. No wheeze. HEART: S1, S2. Regular rate and rhythm. ABDOMEN: Soft. No tenderness. LAB DATA: Hemoglobin is 14, white count 9.1. Creatinine is 0.67. Urine with E coli sensitive pathogen. Blood culture repeat has been negative. DIAGNOSTIC IMPRESSION AND PLAN: Patient with Escherichia coli bacteremia secondary to urinary source; also found to have right renal cyst. No hydronephrosis. Patient is covered with Rocephin; to continue. Transition to oral antibiotic on discharge. Continue supportive care. MMODL / IJN: [id number] /
[2021-01-18 16:57] LABS: Glucose,Whole Blood 176 mg/dL (75-99)
[2021-01-18 20:07] LABS: Glucose,Whole Blood 138 mg/dL (75-99)
[2021-01-19] MEDS: ACETAMINOPHEN TAB 325 MG TAB PO PRN ×3 (05:52→18:41)
[2021-01-19] MEDS: LORazepam 2 MG/ML INJ IV PRN ×3 (05:52→18:41)
[2021-01-19 07:35] LABS: Glucose,Whole Blood 90 mg/dL (75-99)
[2021-01-19] MEDS: SYMBICORT 160-4.5 MCG INHALER INHALATION SCH ×2 (08:17→20:05)
[2021-01-19] MEDS: IPRATROPIUM-ALBUTEROL 3 ML NEB INHALATION SCH ×4 (08:17→20:05)
[2021-01-19] MEDS: ENOXAPARIN 40 MG/0.4 ML SYRINGE SQ SCH (08:31)
[2021-01-19] MEDS: carvediloL 6.25 MG TAB PO SCH ×2 (08:32→16:19)
[2021-01-19] MEDS: FAMOTIDINE 20 MG TAB PO SCH ×2 (08:32→20:31)
[2021-01-19] MEDS: BACLOFEN 10 MG TAB PO SCH ×3 (08:32→20:31)
[2021-01-19] MEDS: PARoxetine 20 MG TAB PO SCH ×2 (08:32→16:19)
[2021-01-19] MEDS: predniSONE 20 MG TAB PO SCH (08:32)
[2021-01-19] MEDS: NICOTINE 14MG/24HR PATCH TRANSDERM SCH (08:32)
[2021-01-19] MEDS: INSULIN ASPART (NovoLOG) 100 UNIT/ML VIAL SQ SCH ×4 (08:33→20:31)
[2021-01-19] MEDS: LURASIDONE 40 MG TAB PO SCH (08:42)
[2021-01-19 11:41] LABS: Glucose,Whole Blood 149 mg/dL (75-99)
--- NOTE | 2021-01-19 11:56 | P.DS ---
Providers Date of admission: 01/15/21 21:44 Attending physician: Leila Youngblood Consults: 01/16/21 15:22 Consult Physician Routine Consulting Provider: Oz Vazquez Consult Reason/Comments: COPD exacerbation Do you want consulting provider notified?: Yes 01/17/21 12:31 Consult Physician Routine Consulting Provider: Messi Willis Consult Reason/Comments: positive blood cultures Do you want consulting provider notified?: Yes Primary care physician: Otilia Flores Hospital Course: Final diagnoses -Acute hypoxic and hypercapnic respiratory failure on chronic hypercapnia respiratory failure: Secondary to COPD exacerbation -UTI with sepsis present on admission, positive culture with E. coli -Depression/schizoaffective disorder for which patient is on latuda which will be continued -Continue nicotine use: Counseling was provided, nicotine patch Discharge disposition [facility]. There is concern that she does not meet criteria now for this jail and she has been pending exception for Saturday [facility] a new [facility] that will be opening. We are okay with patient either returning to the jail,building or returning home with family and transitioning to the [facility] on Saturday. Oral antibiotics on discharge. Patient does receive home oxygen through [facility], and we are working to get her some portable oxygen for transport. Hospital course This is a 55-year-old female with a known history of COPD and she usually wears 4 L of oxygen via nasal cannula at home. She came into the second complaint of shortness of breath was found to be in COPD exacerbation and was started on BiPAP. Presently she is now on home dose of 4 L nasal cannula saturating 97%. There is no wheezing on her examination. She denied any urinary discomfort, suprapubic pain, frequency or urgency however urine culture was found to be positive for E. coli with sensitivities that shows resistance to ampicillin. She was covered adequately with IV Rocephin with transition to oral Ceftin on discharge for this. Blood cultures were also positive for gram-negative bacilli and E. coli. Her most recent blood culture has been negative for 48 hours. Oral Ceftin will cover for discharge as well. We will treat for a total 14 days of antibiotics. Additional diagnostics included a ultrasound of the kidneys r emain on bladder which showed no evidence for hydronephrosis. There was no nephrolithiasis. There were no solid masses. Chest x-ray on admission showed clearing of the mid interstitial infiltrates of the lung bases compared to yesterday. She was evaluated in the on January 14 for difficulty in breathing and had a chest xray that showed chronic changes with no evidence for acute pulmonary disease. Patient was evaluated upon her services to clear the patient for discharge this admission. However on discharge included a white blood cell count 11.6, it is now 9.1. Sodium levels 141, potassium 3.6, chloride is 108, CO2 26, BUN 16 and creatinine 0.67. Lactic acid was normal at 1.1. Troponin was negative. BNP was 729. She had a pro calcitonin level of 0.32 which is suggestive of bacterial infection. Urinalysis on admission was also suggestive of infection. She was negative for influenza A B, RSV, Covid , Mycoplasma IgG and IgM. Vital signs remained stable temp of 98.3, heart rate 96 and blood pressure 105/79. She is 97% on 4 liters of oxygen. 01/19/2021 Patient is evaluated today sitting up in the bed. Lungs are clear to auscultation, no wheezing or SOB. Focal neurological exam is negative. Patient is on home dose of oxygen. Patient will discharged on nicotine patches and educated to not smoke cigarettes while using home oxygen. She denies any chest pain, cough or shortness of breath. Abdomen is soft and nontender. She denies any dysuria, urinary urgency or frequency. Discharge planning is in place with Social work and Case management. Please see medication reconciliation for a list of current medications. Thank you for allowing us to participate in the care of this patient. Patient Condition at Discharge: Stable Plan - Discharge Summary Discharge Rx Participant: Yes New Discharge Prescriptions: New Cefuroxime Axetil [Ceftin] 500 mg PO BID 11 Days #22 tab Nicotine 14Mg/24Hr Patch [Habitrol] 1 patch TRANSDERM DAILY #7 patch Acetaminophen Tab [Tylenol] 650 mg PO Q6HR PRN tab PRN Reason: Mild Pain Or Fever > 100.5 predniSONE [Deltasone] 40 mg PO DAILY 3 Days #3 tab Budesonide-Formot 160-4.5 Mcg [Symbicort 160-4.5 Mcg Inhaler] 2 puff INHALATION RT-BID #60 gm Continue Lurasidone [Latuda] 40 mg PO DAILY@0800 Ipratropium-Albuterol Nebulize [Duoneb 0.5 mg-3 mg/3 ml Soln] 3 ml INHALATION RT-TID@,, carvediloL [Coreg] 6.25 mg PO BID@0800,1700 Buprenorphine HCl/Naloxone HCl [Suboxone 8 mg-2 mg Sl Film] 1 film SL TID PRN PRN Reason: Pain Albuterol Sulfate [Proair Hfa] 2 puff INHALATION RT-Q6H PRN PRN Reason: Shortness Of Breath hydrOXYzine HCL [Atarax] 25 mg PO QID PRN PRN Reason: ALLERGIES/ANXIETY Ibuprofen [Motrin] 800 mg PO Q8H PRN PRN Reason: Pain PARoxetine HCL [Paxil] 20 mg PO DAILY@0800 cloNIDine HCL [Catapres] 0.1 mg PO BID@0800,1999 Famotidine [Pepcid] 20 mg PO BID@0800,2100 Baclofen [Lioresal] 10 mg PO TID@0800,1600,2099 Cetirizine HCl [Zyrtec] 10 mg PO DAILY PRN PRN Reason: Allergy Symptoms PARoxetine [Paxil] 40 mg PO DAILY@1700 Discharge Medication List Baclofen [Lioresal] 10 mg PO TID@0800,1600,209901/14/21 [History] Buprenorphine HCl/Naloxone HCl [Suboxone 8 mg-2 mg Sl Film] 1 film SL TID PRN 01/14/21 [History] Famotidine [Pepcid] 20 mg PO BID@0800,2100 01/14/21 [History] Ipratropium-Albuterol Nebulize [Duoneb 0.5 mg-3 mg/3 ml Soln] 3 ml INHALATION RT-TID@,,01/14/21 [History] Lurasidone [Latuda] 40 mg PO DAILY@0800 01/14/21 [History] carvediloL [Coreg] 6.25 mg PO BID@0800,1700 01/14/21 [History] cloNIDine HCL [Catapres] 0.1 mg PO BID@0800,199901/14/21 [History] Albuterol Sulfate [Proair Hfa] 2 puff INHALATION RT-Q6H PRN 01/18/21 [History] Cetirizine HCl [Zyrtec] 10 mg PO DAILY PRN 01/18/21 [History] Ibuprofen [Motrin] 800 mg PO Q8H PRN 01/18/21 [History] PARoxetine HCL [Paxil] 20 mg PO DAILY@0800 01/18/21 [History] PARoxetine [Paxil] 40 mg PO DAILY@1700 01/18/21 [History] hydrOXYzine HCL [Atarax] 25 mg PO QID PRN 01/18/21 [History] Acetaminophen Tab [Tylenol] 650 mg PO Q6HR PRN tab 01/19/21 [Rx] Budesonide-Formot 160-4.5 Mcg [Symbicort 160-4.5 Mcg Inhaler] 2 puff INHALATION RT-BID #60 gm 01/19/21 [Rx] Cefuroxime Axetil [Ceftin] 500 mg PO BID 11 Days #22 tab 01/19/21 [Rx] Nicotine 14Mg/24Hr Patch [Habitrol] 1 patch TRANSDERM DAILY #7 patch 01/19/21 [Rx] predniSONE [Deltasone] 40 mg PO DAILY 3 Days #3 tab 01/19/21 [Rx] Follow up Appointment(s)/Referral(s): Sally Pastrana MD [STAFF PHYSICIAN] - 1 Week Sandra Bingham MD [Primary Care Provider] - 1-2 days [facility] [NON-STAFF] - 01/19/21 11:00 am Ambulatory/Diagnostic Orders: Basic Metabolic Panel [LAB.AMB] Time Frame: 3 Days, Location: None Selected Complete Blood Count w/diff [LAB.AMB] Time Frame: 3 Days, Location: None Selected Activity/Diet/Wound Care/Special Instructions: Follow up with [facility] Discharge Disposition: OTHER INSTITUTION NOT DEFINED
--- NOTE | 2021-01-19 13:42 | PN ---
PROGRESS NOTE DATE OF SERVICE: 01/19/2021 REASON FOR FOLLOWUP: E coli UTI and bacteremia. INTERVAL HISTORY: The patient was seen on rounds this morning. The patient has been afebrile. She is breathing comfortably. Denies any chest pain or cough. No vomiting, abdominal pain or diarrhea. PHYSICAL EXAMINATION: Blood pressure 105/75, pulse 96, temperature 98.3. She is 97% on 4 L nasal cannula. General description is a middle-aged female up in the bed in no distress. RESPIRATORY SYSTEM: Unlabored breathing. Decreased intensity of breath sounds. No wheeze. HEART: S1, S2. Regular rate and rhythm. ABDOMEN: Soft. No tenderness. LABS: Ultrasound with right renal cyst. No evidence of any abscess. No CBC was done today. Blood culture repeat on 01/17 is negative. DIAGNOSTIC IMPRESSION AND PLAN: Patient with an Escherichia coli urinary tract infection and bacteremia, likely pyelonephritis. Ultrasound was negative for any structural abnormality. She will finish therapy with oral Ceftin antibiotic will be 2 weeks and close outpatient followup. MMODL / IJN: [id number] /
[2021-01-19] MEDS: hydrOXYzine HCL 25 MG TAB PO PRN (16:19)
[2021-01-19 17:06] LABS: Glucose,Whole Blood 170 mg/dL (75-99)
[2021-01-19 19:50] LABS: Glucose,Whole Blood 147 mg/dL (75-99)
[2021-01-20] MEDS: LORazepam 2 MG/ML INJ IV PRN ×4 (00:12→23:15)
[2021-01-20] MEDS: ACETAMINOPHEN TAB 325 MG TAB PO PRN ×3 (00:14→23:14)
[2021-01-20 06:59] VITALS: BMI 34.4
[2021-01-20 07:20] LABS: Glucose,Whole Blood 80 mg/dL (75-99)
[2021-01-20] MEDS: FAMOTIDINE 20 MG TAB PO SCH ×2 (07:39→21:46)
[2021-01-20] MEDS: BACLOFEN 10 MG TAB PO SCH ×3 (07:39→21:46)
[2021-01-20] MEDS: ENOXAPARIN 40 MG/0.4 ML SYRINGE SQ SCH (07:39)
[2021-01-20] MEDS: NICOTINE 14MG/24HR PATCH TRANSDERM SCH (07:39)
[2021-01-20] MEDS: carvediloL 6.25 MG TAB PO SCH ×2 (07:39→17:15)
[2021-01-20] MEDS: predniSONE 20 MG TAB PO SCH (07:39)
[2021-01-20] MEDS: INSULIN ASPART (NovoLOG) 100 UNIT/ML VIAL SQ SCH ×4 (07:40→21:46)
[2021-01-20] MEDS: PARoxetine 20 MG TAB PO SCH ×2 (07:40→17:15)
[2021-01-20] MEDS: LURASIDONE 40 MG TAB PO SCH (07:40)
[2021-01-20] MEDS: IPRATROPIUM-ALBUTEROL 3 ML NEB INHALATION SCH ×4 (08:47→20:20)
[2021-01-20] MEDS: SYMBICORT 160-4.5 MCG INHALER INHALATION SCH ×2 (08:47→20:20)
--- NOTE | 2021-01-20 10:48 | P.DS ---
Providers Date of admission: 01/15/21 21:44 Attending physician: Leila Youngblood Consults: 01/16/21 15:22 Consult Physician Routine Consulting Provider: Oz Vazquez Consult Reason/Comments: COPD exacerbation Do you want consulting provider notified?: Yes 01/17/21 12:31 Consult Physician Routine Consulting Provider: Messi Willis Consult Reason/Comments: positive blood cultures Do you want consulting provider notified?: Yes Primary care physician: Otilia Flores Hospital Course: Final diagnoses -Acute hypoxic and hypercapnic respiratory failure on chronic hypercapnia respiratory failure: Secondary to COPD exacerbation -UTI with sepsis present on admission, positive culture with E. coli -Depression/schizoaffective disorder for which patient is on latuda which will be continued -Continue nicotine use: Counseling was provided, nicotine patch Discharge disposition Discharge planning is still in progress with for placement. Pt wears home oxygen this will be continued. We are not continuing suboxone on discharge, she will need an order, documentation and dosing from her provider for this in order for it to be resumed outpatient as hospital is not able to prescribe. Hospital course This is a 55-year-old female with a known history of COPD and she usually wears 4 L of oxygen via nasal cannula at home. She came into the second complaint of shortness of breath was found to be in COPD exacerbation and was started on BiPAP. Presently she is now on home dose of 4 L nasal cannula saturating 97%. There is no wheezing on her examination. She denied any urinary discomfort, s uprapubic pain, frequency or urgency however urine culture was found to be positive for E. coli with sensitivities that shows resistance to ampicillin. She was covered adequately with IV Rocephin with transition to oral Ceftin on discharge for this. Blood cultures were also positive for gram-negative bacilli and E. coli. Her most recent blood culture has been negative for 48 hours. Oral Ceftin will cover for discharge as well. We will treat for a total 14 days of antibiotics. Additional diagnostics included a ultrasound of the kidneys remain on bladder which showed no evidence for hydronephrosis. There was no nephrolithiasis. There were no solid masses. Chest x-ray on admission showed clearing of the mid interstitial infiltrates of the lung bases compared to yesterday. She was evaluated in the on January 14 for difficulty in breathing and had a chest xray that showed chronic changes with no evidence for acute pulmonary disease. Patient was evaluated upon her services to clear the patient for discharge this admission. However on discharge included a white blood cell count 11.6, it is now 9.1. Sodium levels 141, potassium 3.6, chloride is 108, CO2 26, BUN 16 and creatinine 0.67. Lactic acid was normal at 1.1. Troponin was negative. BNP was 729. She had a pro calcitonin level of 0.32 which is suggestive of bacterial infection. Urinalysis on admission was also suggestive of infection. She was negative for influenza A B, RSV, Covid , Mycoplasma IgG and IgM. Vital signs remained stable temp of 98.3, heart rate 96 and blood pressure 105/79. She is 97% on 4 liters of oxygen. 01/20/2021 Patient is evaluated today sitting on the edge of her bed. She denies any chest pain, cough, shortness of breath. Lungs are clear to auscultation. Focal neurological exam is negative. She was concerned with the discharge planning that she will not have a place to go. We are working on this with social work in order to find placement. Please see medication reconciliation for a list of current medications. Thank you for allowing us to participate in the care of this patient. Patient Condition at Discharge: Stable Plan - Discharge Summary Discharge Rx Participant: Yes New Discharge Prescriptions: New Cefuroxime Axetil [Ceftin] 500 mg PO BID 11 Days #22 tab Nicotine 14Mg/24Hr Patch [Habitrol] 1 patch TRANSDERM DAILY #7 patch Acetaminophen Tab [Tylenol] 650 mg PO Q6HR PRN tab PRN Reason: Mild Pain Or Fever > 100.5 predniSONE [Deltasone] 40 mg PO DAILY 3 Days #3 tab Budesonide-Formot 160-4.5 Mcg [Symbicort 160-4.5 Mcg Inhaler] 2 puff INHALATION RT-BID #60 gm Continue Lurasidone [Latuda] 40 mg PO DAILY@0800 Ipratropium-Albuterol Nebulize [Duoneb 0.5 mg-3 mg/3 ml Soln] 3 ml INHALATION RT-TID@08,16,21 carvediloL [Coreg] 6.25 mg PO BID@0800,1700 Buprenorphine HCl/Naloxone HCl [Suboxone 8 mg-2 mg Sl Film] 1 film SL TID PRN PRN Reason: Pain Albuterol Sulfate [Proair Hfa] 2 puff INHALATION RT-Q6H PRN PRN Reason: Shortness Of Breath hydrOXYzine HCL [Atarax] 25 mg PO QID PRN PRN Reason: ALLERGIES/ANXIETY Ibuprofen [Motrin] 800 mg PO Q8H PRN PRN Reason: Pain PARoxetine HCL [Paxil] 20 mg PO DAILY@0800 cloNIDine HCL [Catapres] 0.1 mg PO BID@0800,1999 Famotidine [Pepcid] 20 mg PO BID@0800,2100 Baclofen [Lioresal] 10 mg PO TID@0800,1600,2099 Cetirizine HCl [Zyrtec] 10 mg PO DAILY PRN PRN Reason: Allergy Symptoms PARoxetine [Paxil] 40 mg PO DAILY@1700 Discharge Medication List Baclofen [Lioresal] 10 mg PO TID@0800,1600,209901/14/21 [History] Buprenorphine HCl/Naloxone HCl [Suboxone 8 mg-2 mg Sl Film] 1 film SL TID PRN 1 [History] Famotidine [Pepcid] 20 mg PO BID@0800,2100 01/14/21 [History] Ipratropium-Albuterol Nebulize [Duoneb 0.5 mg-3 mg/3 ml Soln] 3 ml INHALATION RT-TID@08,16,01/14/21 [History] Lurasidone [Latuda] 40 mg PO DAILY@0800 01/14/21 [History] carvediloL [Coreg] 6.25 mg PO BID@0800,1700 01/14/21 [History] cloNIDine HCL [Catapres] 0.1 mg PO BID@0800,199901/14/21 [History] Albuterol Sulfate [Proair Hfa] 2 puff INHALATION RT-Q6H PRN 01/18/21 [History] Cetirizine HCl [Zyrtec] 10 mg PO DAILY PRN 01/18/21 [History] Ibuprofen [Motrin] 800 mg PO Q8H PRN 01/18/21 [History] PARoxetine HCL [Paxil] 20 mg PO DAILY@0800 01/18/21 [History] PARoxetine [Paxil] 40 mg PO DAILY@1700 01/18/21 [History] hydrOXYzine HCL [Atarax] 25 mg PO QID PRN 01/18/21 [History] Acetaminophen Tab [Tylenol] 650 mg PO Q6HR PRN tab 01/19/21 [Rx] Budesonide-Formot 160-4.5 Mcg [Symbicort 160-4.5 Mcg Inhaler] 2 puff INHALATION RT-BID #60 gm 01/19/21 [Rx] Cefuroxime Axetil [Ceftin] 500 mg PO BID 11 Days #22 tab 01/19/21 [Rx] Nicotine 14Mg/24Hr Patch [Habitrol] 1 patch TRANSDERM DAILY #7 patch 01/19/21 [Rx] predniSONE [Deltasone] 40 mg PO DAILY 3 Days #3 tab 01/19/21 [Rx] Follow up Appointment(s)/Referral(s): Sally Pastrana MD [STAFF PHYSICIAN] - 1 Week Sandra Bingham MD [Primary Care Provider] - 1-2 days [facility] [NON-STAFF] - 01/19/21 11:00 am Ambulatory/Diagnostic Orders: Basic Metabolic Panel [LAB.AMB] Time Frame: 3 Days, Location: None Selected Complete Blood Count w/diff [LAB.AMB] Time Frame: 3 Days, Location: None Selected Activity/Diet/Wound Care/Special Instructions: Follow up with [facility] Discharge Disposition: OTHER INSTITUTION NOT DEFINED
[2021-01-20 11:51] LABS: Glucose,Whole Blood 182 mg/dL (75-99)
--- NOTE | 2021-01-20 16:44 | PN ---
PROGRESS NOTE DATE OF SERVICE: 01/20/2021 REASON FOR FOLLOWUP: E coli UTI and bacteremia. INTERVAL HISTORY: The patient is afebrile. The patient is currently breathing comfortably, waiting for placement. Denies having any chest pain. Occasional cough. No vomiting. No abdominal pain, no diarrhea. PHYSICAL EXAMINATION: Blood pressure 132/69, pulse of 93, temperature 98.6, she is 96% on 4 L nasal cannula. General description is a middle-aged female lying in bed in no distress. Respiratory system: Unlabored breathing, decreased intensity of breath sounds, no wheeze. Heart S1, S2. Regular rate and rhythm. Abdomen soft, no tenderness. LABS: No new labs have been obtained today. DIAGNOSTIC IMPRESSION AND PLAN: Patient with an E coli bacteremia secondary to urinary source. Ultrasound did show cyst, but no evidence of any abscess or hydronephrosis. The plan is to finish therapy with oral Ceftin and close outpatient followup. Continue supportive care. MMODL / IJN: [id number] /
[2021-01-20 20:49] LABS: Glucose,Whole Blood 211 mg/dL (75-99)
[2021-01-21] MEDS: PATIENT'S OWN (Buprenorphine Hcl/Naloxone Hcl [Suboxone 8 Mg-2 Mg Sl Film] 1 EACH Fil SUBLINGUAL PRN ×3 (03:24→21:45)
[2021-01-21 07:02] LABS: Glucose,Whole Blood 87 mg/dL (75-99)
[2021-01-21] MEDS: LORazepam 2 MG/ML INJ IV PRN (07:22)
[2021-01-21] MEDS: ACETAMINOPHEN TAB 325 MG TAB PO PRN (07:22)
[2021-01-21] MEDS: INSULIN ASPART (NovoLOG) 100 UNIT/ML VIAL SQ SCH ×4 (07:59→21:25)
[2021-01-21] MEDS: IPRATROPIUM-ALBUTEROL 3 ML NEB INHALATION SCH ×4 (08:13→20:31)
[2021-01-21] MEDS: SYMBICORT 160-4.5 MCG INHALER INHALATION SCH ×2 (08:13→20:31)
[2021-01-21] MEDS: carvediloL 6.25 MG TAB PO SCH ×2 (08:24→17:39)
[2021-01-21] MEDS: predniSONE 20 MG TAB PO SCH (08:24)
[2021-01-21] MEDS: FAMOTIDINE 20 MG TAB PO SCH ×2 (08:24→20:11)
[2021-01-21] MEDS: CEFDINIR 300 MG CAP PO SCH ×2 (08:24→20:11)
[2021-01-21] MEDS: BACLOFEN 10 MG TAB PO SCH ×3 (08:24→20:11)
[2021-01-21] MEDS: NICOTINE 14MG/24HR PATCH TRANSDERM SCH (08:24)
[2021-01-21] MEDS: PARoxetine 20 MG TAB PO SCH ×2 (08:25→17:39)
[2021-01-21] MEDS: ENOXAPARIN 40 MG/0.4 ML SYRINGE SQ SCH (08:25)
[2021-01-21] MEDS: LURASIDONE 40 MG TAB PO SCH (08:26)
[2021-01-21 11:18] LABS: Glucose,Whole Blood 198 mg/dL (75-99)
--- NOTE | 2021-01-21 11:56 | P.PN ---
Subjective Progress Note Date: 01/21/21 Patient is presently 55-year-old female with known history of COPD is is 4 L of oxygen came in with complains of shortness of breath found to be in COPD exacerbation ration is presently on BiPAP. Patient had a chest x-ray which showed some interstitial infiltrate patient does have fever patient is comparing of cough with whitish sputum production. Patient is bit hyponatremic because of which the eye have concern about Legionella pneumoniae urinary Legionella antigen was ordered. Patient denied any flulike symptoms including myalgias. Patient had influenza testing and Covid 19 PCR were negative. Patient doesn't have diarrhea. Chest x-ray showed mild pleural effusion laterally 01/17/2021 Patient is evaluated resting the bed. She denies any shortness of breath, she does state that she has a intermittent reactive cough. She wears 3-4 L of oxygen at home for a history of COPD, she is on 5 L nasal cannula with an oxygen saturation of 95%. There is no wheezing noted on examination. She denies any chest pain. She does state that she has a history of acid reflux and she does feel some epigastric discomfort. She is on Pepcid twice a day. Blood cultures remain positive showing gram-negative rods and bacilli in the pulmonary reports. Final cultures are pending. We'll repeat insulin negative and we will consult infectious disease for further antibiotic recommendations. Patient is a daily smoker, we placed on a nicotine patch. Labs today including a blood cell count of 10.5, sodium is normalized at 139. She does have some hypoglycemia this could be related to steroid use. Steroids were decreased to 40 mg daily. 01/18/2021 Patient is evaluated today she sleep in the bed. She denies any shortness of breath, just a report cough. She is unable to produce a sputum sample i nfectious disease has been consult for positive blood cultures. Blood culture finalized for E. coli and repeat is negative after 24 hours. Patient's urine culture was also positive for E. coli. She is continued on IV Rocephin. Kidney ultrasound showed no evidence for hydronephrosis or nephrolithiasis there are no solid masses identified, the urinary bladder is anechoic. There is a right renal cyst. She was cleared by pulmonary service to follow-up in the office 1-2 weeks. Will treat patient with one more day of IV Rocephin and plan for discharge tomorrow. Wean oxygen as tolerated. 01/19/2021 Patient is evaluated today sitting up in the bed. Lungs are clear to auscultation, no wheezing or SOB. Focal neurological exam is negative. Patient is on home dose of oxygen. Patient will discharged on nicotine patches and educated to not smoke cigarettes while using home oxygen. She denies any chest pain, cough or shortness of breath. Abdomen is soft and nontender. She denies any dysuria, urinary urgency or frequency. Discharge planning is in place with Social work and Case management. 01/20/2021 Patient is evaluated today sitting on the edge of her bed. She denies any chest pain, cough, shortness of breath. Lungs are clear to auscultation. Focal neurological exam is negative. She was concerned with the discharge planning that she will not have a place to go. We are working on this with social work in order to find placement. 01/21/2021 Patient is evaluated today and we're still working replacement. The plan is for Saturday for her to go to a room and board [place]. She is agreeable to this plan of care. They're supposed a meeting today between the patient and the facility. We did repeat labs today since patient will be her through the weekend. ID transitioned her to oral cefdinir. Blood culture micro- sensitivities were finalized and there has been no growth after 96 hours on repeat. BP 137/85. ROS Constitutional: Denied any fatigue denied any fever. Cardio vascular: denied any chest pain, palpitations Gastrointestinal denied any nausea vomiting. Pulmonary: Denied any shortness of breath, reports cough Neurologic denied any new focal deficits All inpatient medications were reviewed and appropriate changes in these medica tions as dictated in the interval history and assessment and plan. PHYSICAL EXAMINATION: GENERAL: The patient is alert and oriented x3, not in any acute distress. Well developed, well nourished. HEENT: Pupils are round and equally reacting to light. EOMI. No scleral icterus. No conjunctival pallor. Normocephalic, atraumatic. No pharyngeal erythema. No thyromegaly. CARDIOVASCULAR: S1 and S2 present. No murmurs, rubs, or gallops. PULMONARY: Fairly good air entry into bilateral lung steele minimal expiratory wheezing ABDOMEN: Soft, nontender, nondistended, normoactive bowel sounds. No palpable organomegaly. MUSCULOSKELETAL: No joint swelling or deformity. EXTREMITIES: No cyanosis, clubbing, or pedal edema. NEUROLOGICAL: Gross neurological examination did not reveal any focal deficits. SKIN: No rashes. Assessment and plan -Acute hypoxic and hypercapnic respiratory failure on chronic hypercapnia respiratory failure: Secondary to COPD exacerbation on home dose of oxygen UTI with sepsis present on admission, positive culture with E. coli, treated with IV Rocephin transitioned to oral cefdinir -Depression/schizoaffective disorder for which patient is on latuda which will be continued -Continue nicotine use: Counseling was provided, nicotine patch DVT prophylaxis: Lovenox GI prophylaxis with Pepcid Plans for discharge Saturday to room and board in [place]. Social work will coordinate transfer of oxygen supplies . Objective - Vital Signs Vital signs: Vital Signs Temp 97.7 F 01/21/21 07:23 Pulse 103 H 01/21/21 07:23 Resp 18 01/21/21 07:23 BP 137/85 01/21/21 07:23 Pulse Ox 97 01/21/21 07:23 Intake & Output 01/20/21 01/21/21 01/21/21 18:59 06:59 18:59 Other: Voiding Method Bedside Commode # Voids 1 3 - Labs CBC & Chem 7: 01/18/21 07:34 01/18/21 07:34 Labs: Abnormal Lab Results - Last 24 Hours (Table) 01/20/21 01/20/21 Range/Units 11:50 20:48 POC Glucose (mg/dL) 182 H 211 H (75-99) mg/dL Microbiology - Last 24 Hours (Table) 01/20/21 08:59 Sputum Culture - Preliminary Sputum 01/17/21 06:15 Blood Culture - Preliminary Blood No Growth after 72 hours Assessment and Plan Time with Patient: Greater than 30
[2021-01-21 12:15] LABS: Basophils % (A) 0 %; Eosinophils # (A) 0.1 k/uL (0-0.7); Eosinophils % (A) 1 %; HCT 45.1 % (34.0-46.0); HGB 13.7 gm/dL (11.4-16.0); Hypochromasia Slight; Lymphocytes # (A) 1.5 k/uL (1.0-4.8); Lymphocytes % (A) 19 %; MCH 29.6 pg (25.0-35.0); MCHC 30.5 g/dL (31.0-37.0); Mean Platelet Volume 7.2; Monocytes # (A) 0.3 k/uL (0-1.0); Monocytes % (A) 4 %; Neutrophils # (A) 5.9 k/uL (1.3-7.7); Neutrophils % (A) 74 %; Platelet Count 276 k/uL (150-450); RBC 4.65 m/uL (3.80-5.40); RDW 13.4 % (11.5-15.5)
[2021-01-21 12:31] LABS: African American GFR (CKD) 90 (>60 ml/min/1.73 sqM); Anion Gap 4 mmol/L; Blood Urea Nitrogen 16 mg/dL (7-17); Calcium 9.3 mg/dL (8.4-10.2); Carbon Dioxide 33 mmol/L (22-30); Chloride 100 mmol/L (98-107); Glucose 197 mg/dL (74-99); Non-African American GFR(CKD) 78 (>60 ml/min/1.73 sqM); Potassium 4.4 mmol/L (3.5-5.1); Sodium 137 mmol/L (137-145)
[2021-01-21] MEDS: LORazepam 0.5 MG TAB PO PRN ×2 (13:22→20:11)
[2021-01-21 16:56] LABS: Glucose,Whole Blood 136 mg/dL (75-99)
--- NOTE | 2021-01-21 18:09 | PN ---
PROGRESS NOTE DATE OF SERVICE: 01/21/2021 REASON FOR FOLLOWUP: E coli bacteremia and UTI. INTERVAL HISTORY: The patient is afebrile. The patient is breathing comfortably. She has been complaining of some nausea but no vomiting. No chest pain, shortness of breath or cough and no diarrhea. PHYSICAL EXAMINATION: Blood pressure 106/71, pulse of 79, temperature 98.7. She is 93% on 4 L nasal cannula. General description is a middle-aged female up in the room in no distress. Respiratory system: Unlabored breathing, decreased breath sounds in the base, no wheeze. Heart S1, S2. Regular rate and rhythm. Abdomen soft, no tenderness. Extremities: No edema of the feet. LABS: Hemoglobin 13.1, white count 8.0, BUN of 16, creatinine 0.84. DIAGNOSTIC IMPRESSION AND PLAN: Patient with an E coli bacteremia secondary to urinary source. Repeat blood culture negative. Patient antibiotic had been switched over to Ceftin, to continue and monitor clinical course closely. Continue supportive care. MMODL / IJN: [id number] /
[2021-01-21 20:51] LABS: Glucose,Whole Blood 129 mg/dL (75-99)
[2021-01-22] MEDS: ACETAMINOPHEN TAB 325 MG TAB PO PRN ×2 (03:35→09:00)
[2021-01-22] MEDS: LORazepam 0.5 MG TAB PO PRN ×3 (03:35→16:12)
[2021-01-22 07:07] LABS: Glucose,Whole Blood 102 mg/dL (75-99)
[2021-01-22] MEDS: IPRATROPIUM-ALBUTEROL 3 ML NEB INHALATION SCH ×4 (07:53→20:21)
[2021-01-22] MEDS: SYMBICORT 160-4.5 MCG INHALER INHALATION SCH ×2 (07:53→20:21)
[2021-01-22] MEDS: INSULIN ASPART (NovoLOG) 100 UNIT/ML VIAL SQ SCH ×4 (08:45→20:32)
[2021-01-22] MEDS: CEFDINIR 300 MG CAP PO SCH ×2 (08:59→20:31)
[2021-01-22] MEDS: FAMOTIDINE 20 MG TAB PO SCH ×2 (08:59→20:31)
[2021-01-22] MEDS: carvediloL 6.25 MG TAB PO SCH ×2 (08:59→17:03)
[2021-01-22] MEDS: LURASIDONE 40 MG TAB PO SCH (08:59)
[2021-01-22] MEDS: BACLOFEN 10 MG TAB PO SCH ×3 (08:59→20:31)
[2021-01-22] MEDS: PATIENT'S OWN (Buprenorphine Hcl/Naloxone Hcl [Suboxone 8 Mg-2 Mg Sl Film] 1 EACH Fil SUBLINGUAL PRN ×2 (08:59→16:10)
[2021-01-22] MEDS: PARoxetine 20 MG TAB PO SCH ×2 (08:59→17:03)
[2021-01-22] MEDS: ENOXAPARIN 40 MG/0.4 ML SYRINGE SQ SCH (09:00)
[2021-01-22] MEDS: NICOTINE 14MG/24HR PATCH TRANSDERM SCH (09:00)
[2021-01-22] MEDS: predniSONE 20 MG TAB PO SCH (09:00)
--- NOTE | 2021-01-22 11:06 | P.PN ---
Subjective Progress Note Date: 01/22/21 Patient is presently 55-year-old female with known history of COPD is is 4 L of oxygen came in with complains of shortness of breath found to be in COPD exacerbation ration is presently on BiPAP. Patient had a chest x-ray which showed some interstitial infiltrate patient does have fever patient is comparing of cough with whitish sputum production. Patient is bit hyponatremic because of which the eye have concern about Legionella pneumoniae urinary Legionella antigen was ordered. Patient denied any flulike symptoms including myalgias. Patient had influenza testing and Covid 19 PCR were negative. Patient doesn't have diarrhea. Chest x-ray showed mild pleural effusion laterally 01/17/2021 Patient is evaluated resting the bed. She denies any shortness of breath, she does state that she has a intermittent reactive cough. She wears 3-4 L of oxygen at home for a history of COPD, she is on 5 L nasal cannula with an oxygen saturation of 95%. There is no wheezing noted on examination. She denies any chest pain. She does state that she has a history of acid reflux and she does feel some epigastric discomfort. She is on Pepcid twice a day. Blood cultures remain positive showing gram-negative rods and bacilli in the pulmonary reports. Final cultures are pending. We'll repeat insulin negative and we will consult infectious disease for further antibiotic recommendations. Patient is a daily smoker, we placed on a nicotine patch. Labs today including a blood cell count of 10.5, sodium is normalized at 139. She does have some hypoglycemia this could be related to steroid use. Steroids were decreased to 40 mg daily. 01/18/2021 Patient is evaluated today she sleep in the bed. She denies any shortness of breath, just a report cough. She is unable to produce a sputum sample i nfectious disease has been consult for positive blood cultures. Blood culture finalized for E. coli and repeat is negative after 24 hours. Patient's urine culture was also positive for E. coli. She is continued on IV Rocephin. Kidney ultrasound showed no evidence for hydronephrosis or nephrolithiasis there are no solid masses identified, the urinary bladder is anechoic. There is a right renal cyst. She was cleared by pulmonary service to follow-up in the office 1-2 weeks. Will treat patient with one more day of IV Rocephin and plan for discharge tomorrow. Wean oxygen as tolerated. 01/19/2021 Patient is evaluated today sitting up in the bed. Lungs are clear to auscultation, no wheezing or SOB. Focal neurological exam is negative. Patient is on home dose of oxygen. Patient will discharged on nicotine patches and educated to not smoke cigarettes while using home oxygen. She denies any chest pain, cough or shortness of breath. Abdomen is soft and nontender. She denies any dysuria, urinary urgency or frequency. Discharge planning is in place with Social work and Case management. 01/20/2021 Patient is evaluated today sitting on the edge of her bed. She denies any chest pain, cough, shortness of breath. Lungs are clear to auscultation. Focal neurological exam is negative. She was concerned with the discharge planning that she will not have a place to go. We are working on this with social work in order to find placement. 01/21/2021 Patient is evaluated today and we're still working replacement. The plan is for Saturday for her to go to a room and board [place]. She is agreeable to this plan of care. They're supposed a meeting today between the patient and the facility. We did repeat labs today since patient will be her through the weekend. ID transitioned her to oral cefdinir. Blood culture micro- sensitivities were finalized and there has been no growth after 96 hours on repeat. BP 137/85. 01/22/2021 Patient is sitting edge of the bed today, denies any cough, shortness of breath. Her lungs are clear to auscultation. She continues on oral antibiotics and will continue on discharge. Plan was for 14 days total of oral antibiotic therapy for positive blood cultures. Repeat cultures are negative. Vitals are stable, labs yesterday were unremarkable. Pending placement, patient follows with [facility] and adult protective services are involved. Plan is for placement tomorrow at room and board. will arrange for transport of oxygen supplies on discharge. ROS Constitutional: Denied any fatigue denied any fever. Cardio vascular: denied any chest pain, palpitations Gastrointestinal denied any nausea vomiting. Pulmonary: Denied any shortness of breath, denies cough Neurologic denied any new focal deficits All inpatient medications were reviewed and appropriate changes in these medications as dictated in the interval history and assessment and plan. PHYSICAL EXAMINATION: GENERAL: The patient is alert and oriented x3, not in any acute distress. Well developed, well nourished. HEENT: Pupils are round and equally reacting to light. EOMI. No scleral icterus. No conjunctival pallor. Normocephalic, atraumatic. No pharyngeal erythema. No thyromegaly. CARDIOVASCULAR: S1 and S2 present. No murmurs, rubs, or gallops. PULMONARY: Lungs are clear, there is no wheezing, crackles. ABDOMEN: Soft, nontender, nondistended, normoactive bowel sounds. No palpable organomegaly. MUSCULOSKELETAL: No joint swelling or deformity. EXTREMITIES: No cyanosis, clubbing, or pedal edema. NEUROLOGICAL: Gross neurological examination did not reveal any focal deficits. SKIN: No rashes. Assessment and plan -Acute hypoxic and hypercapnic respiratory failure on chronic hypercapnia respiratory failure: Secondary to COPD exacerbation on home dose of oxygen UTI with sepsis present on admission, positive culture with E. coli, treated with IV Rocephin transitioned to oral cefdinir -Depression/schizoaffective disorder for which patient is on latuda which will be continued -Continue nicotine use: Counseling was provided, nicotine patch DVT prophylaxis: Lovenox GI prophylaxis with Pepcid Plans for discharge Saturday to room and board in [place]. Social work will coordinate transfer of oxygen supplies . Objective - Vital Signs Vital signs: Vital Signs Temp 98.2 F 01/22/21 05:48 Pulse 92 01/22/21 08:05 Resp 15 01/22/21 05:48 BP 118/73 01/22/21 05:48 Pulse Ox 97 01/22/21 05:48 Intake & Output 01/21/21 01/22/21 01/22/21 18:59 06:59 18:59 Other: Voiding Method Bedside Commode Bedside Commode # Voids 3 2 - Labs CBC & Chem 7: 01/21/21 11:33 01/21/21 11:33 Labs: Abnormal Lab Results - Last 24 Hours (Table) 01/21/21 01/21/21 01/21/21 Range/Units 11:17 11:33 11:33 MCHC 30.5 L (31.0-37.0) g/dL Carbon Dioxide 33 H (22-30) mmol/L Glucose 197 H (74-99) mg/dL POC Glucose (mg/dL) 198 H (75-99) mg/dL 01/21/21 01/21/21 01/22/21 Range/Units 16:49 20:49 07:05 MCHC (31.0-37.0) g/dL Carbon Dioxide (22-30) mmol/L Glucose (74-99) mg/dL POC Glucose (mg/dL) 136 H 129 H 102 H (75-99) mg/dL Microbiology - Last 24 Hours (Table) 01/17/21 06:15 Blood Culture - Preliminary Blood No Growth after 120 hours 01/20/21 08:59 Gram Stain - Preliminary Sputum Sputum Culture - Preliminary Assessment and Plan Time with Patient: Greater than 30
[2021-01-22 11:35] LABS: Glucose,Whole Blood 121 mg/dL (75-99)
[2021-01-22] MEDS ORDERED: CALCIUM CARBONATE 500 MG CHEWABLE PO PRN (16:26)
[2021-01-22 16:44] LABS: Glucose,Whole Blood 184 mg/dL (75-99)
[2021-01-22 20:14] LABS: Glucose,Whole Blood 141 mg/dL (75-99)
[2021-01-23] MEDS: LORazepam 0.5 MG TAB PO PRN ×3 (00:25→15:11)
--- NOTE | 2021-01-23 00:33 | PN ---
PROGRESS NOTE DATE OF SERVICE: 01/22/2021 REASON FOR FOLLOWUP: E coli bacteremia secondary to complicated UTI. INTERVAL HISTORY: The patient is afebrile. The patient is breathing comfortably. The patient is complaining of some nausea but no vomiting. No chest pain, shortness of breath or cough or diarrhea. PHYSICAL EXAMINATION: Blood pressure is 122/77 with a pulse of 92, temperature 98.3. She is 95% on 4 L nasal cannula. General description is a middle-aged female up in the bed in no distress. RESPIRATORY SYSTEM: Unlabored breathing. Clear to auscultation anteriorly. HEART: S1, S2. Regular rate and rhythm. ABDOMEN: Soft. No tenderness. LABS: No new labs have been obtained today. DIAGNOSTIC IMPRESSION AND PLAN: Patient with Escherichia coli bacteremia secondary to complicated urinary tract infection. Ultrasound was negative for hydronephrosis. Patient is covered with Ceftin. Plan is for a total of 2 weeks of antibiotics and close outpatient followup. MMODL / IJN: [id number] / MTDD
[2021-01-23] MEDS: PATIENT'S OWN (Buprenorphine Hcl/Naloxone Hcl [Suboxone 8 Mg-2 Mg Sl Film] 1 EACH Fil SUBLINGUAL PRN ×2 (00:36→06:36)
[2021-01-23 06:56] LABS: Glucose,Whole Blood 112 mg/dL (75-99)
[2021-01-23] MEDS: INSULIN ASPART (NovoLOG) 100 UNIT/ML VIAL SQ SCH ×2 (07:29→12:12)
[2021-01-23] MEDS: ENOXAPARIN 40 MG/0.4 ML SYRINGE SQ SCH (07:39)
[2021-01-23] MEDS: PARoxetine 20 MG TAB PO SCH (07:39)
[2021-01-23] MEDS: predniSONE 20 MG TAB PO SCH (07:39)
[2021-01-23] MEDS: BACLOFEN 10 MG TAB PO SCH (07:39)
[2021-01-23] MEDS: FAMOTIDINE 20 MG TAB PO SCH (07:39)
[2021-01-23] MEDS: CEFDINIR 300 MG CAP PO SCH (07:39)
[2021-01-23] MEDS: LURASIDONE 40 MG TAB PO SCH (07:40)
[2021-01-23] MEDS: NICOTINE 14MG/24HR PATCH TRANSDERM SCH (07:40)
[2021-01-23] MEDS: carvediloL 6.25 MG TAB PO SCH (07:44)
[2021-01-23 07:51] VITALS: RESP 18
[2021-01-23] MEDS: IPRATROPIUM-ALBUTEROL 3 ML NEB INHALATION SCH ×2 (08:34→11:39)
[2021-01-23] MEDS: SYMBICORT 160-4.5 MCG INHALER INHALATION SCH (08:34)
[2021-01-23] MEDS: ACETAMINOPHEN TAB 325 MG TAB PO PRN (11:11)
[2021-01-23 11:51] LABS: Glucose,Whole Blood 168 mg/dL (75-99)
--- NOTE | 2021-01-23 14:17 | P.DS ---
Providers Date of admission: 01/15/21 21:44 Expected date of discharge: 01/23/21 Attending physician: Leila Youngblood Consults: 01/16/21 15:22 Consult Physician Routine Consulting Provider: Oz Vazquez Consult Reason/Comments: COPD exacerbation Do you want consulting provider notified?: Yes 01/17/21 12:31 Consult Physician Routine Consulting Provider: Messi Willis Consult Reason/Comments: positive blood cultures Do you want consulting provider notified?: Yes Primary care physician: Otilia Flores Hospital Course: Final diagnosis -Acute hypoxic and hypercapnic respiratory failure on chronic hypercapnia respiratory failure: Secondary to COPD exacerbation -UTI with sepsis present on admission, positive culture with E. coli -Depression/schizoaffective disorder -Continue nicotine use: Counseling was provided, nicotine patch -DT prophylaxis -GI prophylaxis -Full code Discharge disposition Patient is being discharged in stable condition with guarded prognosis to [facility] room and board located in [facility]. Patient will follow-up with primary care provider Dr. Bingham in the outpatient setting along with pulmonary on discharge. Pt wears home oxygen this will be continued. We are not continuing suboxone on discharge, she will need an order, documentation and dosing from her provider for this in order for it to be resumed outpatient as hospital is not able to prescribe. Patient will continue on oral antibiotics in the form of Ceftin 500 mg for the next 11 days and then may discontinue. Patient also being prescribed a prednisone taper on discharge. Total time taken is greater than 35 minutes. Hospital course This is a 55-year-old female with a known history of COPD and she usually wears 4 L of oxygen via nasal cannula at home. She came into the second complaint of shortness of breath was found to be in COPD exacerbation and was started on BiPAP. Presently she is now on home dose of 4 L nasal cannula saturating 97%. There is no wheezing on her examination. She denied any urinary discomfort, suprapubic pain, frequency or urgency however urine culture was found to be positive for E. coli with sensitivities that shows resistance to ampicillin. She was covered adequately with IV Rocephin with transition to oral Ceftin on discharge for this. Blood cultures were also positive for gram-negative bacilli and E. coli. Her most recent blood culture has been negative for 48 hours. Oral Ceftin will cover for discharge as well. We will treat for a total 14 days of antibiotics. Additional diagnostics included a ultrasound of the kidneys remain on bladder which showed no evidence for hydronephrosis. There was no nephrolithiasis. There were no solid masses. Chest x-ray on admission showed clearing of the mid interstitial infiltrates of the lung bases compared to yesterday. She was evaluated in the on January 14 for difficulty in breathing and had a chest xray that showed chronic changes with no evidence for acute pulmonary disease. Patient was evaluated upon her services to clear the patient for discharge this admission. However on discharge included a white blood cell count 11.6, it is now 9.1. Sodium levels 141, potassium 3.6, chloride is 108, CO2 26, BUN 16 and creatinine 0.67. Lactic acid was normal at 1.1. Troponin was negative. BNP was 729. She had a pro calcitonin level of 0.32 which is suggestive of bacterial infection. Urinalysis on admission was also suggestive of infection. She was negative for influenza A B, RSV, Covid , Mycoplasma IgG and IgM. Vital signs remained stable temp of 98.3, heart rate 96 and blood pressure 105/79. She is 97% on 4 liters of oxygen. 01/23/2021 Patient was seen and evaluated in follow-up this morning with social work present at the bedside and patient is being arranged for discharge to [facility] room and board which is located in [facility] and patient will follow-up closely with [facility] for continued ongoing services in the outpatient setting. Patient denies any chest pain, shortness of breath, or palpitations. Patient is afebrile. No reports of nausea or vomiting and patient is tolerating diet. Patient will continue oral antibiotics in the form of Ceftin 500 mg twice daily for the next 11 days along with a prednisone taper to complete the course. Transportation being arranged at this time. PHYSICAL EXAMINATION: GENERAL: The patient is alert and oriented x3, not in any acute distress. Well developed, well nourished. HEENT: Pupils are round and equally reacting to light. EOMI. No scleral icterus. No conjunctival pallor. Normocephalic, atraumatic. No pharyngeal erythema. No thyromegaly. CARDIOVASCULAR: S1 and S2 present. No murmurs, rubs, or gallops. PULMONARY: Lungs are clear, there is no wheezing, crackles. ABDOMEN: Soft, nontender, nondistended, normoactive bowel sounds. No palpable organomegaly. MUSCULOSKELETAL: No joint swelling or deformity. EXTREMITIES: No cyanosis, clubbing, or pedal edema. NEUROLOGICAL: Gross neurological examination did not reveal any focal deficits. SKIN: No rashes. Please refer to medication reconciliation sheet for a list of medications. Patient Condition at Discharge: Stable Plan - Discharge Summary Discharge Rx Participant: Yes New Discharge Prescriptions: New Cefuroxime Axetil [Ceftin] 500 mg PO BID 11 Days #22 tab Nicotine 14Mg/24Hr Patch [Habitrol] 1 patch TRANSDERM DAILY #7 patch Acetaminophen Tab [Tylenol] 650 mg PO Q6HR PRN tab PRN Reason: Mild Pain Or Fever > 100.5 predniSONE [Deltasone] 40 mg PO DAILY 3 Days #3 tab Budesonide-Formot 160-4.5 Mcg [Symbicort 160-4.5 Mcg Inhaler] 2 puff INHALATION RT-BID #60 gm Continue Lurasidone [Latuda] 40 mg PO DAILY@0800 Ipratropium-Albuterol Nebulize [Duoneb 0.5 mg-3 mg/3 ml Soln] 3 ml INHALATION RT-TID@08,16,21 carvediloL [Coreg] 6.25 mg PO BID@0800,1700 Buprenorphine HCl/Naloxone HCl [Suboxone 8 mg-2 mg Sl Film] 1 film SL TID PRN PRN Reason: Pain Albuterol Sulfate [Proair Hfa] 2 puff INHALATION RT-Q6H PRN PRN Reason: Shortness Of Breath hydrOXYzine HCL [Atarax] 25 mg PO QID PRN PRN Reason: ALLERGIES/ANXIETY Ibuprofen [Motrin] 800 mg PO Q8H PRN PRN Reason: Pain PARoxetine HCL [Paxil] 20 mg PO DAILY@0800 cloNIDine HCL [Catapres] 0.1 mg PO BID@0800,2000 Famotidine [Pepcid] 20 mg PO BID@0800,2100 Baclofen [Lioresal] 10 mg PO TID@0800,1600,2100 Cetirizine HCl [Zyrtec] 10 mg PO DAILY PRN PRN Reason: Allergy Symptoms PARoxetine [Paxil] 40 mg PO DAILY@1700 Discharge Medication List Baclofen [Lioresal] 10 mg PO TID@0800,1600,209901/14/21 [History] Buprenorphine HCl/Naloxone HCl [Suboxone 8 mg-2 mg Sl Film] 1 film SL TID PRN 01/14/21 [History] Famotidine [Pepcid] 20 mg PO BID@0800,2100 01/14/21 [History] Ipratropium-Albuterol Nebulize [Duoneb 0.5 mg-3 mg/3 ml Soln] 3 ml INHALATION RT-TID@08,16,01/14/21 [History] Lurasidone [Latuda] 40 mg PO DAILY@0800 01/14/21 [History] carvediloL [Coreg] 6.25 mg PO BID@0800,1700 01/14/21 [History] cloNIDine HCL [Catapres] 0.1 mg PO BID@0800,199901/14/21 [History] Albuterol Sulfate [Proair Hfa] 2 puff INHALATION RT-Q6H PRN 01/18/21 [History] Cetirizine HCl [Zyrtec] 10 mg PO DAILY PRN 01/18/21 [History] Ibuprofen [Motrin] 800 mg PO Q8H PRN 01/18/21 [History] PARoxetine HCL [Paxil] 20 mg PO DAILY@0800 01/18/21 [History] PARoxetine [Paxil] 40 mg PO DAILY@1700 01/18/21 [History] hydrOXYzine HCL [Atarax] 25 mg PO QID PRN 01/18/21 [History] Acetaminophen Tab [Tylenol] 650 mg PO Q6HR PRN tab 01/19/21 [Rx] Budesonide-Formot 160-4.5 Mcg [Symbicort 160-4.5 Mcg Inhaler] 2 puff INHALATION RT-BID #60 gm 01/19/21 [Rx] Cefuroxime Axetil [Ceftin] 500 mg PO BID 11 Days #22 tab 01/19/21 [Rx] Nicotine 14Mg/24Hr Patch [Habitrol] 1 patch TRANSDERM DAILY #7 patch 01/19/21 [Rx] predniSONE [Deltasone] 40 mg PO DAILY 3 Days #3 tab 01/19/21 [Rx] Follow up Appointment(s)/Referral(s): Sally Pastrana MD [STAFF PHYSICIAN] - 1 Week Sandra Bingham MD [Primary Care Provider] - 1-2 days [facility] [NON-STAFF] - 01/19/21 11:00 am Ambulatory/Diagnostic Orders: Basic Metabolic Panel [LAB.AMB] Time Frame: 3 Days, Location: None Selected Complete Blood Count w/diff [LAB.AMB] Time Frame: 3 Days, Location: None Selected Activity/Diet/Wound Care/Special Instructions: Follow up with [facility] Discharge Disposition: OTHER INSTITUTION NOT DEFINED
[2021-01-23 14:44] VITALS: BP 122/76; PULSE 85; TEMP 98
--- NOTE | 2021-01-23 22:05 | P.PN ---
Progress Note - Text Progress Note Date: 01/23/21 REASON FOR FOLLOWUP: E coli bacteremia secondary to complicated UTI. INTERVAL HISTORY: The patient remains to be afebrile. The patient is breathing comfortably. The patient is denies further nausea or vomiting. No chest pain, shortness of breath or cough or diarrhea. PHYSICAL EXAMINATION: Blood pressure is 120/70 with a pulse of 82, temperature 98.3. She is 95% on 4 L nasal cannula. General description is a middle-aged female up in the bed in no distress. RESPIRATORY SYSTEM: Unlabored breathing. Clear to auscultation anteriorly. HEART: S1, S2. Regular rate and rhythm. ABDOMEN: Soft. No tenderness. LABS: reviewed DIAGNOSTIC IMPRESSION AND PLAN: Patient with Escherichia coli bacteremia secondary to complicated urinary tract infection. Ultrasound was negative for hydronephrosis/ structural abnormality. Patient to finish therpay with oral ceftin 500mg bid x 10 days
== END 2021-01-23 15:14 | disposition other institution (70) | DRG 871 ==
LOC: EC 19:55 → 4SSUR 21:44 → 1SOBS 01-16 10:27 → 4SSUR 01-20 15:27
PROVIDERS: ADMIT Internal Medicine; ATTEND Internal Medicine
DX: A41.9 Sepsis, unspecified organism (principal); J96.21 Acute and chronic respiratory failure with hypoxia; J96.22 Acute and chronic respiratory failure with hypercapnia; E87.1 Hypo-osmolality and hyponatremia; J44.1 Chronic obstructive pulmonary disease with (acute) exacerbation; Z16.11 Resistance to penicillins; N12 Tubulo-interstitial nephritis, not specified as acute or chronic; Z20.822 Contact with and (suspected) exposure to COVID-19; B96.20 Unspecified Escherichia coli [E. coli] as the cause of diseases classified elsewhere; B96.89 Other specified bacterial agents as the cause of diseases classified elsewhere; E16.2 Hypoglycemia, unspecified; F17.200 Nicotine dependence, unspecified, uncomplicated; F25.9 Schizoaffective disorder, unspecified; F32.9 Major depressive disorder, single episode, unspecified; F41.0 Panic disorder [episodic paroxysmal anxiety]; G89.29 Other chronic pain; J20.9 Acute bronchitis, unspecified; M19.90 Unspecified osteoarthritis, unspecified site; K21.9 Gastro-esophageal reflux disease without esophagitis; N28.1 Cyst of kidney, acquired; Z79.899 Other long term (current) drug therapy; Z83.2 Family history of diseases of the blood and blood-forming organs and certain disorders involving the immune mechanism; M41.9 Scoliosis, unspecified
CPT/HCPCS: 36415; 71046; 76770; 80048; 80053; 81001; 83605; 83735; 83880; 84145; 84484; 85025; 85027; 85610; 85730; 86738; 87040; 87070; 87077; 87086; 87186; 87205; 87636; 93005; 94640; 94660; 94760; 96374; 99285

== ENCOUNTER 2021-02-01 13:01 | Emergency (ER) | payer OTHER ==
[2021-02-01 13:10] VITALS: RESP 18; TEMP 98.2
[2021-02-01] MEDS ORDERED: SODIUM CHLORIDE 0.9% 1,000 ML IV STA (13:39)
[2021-02-01] MEDS ORDERED: MECLIZINE 12.5 MG TAB PO STA ×2 (13:39→16:53)
[2021-02-01] MEDS ORDERED: ONDANSETRON 4 MG/2 ML VIAL IVP STA ×2 (13:39→16:53)
[2021-02-01] MEDS ORDERED: SODIUM CHLORIDE 0.9% 500 ML 500 ML IV STA (13:39)
[2021-02-01 14:15] LABS: Basophils % (A) 0 %; Eosinophils # (A) 0.1 k/uL (0-0.7); Eosinophils % (A) 2 %; HCT 38.5 % (34.0-46.0); HGB 12.4 gm/dL (11.4-16.0); Lymphocytes # (A) 1.8 k/uL (1.0-4.8); Lymphocytes % (A) 29 %; MCHC 32.2 g/dL (31.0-37.0); MCV 93.4 fL (80.0-100.0); Mean Platelet Volume 7.6; Monocytes # (A) 0.4 k/uL (0-1.0); Monocytes % (A) 6 %; Neutrophils # (A) 3.7 k/uL (1.3-7.7); Neutrophils % (A) 59 %; Platelet Count 221 k/uL (150-450); RBC 4.12 m/uL (3.80-5.40); RDW 13.3 % (11.5-15.5); WBC 6.2 k/uL (3.8-10.6)
[2021-02-01 14:29] LABS: Appearance,Urine Clear (Clear); Bilirubin,Urine Negative (Negative); Blood,Urine Negative (Negative); Color,Urine Light Yellow; Glucose,Urine (UA) Negative (Negative); Ketones,Urine Negative (Negative); Leukocyte Esterase,Urine Negative (Negative); Nitrite,Urine Negative (Negative); Protein,Urine Negative (Negative); Specific Gravity,Urine 1.005 (1.001-1.035); Urobilinogen,Urine <2.0 mg/dL (<2.0)
--- NOTE | 2021-02-01 14:32 | CT ---
EXAMINATION TYPE: CT brain wo con DATE OF EXAM: 02/01/2021 COMPARISON: None HISTORY: 55-year-old female Dizziness TECHNIQUE: Examination was done in axial plane without intravenous contrast. Coronal and sagittal r econstructions performed. CT DLP: 1098.4 mGycm Automated exposure control for dose reduction was used. FINDINGS: There is no evidence of acute intracranial hemorrhage, acute ischemic changes, mass, mass-effect, or extra-axial fluid collection. There is no effacement of cerebral sulci or basal subarachnoid cister ns. There is no hydrocephalus. There is no midline shift. Ho-white matter distinction is preserv ed. Paranasal sinuses and mastoid air cells are well pneumatized. The globes are intact. IMPRESSION: No acute intracranial abnormality seen.
--- NOTE | 2021-02-01 14:36 | XR ---
EXAMINATION TYPE: XR chest 2V DATE OF EXAM: 02/01/2021 COMPARISON: Chest x-ray 01/15/2021, CT 07/18/2020, 09/05/2020 HISTORY: Dizziness TECHNIQUE: Frontal and lateral views of the chest are obtained. FINDINGS: There is no focal air space opacity, pleural effusion, or pneumothorax seen. The cardiac silhouette size is within normal limits. There are overlying artifacts. Questionable prominence of in terstitium. Patient is rotated. The osseous structures are intact. The lung volumes are prominent wi th flattening the hemidiaphragms. IMPRESSION: There is underlying emphysema, interstitial lung disease.
--- NOTE | 2021-02-01 14:42 | ED ---
Dizziness HPI - General Chief Complaint: Dizziness Stated Complaint: Dizziness, nausea Time Seen by Provider: 02/01/21 13:24 Source: patient, EMS, RN notes reviewed Mode of arrival: EMS Limitations: no limitations - History of Present Illness Initial Comments: This a 55-year-old female presents emergency Department chief complaint of dizziness. Patient states symptoms started melena which it for the bathroom. States the room was spinning. She does not resolve she now has associated nausea vomiting no focal weakness and went of headache, blurred vision, fever, chills, chest pain or palpitations. She's never had any like this in the past. She does have underlying COPD on 4 L of oxygen chronically. - Related Data Home Medications Medication Instructions Recorded Confirmed Baclofen [Lioresal] 10 mg PO TID 01/14/21 02/01/21 Buprenorphine HCl/Naloxone HCl 1 film SL TID PRN 01/14/21 02/01/21 [Suboxone 8 mg-2 mg Sl Film] Famotidine [Pepcid] 20 mg PO BID 01/14/21 02/01/21 Ipratropium-Albuterol Nebulize 3 ml INHALATION RT-TID 01/14/21 02/01/21 [Duoneb 0.5 mg-3 mg/3 ml Soln] Lurasidone [Latuda] 40 mg PO DAILY 01/14/21 02/01/21 carvediloL [Coreg] 6.25 mg PO AC-BID 01/14/21 02/01/21 cloNIDine HCL [Catapres] 0.1 mg PO HS 01/14/21 02/01/21 Albuterol Sulfate [Proair Hfa] 2 puff INHALATION RT-Q6H PRN 01/18/21 02/01/21 Cetirizine HCl [Zyrtec] 10 mg PO DAILY PRN 01/18/21 02/01/21 Ibuprofen [Motrin] 800 mg PO Q8H PRN 01/18/21 02/01/21 PARoxetine HCL [Paxil] 20 mg PO DAILY 01/18/21 02/01/21 PARoxetine [Paxil] 40 mg PO DAILY@1700 01/18/21 02/01/21 hydrOXYzine HCL [Atarax] 25 mg PO QID PRN 01/18/21 02/01/21 Previous Rx's Medication Instructions Recorded Acetaminophen Tab [Tylenol] 650 mg PO Q6HR PRN tab 01/19/21 Budesonide-Formot 160-4.5 Mcg 2 puff INHALATION RT-BID #60 gm 01/19/21 [Symbicort 160-4.5 Mcg Inhaler] Meclizine [Antivert] 25 mg PO TID PRN #15 tab 02/01/21 Ondansetron Odt [Zofran Odt] 4 mg PO Q8HR PRN #10 tab 02/01/21 Allergies Allergy/AdvReac Type Severity Reaction Status Date / Time risperidone AdvReac Dyspnea Verified 02/01/21 13:11 Review of Systems ROS Statement: Those systems with pertinent positive or pertinent negative responses have been documented in the HPI. ROS Other: All systems not noted in ROS Statement are negative. Past Medical History Past Medical History: COPD, Musculoskeletal Disorder, Osteoarthritis (OA) Additional Past Medical History / Comment(s): DDD, SCOLIOSIS, chronic back pain History of Any Multi-Drug Resistant Organisms: None Reported Past Surgical History: Tubal Ligation Additional Past Surgical History / Comment(s): PAIN CLINIC PROCEDURES Past Anesthesia/Blood Transfusion Reactions: No Reported Reaction Past Psychological History: Anxiety, Depression, Panic Disorder, Schizoaffective Disorder, Schizophrenia Smoking Status: Current every day smoker, Former smoker Past Alcohol Use History: None Reported Past Drug Use History: None Reported - Past Family History Daughter(s) Family Medical History: Blood Disorder, Deep Vein Thrombosis (DVT) Additional Family Medical History / Comment(s): "blood clotting disorder" General Exam Limitations: no limitations General appearance: alert, in no apparent distress Head exam: Present: atraumatic, normocephalic, normal inspection Eye exam: Present: normal appearance, PERRL, EOMI. Absent: scleral icterus, conjunctival injection, periorbital swelling ENT exam: Present: normal exam, normal oropharynx, mucous membranes moist Neck exam: Present: normal inspection, full ROM. Absent: tenderness, meningismus, lymphadenopathy Respiratory exam: Present: normal lung sounds bilaterally. Absent: respiratory distress, wheezes, rales, rhonchi, stridor Cardiovascular Exam: Present: regular rate, normal rhythm, normal heart sounds. Absent: systolic murmur, diastolic murmur, rubs, gallop, clicks GI/Abdominal exam: Present: soft, normal bowel sounds. Absent: distended, tenderness, guarding, rebound, rigid Neurological exam: Present: alert, oriented X3, CN II-XII intact, reflexes normal. Absent: motor sensory deficit Skin exam: Present: warm, dry, intact, normal color. Absent: rash Course Vital Signs 02/01/21 02/01/21 13:02 15:34 Temperature 98.2 F Pulse Rate 87 79 Respiratory 18 18 Rate Blood Pressure 90/53 108/70 O2 Sat by Pulse 98 96 Oximetry Medical Decision Making - Medical Decision Making 55-year-old female presents department with chief complaint of dizziness. She does feel improved at this time. Patient CT, labs unremarkable. Patient discha rged in stable condition with Antivert, Zofran return parameters discussed. - Lab Data Result diagrams: 02/01/21 14:00 02/01/21 14:00 Lab Results 02/01/21 02/01/21 02/01/21 Range/Units 14:00 14:00 14:00 WBC 6.2 (3.8-10.6) k/uL RBC 4.12 (3.80-5.40) m/uL Hgb 12.4 (11.4-16.0) gm/dL Hct 38.5 (34.0-46.0) % MCV 93.4 (80.0-100.0) fL MCH 30.0 (25.0-35.0) pg MCHC 32.2 (31.0-37.0) g/dL RDW 13.3 (11.5-15.5) % Plt Count 221 (150-450) k/uL MPV 7.6 Neutrophils % 59 % Lymphocytes % 29 % Monocytes % 6 % Eosinophils % 2 % Basophils % 0 % Neutrophils # 3.7 (1.3-7.7) k/uL Lymphocytes # 1.8 (1.0-4.8) k/uL Monocytes # 0.4 (0-1.0) k/uL Eosinophils # 0.1 (0-0.7) k/uL Basophils # 0.0 (0-0.2) k/uL Sodium 134 L (137-145) mmol/L Potassium 4.1 (3.5-5.1) mmol/L Chloride 99 (98-107) mmol/L Carbon Dioxide 31 H (22-30) mmol/L Anion Gap 4 mmol/L BUN 13 (7-17) mg/dL Creatinine 0.68 (0.52-1.04) mg/dL Est GFR (CKD-EPI)AfAm >90 (>60 ml/min/1.73 sqM) Est GFR (CKD-EPI)NonAf >90 (>60 ml/min/1.73 sqM) Glucose 100 H (74-99) mg/dL Calcium 8.8 (8.4-10.2) mg/dL Total Bilirubin 0.2 (0.2-1.3) mg/dL AST 21 (14-36) U/L ALT 34 (4-34) U/L Alkaline Phosphatase 68 (38-126) U/L Troponin I (0.000-0.034) ng/mL Total Protein 5.9 L (6.3-8.2) g/dL Albumin 3.4 L (3.5-5.0) g/dL Urine Color Light Yellow Urine Appearance Clear (Clear) Urine pH 6.0 (5.0-8.0) Ur Specific [place] 1.005 (1.001-1.035) Urine Protein Negative (Negative) Urine Glucose (UA) Negative (Negative) Urine Ketones Negative (Negative) Urine Blood Negative (Negative) Urine Nitrite Negative (Negative) Urine Bilirubin Negative (Negative) Urine Urobilinogen <2.0 (<2.0) mg/dL Ur Leukocyte Esterase Negative (Negative) 02/01/21 Range/Units 14:00 WBC (3.8-10.6) k/uL RBC (3.80-5.40) m/uL Hgb (11.4-16.0) gm/dL Hct (34.0-46.0) % MCV (80.0-100.0) fL MCH (25.0-35.0) pg MCHC (31.0-37.0) g/dL RDW (11.5-15.5) % Plt Count (150-450) k/uL MPV Neutrophils % % Lymphocytes % % Monocytes % % Eosinophils % % Basophils % % Neutrophils # (1.3-7.7) k/uL Lymphocytes # (1.0-4.8) k/uL Monocytes # (0-1.0) k/uL Eosinophils # (0-0.7) k/uL Basophils # (0-0.2) k/uL Sodium (137-145) mmol/L Potassium (3.5-5.1) mmol/L Chloride (98-107) mmol/L Carbon Dioxide (22-30) mmol/L Anion Gap mmol/L BUN (7-17) mg/dL Creatinine (0.52-1.04) mg/dL Est GFR (CKD-EPI)AfAm (>60 ml/min/1.73 sqM) Est GFR (CKD-EPI)NonAf (>60 ml/min/1.73 sqM) Glucose (74-99) mg/dL Calcium (8.4-10.2) mg/dL Total Bilirubin (0.2-1.3) mg/dL AST (14-36) U/L ALT (4-34) U/L Alkaline Phosphatase (38-126) U/L Troponin I <0.012 (0.000-0.034) ng/mL Total Protein (6.3-8.2) g/dL Albumin (3.5-5.0) g/dL Urine Color Urine Appearance (Clear) Urine pH (5.0-8.0) Ur Specific Blaine (1.001-1.035) Urine Protein (Negative) Urine Glucose (UA) (Negative) Urine Ketones (Negative) Urine Blood (Negative) Urine Nitrite (Negative) Urine Bilirubin (Negative) Urine Urobilinogen (<2.0) mg/dL Ur Leukocyte Esterase (Negative) Disposition Clinical Impression: Vertigo Disposition: HOME SELF-CARE Condition: Stable Instructions (If sedation given, give patient instructions): Dizziness (ED) Additional Instructions: Please return to the Emergency Department if symptoms worsen or any other concerns. Prescriptions: Meclizine [Antivert] 25 mg PO TID PRN #15 tab PRN Reason: Vertigo Ondansetron Odt [Zofran Odt] 4 mg PO Q8HR PRN #10 tab PRN Reason: Nausea Is patient prescribed a controlled substance at d/c from ED?: No Referrals: Sandra Bingham MD [Primary Care Provider] - 1-2 days Time of Disposition: 16:21
[2021-02-01 14:44] LABS: ALT 34 U/L (4-34); AST 21 U/L (14-36); African American GFR (CKD) >90 (>60 ml/min/1.73 sqM); Albumin 3.4 g/dL (3.5-5.0); Alkaline Phosphatase 68 U/L (38-126); Anion Gap 4 mmol/L; Blood Urea Nitrogen 13 mg/dL (7-17); Calcium 8.8 mg/dL (8.4-10.2); Carbon Dioxide 31 mmol/L (22-30); Chloride 99 mmol/L (98-107); Glucose 100 mg/dL (74-99); Non-African American GFR(CKD) >90 (>60 ml/min/1.73 sqM); Potassium 4.1 mmol/L (3.5-5.1); Sodium 134 mmol/L (137-145); Total Bilirubin 0.2 mg/dL (0.2-1.3); Total Protein 5.9 g/dL (6.3-8.2)
[2021-02-01] MEDS ORDERED: METOCLOPRAMIDE 5 MG/ML 2 ML VIAL IVP STA (15:30)
[2021-02-01 15:35] VITALS: BP 108/70; PULSE 79
== END 2021-02-01 18:30 | disposition home or self-care (01) ==
LOC: EC 13:01
DX: R42 Dizziness and giddiness (principal); J44.9 Chronic obstructive pulmonary disease, unspecified; M19.90 Unspecified osteoarthritis, unspecified site; F32.9 Major depressive disorder, single episode, unspecified; F41.9 Anxiety disorder, unspecified; F25.9 Schizoaffective disorder, unspecified; Z87.891 Personal history of nicotine dependence; Z79.51 Long term (current) use of inhaled steroids; Z79.1 Long term (current) use of non-steroidal anti-inflammatories (NSAID); Z79.899 Other long term (current) drug therapy
CPT/HCPCS: 36415; 93005; 80053; 84484; 85025; 81003; 71046; 70450; 99285; 96374; 96375; 96376; 96361 ×3; J2765; J2405

== ENCOUNTER 2021-02-08 10:55 | Inpatient (IN) | payer OTHER ==
[2021-02-08] MEDS ORDERED: diphenhydrAMINE 50 MG/ML 1 ML VIAL IVP STA (11:10)
[2021-02-08] MEDS ORDERED: ACETAMINOPHEN TAB 500 MG TAB PO STA (11:10)
[2021-02-08] MEDS ORDERED: IPRATROPIUM-ALBUTEROL 3 ML NEB INHALATION STA (11:11)
--- NOTE | 2021-02-08 11:21 | ED ---
General Adult HPI - General Chief complaint: Shortness of Breath Stated complaint: SOB/Hearing things Time Seen by Provider: 02/08/21 10:57 Source: EMS Mode of arrival: EMS Limitations: altered mental status, physical limitation - History of Present Illness Initial comments: 55-year-old female with a past medical history of COPD on 4 L, chronic back pain presents to the emergency room for a chief complaint of confusion. The patient was brought in by EMS. The patient was apparently confused at home and hearing voices. EMS reports her oxygen wasn't working. Patient is very wheezy on exam and was given an DuoNeb according to EMS. Patient reports she has been hearing voices. patient is slow to answer questions but She is alert and oriented 3. Patient has no other complaints at this time including shortness of breath, chest pain, abdominal pain, nausea or vomiting, headache, or visual changes. - Related Data Home Medications Medication Instructions Recorded Confirmed Baclofen [Lioresal] 10 mg PO TID 01/14/21 02/08/21 Buprenorphine HCl/Naloxone HCl 1 film SL TID PRN 01/14/21 02/08/21 [Suboxone 8 mg-2 mg Sl Film] Famotidine [Pepcid] 20 mg PO BID 01/14/21 02/08/21 Ipratropium-Albuterol Nebulize 3 ml INHALATION RT-TID 01/14/21 02/08/21 [Duoneb 0.5 mg-3 mg/3 ml Soln] Lurasidone [Latuda] 40 mg PO DAILY 01/14/21 02/08/21 carvediloL [Coreg] 6.25 mg PO AC-BID 01/14/21 02/08/21 cloNIDine HCL [Catapres] 0.1 mg PO Q12H 01/14/21 02/08/21 Albuterol Sulfate [Proair Hfa] 2 puff INHALATION RT-Q6H PRN 01/18/21 02/08/21 Cetirizine HCl [Zyrtec] 10 mg PO DAILY PRN 01/18/21 02/08/21 Ibuprofen [Motrin] 800 mg PO Q8H PRN 01/18/21 02/08/21 PARoxetine HCL [Paxil] 20 mg PO DAILY 01/18/21 02/08/21 PARoxetine [Paxil] 40 mg PO DAILY@1700 01/18/21 02/08/21 hydrOXYzine HCL [Atarax] 25 mg PO QID PRN 01/18/21 02/08/21 Melatonin 10 mg PO HS 02/08/21 02/08/21 Miconazole Nitrate [Miconazole 1 applic TOPICAL DAILY 02/08/21 02/08/21 Nitrate 2%] Previous Rx's Medication Instructions Recorded Acetaminophen Tab [Tylenol] 650 mg PO Q6HR PRN tab 01/19/21 Budesonide-Formot 160-4.5 Mcg 2 puff INHALATION RT-BID #60 gm 01/19/21 [Symbicort 160-4.5 Mcg Inhaler] Meclizine [Antivert] 25 mg PO TID PRN #15 tab 02/01/21 Ondansetron Odt [Zofran Odt] 4 mg PO Q8HR PRN #10 tab 02/01/21 Allergies Allergy/AdvReac Type Severity Reaction Status Date / Time risperidone AdvReac Dyspnea Verified 02/08/21 13:21 Review of Systems ROS Statement: Those systems with pertinent positive or pertinent negative responses have been documented in the HPI. ROS Other: All systems not noted in ROS Statement are negative. Past Medical History Past Medical History: COPD, Musculoskeletal Disorder, Osteoarthritis (OA) Additional Past Medical History / Comment(s): DDD, SCOLIOSIS, chronic back pain History of Any Multi-Drug Resistant Organisms: None Reported Past Surgical History: Tubal Ligation Additional Past Surgical History / Comment(s): PAIN CLINIC PROCEDURES Past Anesthesia/Blood Transfusion Reactions: No Reported Reaction Past Psychological History: Anxiety, Depression, Panic Disorder, Schizoaffective Disorder, Schizophrenia Smoking Status: Current every day smoker, Former smoker Past Alcohol Use History: None Reported Past Drug Use History: None Reported - Past Family History Daughter(s) Family Medical History: Blood Disorder, Deep Vein Thrombosis (DVT) Additional Family Medical History / Comment(s): "blood clotting disorder" General Exam Limitations: altered mental status, physical limitation General appearance: alert, in no apparent distress Head exam: Present: atraumatic Eye exam: Present: normal appearance, PERRL, EOMI. Absent: scleral icterus, conjunctival injection ENT exam: Present: normal exam, mucous membranes moist Neck exam: Present: normal inspection, full ROM. Absent: tenderness Respiratory exam: Present: wheezes. Absent: respiratory distress Cardiovascular Exam: Present: regular rate, normal rhythm, normal heart sounds GI/Abdominal exam: Present: soft, normal bowel sounds. Absent: distended, tenderness Course Vital Signs 02/08/21 02/08/21 02/08/21 10:58 11:12 11:45 Temperature 101 F H Pulse Rate 115 H 110 H Respiratory 20 22 Rate Blood Pressure 124/65 O2 Sat by Pulse 87 L 94 L Oximetry 02/08/21 02/08/21 02/08/21 11:52 11:53 13:00 Temperature Pulse Rate 110 H 110 H 96 Respiratory 22 24 20 Rate Blood Pressure 130/107 107/62 O2 Sat by Pulse 92 L 91 L Oximetry 02/08/21 13:03 Temperature 100.2 F H Pulse Rate Respiratory Rate Blood Pressure O2 Sat by Pulse Oximetry EKG Findings - EKG Comments: EKG Findings:: sinus tachycardia, ventricular rate 111, DE interval 128, qtc 481 Medical Decision Making - Medical Decision Making Patient presents hypoxic initially 87% on 2 L as EMS was not sure of how much oxygen she was on at home. Patient was not wearing her oxygen at home either. Throughout her stay she was bumped up to 4 L which is what she is on at home and is still somewhat hypoxic at 92%. she is febrile as well. She is alert and oriented 3 although somewhat slow to answer questions in a little bit confused Laboratory evaluation was unremarkable. Coronavirus positive. Chest x-ray does show superimposed pneumonia or interstitial pneumonitis likely secondary to coronavirus.given she is 90% on 5 L and confusion. - Lab Data Result diagrams: 02/08/21 11:27 02/08/21 11:27 Lab Results 02/08/21 02/08/21 02/08/21 Range/Units 11:27 11:27 11:27 WBC 5.5 (3.8-10.6) k/uL RBC 4.33 (3.80-5.40) m/uL Hgb 13.0 (11.4-16.0) gm/dL Hct 39.0 (34.0-46.0) % MCV 90.1 (80.0-100.0) fL MCH 30.0 (25.0-35.0) pg MCHC 33.3 (31.0-37.0) g/dL RDW 14.5 (11.5-15.5) % Plt Count 232 (150-450) k/uL MPV 6.9 Neutrophils % 68 % Lymphocytes % 20 % Monocytes % 7 % Eosinophils % 1 % Basophils % 1 % Neutrophils # 3.7 (1.3-7.7) k/uL Lymphocytes # 1.1 (1.0-4.8) k/uL Monocytes # 0.4 (0-1.0) k/uL Eosinophils # 0.0 (0-0.7) k/uL Basophils # 0.0 (0-0.2) k/uL PT 9.6 (9.0-12.0) sec INR 0.9 (<1.2) APTT 24.8 (22.0-30.0) sec Sodium 136 L (137-145) mmol/L Potassium 4.9 (3.5-5.1) mmol/L Chloride 103 (98-107) mmol/L Carbon Dioxide 25 (22-30) mmol/L Anion Gap 8 mmol/L BUN 14 (7-17) mg/dL Creatinine 0.78 (0.52-1.04) mg/dL Est GFR (CKD-EPI)AfAm >90 (>60 ml/min/1.73 sqM) Est GFR (CKD-EPI)NonAf 86 (>60 ml/min/1.73 sqM) Glucose 129 H (74-99) mg/dL Calcium 9.1 (8.4-10.2) mg/dL Total Bilirubin 0.5 (0.2-1.3) mg/dL AST 47 H (14-36) U/L ALT 34 (4-34) U/L Alkaline Phosphatase 72 (38-126) U/L Troponin I (0.000-0.034) ng/mL NT-Pro-B Natriuret Pep pg/mL Total Protein 6.9 (6.3-8.2) g/dL Albumin 4.1 (3.5-5.0) g/dL Urine Color Urine Appearance (Clear) Urine pH (5.0-8.0) Ur Specific [place] (1.001-1.035) Urine Protein (Negative) Urine Glucose (UA) (Negative) Urine Ketones (Negative) Urine Blood (Negative) Urine Nitrite (Negative) Urine Bilirubin (Negative) Urine Urobilinogen (<2.0) mg/dL Ur Leukocyte Esterase (Negative) Coronavirus (PCR) (Not Detectd) 02/08/21 02/08/21 02/08/21 Range/Units 11:27 11:27 11:27 WBC (3.8-10.6) k/uL RBC (3.80-5.40) m/uL Hgb (11.4-16.0) gm/dL Hct (34.0-46.0) % MCV (80.0-100.0) fL MCH (25.0-35.0) pg MCHC (31.0-37.0) g/dL RDW (11.5-15.5) % Plt Count (150-450) k/uL MPV Neutrophils % % Lymphocytes % % Monocytes % % Eosinophils % % Basophils % % Neutrophils # (1.3-7.7) k/uL Lymphocytes # (1.0-4.8) k/uL Monocytes # (0-1.0) k/uL Eosinophils # (0-0.7) k/uL Basophils # (0-0.2) k/uL PT (9.0-12.0) sec INR (<1.2) APTT (22.0-30.0) sec Sodium (137-145) mmol/L Potassium (3.5-5.1) mmol/L Chloride (98-107) mmol/L Carbon Dioxide (22-30) mmol/L Anion Gap mmol/L BUN (7-17) mg/dL Creatinine (0.52-1.04) mg/dL Est GFR (CKD-EPI)AfAm (>60 ml/min/1.73 sqM) Est GFR (CKD-EPI)NonAf (>60 ml/min/1.73 sqM) Glucose (74-99) mg/dL Calcium (8.4-10.2) mg/dL Total Bilirubin (0.2-1.3) mg/dL AST (14-36) U/L ALT (4-34) U/L Alkaline Phosphatase (38-126) U/L Troponin I <0.012 (0.000-0.034) ng/mL NT-Pro-B Natriuret Pep 235 pg/mL Total Protein (6.3-8.2) g/dL Albumin (3.5-5.0) g/dL Urine Color Urine Appearance (Clear) Urine pH (5.0-8.0) Ur Specific [place] (1.001-1.035) Urine Protein (Negative) Urine Glucose (UA) (Negative) Urine Ketones (Negative) Urine Blood (Negative) Urine Nitrite (Negative) Urine Bilirubin (Negative) Urine Urobilinogen (<2.0) mg/dL Ur Leukocyte Esterase (Negative) Coronavirus (PCR) Detected A (Not Detectd) 02/08/21 Range/Units 12:59 WBC (3.8-10.6) k/uL RBC (3.80-5.40) m/uL Hgb (11.4-16.0) gm/dL Hct (34.0-46.0) % MCV (80.0-100.0) fL MCH (25.0-35.0) pg MCHC (31.0-37.0) g/dL RDW (11.5-15.5) % Plt Count (150-450) k/uL MPV Neutrophils % % Lymphocytes % % Monocytes % % Eosinophils % % Basophils % % Neutrophils # (1.3-7.7) k/uL Lymphocytes # (1.0-4.8) k/uL Monocytes # (0-1.0) k/uL Eosinophils # (0-0.7) k/uL Basophils # (0-0.2) k/uL PT (9.0-12.0) sec INR (<1.2) APTT (22.0-30.0) sec Sodium (137-145) mmol/L Potassium (3.5-5.1) mmol/L Chloride (98-107) mmol/L Carbon Dioxide (22-30) mmol/L Anion Gap mmol/L BUN (7-17) mg/dL Creatinine (0.52-1.04) mg/dL Est GFR (CKD-EPI)AfAm (>60 ml/min/1.73 sqM) Est GFR (CKD-EPI)NonAf (>60 ml/min/1.73 sqM) Glucose (74-99) mg/dL Calcium (8.4-10.2) mg/dL Total Bilirubin (0.2-1.3) mg/dL AST (14-36) U/L ALT (4-34) U/L Alkaline Phosphatase (38-126) U/L Troponin I (0.000-0.034) ng/mL NT-Pro-B Natriuret Pep pg/mL Total Protein (6.3-8.2) g/dL Albumin (3.5-5.0) g/dL Urine Color Yellow Urine Appearance Clear (Clear) Urine pH 6.0 (5.0-8.0) Ur Specific [place] 1.021 (1.001-1.035) Urine Protein Negative (Negative) Urine Glucose (UA) Negative (Negative) Urine Ketones Negative (Negative) Urine Blood Negative (Negative) Urine Nitrite Negative (Negative) Urine Bilirubin Negative (Negative) Urine Urobilinogen <2.0 (<2.0) mg/dL Ur Leukocyte Esterase Negative (Negative) Coronavirus (PCR) (Not Detectd) Disposition Clinical Impression: Fever, COVID, Pneumonia, Hypoxia, AMS (altered mental status), COPD exacerbation Disposition: ADMITTED IP TO THIS HOSP Is patient prescribed a controlled substance at d/c from ED?: No Referrals: Sandra Bingham MD [Primary Care Provider] - 1-2 days Time of Disposition: 13:40
[2021-02-08 11:50] LABS: Basophils % (A) 1 %; Eosinophils % (A) 1 %; Lymphocytes # (A) 1.1 k/uL (1.0-4.8); Lymphocytes % (A) 20 %; MCHC 33.3 g/dL (31.0-37.0); MCV 90.1 fL (80.0-100.0); Mean Platelet Volume 6.9; Monocytes # (A) 0.4 k/uL (0-1.0); Monocytes % (A) 7 %; Neutrophils # (A) 3.7 k/uL (1.3-7.7); Neutrophils % (A) 68 %; Platelet Count 232 k/uL (150-450); RBC 4.33 m/uL (3.80-5.40); RDW 14.5 % (11.5-15.5); WBC 5.5 k/uL (3.8-10.6)
[2021-02-08] MEDS ORDERED: IBUPROFEN 600 MG TAB PO STA (12:01)
[2021-02-08 12:03] LABS: ALT 34 U/L (4-34); African American GFR (CKD) >90 (>60 ml/min/1.73 sqM); Albumin 4.1 g/dL (3.5-5.0); Anion Gap 8 mmol/L; Blood Urea Nitrogen 14 mg/dL (7-17); Calcium 9.1 mg/dL (8.4-10.2); Carbon Dioxide 25 mmol/L (22-30); Chloride 103 mmol/L (98-107); Glucose 129 mg/dL (74-99); Non-African American GFR(CKD) 86 (>60 ml/min/1.73 sqM); Sodium 136 mmol/L (137-145); Total Bilirubin 0.5 mg/dL (0.2-1.3); Total Protein 6.9 g/dL (6.3-8.2)
[2021-02-08 12:04] LABS: INR 0.9 (<1.2); Partial Thromboplastin Time 24.8 sec (22.0-30.0); Prothrombin Time 9.6 sec (9.0-12.0)
[2021-02-08 12:19] LABS: AST 47 U/L (14-36); Alkaline Phosphatase 72 U/L (38-126); Potassium 4.9 mmol/L (3.5-5.1)
--- NOTE | 2021-02-08 12:41 | XR ---
EXAMINATION TYPE: XR chest 2V DATE OF EXAM: 02/08/2021 COMPARISON: 02/01/2021 HISTORY: 55 year-old female shortness of breath, difficulty breathing TECHNIQUE: Frontal and lateral views FINDINGS: Heart upper limits of normal in size. Aorta within normal limits. Diffuse interstitial density appear s increased from prior exam. Hyperinflation. Peribronchial cuffing also noted. No kayley consolidation or pleural effusion. IMPRESSION: COPD but with a some increased interstitial density in the mid and lower lungs. Correlate to exclude superimposed pneumonia or interstitial pneumonitis.
[2021-02-08 13:12] LABS: Appearance,Urine Clear (Clear); Bilirubin,Urine Negative (Negative); Blood,Urine Negative (Negative); Color,Urine Yellow; Glucose,Urine (UA) Negative (Negative); Ketones,Urine Negative (Negative); Leukocyte Esterase,Urine Negative (Negative); Nitrite,Urine Negative (Negative); Protein,Urine Negative (Negative); Specific Gravity,Urine 1.021 (1.001-1.035); Urobilinogen,Urine <2.0 mg/dL (<2.0)
[2021-02-08] MEDS ORDERED: METOCLOPRAMIDE 5 MG/ML 2 ML VIAL IVP STA (13:18)
[2021-02-08] MEDS ORDERED: CHOLECALCIFEROL 25 MCG (1000 IU) TABLET PO SCH (13:30)
[2021-02-08] MEDS ORDERED: ENOXAPARIN 40 MG/0.4 ML SYRINGE SQ SCH (13:30)
[2021-02-08] MEDS ORDERED: MELATONIN 5 MG TABLET PO PRN (13:42)
[2021-02-08] MEDS ORDERED: ACETAMINOPHEN TAB 325 MG TAB PO PRN (13:42)
[2021-02-08] MEDS ORDERED: MECLIZINE 25 MG TAB PO PRN (13:42)
[2021-02-08] MEDS ORDERED: NALOXONE 0.4 MG/ML 1 ML VIAL IV PRN (13:44)
[2021-02-08] MEDS ORDERED: DEXAMETHASONE SOD PHOSPHATE 10 MG/ML 1 ML VIAL IVP SCH ×2 (13:45→14:00)
--- NOTE | 2021-02-08 13:47 | P.HPIM ---
History of Present Illness Patient is a 55-year-old female with known history of COPD, currently everyday smoker, osteoarthritis, anxiety/depression/schizophrenia , substance abuse with marijuana Presents because of dyspnea and confusion and hearing voices of people talking to each other, but she denies people talking to her. EMS states homecare was at the house today for the visit and patient was very altered,SOB, and shaky. Patient awake currently But slightly drowsy. She knows she is in [facility] in the year 2020 on the name of the president. She states she wears 4 L/m of oxygen via nasal cannula at home. She states she used to smoke and quit 3 weeks ago. She denies alcohol or illicit drugs she denies falling, she denies chest pain or abdominal pain. She was not coughing but she complains from chronic low back pain. She denies h eadache or weakness or dizziness patient states that she did not fall but she was about to fall and she denies any headache trauma. On admission she had a fever of 101. Heart rate 96-110. Blood pressure 107/62 currently she is saturating 91% on 5 L oxygen via nasal cannula She has unremarkable CBC, INR and BMP and liver enzymes. Troponin is negative less than 0.012. Urine analysis is not suspicious of infection Coronavirus is positive Chest x-ray: Showing bilateral infiltrates especially in basal areas In the emergency room she received Tylenol, ibuprofen and Benadryl. Review of Systems CONSTITUTIONAL: No fever, no malaise, no fatigue. HEENT: No recent visual problems or hearing problems. Denied any sore throat. CARDIOVASCULAR: No orthopnea, PND, no palpitations, no syncope. PULMONARY: No chest wall tenderness, no hemoptysis. GASTROINTESTINAL: No diarrhea, no nausea, no vomiting, no abdominal pain. Normoactive bowel sounds. NEUROLOGICAL: No headaches, no weakness, no numbness. HEMATOLOGICAL: Denies any bleeding or petechiae. GENITOURINARY: Denies any burning micturition, frequency, or urgency. MUSCULOSKELETAL/RHEUMATOLOGICAL: Denies any joint pain, swelling, or any muscle pain. ENDOCRINE: Denies any polyuria or polydipsia. Past Medical History Past Medical History: COPD, Musculoskeletal Disorder, Osteoarthritis (OA) Additional Past Medical History / Comment(s): DDD, SCOLIOSIS, chronic back pain History of Any Multi-Drug Resistant Organisms: None Reported Past Surgical History: Tubal Ligation Additional Past Surgical History / Comment(s): PAIN CLINIC PROCEDURES Past Anesthesia/Blood Transfusion Reactions: No Reported Reaction Past Psychological History: Anxiety, Depression, Panic Disorder, Schizoaffective Disorder, Schizophrenia Smoking Status: Current every day smoker, Former smoker Past Alcohol Use History: None Reported Past Drug Use History: None Reported - Past Family History Daughter(s) Family Medical History: Blood Disorder, Deep Vein Thrombosis (DVT) Additional Family Medical History / Comment(s): "blood clotting disorder" Medications and Allergies Home Medications Medication Instructions Recorded Confirmed Type Baclofen [Lioresal] 10 mg PO TID 01/14/21 02/01/21 History Buprenorphine HCl/Naloxone HCl 1 film SL TID PRN 01/14/21 02/01/21 History [Suboxone 8 mg-2 mg Sl Film] Famotidine [Pepcid] 20 mg PO BID 01/14/21 02/01/21 History Ipratropium-Albuterol Nebulize 3 ml INHALATION RT-TID 01/14/21 02/01/21 History [Duoneb 0.5 mg-3 mg/3 ml Soln] Lurasidone [Latuda] 40 mg PO DAILY 01/14/21 02/01/21 History carvediloL [Coreg] 6.25 mg PO AC-BID 01/14/21 02/01/21 History cloNIDine HCL [Catapres] 0.1 mg PO HS 01/14/21 02/01/21 History Albuterol Sulfate [Proair Hfa] 2 puff INHALATION RT-Q6H PRN 01/18/21 02/01/21 History Cetirizine HCl [Zyrtec] 10 mg PO DAILY PRN 01/18/21 02/01/21 History Ibuprofen [Motrin] 800 mg PO Q8H PRN 01/18/21 02/01/21 History PARoxetine HCL [Paxil] 20 mg PO DAILY 01/18/21 02/01/21 History PARoxetine [Paxil] 40 mg PO DAILY@1700 01/18/21 02/01/21 History hydrOXYzine HCL [Atarax] 25 mg PO QID PRN 01/18/21 02/01/21 History Acetaminophen Tab [Tylenol] 650 mg PO Q6HR PRN tab 01/19/21 02/01/21 Rx Budesonide-Formot 160-4.5 Mcg 2 puff INHALATION RT-BID #60 gm 01/19/21 02/01/21 Rx [Symbicort 160-4.5 Mcg Inhaler] Meclizine [Antivert] 25 mg PO TID PRN #15 tab 02/01/21 Rx Ondansetron Odt [Zofran Odt] 4 mg PO Q8HR PRN #10 tab 02/01/21 Rx Allergies Allergy/AdvReac Type Severity Reaction Status Date / Time risperidone AdvReac Dyspnea Verified 02/08/21 10:58 Physical Exam Vitals: Vital Signs Temp Pulse Resp BP Pulse Ox 02/08/21 13:03 100.2 F H 02/08/21 13:00 96 20 107/62 91 L 02/08/21 11:53 110 H 24 130/107 92 L 02/08/21 11:52 110 H 22 02/08/21 11:45 110 H 22 02/08/21 11:12 94 L 02/08/21 10:58 101 F H 115 H 20 124/65 87 L Intake and Output 02/07/21 02/08/21 02/08/21 22:59 06:59 14:59 Other: Weight 104 kg -GENERAL: The patient is alert and oriented x3, drowsy, not in any acute distress. Well developed, well nourished. HEENT: Pupils are round and equally reacting to light. EOMI. No scleral icterus. No conjunctival pallor. Normocephalic, atraumatic. No pharyngeal erythema. No thyromegaly. CARDIOVASCULAR: S1 and S2 present. No murmurs, rubs, or gallops. -PULMONARY: Chest is clear to auscultation, no wheezing or bilateral expiratory wheezing with harsh breath sounds ABDOMEN: Soft, nontender, nondistended, normoactive bowel sounds. No palpable organomegaly. MUSCULOSKELETAL: No joint swelling or deformity. EXTREMITIES: No cyanosis, clubbing, or pedal edema. NEUROLOGICAL: Gross neurological examination did not reveal any focal deficits. SKIN: No rashes. No petechiae Results CBC & Chem 7: 02/08/21 11:27 02/08/21 11:27 Labs: Abnormal Lab Results - Last 24 Hours (Table) 02/08/21 02/08/21 Range/Units 11:27 11:27 Sodium 136 L (137-145) mmol/L Glucose 129 H (74-99) mg/dL AST 47 H (14-36) U/L Coronavirus (PCR) Detected A (Not Detectd) Assessment and Plan Assessment: possible Acute bilateral pneumonia secondary to covid Infection COPD with acute exacerbation Acute hypoxic respiratory failure Chronic hypoxic respiratory failure on 2-4 L/m of oxygen at home Schizoaffective disorder. Anxiety/depression Ongoing nicotine addiction Marijuana use history of substance abuse and Nicotine dependence, patient states she quit 3 weeks prior to admission Plan: This is a pleasant 55 years old female who presents with covid pneumonia Continue with dexamethasone Continue with vitamin C, D and zinc Pulmonary consult Psychiatric consult as patient was admitted to mental health unit before for hearing voices CT of the brain to rule out intracranial lesion Labs and medication were reviewed.. Continue same treatment. Continue with symptomatic treatment. Resume home medication. Monitor lytes and vitals. DVT and GI prophylaxis. Further recommendations depends on the clinical course of the patient DVT prophylaxis: Subcutaneous Lovenox GI Prophylaxis: Pepcid Prognosis is guarded
[2021-02-08] MEDS ORDERED: ASCORBIC ACID 500 MG TAB PO SCH (14:00)
--- NOTE | 2021-02-08 14:19 | CT ---
EXAMINATION TYPE: CT brain wo con DATE OF EXAM: 02/08/2021 HISTORY: confusion CT DLP: 1099.4 mGycm. Automated Exposure Control for Dose Reduction was Utilized. TECHNIQUE: CT scan of the head is performed without contrast. COMPARISON: CT one week ago.. FINDINGS: There is no acute intracranial hemorrhage or midline shift identified. There is mild diff use ventricular and sulcal prominence consistent with diffuse cerebral atrophy greatest over bilatera l frontal lobes redemonstrated. Ho-white matter differentiation maintained. The globes are intact and the visualized sinuses are clear. IMPRESSION: No acute intracranial hemorrhage or midline shift. No significant change from recent CT.
[2021-02-08] MEDS ORDERED: FUROSEMIDE 10 MG/ML 4 ML VIAL IV STA (14:21)
[2021-02-08] MEDS: ZINC SULFATE 220 MG CAP PO SCH (14:28)
[2021-02-08] MEDS: methylPREDNISolone SOD SUCCI 40 MG/ML 1 ML VIAL IV SCH ×2 (14:31→23:49)
[2021-02-08 15:08] LABS: C Reactive Protein 5.5 mg/dL (<1.0); Magnesium 1.9 mg/dL (1.6-2.3)
[2021-02-08] MEDS: carvediloL 6.25 MG TAB PO SCH (15:51)
[2021-02-08] MEDS: PARoxetine 20 MG TAB PO SCH (15:51)
[2021-02-08] MEDS: BACLOFEN 10 MG TAB PO SCH ×2 (15:51→21:59)
--- NOTE | 2021-02-08 15:56 | P.CNPUL ---
History of Present Illness Consult date: 02/08/21 Reason for consult: pneumonia Chief complaint: shortness of breath History of present illness: this is an 55-year-old female, known history of severe COPD, schizophrenia, degenerative joint disease, tobacco dependence syndrome, I saw this patient last on 01/16/21, and I saw her mostly for symptoms of COPD exacerbation and tracheobronchitis. Patient tested negative for COVID-19 infection, she was treated mostly with bronchodilators, steroids, antibiotics in the form of Levaquin,and she was eventually discharged home. Patient was treated with DuoNeb, Symbicort, methylprednisolone, and Levaquin.patient was discharged home on 01/23/2021, and she has been doing fairly well. Over the last couple of days, the patient has been complaining of shortness of breath, cough, fever, no chest pain, no GI symptoms, no nausea no vomiting no abdominal pain. Her COVID-19 PCR is positive this time,chest x-ray on this admission showed COPD with increased interstitial density in the mid and lower lungs. As it was felt that the patient may have atypical pneumonia, and this is most likely COVID-19 pneumonia. Patient required oxygen at 8 L nasal cannula, she is normally on 4 L nasal cannula at home for her chronic hypoxic respiratory failure secondary to COPD. Patient was admitted, and this consult was initiated. I saw this patient in the ER, and I felt that the patient remedesivir, and I'm not certain whether the p atient is a candidate for baricitinib at this point, but she may qualify for the treatment if her oxygen requirement gets any higher. In the meantime I'm recommending the COVID-19 cocktail, I'm also recommending ordering a pro- calcitonin level, and treatment with bronchodilators for her underlying COPD and chronic hypoxic respiratory failure. patient was given Lasix in the ER. Review of Systems CONSTITUTIONAL: low-grade fever, weakness, aches and pains. HEENT: GERD. CARDIOVASCULAR: negative. PULMONARY: As mentioned in HPI GASTROINTESTINAL: Unit. NEUROLOGICAL: Drip. HEMATOLOGICAL: Denies any bleeding or petechiae. GENITOURINARY: Negative. MUSCULOSKELETAL/RHEUMATOLOGICAL: Negative ENDOCRINE: Negative. Psychiatric: History of schizophrenia Past Medical History Past Medical History: COPD, Musculoskeletal Disorder, Osteoarthritis (OA) Additional Past Medical History / Comment(s): DDD, SCOLIOSIS, chronic back pain History of Any Multi-Drug Resistant Organisms: None Reported Past Surgical History: Tubal Ligation Additional Past Surgical History / Comment(s): PAIN CLINIC PROCEDURES Past Anesthesia/Blood Transfusion Reactions: No Reported Reaction Past Psychological History: Anxiety, Depression, Panic Disorder, Schizoaffective Disorder, Schizophrenia Smoking Status: Current every day smoker, Former smoker Past Alcohol Use History: None Reported Past Drug Use History: None Reported - Past Family History Daughter(s) Family Medical History: Blood Disorder, Deep Vein Thrombosis (DVT) Additional Family Medical History / Comment(s): "blood clotting disorder" Medications and Allergies Home Medications Medication Instructions Recorded Confirmed Type Baclofen [Lioresal] 10 mg PO TID 01/14/21 02/08/21 History Buprenorphine HCl/Naloxone HCl 1 film SL TID PRN 01/14/21 02/08/21 History [Suboxone 8 mg-2 mg Sl Film] Famotidine [Pepcid] 20 mg PO BID 01/14/21 02/08/21 History Ipratropium-Albuterol Nebulize 3 ml INHALATION RT-TID 01/14/21 02/08/21 History [Duoneb 0.5 mg-3 mg/3 ml Soln] Lurasidone [Latuda] 40 mg PO DAILY 01/14/21 02/08/21 History carvediloL [Coreg] 6.25 mg PO AC-BID 01/14/21 02/08/21 History cloNIDine HCL [Catapres] 0.1 mg PO Q12H 01/14/21 02/08/21 History Albuterol Sulfate [Proair Hfa] 2 puff INHALATION RT-Q6H PRN 01/18/21 02/08/21 History Cetirizine HCl [Zyrtec] 10 mg PO DAILY PRN 01/18/21 02/08/21 History Ibuprofen [Motrin] 800 mg PO Q8H PRN 01/18/21 02/08/21 History PARoxetine HCL [Paxil] 20 mg PO DAILY 01/18/21 02/08/21 History PARoxetine [Paxil] 40 mg PO DAILY@1700 01/18/21 02/08/21 History hydrOXYzine HCL [Atarax] 25 mg PO QID PRN 01/18/21 02/08/21 History Acetaminophen Tab [Tylenol] 650 mg PO Q6HR PRN tab 01/19/21 02/08/21 Rx Budesonide-Formot 160-4.5 Mcg 2 puff INHALATION RT-BID #60 gm 01/19/21 02/08/21 Rx [Symbicort 160-4.5 Mcg Inhaler] Meclizine [Antivert] 25 mg PO TID PRN #15 tab 02/01/21 02/08/21 Rx Ondansetron Odt [Zofran Odt] 4 mg PO Q8HR PRN #10 tab 02/01/21 02/08/21 Rx Melatonin 10 mg PO HS 02/08/21 02/08/21 History Miconazole Nitrate [Miconazole 1 applic TOPICAL DAILY 02/08/21 02/08/21 History Nitrate 2%] Allergies Allergy/AdvReac Type Severity Reaction Status Date / Time risperidone AdvReac Dyspnea Verified 02/08/21 13:21 Physical Exam Vitals: Vital Signs Temp Pulse Resp BP Pulse Ox 02/08/21 15:08 22 135/99 96 02/08/21 14:36 93 L 02/08/21 14:09 105 H 22 118/58 86 L 02/08/21 13:03 100.2 F H 02/08/21 13:00 96 20 107/62 91 L 02/08/21 11:53 110 H 24 130/107 92 L 02/08/21 11:52 110 H 22 02/08/21 11:45 110 H 22 02/08/21 11:12 94 L 02/08/21 10:58 101 F H 115 H 20 124/65 87 L Intake and Output 02/08/21 02/08/21 02/08/21 06:59 14:59 22:59 Other: Weight 104 kg GENERAL: The patient is alert and oriented x3, obese, in mild respiratory di stress. HEENT: Pupils are round and equally reacting to light. EOMI. No scleral icterus. No conjunctival pallor. Normocephalic, atraumatic. No pharyngeal erythema. No thyromegaly. CARDIOVASCULAR: S1 and S2 present. No murmurs, rubs, or gallops. PULMONARY: Decreased air entry into bilateral lung steele, crackles or rhonchi and wheezes noted bilaterally.. ABDOMEN: Soft, nontender, nondistended, normoactive bowel sounds. No palpable organomegaly. MUSCULOSKELETAL: No joint swelling or deformity. EXTREMITIES: No cyanosis, clubbing, or pedal edema. NEUROLOGICAL: Gross neurological examination did not reveal any focal deficits. patient is noted to have multiple episodes of intermittent myoclonic jerks. SKIN: Examination of the skin revealed no evidence of significant rashes, suspicious appearing nevi or other concerning lesions. Results - Laboratory Findings CBC and BMP: 02/08/21 11:27 02/08/21 11:27 PT/INR, D-dimer PT 9.6 sec (9.0-12.0) 02/08/21 11: INR 0.9 (<1.2) 02/08/21 11:27 Abnormal lab findings: Abnormal Labs 02/08/21 02/08/21 02/08/21 11: 11: 11:27 Sodium 136 L Glucose 129 H AST 47 H Lactate Dehydrogenase 992 H C-Reactive Protein 5.5 H Coronavirus (PCR) Detected A - Diagnostic Findings Chest x-ray: image reviewed (chest x-ray as noted in HPI.) Assessment and Plan Assessment: impression: acute on chronic hypoxic respiratory failure secondary to COVID-19 pneumonia and acute exacerbation of COPD. Acute exacerbation of COPD Acute on chronic hypoxic respiratory failure History of schizophrenia/schizoaffective disorder. Ongoing tobacco addiction/nicotine addiction History of degenerative joint disease recommendation: Patient was started on Solu-Medrol, Started on the COVID-19 cocktail with vitamin C and D and zinc, Not a candidate for remdesivir May consider baricitinib continue subcu Lovenox. Continue GI prophylaxis.patient is on Pepcid. Prognosis is guarded,we will continue to follow. Time with Patient: Greater than 30
[2021-02-08] MEDS: LURASIDONE 40 MG TAB PO SCH (15:59)
[2021-02-08] MEDS: CHOLECALCIFEROL 125 MCG (5000 IU) TABLET PO SCH (15:59)
[2021-02-08] MEDS: ALBUTEROL HFA INHALER INHALATION PRN (16:14)
[2021-02-08] MEDS: TIOTROPIUM 2.5 MCG INHALER INHALATION SCH (18:39)
[2021-02-08] MEDS: ACETAMINOPHEN TAB 325 MG TAB PO PRN (18:41)
[2021-02-08] MEDS ORDERED: HYDROmorphone 0.5 MG/0.5 ML SYRINGE IVP PRN (19:01)
[2021-02-08] MEDS ORDERED: ALBUTEROL HFA INHALER INHALATION SCH (20:00)
[2021-02-08] MEDS ORDERED: IPRATROPIUM-ALBUTEROL 3 ML NEB INHALATION SCH (20:00)
[2021-02-08] MEDS: SYMBICORT 160-4.5 MCG INHALER INHALATION SCH (20:10)
[2021-02-08] MEDS: ALBUTEROL HFA INHALER INHALATION SCH (20:10)
[2021-02-08] MEDS ORDERED: FAMOTIDINE 20 MG/2 ML VIAL IV SCH (21:00)
[2021-02-08 21:49] LABS: Glucose,Whole Blood 167 mg/dL (75-99)
[2021-02-08] MEDS: IBUPROFEN 400 MG TAB PO PRN (21:58)
[2021-02-08] MEDS: FAMOTIDINE 20 MG TAB PO SCH (21:59)
[2021-02-09] MEDS: SODIUM CHLORIDE 0.9% 1,000 ML IV SCH ×2 (00:25→07:04)
[2021-02-09] MEDS: ALBUTEROL HFA INHALER INHALATION PRN (02:33)
[2021-02-09 05:45] LABS: Glucose,Whole Blood 174 mg/dL (75-99)
[2021-02-09] MEDS ORDERED: ENOXAPARIN 40 MG/0.4 ML SYRINGE SQ SCH (06:00)
[2021-02-09 07:04] LABS: HCT 44.3 % (34.0-46.0); MCH 29.3 pg (25.0-35.0); MCHC 31.5 g/dL (31.0-37.0); MCV 92.9 fL (80.0-100.0); Mean Platelet Volume 7.3; Platelet Count 185 k/uL (150-450); RBC 4.77 m/uL (3.80-5.40); RDW 13.9 % (11.5-15.5)
[2021-02-09] MEDS ORDERED: LORazepam 2 MG/ML INJ IV STA (07:05)
[2021-02-09 07:15] LABS: African American GFR (CKD) >90 (>60 ml/min/1.73 sqM); Anion Gap 9 mmol/L; Blood Urea Nitrogen 18 mg/dL (7-17); Calcium 9.2 mg/dL (8.4-10.2); Carbon Dioxide 26 mmol/L (22-30); Chloride 105 mmol/L (98-107); Glucose 196 mg/dL (74-99); Non-African American GFR(CKD) >90 (>60 ml/min/1.73 sqM); Potassium 3.6 mmol/L (3.5-5.1); Sodium 140 mmol/L (137-145)
[2021-02-09 07:29] LABS: Glucose,Whole Blood 157 mg/dL (75-99)
[2021-02-09 07:45] LABS: WBC 1.3 k/uL (3.8-10.6)
[2021-02-09 07:52] LABS: Neutrophils % (M) 31 %
[2021-02-09 07:53] LABS: Band Neutrophils % 17 %; Lymphocytes # (M) 0.35 k/uL (1.0-4.8); Metamyelocytes % 8 %; Monocytes # (M) 0.13 k/uL (0-1.0); Myelocytes # (M) 0.09 k/uL (0); Myelocytes % 7 %; Nucleated Red Blood Cells 0 /100 WBC (0-0); Total Cells Counted 100
[2021-02-09] MEDS: FAMOTIDINE 20 MG TAB PO SCH (08:07)
[2021-02-09] MEDS: BACLOFEN 10 MG TAB PO SCH ×2 (08:07→15:16)
[2021-02-09] MEDS: ZINC SULFATE 220 MG CAP PO SCH (08:08)
[2021-02-09] MEDS: methylPREDNISolone SOD SUCCI 40 MG/ML 1 ML VIAL IV SCH ×2 (08:08→16:58)
[2021-02-09] MEDS: carvediloL 6.25 MG TAB PO SCH ×2 (08:08→16:20)
[2021-02-09] MEDS: INSULIN ASPART (NovoLOG) 100 UNIT/ML VIAL SQ SCH ×3 (08:08→16:58)
[2021-02-09] MEDS: LURASIDONE 40 MG TAB PO SCH (08:09)
[2021-02-09] MEDS: CHOLECALCIFEROL 125 MCG (5000 IU) TABLET PO SCH (08:09)
--- NOTE | 2021-02-09 08:49 | XR ---
EXAMINATION TYPE: XR chest 1V portable DATE OF EXAM: 02/09/2021 COMPARISON: 02/08/2021 INDICATION: Pneumonia TECHNIQUE: Single frontal view of the chest is obtained. FINDINGS: The heart size is upper limits of normal. The pulmonary vasculature is normal. Bibasilar infiltrates are developing. A larger consolidation is at the right base. Findings are signi ficantly advancing from the prior study. Small to moderate right pleural effusion is developing. IMPRESSION: 1. Developing bibasilar infiltrates with a small to moderate right pleural effusion. Findings are wor sened from comparison. Follow-up is recommended.
[2021-02-09] MEDS ORDERED: MICONAZOLE NITRATE 2% CREAM 14 GM TUBE TOPICAL SCH (09:00)
[2021-02-09] MEDS ORDERED: ASCORBIC ACID 500 MG TAB PO SCH (09:00)
[2021-02-09] MEDS ORDERED: PARoxetine 20 MG TAB PO SCH (09:00)
[2021-02-09] MEDS: ALBUTEROL HFA INHALER INHALATION SCH ×4 (09:27→21:02)
[2021-02-09] MEDS: TIOTROPIUM 2.5 MCG INHALER INHALATION SCH (09:28)
[2021-02-09] MEDS: SYMBICORT 160-4.5 MCG INHALER INHALATION SCH ×2 (09:28→21:02)
[2021-02-09] MEDS: ACETAMINOPHEN TAB 325 MG TAB PO PRN (09:29)
[2021-02-09] MEDS ORDERED: FUROSEMIDE 10 MG/ML 4 ML VIAL IV STA (09:37)
[2021-02-09] MEDS: PIPERACILLIN-TAZOBACTAM 3.375 GM in SODIUM CHLORIDE 0.9% 100 ML IVPB SCH ×2 (10:24→16:58)
[2021-02-09] MEDS: IBUPROFEN 400 MG TAB PO PRN (10:52)
[2021-02-09 11:40] LABS: Glucose,Whole Blood 162 mg/dL (75-99)
--- NOTE | 2021-02-09 11:53 | P.PN ---
Subjective Patient is a 55-year-old female with known history of COPD, currently everyday smoker, osteoarthritis, anxiety/depression/schizophrenia , substance abuse with marijuana Presents because of dyspnea and confusion and hearing voices of people talking to each other, but she denies people talking to her. EMS states homecare was at the house today for the visit and patient was very altered,SOB, and shaky. Patient awake currently But slightly drowsy. She knows she is in [facility] in the year 2020 on the name of the president. She states she wears 4 L/m of oxygen via nasal cannula at home. She states she used to smoke and quit 3 weeks ago. She denies alcohol or illicit drugs she denies falling, she denies chest pain or abdominal pain. She was not coughing but she complains from chronic low back pain. She denies headache or weakness or dizziness patient states that she did not fall but she was about to fall and she denies any headache trauma. On admission she had a fever of 101. Heart rate 96-110. Blood pressure 107/62 currently she is saturating 91% on 5 L oxygen via nasal cannula She has unremarkable CBC, INR and BMP and liver enzymes. Troponin is negative less than 0.012. Urine analysis is not suspicious of infection Coronavirus is positive Chest x-ray: Showing bilateral infiltrates especially in basal areas In the emergency room she received Tylenol, ibuprofen and Benadryl. 02/09/2021 Patient today is more lethargic and confused. Also she needed more oxygen requirement went up to 60 L/m and she might need BiPAP given her worsening pulmonary function. Chest x-ray showing worsened pneumonia with development bibasilar infiltrates and small to moderate right pleural effusion. Labs showing leukopenia with WBC dropped to 1.3 gait. D-dimer is elevated at 4.2. Poorcalcitonin is a slightly elevated at 0.32 which is similar to last muscle. She remains on Solu-Medrol 40 mg, multiple vitamins and Zosyn was added today. Also 1 time dose of Lasix this provided for the patient. Patient condition is guarded and we will keep monitoring her closely Review of Systems: n/a Active Medications Generic Name Dose Route Start Last Admin Trade Name Freq PRN Reason Stop Dose Admin Acetaminophen 650 mg 02/08/21 13:44 02/09/21 09:29 Acetaminophen Tab 325 Mg Tab PO 650 mg Q6HR PRN Administration Mild Pain or Fever > 100.5 Albuterol Sulfate 2 puff 02/08/21 13:42 02/09/21 02:33 Albuterol Hfa Inhaler INHALATION 2 puff RT-Q6H PRN Administration Shortness Of Breath Albuterol Sulfate 2 puff 02/08/21 20:00 02/09/21 09:27 Albuterol Hfa Inhaler INHALATION 2 puff RT-QID EMANUEL Administration Ascorbic Acid 1,000 mg 02/09/21 09:00 02/09/21 08:08 Ascorbic Acid 500 Mg Tab PO 1,000 mg DAILY EMANUEL Administration Baclofen 10 mg 02/08/21 16:00 02/09/21 08:07 Baclofen 10 Mg Tab PO 10 mg TID EMANUEL Administration Budesonide/Formoterol Fumarate 2 puff 02/08/21 20:00 02/09/21 09:28 Symbicort 160-4.5 Mcg Inhaler INHALATION 2 puff RT-BID EMANUEL Administration Carvedilol 6.25 mg 02/08/21 17:30 02/09/21 08:08 Carvedilol 6.25 Mg Tab PO 6.25 mg AC-BID EMANUEL Administration Cholecalciferol 125 mcg 02/08/21 14:00 02/09/21 08:09 Cholecalciferol 125 Mcg (5000 Iu) Tablet PO 125 mcg DAILY EMANUEL Administration Enoxaparin Sodium 40 mg 02/09/21 06:00 02/09/21 05:25 Enoxaparin 40 Mg/0.4 Ml Syringe SQ 40 mg DAILY@0600 EMANUEL Administration Famotidine 20 mg 02/08/21 21:00 02/09/21 08:07 Famotidine 20 Mg Tab PO 20 mg BID EMANUEL Administration Sodium Chloride 1,000 mls @ 20 mls/hr 02/08/21 13:45 02/09/21 07:04 Saline 0.9% IV Not Given .Q24H EMANUEL Piperacillin Sod/Tazobactam 100 mls @ 25 mls/hr 02/09/21 10:15 02/09/21 10:24 Sod 3.375 gm/ Sodium Chloride IVPB 25 mls/hr Q8H EMANUEL Administration Ibuprofen 400 mg 02/08/21 13:44 02/09/21 10:52 Ibuprofen 400 Mg Tab PO 400 mg Q6HR PRN Administration Mild Pain or Fever > 100.5 Insulin Aspart 0 unit 02/09/21 07:30 02/09/21 08:08 Insulin Aspart (Novolog) 100 Unit/Ml Vial SQ 1 unit ACHS EMANUEL Administration Protocol Lurasidone HCl 40 mg 02/08/21 13:45 02/09/21 08:09 Lurasidone 40 Mg Tab PO 40 mg DAILY EMANUEL Administration Meclizine HCl 25 mg 02/08/21 13:42 Meclizine 25 Mg Tab PO TID PRN Vertigo Melatonin 10 mg 02/08/21 13:42 02/09/21 01:02 Melatonin 5 Mg Tablet PO 10 mg HS PRN Administration Insomnia Methylprednisolone Sodium Succinate 40 mg 02/08/21 16:00 02/09/21 08:08 Methylprednisolone Sod Succi 40 Mg/Ml 1 Ml Vial IV 40 mg Q8HR EMANUEL Administration Miconazole Nitrate 1 applic 02/09/21 09:00 02/09/21 10:25 Miconazole Nitrate 2% Cream 14 Gm Tube TOPICAL 1 applic DAILY EMANUEL Administration Protocol Naloxone HCl 0.2 mg 02/08/21 13:44 Naloxone 0.4 Mg/Ml 1 Ml Vial IV Q2M PRN Opioid Reversal Paroxetine HCl 40 mg 02/08/21 17:00 02/08/21 15:51 Paroxetine 20 Mg Tab PO 40 mg DAILY@1700 EMANUEL Administration Paroxetine HCl 20 mg 02/09/21 09:00 02/09/21 08:08 Paroxetine 20 Mg Tab PO 20 mg DAILY EMANUEL Administration Tiotropium [place] 2 puff 02/08/21 16:00 02/09/21 09:28 Tiotropium 2.5 Mcg Inhaler INHALATION 2 puff RT-DAILY EMANUEL Administration Zinc Sulfate 220 mg 02/08/21 14:00 02/09/21 08:08 Zinc Sulfate 220 Mg Cap PO 220 mg DAILY EMANUEL Administration Objective - Vital Signs Vital signs: Vital Signs Temp 101.6 F H 02/09/21 10:39 Pulse 128 H 02/09/21 10:20 Resp 28 H 02/09/21 10:20 BP 169/92 02/09/21 10:20 Pulse Ox 92 L 02/09/21 10:20 Intake & Output 02/08/21 02/09/21 02/09/21 18:59 06:59 18:59 Output Total 350 Balance -350 Weight 104 kg 104 kg Output: Urine 350 Other: Voiding Method External Catheter External Catheter - Exam -GENERAL: The patient is awake but more lethargic today, drowsy, not in any acute distress. Well developed, well nourished. HEENT: Pupils are round and equally reacting to light. EOMI. No scleral icterus. No conjunctival pallor. Normocephalic, atraumatic. No pharyngeal erythema. No thyromegaly. CARDIOVASCULAR: S1 and S2 present. No murmurs, rubs, or gallops. -PULMONARY: Chest is clear to auscultation, no wheezing or bilateral expiratory wheezing with harsh breath sounds ABDOMEN: Soft, nontender, nondistended, normoactive bowel sounds. No palpable o rganomegaly. MUSCULOSKELETAL: No joint swelling or deformity. EXTREMITIES: No cyanosis, clubbing, or pedal edema. NEUROLOGICAL: Gross neurological examination did not reveal any focal deficits. SKIN: No rashes. No petechiae - Labs CBC & Chem 7: 02/09/21 06:41 02/09/21 06:41 Labs: Abnormal Lab Results - Last 24 Hours (Table) 02/08/21 02/08/21 02/08/21 Range/Units 11:27 11:27 11:27 WBC (3.8-10.6) k/uL Neutrophils # (Manual) (1.3-7.7) k/uL Lymphocytes # (Manual) (1.0-4.8) k/uL Metamyelocytes # (Man) (0) k/uL Myelocytes # (Manual) (0) k/uL D-Dimer (<0.60) mg/L FEU Sodium 136 L (137-145) mmol/L BUN (7-17) mg/dL Glucose 129 H (74-99) mg/dL POC Glucose (mg/dL) (75-99) mg/dL AST 47 H (14-36) U/L Lactate Dehydrogenase 992 H (313-618) U/L C-Reactive Protein 5.5 H (<1.0) mg/dL Procalcitonin (0.02-0.09) ng/mL Coronavirus (PCR) Detected A (Not Detectd) 02/08/21 02/08/21 02/09/21 Range/Units 11:27 21:44 05:43 WBC (3.8-10.6) k/uL Neutrophils # (Manual) (1.3-7.7) k/uL Lymphocytes # (Manual) (1.0-4.8) k/uL Metamyelocytes # (Man) (0) k/uL Myelocytes # (Manual) (0) k/uL D-Dimer (<0.60) mg/L FEU Sodium (137-145) mmol/L BUN (7-17) mg/dL Glucose (74-99) mg/dL POC Glucose (mg/dL) 167 H 174 H (75-99) mg/dL AST (14-36) U/L Lactate Dehydrogenase (313-618) U/L C-Reactive Protein (<1.0) mg/dL Procalcitonin 0.32 H (0.02-0.09) ng/mL Coronavirus (PCR) (Not Detectd) 02/09/21 02/09/21 02/09/21 Range/Units 06:41 06:41 06:41 WBC 1.3 L* (3.8-10.6) k/uL Neutrophils # (Manual) 0.60 L (1.3-7.7) k/uL Lymphocytes # (Manual) 0.35 L (1.0-4.8) k/uL Metamyelocytes # (Man) 0.10 H (0) k/uL Myelocytes # (Manual) 0.09 H (0) k/uL D-Dimer 4.20 H (<0.60) mg/L FEU Sodium (137-145) mmol/L BUN 18 H (7-17) mg/dL Glucose 196 H (74-99) mg/dL POC Glucose (mg/dL) (75-99) mg/dL AST (14-36) U/L Lactate Dehydrogenase (313-618) U/L C-Reactive Protein (<1.0) mg/dL Procalcitonin (0.02-0.09) ng/mL Coronavirus (PCR) (Not Detectd) 02/09/21 02/09/21 Range/Units 07:27 11:39 WBC (3.8-10.6) k/uL Neutrophils # (Manual) (1.3-7.7) k/uL Lymphocytes # (Manual) (1.0-4.8) k/uL Metamyelocytes # (Man) (0) k/uL Myelocytes # (Manual) (0) k/uL D-Dimer (<0.60) mg/L FEU Sodium (137-145) mmol/L BUN (7-17) mg/dL Glucose (74-99) mg/dL POC Glucose (mg/dL) 157 H 162 H (75-99) mg/dL AST (14-36) U/L Lactate Dehydrogenase (313-618) U/L C-Reactive Protein (<1.0) mg/dL Procalcitonin (0.02-0.09) ng/mL Coronavirus (PCR) (Not Detectd) Assessment and Plan Assessment: possible Acute bilateral pneumonia secondary to covid Infection. He is also possibility of bacterial superinfection COPD with acute exacerbation Acute hypoxic respiratory failure Chronic hypoxic respiratory failure on 2-4 L/m of oxygen at home Schizoaffective disorder. Anxiety/depression Ongoing nicotine addiction Marijuana use history of substance abuse and Nicotine dependence, patient states she quit 3 weeks prior to admission Plan: This is a pleasant 55 years old female who presents with covid pneumonia, COPD and possible bacterial superinfection Continue with dexamethasone Continue with vitamin C, D and zinc Pulmonary consult Continue with Zosyn Psychiatric consult as patient was admitted to mental health unit before for hearing voices CT of the brain to rule out intracranial lesion Labs and medication were reviewed.. Continue same treatment. Continue with symptomatic treatment. Resume home medication. Monitor lytes and vitals. DVT and GI prophylaxis. Further recommendations depends on the clinical course of the patient DVT prophylaxis: Subcutaneous Lovenox GI Prophylaxis: Pepcid Prognosis is guarded
--- NOTE | 2021-02-09 11:56 | US ---
EXAMINATION TYPE: US venous doppler duplex LE DATE OF EXAM: 02/09/2021 10:24 AM COMPARISON: NONE CLINICAL HISTORY: elevated d-dimer. SOB SIDE PERFORMED: Bilateral TECHNIQUE: The lower extremity deep venous system is examined utilizing real time linear array sonog oswaldo with graded compression, doppler sonography and color-flow sonography. VESSELS IMAGED: Common Femoral Vein Deep Femoral Vein Greater Saphenous Vein * Femoral Vein Popliteal Vein Small Saphenous Vein * Proximal Calf Veins (* superficial vessels) Right Leg: Negative for DVT Left Leg: Negative for DVT IMPRESSION: 1. Bilateral lower extremity ultrasound negative for deep venous thrombosis.
--- NOTE | 2021-02-09 11:57 | P.CONS ---
History of Present Illness - Reason for Consult Consult date: 02/09/21 leukopenia Requesting physician: Liat Chan - Chief Complaint difficulty in breathing, covid infection - History of Present Illness Pt is a pleasant woman we have been asked to see re: leukopenia, new onset. She is currently active covid infection, having difficulty breathing. She denies Hx of known low blood counts, cancer or blood disorders. Review of Systems Focused ROS is neg except as stated in HPI Past Medical History Past Medical History: COPD, Musculoskeletal Disorder, Osteoarthritis (OA) Additional Past Medical History / Comment(s): DDD, SCOLIOSIS, chronic back pain History of Any Multi-Drug Resistant Organisms: None Reported Past Surgical History: Tubal Ligation Additional Past Surgical History / Comment(s): PAIN CLINIC PROCEDURES Past Anesthesia/Blood Transfusion Reactions: No Reported Reaction Past Psychological History: Anxiety, Depression, Panic Disorder, Schizoaffective Disorder, Schizophrenia Smoking Status: Former smoker Past Alcohol Use History: None Reported Additional Past Alcohol Use History / Comment(s): STATES LESS THAN 1 PPD, ON AND OFF FROM AGE 12 Past Drug Use History: None Reported - Past Family History Daughter(s) Family Medical History: Blood Disorder, Deep Vein Thrombosis (DVT) Additional Family Medical History / Comment(s): "blood clotting disorder" Medications and Allergies Home Medications Medication Instructions Recorded Confirmed Type Baclofen [Lioresal] 10 mg PO TID 01/14/21 02/08/21 History Buprenorphine HCl/Naloxone HCl 1 film SL TID PRN 01/14/21 02/08/21 History [Suboxone 8 mg-2 mg Sl Film] Famotidine [Pepcid] 20 mg PO BID 01/14/21 02/08/21 History Ipratropium-Albuterol Nebulize 3 ml INHALATION RT-TID 01/14/21 02/08/21 History [Duoneb 0.5 mg-3 mg/3 ml Soln] Lurasidone [Latuda] 40 mg PO DAILY 01/14/21 02/08/21 History carvediloL [Coreg] 6.25 mg PO AC-BID 01/14/21 02/08/21 History cloNIDine HCL [Catapres] 0.1 mg PO Q12H 01/14/21 02/08/21 History Albuterol Sulfate [Proair Hfa] 2 puff INHALATION RT-Q6H PRN 01/18/21 02/08/21 History Cetirizine HCl [Zyrtec] 10 mg PO DAILY PRN 01/18/21 02/08/21 History Ibuprofen [Motrin] 800 mg PO Q8H PRN 01/18/21 02/08/21 History PARoxetine HCL [Paxil] 20 mg PO DAILY 01/18/21 02/08/21 History PARoxetine [Paxil] 40 mg PO DAILY@1700 01/18/21 02/08/21 History hydrOXYzine HCL [Atarax] 25 mg PO QID PRN 01/18/21 02/08/21 History Acetaminophen Tab [Tylenol] 650 mg PO Q6HR PRN tab 01/19/21 02/08/21 Rx Budesonide-Formot 160-4.5 Mcg 2 puff INHALATION RT-BID #60 gm 01/19/21 02/08/21 Rx [Symbicort 160-4.5 Mcg Inhaler] Meclizine [Antivert] 25 mg PO TID PRN #15 tab 02/01/21 02/08/21 Rx Ondansetron Odt [Zofran Odt] 4 mg PO Q8HR PRN #10 tab 02/01/21 02/08/21 Rx Melatonin 10 mg PO HS 02/08/21 02/08/21 History Miconazole Nitrate [Miconazole 1 applic TOPICAL DAILY 02/08/21 02/08/21 History Nitrate 2%] Allergies Allergy/AdvReac Type Severity Reaction Status Date / Time risperidone AdvReac Dyspnea Verified 02/08/21 13:21 Physical Exam Vitals: Vital Signs Temp Pulse Pulse Resp BP BP Pulse Ox 02/09/21 10:39 101.6 F H 02/09/21 10:20 102.1 F H 128 H 28 H 169/92 92 L 02/09/21 08:15 125 H 02/09/21 06:05 131/76 02/09/21 06:04 97.8 F 136 H 32 H 02/09/21 05:57 93 L 02/09/21 02:19 98.2 F 117 H 22 134/89 86 L 02/08/21 20:00 102.0 F H 104 H 21 139/69 94 L 02/08/21 18:26 99 F 93 22 133/83 93 L 02/08/21 17:00 99 F 88 24 111/77 95 02/08/21 16:00 101 H 22 116/59 95 02/08/21 15:55 99 F 98 22 135/92 94 L 02/08/21 15:08 22 135/99 96 02/08/21 14:36 93 L 02/08/21 14:09 105 H 22 118/58 86 L 02/08/21 13:03 100.2 F H 02/08/21 13:00 96 20 107/62 91 L 02/08/21 11:53 110 H 24 130/107 92 L 02/08/21 11:52 110 H 22 Intake and Output 02/08/21 02/09/21 02/09/21 22:59 06:59 14:59 Output Total 350 Balance -350 Output: Urine 350 Other: Voiding Method External Catheter External Catheter Weight 104 kg - Constitutional General appearance: obese, severe distress - EENT Eyes: anicteric sclerae, EOMI ENT: hearing grossly normal - Neck Neck: no lymphadenopathy - Respiratory Respiratory: bilateral: rales (bibasilar) - Cardiovascular tachycardia Heart sounds: normal: S1, S2 - Gastrointestinal General gastrointestinal: no absent bowel sounds, no decreased bowel sounds, no distended, no hepatomegaly, no hyperactive bowel sounds, normal bowel sounds, no organomegaly, no rigid, no scaphoid, soft, no splenomegaly, no tenderness, no umbilical hernia, no ventral hernia - Neurologic Neurologic: CNII-XII intact - Musculoskeletal Musculoskeletal: generalized weakness - Psychiatric Psychiatric: A&O x's 3, appropriate affect, intact judgment & insight Results CBC & Chem 7: 02/09/21 06:41 02/09/21 06:41 Labs: Abnormal Lab Results - Last 24 Hours (Table) 02/08/21 02/08/21 02/08/21 Range/Units 11:27 11:27 11:27 WBC (3.8-10.6) k/uL Neutrophils # (Manual) (1.3-7.7) k/uL Lymphocytes # (Manual) (1.0-4.8) k/uL Metamyelocytes # (Man) (0) k/uL Myelocytes # (Manual) (0) k/uL D-Dimer (<0.60) mg/L FEU Sodium 136 L (137-145) mmol/L BUN (7-17) mg/dL Glucose 129 H (74-99) mg/dL POC Glucose (mg/dL) (75-99) mg/dL AST 47 H (14-36) U/L Lactate Dehydrogenase 992 H (313-618) U/L C-Reactive Protein 5.5 H (<1.0) mg/dL Procalcitonin (0.02-0.09) ng/mL Coronavirus (PCR) Detected A (Not Detectd) 02/08/21 02/08/21 02/09/21 Range/Units 11:27 21:44 05:43 WBC (3.8-10.6) k/uL Neutrophils # (Manual) (1.3-7.7) k/uL Lymphocytes # (Manual) (1.0-4.8) k/uL Metamyelocytes # (Man) (0) k/uL Myelocytes # (Manual) (0) k/uL D-Dimer (<0.60) mg/L FEU Sodium (137-145) mmol/L BUN (7-17) mg/dL Glucose (74-99) mg/dL POC Glucose (mg/dL) 167 H 174 H (75-99) mg/dL AST (14-36) U/L Lactate Dehydrogenase (313-618) U/L C-Reactive Protein (<1.0) mg/dL Procalcitonin 0.32 H (0.02-0.09) ng/mL Coronavirus (PCR) (Not Detectd) 02/09/21 02/09/21 02/09/21 Range/Units 06:41 06:41 06:41 WBC 1.3 L* (3.8-10.6) k/uL Neutrophils # (Manual) 0.60 L (1.3-7.7) k/uL Lymphocytes # (Manual) 0.35 L (1.0-4.8) k/uL Metamyelocytes # (Man) 0.10 H (0) k/uL Myelocytes # (Manual) 0.09 H (0) k/uL D-Dimer 4.20 H (<0.60) mg/L FEU Sodium (137-145) mmol/L BUN 18 H (7-17) mg/dL Glucose 196 H (74-99) mg/dL POC Glucose (mg/dL) (75-99) mg/dL AST (14-36) U/L Lactate Dehydrogenase (313-618) U/L C-Reactive Protein (<1.0) mg/dL Procalcitonin (0.02-0.09) ng/mL Coronavirus (PCR) (Not Detectd) 02/09/21 02/09/21 Range/Units 07:27 11:39 WBC (3.8-10.6) k/uL Neutrophils # (Manual) (1.3-7.7) k/uL Lymphocytes # (Manual) (1.0-4.8) k/uL Metamyelocytes # (Man) (0) k/uL Myelocytes # (Manual) (0) k/uL D-Dimer (<0.60) mg/L FEU Sodium (137-145) mmol/L BUN (7-17) mg/dL Glucose (74-99) mg/dL POC Glucose (mg/dL) 157 H 162 H (75-99) mg/dL AST (14-36) U/L Lactate Dehydrogenase (313-618) U/L C-Reactive Protein (<1.0) mg/dL Procalcitonin (0.02-0.09) ng/mL Coronavirus (PCR) (Not Detectd) Chest x-ray: report reviewed CT Scan - head: report reviewed Assessment and Plan (1) Leukopenia Current Visit: Yes Status: Acute Priority: High Code(s): D72.819 - DECREASED WHITE BLOOD CELL COUNT, UNSPECIFIED SNOMED Code(s): 88706601 (2) Neutropenia Current Visit: Yes Status: Acute Priority: High Code(s): D70.9 - NEUTROPENIA, UNSPECIFIED SNOMED Code(s): 070296141 Plan: New onset. In covid setting could be viral induced decrease. Pt is on steroids which would be associated with increase in WBC/ANC. Labs ordered. Recheck CBC in AM in case of lab anomaly. ANC 700. Would recommend monitoring and if ANC drps below 500 then consider risk vs benefit and limited use of GCSF. There is some literature that suggests in acute covid infection introducing GCSF can further exacerbate inflammatory response and worsen symptoms. Will cont to follow
--- NOTE | 2021-02-09 12:20 | P.CN ---
Psychiatric Consult - . Consult date: 02/09/21 Consult:: Office Administration Instructor attempted to see patient today for psychiatric consult for auditory hallucinations. Patient was apparently admitted from the ER yesterday and had altered mental status and was brought in via EMS. Patient was apparently hearing voices and was slow to answer. Patient tested positive for covid-19 and had underlying copd with exacerbation. Patient also does have a history of schizoaffective disorder and was last admitted to the mental health unit on 09/12. Patient was seen at the bedside and appeared to be in severe respiratory distress. Patient was not able to answer teletypewriter operator. Nurses taking care of patient states that patient will be transferred to ICU and also requested an order for an ECG as patient appeared to have abnormal heart rhythm on monitors. Please contact MH unit once patient is more medically stable and able to speak for re- evaluation if still needed. Thank you.
[2021-02-09 12:37] LABS: Glucose,Whole Blood 155 mg/dL (75-99)
[2021-02-09] MEDS ORDERED: propofoL 100 ML IV ONE (13:16)
[2021-02-09] MEDS ORDERED: ACETAMINOPHEN IV (For NPO) 1,000 MG in EMPTY BAG 1 BAG IVPB PRN (13:28)
[2021-02-09] MEDS ORDERED: CISATRACURIUM 2 MG/ML 5 ML VIAL IV ONE (13:31)
--- NOTE | 2021-02-09 13:48 | P.PN ---
Subjective Progress Note Date: 02/09/21 Principal diagnosis: Dyspnea, hypoxemia, COVID-19 pneumonia this is an 55-year-old female, known history of severe COPD, schizophrenia, degenerative joint disease, tobacco dependence syndrome, I saw this patient last on 01/16/21, and I saw her mostly for symptoms of COPD exacerbation and tracheobronchitis. Patient tested negative for COVID-19 infection, she was treated mostly with bronchodilators, steroids, antibiotics in the form of Levaquin,and she was eventually discharged home. Patient was treated with DuoNeb, Symbicort, methylprednisolone, and Levaquin.patient was discharged home on 01/23/2021, and she has been doing fairly well. Over the last couple of days, the patient has been complaining of shortness of breath, cough, fever, no chest pain, no GI symptoms, no nausea no vomiting no abdominal pain. Her COVID-19 PCR is positive this time,chest x-ray on this admission showed COPD with increased interstitial density in the mid and lower lungs. As it was felt that the patient may have atypical pneumonia, and this is most likely COVID-19 pneumonia. Patient required oxygen at 8 L nasal cannula, she is normally on 4 L nasal cannula at home for her chronic hypoxic respiratory failure secondary to COPD. Patient was admitted, and this consult was initiated. I saw this patient in the ER, and I felt that the patient remedesivir, and I'm not certain whether the patient is a candidate for baricitinib at this point, but she may qualify for the treatment if her oxygen requirement gets any higher. In the meantime I'm recommending the COVID-19 cocktail, I'm also recommending ordering a pro- calcitonin level, and treatment with bronchodilators for her underlying COPD and chronic hypoxic respiratory failure. patient was given Lasix in the ER. On 02/09/2021 patient seen in follow-up on medical surgical unit. Overnight her oxygenation has continued to deteriorate, and this morning she is on Airvo at 60 L and FiO2 of 90%, very congested, tachypneic, dyspneic, Sounds reveal diffuse rhonchi and rales throughout the lung steele, she is lethargic on today's exam, apparently she had received a dose of IV Ativan earlier for anxiety. Her chest x-ray today shows interval development of bibasilar infiltrates right greater than left and small to moderate-sized right pleural effusion. Patient was given a dose of IV Lasix 40 mg this morning for audible Pulmonary congestion, she is already on Solu-Medrol 40 mg every 8 hours, she is on inhaled bronchodilators in the form of Symbicort and albuterol. She is on prophylactic Lovenox 40 mg daily, patient subsequently was placed on BiPAP support however she is quite tachycardic, diaphoretic, she continues to be very dyspneic, with continued lethargy, she was emergently transferred to the intensive care unit. On BiPAP support with pressures of 12 and 6 and FiO2 100% her pulse ox is 189-92%, she is tachypneic, very tachycardic in a sinus mechanism with a rate of 140 BPM, blood pressure is 115/79, she did diuresis with the Lasix however he did not improve her oxygenation, she is running a fever with a temp of 99.9 axillary. Zosyn was started for possibility of aspiration pneumonia. Lactic acid was sent. Her pro-calcitonin level 0.3 to on admission. White count is down to 1.3, her lymphocyte count of 0.35. D-dimer is 4.20. Her venous Doppler was negative for DVT. Patient was intubated in the ICU and placed on assist-control mode of ventilation with a rate of 30, tidal findings 500, FiO2 100% and PEEP of 8. She was sedated and paralyzed, chest x-ray is pending, blood gases are pending, subsequently her PEEP was increased up to 12. Objective - Vital Signs Vital signs: Vital Signs Temp 101.6 F H 02/09/21 10:39 Pulse 128 H 02/09/21 10:20 Resp 28 H 02/09/21 10:20 BP 169/92 02/09/21 10:20 Pulse Ox 92 L 02/09/21 10:20 Intake & Output 02/08/21 02/09/21 02/09/21 18:59 06:59 18:59 Output Total 350 Balance -350 Weight 104 kg 104 kg Output: Urine 350 Other: Voiding Method External Catheter External Catheter - Exam GENERAL EXAM: Lethargic, dyspneic, tachypneic, 55-year-old white female, audibly congested, on Airvo at 60 L and FiO2 of 90% comfortable in no apparent distress. HEAD: Normocephalic/atraumatic. EYES: Normal reaction of pupils, equal size. Conjunctiva pink, sclera white. NOSE: Clear with pink turbinates. THROAT: No erythema or exudates. NECK: No masses, no JVD, no thyroid enlargement, no adenopathy. CHEST: No chest wall deformity. Symmetrical expansion. LUNGS: Equal air entry with diffuse rhonchi and rales CVS: Regular rate and rhythm, normal S1 and S2, no gallops, no murmurs, no rubs ABDOMEN: Soft, nontender. No hepatosplenomegaly, normal bowel sounds, no guarding or rigidity. EXTREMITIES: No clubbing, no edema, no cyanosis, 2+ pulses and upper and lower extremities. MUSCULOSKELETAL: Muscle strength and tone normal. SPINE: No scoliosis or deformity SKIN: No rashes CENTRAL NERVOUS SYSTEM: Lethargic, dyspneic and tachypneic No focal deficits, tone is normal in all 4 extremities. - Labs CBC & Chem 7: 02/09/21 06:41 02/09/21 06:41 Labs: Abnormal Lab Results - Last 24 Hours (Table) 02/08/21 02/08/21 02/08/21 Range/Units 11:27 11:27 21:44 WBC (3.8-10.6) k/uL Neutrophils # (Manual) (1.3-7.7) k/uL Lymphocytes # (Manual) (1.0-4.8) k/uL Metamyelocytes # (Man) (0) k/uL Myelocytes # (Manual) (0) k/uL D-Dimer (<0.60) mg/L FEU BUN (7-17) mg/dL Glucose (74-99) mg/dL POC Glucose (mg/dL) 167 H (75-99) mg/dL Lactate Dehydrogenase 992 H (313-618) U/L C-Reactive Protein 5.5 H (<1.0) mg/dL Procalcitonin 0.32 H (0.02-0.09) ng/mL 02/09/21 02/09/21 02/09/21 Range/Units 05:43 06:41 06:41 WBC 1.3 L* (3.8-10.6) k/uL Neutrophils # (Manual) 0.60 L (1.3-7.7) k/uL Lymphocytes # (Manual) 0.35 L (1.0-4.8) k/uL Metamyelocytes # (Man) 0.10 H (0) k/uL Myelocytes # (Manual) 0.09 H (0) k/uL D-Dimer 4.20 H (<0.60) mg/L FEU BUN (7-17) mg/dL Glucose (74-99) mg/dL POC Glucose (mg/dL) 174 H (75-99) mg/dL Lactate Dehydrogenase (313-618) U/L C-Reactive Protein (<1.0) mg/dL Procalcitonin (0.02-0.09) ng/mL 02/09/21 02/09/21 02/09/21 Range/Units 06:41 07:27 11:39 WBC (3.8-10.6) k/uL Neutrophils # (Manual) (1.3-7.7) k/uL Lymphocytes # (Manual) (1.0-4.8) k/uL Metamyelocytes # (Man) (0) k/uL Myelocytes # (Manual) (0) k/uL D-Dimer (<0.60) mg/L FEU BUN 18 H (7-17) mg/dL Glucose 196 H (74-99) mg/dL POC Glucose (mg/dL) 157 H 162 H (75-99) mg/dL Lactate Dehydrogenase (313-618) U/L C-Reactive Protein (<1.0) mg/dL Procalcitonin (0.02-0.09) ng/mL 02/09/21 Range/Units 12:35 WBC (3.8-10.6) k/uL Neutrophils # (Manual) (1.3-7.7) k/uL Lymphocytes # (Manual) (1.0-4.8) k/uL Metamyelocytes # (Man) (0) k/uL Myelocytes # (Manual) (0) k/uL D-Dimer (<0.60) mg/L FEU BUN (7-17) mg/dL Glucose (74-99) mg/dL POC Glucose (mg/dL) 155 H (75-99) mg/dL Lactate Dehydrogenase (313-618) U/L C-Reactive Protein (<1.0) mg/dL Procalcitonin (0.02-0.09) ng/mL Assessment and Plan Plan: Assessment: #1. Acute hypoxic respiratory failure, multifactorial, related to acute COVID- 19 pneumonia, and possibility of aspiration pneumonia, patient's hypoxia has progressed overnight, and patient was intubated and placed mechanical ventilator on 02/09/2021. She was outside the window for Remdesivir treatment, in view of severe and proressive respiratory failure, and not a candidate for baricitinib for possibility of aspiration pneumonia #2. Acute exacerbation of COPD related to the above #3. History of schizophrenia and schizoaffective disorder #4. Ongoing tobacco addiction/nicotine addiction #5. History of degenerative joint disease #6. Substance abuse with marijuana #7. Osteoarthritis #8. Leukopenia and lymphopenia related to COVID-19 pneumonia and possibility of aspiration pneumonia with sepsis #9. Limited d-dimer, lower extremity Dopplers were negative for DVT #10. Panic disorder Plan: Patient has been transferred to the intensive care unit She was started on Zosyn She was given a dose of IV Lasix Respiratory failure has progressed and patient has been intubated and placed on mechanical ventilator Ventilator adjustments have been made, chest x-ray is pending, blood gases are pending Send and lactic acid Continue IV steroids Continue multivitamins GI and DVT prophylaxis Lower extremity Dopplers are negative We'll continue trending inflammatory markers and d-dimer We'll continue to follow I performed a history & physical examination of the patient and discussed their management with my nurse practitioner, Fabi Wood. I reviewed the nurse practitioner's note and agree with the documented findings and plan of care. Lung sounds are positive for diffuse wheezes and rhonchi throughout the lung steele. The findings and the impression was discussed with the patient. I attest to the documentation by the nurse practitioner. Time with Patient: Less than 30
[2021-02-09] MEDS: CISATRACURIUM 200 MG in SODIUM CHLORIDE 0.9% 180 ML IV SCH ×2 (13:57→15:15)
[2021-02-09] MEDS: ARTIFICIAL TEARS-HYPROMELLOSE DROPS 15 ML BTL BOTH EYES SCH ×2 (13:58→15:16)
[2021-02-09] MEDS ORDERED: EPINEPHrine 10 ML SYRINGE (0.1 MG/ML) ONE (14:00)
[2021-02-09] MEDS ORDERED: SODIUM BICARB 8.4% 50 ML SYR (1 MEQ/ML) ONE ×2 (14:00→18:13)
[2021-02-09] MEDS ORDERED: NOREPINEPHRINE 1 MG/ML 4 ML VIAL IV ONE (14:00)
[2021-02-09] MEDS ORDERED: SODIUM CHLORIDE 0.9% 250 ML BAG ONE (14:00)
[2021-02-09] MEDS ORDERED: ATROPINE SULFATE 0.1 MG/ML 10ML SYRINGE ONE (14:04)
--- NOTE | 2021-02-09 14:05 | XR ---
EXAMINATION TYPE: XR chest 1V portable DATE OF EXAM: 02/09/2021 COMPARISON: 02/09/2021 INDICATION: Tube placement TECHNIQUE: Single frontal view of the chest is obtained. FINDINGS: The heart size is normal. The pulmonary vasculature is normal. Consolidations to the right mid and lower lung field. Some mild left lower lobe infiltrate is present . Findings are slightly worsened over the interval. Endotracheal tube has been placed the tip 5 cm above the pacheco. Nasogastric tube transverses the tho rax. IMPRESSION: 1. Worsening bibasilar infiltrates. 2. Placement of an endotracheal tube and nasogastric tube.
[2021-02-09] MEDS ORDERED: NOREPINEPHRINE 8 MG in SODIUM CHLORIDE 0.9% 250 ML IV SCH (15:00)
[2021-02-09 15:31] LABS: ABG PCO2 82 mmHg (35-45); ABG PO2 70 mmHg (83-108); Allen Test Performed? Yes
[2021-02-09 15:32] LABS: ABG HCO3 26 mmol/L (21-25); ABG Oxygen Saturation 90.8 % (94-97); ABG TCO2 28 mmol/L (19-24)
[2021-02-09 15:33] LABS: ABG Base Excess -4.1 mmol/L
--- NOTE | 2021-02-09 15:35 | P.CNNES ---
History of Present Illness Consult date: 02/09/21 Requesting physician: Liat Chan Reason for Consult: persistent jerking History of Present Illness: Patient is a 55-year-old female came to the hospital by ambulance yesterday at 10:55 AM for respiratory issues. Neurology consulted for persistent jerking. Patient is currently using BiPAP, not able to provide any history. Patient is currently being transferred to ICU. History of pain from the nursing staff, as well as from electronic records. As per EMS flow sheet, when they arrived, the [facility] and social media senior associate were on the scene with patient. Per [facility], they arrive for patient's first visit today to find the patient without her home oxygen, which she is on 2 L/m by nasal cannula, due to her oxygen machine not working, and was unknown how long patient went without oxygen due to the patient's living on her own. Patient was not in distress, with normal respirations and was able to speak in full complete sentences. Patient was stating that she was having shortness of breath along with hearing voices in her head. Patient was alert and oriented 2-3. Patient was able to answer some questions appropriately, other questions patient would answer with statements that did not make sense to the question asked. She was confused. It was also reported that patient was j ust hospitalized a week ago for COPD and her psychiatric medications were adjusted. Patient when arrived to the hospital was appeared to be lethargic and diaphoretic. Patient's blood pressure at the scene was 137/81, pulse rate 112, saturation 73%. Patient's blood test shows WBC 5.5, but today has dropped down to 1.3. PT/PTT normal. D-dimer mildly elevated 4.2. Sodium 136, renal functions normal, AST 47, ALT 34. Troponin negative. C-reactive protein 5.5. UA negative. Coronavirus PCR positive. EKG shows sinus tachycardia and right bundle branch block. CT head showed no acute intracranial hemorrhage or midline shift. No significant change from recent CT. Repeat chest x-ray today showed developing bibasilar infiltrates with a small to moderate right pleural effusion. Findings are worsened from comparison. Follow-up is recommended. Patient's Doppler ultrasound is negative for DVT in the lower limbs. Patient currently on zinc, Zosyn, Paxil, methylprednisolone 40 mg IV every 8 hours, Lovenox 40 mg and baclofen 10 mg 3 times a day. Neurology was consulted for persistent jerking. Per nurse it has been present at least since she has been with the patient, and also was noticeable by the nurse at the prior shift. Patient is exhibiting myoclonic twitching of her arms and legs, likely related to acute metabolic dysfunction. Psychiatry also has been consulted for auditory hallucinations. Patient carries a diagnosis of schizoaffective disorder, depressive type, cannabis use disorder and nicotine dependence. Review of Systems Patient denies headache. She is in respiratory distress, being transferred to ICU. Patient not able to provide further review of systems. She is short of breath. Coughing. Past Medical History Past Medical History: COPD, Musculoskeletal Disorder, Osteoarthritis (OA) Additional Past Medical History / Comment(s): DDD, SCOLIOSIS, chronic back pain History of Any Multi-Drug Resistant Organisms: None Reported Past Surgical History: Tubal Ligation Additional Past Surgical History / Comment(s): PAIN CLINIC PROCEDURES Past Anesthesia/Blood Transfusion Reactions: No Reported Reaction Past Psychological History: Anxiety, Depression, Panic Disorder, Schizoaffective Disorder, Schizophrenia Smoking Status: Former smoker Past Alcohol Use History: None Reported Additional Past Alcohol Use History / Comment(s): STATES LESS THAN 1 PPD, ON AND OFF FROM AGE 12 Past Drug Use History: None Reported - Past Family History Daughter(s) Family Medical History: Blood Disorder, Deep Vein Thrombosis (DVT) Additional Family Medical History / Comment(s): "blood clotting disorder" Medications and Allergies Home Medications Medication Instructions Recorded Confirmed Type Baclofen [Lioresal] 10 mg PO TID 01/14/21 02/08/21 History Buprenorphine HCl/Naloxone HCl 1 film SL TID PRN 01/14/21 02/08/21 History [Suboxone 8 mg-2 mg Sl Film] Famotidine [Pepcid] 20 mg PO BID 01/14/21 02/08/21 History Ipratropium-Albuterol Nebulize 3 ml INHALATION RT-TID 01/14/21 02/08/21 History [Duoneb 0.5 mg-3 mg/3 ml Soln] Lurasidone [Latuda] 40 mg PO DAILY 01/14/21 02/08/21 History carvediloL [Coreg] 6.25 mg PO AC-BID 01/14/21 02/08/21 History cloNIDine HCL [Catapres] 0.1 mg PO Q12H 01/14/21 02/08/21 History Albuterol Sulfate [Proair Hfa] 2 puff INHALATION RT-Q6H PRN 01/18/21 02/08/21 History Cetirizine HCl [Zyrtec] 10 mg PO DAILY PRN 01/18/21 02/08/21 History Ibuprofen [Motrin] 800 mg PO Q8H PRN 01/18/21 02/08/21 History PARoxetine HCL [Paxil] 20 mg PO DAILY 01/18/21 02/08/21 History PARoxetine [Paxil] 40 mg PO DAILY@1700 01/18/21 02/08/21 History hydrOXYzine HCL [Atarax] 25 mg PO QID PRN 01/18/21 02/08/21 History Acetaminophen Tab [Tylenol] 650 mg PO Q6HR PRN tab 01/19/21 02/08/21 Rx Budesonide-Formot 160-4.5 Mcg 2 puff INHALATION RT-BID #60 gm 01/19/21 02/08/21 Rx [Symbicort 160-4.5 Mcg Inhaler] Meclizine [Antivert] 25 mg PO TID PRN #15 tab 02/01/21 02/08/21 Rx Ondansetron Odt [Zofran Odt] 4 mg PO Q8HR PRN #10 tab 02/01/21 02/08/21 Rx Melatonin 10 mg PO HS 02/08/21 02/08/21 History Miconazole Nitrate [Miconazole 1 applic TOPICAL DAILY 02/08/21 02/08/21 History Nitrate 2%] Allergies Allergy/AdvReac Type Severity Reaction Status Date / Time risperidone AdvReac Dyspnea Verified 02/08/21 13:21 Physical Examination - Vital Signs Vital Signs: Vital Signs Temp Pulse Pulse Resp BP BP Pulse Ox 02/09/21 06:05 131/76 02/09/21 06:04 97.8 F 136 H 32 H 02/09/21 05:57 93 L 02/09/21 02:19 98.2 F 117 H 22 134/89 86 L 02/08/21 20:00 102.0 F H 104 H 21 139/69 94 L 02/08/21 18:26 99 F 93 22 133/83 93 L 02/08/21 17:00 99 F 88 24 111/77 95 02/08/21 16:00 101 H 22 116/59 95 02/08/21 15:55 99 F 98 22 135/92 94 L 02/08/21 15:08 22 135/99 96 02/08/21 14:36 93 L 02/08/21 14:09 105 H 22 118/58 86 L 02/08/21 13:03 100.2 F H 02/08/21 13:00 96 20 107/62 91 L 02/08/21 11:53 110 H 24 130/107 92 L 02/08/21 11:52 110 H 22 02/08/21 11:45 110 H 22 02/08/21 11:12 94 L 02/08/21 10:58 101 F H 115 H 20 124/65 87 L Intake and Output 02/08/21 02/09/21 02/09/21 22:59 06:59 14:59 Output Total 350 Balance -350 Output: Urine 350 Other: Voiding Method External Catheter Weight 104 kg Patient is a middle aged female, who appears to be in moderate respiratory distress, being transferred to ICU. Patient is somewhat encephalopathic, keeps her eyes closed. Patient did open her eyes to calling her name. Orientation cannot be assessed. Speech and language functions could not be assessed because patient is on BiPAP. Attention, concentration and fund of knowledge is limited. Patient was able to tell by nodding that she did receive coronavirus vaccination in the past. On cranial examination, pupils are round and reacting to light, visual steele cannot be tested. Her extraocular muscles are intact with no nystagmus. Face and lower cranial nerves cannot be tested because patient is on BiPAP. On muscle strength testing, patient is moving upper and lower extremities equ ally. The strength of the biceps, triceps and barrel cooper appears fairly normal although there was decreased endurance. She moves her both legs bilaterally. She did not cooperate with detailed testing of the lower extremities. Deep tendon reflexes are 1+ to 2 in the upper and lower limbs and plantars are downgoing. Sensory to touch is equal with no neglect. Cerebellar function could not be checked. Tone and bulk of muscles normal. Gait not checked. On general examination, patient is in distress. She had coarse breathing sounds. Abdomen is soft. No peripheral edema. Results - Laboratory Findings CBC and BMP: 02/09/21 06:41 02/09/21 06:41 Abnormal Lab Findings: Abnormal Labs 02/08/21 02/08/21 02/08/21 11:27 11:27 11:27 WBC Neutrophils # (Manual) Lymphocytes # (Manual) Metamyelocytes # (Man) Myelocytes # (Manual) D-Dimer Sodium 136 L BUN Glucose 129 H POC Glucose (mg/dL) AST 47 H Lactate Dehydrogenase 992 H C-Reactive Protein 5.5 H Procalcitonin Coronavirus (PCR) Detected A 02/08/21 02/08/21 02/09/21 11:27 21:44 05:43 WBC Neutrophils # (Manual) Lymphocytes # (Manual) Metamyelocytes # (Man) Myelocytes # (Manual) D-Dimer Sodium BUN Glucose POC Glucose (mg/dL) 167 H 174 H AST Lactate Dehydrogenase C-Reactive Protein Procalcitonin 0.32 H Coronavirus (PCR) 02/09/21 02/09/21 02/09/21 06:41 06:41 06:41 WBC 1.3 L* Neutrophils # (Manual) 0.60 L Lymphocytes # (Manual) 0.35 L Metamyelocytes # (Man) 0.10 H Myelocytes # (Manual) 0.09 H D-Dimer 4.20 H Sodium BUN 18 H Glucose 196 H POC Glucose (mg/dL) AST Lactate Dehydrogenase C-Reactive Protein Procalcitonin Coronavirus (PCR) 02/09/21 07:27 WBC Neutrophils # (Manual) Lymphocytes # (Manual) Metamyelocytes # (Man) Myelocytes # (Manual) D-Dimer Sodium BUN Glucose POC Glucose (mg/dL) 157 H AST Lactate Dehydrogenase C-Reactive Protein Procalcitonin Coronavirus (PCR) Assessment and Plan Assessment: * Altered mental status, with myoclonic twitching/jerks, likely due to severe toxic metabolic encephalopathy. Reasons multifactorial as below. * Acute respiratory failure due to Covid-19 pneumonia. * Acute hypoxemia due to above * COPD Plan: * Consider checking ABG. Patient being transferred to ICU, probably will need intubation with mechanical ventilation. * Treatment of underlying COPD/pneumonia will improve myoclonic twitches. Patient has received Ativan, which already has improved these twitches. * Avoid opiates. * We will follow.
[2021-02-09] MEDS ORDERED: SODIUM BICARB 8.4% 50 ML SYR (1 MEQ/ML) IV STA (15:56)
[2021-02-09] MEDS ORDERED: NOREPINEPHRINE 32 MG in SODIUM CHLORIDE 0.9% 218 ML IV SCH (16:00)
[2021-02-09] MEDS ORDERED: SODIUM CHLORIDE 0.9% 150 ML with VASOPRESSIN 60 UNIT IV SCH ×2 (16:00)
[2021-02-09] MEDS ORDERED: DEXTROSE 5% IN WATER 1,000 ML with SODIUM BICARB (1 MEQ/ML) 150 ML IV SCH (16:00)
[2021-02-09] MEDS: PARoxetine 20 MG TAB PO SCH (16:20)
[2021-02-09 16:21] VITALS: BP 118/97; RESP 36; TEMP 100.4
[2021-02-09 17:14] VITALS: PULSE 137
[2021-02-09] MEDS ORDERED: VANCOMYCIN 1,000 MG in SODIUM CHLORIDE 0.9% 250 ML IVPB STA (18:03)
[2021-02-09 18:04] LABS: ABG HCO3 25 mmol/L (21-25); ABG Oxygen Saturation 84.5 % (94-97); ABG TCO2 27 mmol/L (19-24)
[2021-02-09 18:06] LABS: ABG PCO2 80 mmHg (35-45); ABG PO2 56 mmHg (83-108); Allen Test Performed? NO
[2021-02-09] MEDS ORDERED: VANCOMYCIN IV PER PHARMACY 1 EACH MISC MISCELLANE PRN (18:15)
[2021-02-09] MEDS ORDERED: MORPHINE SULFATE 4 MG/ML SYRINGE IVP STA (18:29)
[2021-02-09] MEDS ORDERED: VANCOMYCIN 1,750 MG in SODIUM CHLORIDE 0.9% 500 ML 500 ML IVPB SCH (19:00)
[2021-02-09] MEDS ORDERED: CHLORHEXIDINE GLUCONATE 15 ML CUP MUCOUS MEM SCH (21:00)
--- NOTE | 2021-02-09 21:21 | OP ---
OPERATIVE REPORT OPERATIVE REPORT: Placement of a right femoral triple-lumen catheter. PREOPERATIVE DIAGNOSIS: Acute hypoxic respiratory failure secondary to COVID-19 pneumonia and cardiac arrest requiring CPR. POSTOPERATIVE DIAGNOSIS: Acute hypoxic respiratory failure secondary to COVID-19 pneumonia and cardiac arrest requiring CPR. ANESTHESIA USED: None deployed. PROCEDURE DESCRIPTION: The patient was placed in supine position. The area of the right groin was prepared in a sterile fashion and drapes were applied. The right femoral vein was easily cannulated. A guidewire was placed. A triple-lumen catheter was inserted over the guidewire, and the guidewire was removed. Good blood flow noted in the 3 different ports of the triple-lumen catheter. Line was secured using 3.0 silk sutures. MMODL / IJN: [id number] /
--- NOTE | 2021-02-09 21:21 | OP ---
OPERATIVE REPORT OPERATIVE REPORT: Placement of a right femoral arterial line. PREOPERATIVE DIAGNOSIS: Acute COVID-19 pneumonia and cardiac arrest. POSTOPERATIVE DIAGNOSIS: Acute COVID-19 pneumonia and cardiac arrest. ANESTHESIA USED: None deployed. PROCEDURE DESCRIPTION: The right groin was prepared in a sterile fashion. Drapes were applied. The right femoral artery was palpated, easily cannulated, and a guidewire was placed. Then a Cook's catheter was inserted over the guidewire, and the guidewire was removed. Good blood flow, good waveform noted. No complications. Line was secured using 3.0 silk sutures. MMODL / IJN: [id number] /
[2021-02-11 11:54] LABS: Methylmalonic Acid 0.83 umol/L (<0.40)
--- NOTE | 2021-02-13 09:46 | CDI ---
Documentation Clarification Form Date: 02/13/2021 09:38:41 AM From: Jamel Calderon Admit Date: 02/08/2021 01:54:00 PM Patient Name: Dayana Archibald Visit Number: [id number] Discharge Date: 02/09/2021 07:46:00 PM ATTENTION: The Clinical Documentation Specialists (CDI) and [facility] Coding Staff appreciate your assistance in clarifying documentation. Please respond to the clarification below the line at the bottom and electronically sign. The CDI & [facility] Coding staff will review the response and follow-up if needed. Please note: Queries are made part of the Legal Health Record. If you have any questions, please contact the author of this message via ITS. Dr. Cosme Thomas The patient presented with the following clinical indicators. Additional clarification regarding the etiology/cause of the clinical indicators is requested. History/Risk Factors: COVID PNA Clinical Indicators: ED: B/P 124.65, Temp 101, resp 22, pulse 115 WBC: 5.5 Lactic acid: WNL Blood cultures: N/A Treatment: IV abx ID Consult: for PNA Antibiotics: IV Bolus: In your professional opinion, please clarify if these findings signify one of the following conditions: [ ] Sepsis POA [ ] Sepsis, Not POA [ ] Sepsis ruled out [ ] SIRS, without underlying infectious process [ ] Other, please specify [ ] Unable to determine SIRS Criteria: 2 or more of the following may indicate SIRS -Temperature < 96.8F (36C) or > 101.0F (38.3C) -Heart Rate > 90 bpm -Respiratory Rate > 20 breaths/min or PaCO2 < 32 mmHg -White Blood Cell Count > 12,000 or < 4,000 cells/mm3 or > 10% bands (Template Last Reviewed: April 2020) sever sepsis , poa. progressed to septic shock prior to expiration MTDD
== END 2021-02-09 19:46 | disposition expired | DRG 871 ==
LOC: EC 10:55 → 4SSUR 13:54 → 2SICU 02-09 12:26
PROVIDERS: ADMIT Internal Medicine; ATTEND Internal Medicine
PROC: 5A0935A Assistance with Respiratory Ventilation, Less than 24 Consecutive Hours, High Flow/Velocity Cannula (ICD-10-PCS; 2021-02-08)
PROC: 5A1935Z Respiratory Ventilation, Less than 24 Consecutive Hours (ICD-10-PCS; principal; 2021-02-09)
PROC: 04HY32Z Insertion of Monitoring Device into Lower Artery, Percutaneous Approach (ICD-10-PCS; 2021-02-09)
PROC: 4A133B1 Monitoring of Arterial Pressure, Peripheral, Percutaneous Approach (ICD-10-PCS; 2021-02-09)
PROC: 4A133J1 Monitoring of Arterial Pulse, Peripheral, Percutaneous Approach (ICD-10-PCS; 2021-02-09)
PROC: 06HM33Z Insertion of Infusion Device into Right Femoral Vein, Percutaneous Approach (ICD-10-PCS; 2021-02-09)
PROC: 3E033XZ Introduction of Vasopressor into Peripheral Vein, Percutaneous Approach (ICD-10-PCS; 2021-02-09)
PROC: 0BH17EZ Insertion of Endotracheal Airway into Trachea, Via Natural or Artificial Opening (ICD-10-PCS; 2021-02-09)
DX: A41.89 Other specified sepsis (principal); U07.1 COVID-19; G92.8 Other toxic encephalopathy; J12.82 Pneumonia due to coronavirus disease 2019; J96.21 Acute and chronic respiratory failure with hypoxia; J69.0 Pneumonitis due to inhalation of food and vomit; R65.21 Severe sepsis with septic shock; J44.0 Chronic obstructive pulmonary disease with (acute) lower respiratory infection; J44.1 Chronic obstructive pulmonary disease with (acute) exacerbation; J90 Pleural effusion, not elsewhere classified; R41.82 Altered mental status, unspecified; D70.9 Neutropenia, unspecified; D72.810 Lymphocytopenia; F12.10 Cannabis abuse, uncomplicated; F17.200 Nicotine dependence, unspecified, uncomplicated; F25.1 Schizoaffective disorder, depressive type; F41.0 Panic disorder [episodic paroxysmal anxiety]; G25.3 Myoclonus; G89.29 Other chronic pain; I45.10 Unspecified right bundle-branch block; I46.8 Cardiac arrest due to other underlying condition; M19.90 Unspecified osteoarthritis, unspecified site; Z51.5 Encounter for palliative care; Z66 Do not resuscitate; M41.9 Scoliosis, unspecified; Z79.51 Long term (current) use of inhaled steroids; Z79.899 Other long term (current) drug therapy; Z83.2 Family history of diseases of the blood and blood-forming organs and certain disorders involving the immune mechanism
CPT/HCPCS: 36415; 70450; 71045; 71046; 80048; 80053; 81003; 82607; 82728; 82747; 82805; 83605; 83615; 83735; 83880; 83921; 84145; 84484; 85025; 85379; 85610; 85730; 86140; 87040; 87635; 93005; 93970; 94002; 94640; 94660; 96374; 96375; 99285